=== PATIENT | female | born 1995 | race Caucasian/White ===

== ENCOUNTER → 2018-05-26 15:25 | Outpatient (CLI) | payer MEDICAID, SELFPAY ==
[2018-05-26 17:53] LABS: Hematocrit 41.7 % (37-47); Hemoglobin 12.9 g/dl (12.0-15.0); Mean Corp Hgb Conc 30.9 g/gl (32-36); Mean Corpuscular Hgb 26.5 pg (27.0-32.0); Mean Corpuscular Volume 85.8 fL (81-99); Mean Platelet Vol. 11.9 fl (6.2-12.0); Platelet Count 239 K/mm3 (150-450); RBC Distribution Width CV 14.6 % (11.6-14.6); RBC Distribution Width SD 45.8 fl (35.1-43.9); Red Blood Count 4.86 M/mm3 (4.2-5.4); White Blood Count 10.7 K/mm3 (4.4-11.0)
[2018-05-26 18:19] LABS: ALB/GLOB Ratio 0.8 RATIO (0.9-2.4); AST(SGOT) 15 U/L (15-37); Alanine Aminotransfer ALT/SGPT 25 U/L (13-56); Albumin, Serum 3.7 g/dL (3.2-5.0); Alkaline Phosphatase 82 U/L (45-117); Anion Gap 14 (5-15); BUN 10 mg/dL (7-18); BUN/Creat Ratio 12.3 RATIO (10-20); Calcium,Total 9.5 mg/dL (8.5-10.1); Chloride 110 mmol/L (98-107); Creatinine, Serum 0.81 mg/dL (0.55-1.02); EST Glomerular Filtration Rate 94 mL/min (>60); Est Glom Filt Rate - Afr Amer 113 mL/min (>60); Ferritin 7 ng/mL (8-252); Globulin 4.8 g/dL (2.2-4.2); Glucose 87 mg/dL (74-106); Potassium 3.8 mmol/L (3.5-5.1); Protein, Total 8.5 g/dL (6.4-8.2); Sodium Level 146 mmol/L (136-145); Thyroid Stim Hormone (TSH) 3.14 uIU/mL (0.358-3.74)
[2018-05-26 18:57] LABS: Scan Indicated on CBC? Y/N NO
== END ==
PROVIDERS: Family Provider Family Medicine; PCP Family Medicine; Visit Provider Family Medicine
DX: E66.01 Morbid (severe) obesity due to excess calories (principal)
CPT/HCPCS: 36415; 80053; 82728; 83036; 84443; 85027

== ENCOUNTER → 2019-01-25 13:36 | Outpatient (CLI) | payer MEDICAID, SELFPAY ==
[2017-07-27 01:14] VITALS: BMI 49.7
[2019-01-25 16:31] LABS: Chlamydia Trachomatis by PCR Negative (Negative); Neisserai gonorrhoeae by PCR Negative (Negative); Probe Check PASS; Sample Adequacy Control PASS; Specimen Processing Control PASS
== END ==
PROVIDERS: Visit Provider Obstetrics & Gynecology
DX: Z12.4 Encounter for screening for malignant neoplasm of cervix (principal); Z11.3 Encounter for screening for infections with a predominantly sexual mode of transmission
CPT/HCPCS: 87491; 87591; 88175; G0145

== ENCOUNTER → 2019-05-12 14:16 | Outpatient (CLI) | payer MEDICAID, SELFPAY ==
[2017-07-27 01:14] VITALS: BMI 49.7
[2019-05-12 15:53] LABS: Internal QC Validated? YES +Cl - CLEAR BKGD
[2019-05-12 15:54] LABS: Pregnancy, Serum, hCG Quali. NEGATIVE Negative
== END ==
PROVIDERS: Family Provider Family Medicine; PCP Family Medicine; Referring Provider Family Medicine; Visit Provider Family Medicine
DX: R11.2 Nausea with vomiting, unspecified (principal)
CPT/HCPCS: 36415; 84703

== ENCOUNTER → 2019-10-02 15:29 | Outpatient (CLI) | payer MEDICAID, SELFPAY ==
[2017-07-27 01:14] VITALS: BMI 49.7
[2019-10-02 18:18] LABS: hCG Titer Quant., Serum < 1 mIU/mL (1-3)
== END ==
PROVIDERS: Family Provider Family Medicine; PCP Family Medicine; Visit Provider Nurse Practitioner Adult Health
DX: Z32.00 Encounter for pregnancy test, result unknown (principal)
CPT/HCPCS: 36415; 84702

== ENCOUNTER 2019-11-18 17:44 | Emergency (ER) | payer MEDICAID, SELFPAY ==
[2019-11-18 17:46] VITALS: BP 144/102; PULSE 120; RESP 17; TEMP 36.7; O2SAT 100; BMI 52.9
--- NOTE | 2019-11-18 18:13 | ED.VIS.GEN ---
History of Present Illness Chief Complaint: Ear Problem Detail of Chief Complaint: Ingestion, runny nose, right ear pain Informant: Patient Onset: Yesterday Current Severity: Mild Maximum Severity: Moderate Narrative: Patient presents with congestion, runny nose, right ear pain that started yesterday. She has not noted any fever. She has no cough or shortness of breath. No chest pain. She tried taking some Tylenol for her symptoms. Past Medical History - Allergies and Home Meds Allergies/Adverse Reactions: Allergies No Known Allergies Allergy (Verified 11/18/19 17:44) Primary Care Physician: Joesph Aguiar MD [Primary Care Provider] - Past Medical History: None Lives: Spouse/ Significant Other Smoking Status: Former smoker Review of Systems General: Denies: Chills, Fever Eyes: Denies: Visual changes - bilaterally ENT: Reports: Right ear pain, Rhinorrhea, - - Congestion Cardiovascular: Denies: Chest pain Respiratory: Denies: Dyspnea, Cough, Paroxysmal nocturnal dyspnea Gastrointestinal: Denies: Abdominal pain, Vomiting, Diarrhea Genitourinary: Denies: Dysuria Musculoskeletal: Denies: Extremity Pain Skin: Denies: Rash Neurological: Denies: Headache Allergy: Denies: Uticaria Physical Exam Vital Signs/Narrative: Vital Signs Temp Pulse Resp BP Pulse Ox 11/18/19 17:46 98.0 F 120 H 17 144/102 H 100 Inital Vital Signs reviewed: Yes General: Well nourished, Well developed Head: Normocephalic ENT: Moist mucous membranes, - - Bilateral ear exam reveals clear fluid behind the TMs, but no sign of infection. Posterior pharynx examination reveals 1+ tonsils with midline uvula. No cervical lymphadenopathy. Neck: Supple Cardiovascular: Regular rhythm, Tachycardia Respiratory: No distress, CTA bilaterally Abdomen: Soft, Nontender Skin: Normal color Neurological: Alert, Oriented x3 Psychological: Normal affect Diagnostic/Tx/Re-eval - Medical Decision Making Patient symptoms are consistent with viral URI. She is given Afrin nasal spray here to help open her sinuses and is given a dose of Sudafed. She was told she could take Sudafed [id number] or Benadryl. ED Disposition - Plan for ED Patient: Disposition: Home or Assisted Living Diagnosis: Viral URI Instructions: URI, Viral, No Abx (Adult) Referrals: Joesph Aguiar MD [Primary Care Provider] - 1 Week if not improving
[2019-11-18] MEDS: Oxymetazoline 0.05% 1 SPRAY SPRAY.BTL 2 SPRAY NASAL (18:37)
[2019-11-18 18:38] VITALS: RESP 18
== END 2019-11-18 18:39 | disposition home or self-care (01) ==
LOC: ED 18:24
PROVIDERS: Emergency Provider Emergency Medicine; PCP Family Medicine
DX: J06.9 Acute upper respiratory infection, unspecified (principal); Z87.891 Personal history of nicotine dependence
CPT/HCPCS: 99283

== ENCOUNTER → 2019-11-30 15:44 | Outpatient (CLI) | payer MEDICAID, SELFPAY ==
[2019-11-18 17:46] VITALS: BMI 52.9
== END ==
PROVIDERS: PCP Family Medicine; Referring Provider Otolaryngology Otolaryngology/Facial Plastic Surgery; Visit Provider Otolaryngology Otolaryngology/Facial Plastic Surgery
DX: J02.9 Acute pharyngitis, unspecified (principal)
CPT/HCPCS: 87070

== ENCOUNTER 2019-12-16 00:36 | Emergency (ER) | payer MEDICAID, SELFPAY ==
[2019-12-16 00:37] VITALS: BP 129/99; PULSE 125; RESP 18; TEMP 36.6; O2SAT 99; BMI 52.0
--- NOTE | 2019-12-16 00:48 | RAD_ITS ---
STUDY: X-RAY CHEST REASON FOR EXAM: Female, 24 years old. COUGH X 1 WEEK TECHNIQUE: PA and lateral views of the chest. COMPARISON: None. FINDINGS: The lungs are clear and expanded. There is no demonstrated pleural abnormality. Normal size heart. Normal mediastinum and phoenix. Normal visualized pulmonary arteries. Normal visualized aortic arch and descending thoracic aorta. Normal visualized thoracic spine. Normal visualized ribs, clavicles, and shoulders. There is no demonstrated abnormality of the visualized soft tissue structures of the upper abdomen. RAD/Chest PA and Lateral IMPRESSION: Normal x-ray examination of the chest. Electronically Signed: Brianna Hawkins MD at 1:11 EDT , Service support ,
--- NOTE | 2019-12-16 01:35 | ED.VIS.GEN ---
History of Present Illness Chief Complaint: Cough Informant: Patient Onset: Weeks - 1 Narrative: Mild productive cough for the past week. States mild blood today. No tobacco history. No recent travel, surgeries, or immobilizations. No history of PE or DVT. Denies any chest pains or any dyspnea. No abdominal pain nausea vomiting. No urinary symptoms. States he is 4 days late on her period. She states she took 3 tests, 2 negative, the other 1 did not have results. Prior similar symptoms: No Past Medical History - Allergies and Home Meds Allergies/Adverse Reactions: Allergies No Known Allergies Allergy (Verified 12/16/19 00:39) Primary Care Physician: Joesph Aguiar MD [Primary Care Provider] - 3-5 Days if not improving Past Medical History: None Smoking Status: Current every day smoker Review of Systems General: Denies: Chills, Fever, Sweats Eyes: Denies: Visual changes - bilaterally, Diplopia ENT: Denies: Rhinorrhea, Sore throat Cardiovascular: Denies: Chest pain, Palpitations Respiratory: Reports: Cough. Denies: Dyspnea, Dyspnea on exertion Gastrointestinal: Denies: Abdominal pain, Nausea, Vomiting, Diarrhea, Melena, Hematochezia Genitourinary: Denies: Dysuria, Hematuria, Frequency Musculoskeletal: Denies: Back pain, Extremity Pain Skin: Denies: Rash, Wounds Neurological: Denies: Headache, Weakness, Numbness Physical Exam Vital Signs/Narrative: Vital Signs Temp Pulse Resp BP Pulse Ox 12/16/19 00:37 97.8 F 125 H 18 129/99 H 99 Inital Vital Signs reviewed: Yes General: Well nourished, Well developed, No Acute Distress Head: Normocephalic, Atraumatic Eyes: Perrl, EOMI ENT: Moist mucous membranes, No rhinorrhea Neck: Supple, Nontender Cardiovascular: Regular rate, Regular rhythm, No murmurs, Tachycardia Respiratory: No distress, CTA bilaterally, Chest nontender Abdomen: Soft, Nontender, Nondistended, Normal bowel sounds Back: Nontender, Normal Inspection Extremities: Nontender, No edema Skin: Normal color, No rash Neurological: Alert, Oriented x3, Cranial nerves II-XII grossly intact, Normal Strength, Normal Sensation Psychological: Normal affect, Normal Mood Diagnostic/Tx/Re-eval - Medical Decision Making Clinical Impression(s) from Imaging Studies Chest X-Ray 12/16/19 00:48 IMPRESSION: Normal x-ray examination of the chest. Electronically Signed: Brianna Hawkins MD at 1:11 EDT , Service support , Patient nontoxic, tachycardia on evaluation. Reports slight blood in cough. She denies chest pains, dyspnea, or any exertional dyspnea for concerns of PE. There is no risk factors. Chest x-ray obtained negative. Discussed with patient currently negative test at home. She can recheck in 1 week for potential early . Patient will follow-up as an outpatient. Signs and symptoms were discussed to return. All questions were answered. ED Disposition - Plan for ED Patient: Disposition: Home or Assisted Living Diagnosis: Viral URI with cough Instructions: BRONCHITIS, No Antibiotic (Adult) Referrals: Joesph Aguiar MD [Primary Care Provider] - 3-5 Days if not improving
[2019-12-16 01:45] VITALS: RESP 14
== END 2019-12-16 01:45 | disposition home or self-care (01) ==
PROVIDERS: Emergency Provider Emergency Medicine; PCP Family Medicine
DX: J06.9 Acute upper respiratory infection, unspecified (principal); R05 Cough; F17.200 Nicotine dependence, unspecified, uncomplicated
CPT/HCPCS: 71046; 99282

== ENCOUNTER → 2020-01-31 15:27 | Outpatient (CLI) | payer MEDICAID, SELFPAY | PROVIDERS: PCP Family Medicine; Referring Provider Family Medicine; Visit Provider Family Medicine | DX: J02.9 Acute pharyngitis, unspecified (principal) | CPT/HCPCS: 87070 ==

== ENCOUNTER 2020-02-08 11:00 | Outpatient (RCR) | payer MEDICAID, SELFPAY ==
--- NOTE | 2020-01-30 14:58 | HP.PTEVAL ---
Patient's Visit Information SERGIO MAGAÑA is a 24 year old F referred to Physical Therapy by Dr. Joesph Aguiar MD with a diagnosis of L knee pain. Date of Evaluation: 01/30/20 Physical Therapist: Edgar Medrano PT, ATC - Visit Plan Frequency: 2x /Week Duration: 4 Weeks Plan: L LE strengthening, core strengthening, balance and proprio, bike, and HEP - Subjective Subjective: Pt reports her L knee has been sore for 6-7 years. Pt notes she was in gym class when her L knee gave out on her. Pt reports her knee has been sore ever since and continues to go out on her, and she has a 2 year old child currently. Pt also notes her L knee pops and locks up on her. Pt reports no tingling or numbness in her L knee. Pt notes sleep difficulty st night secondary to pain. Pt reports she has svere difficulty with stair negotiation and car transfers secondary to pain. No PMHx of surgery to L knee. 5/10 pain at rest, 10/10 at worst (when knee locks up) - Pain L knee Pain Intensity (Out of 10): 5 Pain Intensity Range: 10 - Objective Neuro: B LE sensation is WNL to light touch. ROM: R knee 0-120; L knee 0-4-95. MMT: L knee is grossly 4-/5, R knee 5/5 throughout. Palpation: Pt is very sore along the medial compartment of L knee. No obvious deformity at this time. Special tests: pos mcmurrays sign - Goals Goal 1:: Decrease L knee pain x 50% to aid with sleep Goal Time Frame: 2-4 Weeks Goal 2:: Increase L knee strength x 1 grade to aid with stair negotiation Goal Time Frame: 2-4 Weeks Goal 3:: I with HEP Goal Time Frame: 2-4 Weeks - Rehabilitation Potential Physical Therapy Diagnosis: Pt has L knee pain, weakness, and limited ROM secondary to possible L knee meniscal tear Rehabilitation Potential: Good - Anticipated Interventions Patient/Client Instruction: Educate patient on: Condition, Plan of Care For the Purpose of:: To improve self management Therapeutic Exercise to Include: Strength training, Endurance training, Balance training, Active ROM, Dynamic Lumbar Stabilization For the Purpose of:: To decrease pain, To increase ROM, To improve muscle performance and motor function Cryotherapy (ice pack, ice massage): Yes For the Purpose of:: To decrease pain, To increase ROM, To improve muscle performance and motor function Thank you for the opportunity to evaluate your patient. For Medicare and Medicare HMO plans, please review the plan of care and approve it. It will need to be FAXED BACK to us at [phone] for Medicare purposes. For Medicare only, by signing this I certify the plan of care. Please let me know if there are questions or concerns regarding this plan of care. Physician Signature: Date:
--- NOTE | 2020-06-05 12:55 | HP.PT.NRP ---
SERGIO MAGAÑA was seen in my office for initial evaluation on 01/30/20. The following Plan of Care was established for this patient: Initial Frequency: 2x /Week Initial Duration: 4 Weeks Patient/Client Instruction: Educate patient on: Condition, Plan of Care For the Purpose of:: To improve self management Therapeutic Exercise to Include: Strength training, Endurance training, Balance training, Active ROM, Dynamic Lumbar Stabilization For the Purpose of:: To decrease pain, To increase ROM, To improve muscle performance and motor function Cryotherapy (ice pack, ice massage): Yes For the Purpose of:: To decrease pain, To increase ROM, To improve muscle performance and motor function This patient was last seen in our office . Pertinent comments regarding their Physical therapy will appear below: Pt was treated for 3 PT visits for L knee pain through 02/08/20. Pt has not returned through todays date and is discontinued at this time. At this point I will be discontinuing this patient from physical therapy. I would be happy to see this patient again in the future if found appropriate by the physician. Thank you! Edgar Medrano, PT, ATC
== END 2020-02-08 19:00 | disposition home or self-care (01) ==
LOC: PT 11:00
PROVIDERS: PCP Family Medicine; Referring Provider Family Medicine; Visit Provider Family Medicine
DX: M25.9 Joint disorder, unspecified (principal)
CPT/HCPCS: 97110; 97140; 97161

== ENCOUNTER 2020-03-26 07:00 | Day surgery (SDC) | payer MEDICAID, SELFPAY ==
[2020-03-26] VITALS (8 sets, daily range): BP systolic 95–141; BP diastolic 60–83; PULSE 71–107; RESP 16–18; TEMP 36.4–37.1; O2SAT 93–100; BMI 55.9
[2020-03-26 07:27] LABS: Internal QC Validated? YES +Cl - CLEAR BKGD; Pregnancy, Urine Negative Negative
[2020-03-26] MEDS: Lactated Ringers 1,000 ML 100 ML IV (07:35)
--- NOTE | 2020-03-26 07:59 | PCM.OPRPT ---
Problem List (1) Chronic tonsillitis Status: Chronic (2) Chronic serous otitis media Status: Chronic Report of Operation Date of Procedure: 03/26/20 Type of Anesthesia:: General Description of Procedure: on the day of the procedure, after appropriate informed consent was obtained, the patient was brought to the operating room and placed in supine position on the operating table. she was placed under general endotracheal anesthesia by the anesthesiologist. the endotracheal tube was secured, the eyes were taped. the table was rotated 90 degrees toward the surgeon. the right ear was viewed using the binocular microscope. a speculum was placed. the tympanic membrane was viewed in its entirety and found to be intact. a radial myringotomy was made and a cifuentes tympanostomy tube was placed. floxin otic drops were instilled. the left ear was viewed using the binocular microscope. a speculum was placed. the tympanic membrane was viewed in its entirety and found to be intact. a radial myringotomy was made and a cifuentes tympanostomy tube was placed. floxin otic drops were instilled. a марина le mouthgag was inserted into the oral cavity with care not to damage the lips, teeth or gums. it was suspended from the mujica. a red rubber catheter was inserted transnasally to elevate the soft palate. the right tonsil was grasped with a curved allis, retracted medially, dissected and removed using a bovie electrocautery. hemostasis was observed. the right tonsil was grasped with a curved allis, retracted medially, dissected and removed using a bovie electrocautery. hemostasis was observed. a valsalva was held and hemostasis was obtained with the suction electrocautery the patient was brought out of anesthesia and transferred to the PACU in stable condition.
--- NOTE | 2020-03-26 08:30 | TONS_PTH ---
PATIENT: SERGIO PARRISH LOC: [facility] [place] U#:[id number] AGE/SX: 24/F ROOM: RE03/26/[address]: Dr. Abe Monroy MD : 1995 BED: DIS: 03/26/2020 SPEC #: [id number] RECD: 03/26/20 09:30 STATUS: ALEXX HARTLEY #: [id number] EVELYNE: 03/26/20 08:[address]: Abe Monroy DEPT: SURGICAL PATHOLOGY RECD BY: Mirian Malagon ENTERED: 03/26/20 10:00 SP TYPE: TONSILS OTHR DR: Dr. Joesph Aguiar MD Tissues: Tonsil, NOS Procedures: Surgery Specimen Level III HEADER OPERATION: Tonsillectomy, myringotomy with tubes PRE-OP DIAGNOSIS: Chronic tonsillitis, chronic serous otitis TISSUE SUBMITTED: Tonsils, tie on right MICROSCOPIC DIAGNOSIS Bilateral tonsils, tonsillectomy: Reactive lymphoid hyperplasia, consistent with chronic tonsillitis. Focal actinomyces colonization. HILARIO:desirae 03/27/20 MICROSCOPIC DESCRIPTION Slides are reviewed. GROSS DESCRIPTION Received is one container labeled with the patient's name and designated tonsils - tie on right are two tonsils that in aggregate weigh 11.4 gm. The right tonsil has a tie on it and measures 3.5 x 2 x 1.5 cm. The left tonsil measures 3.5 x 2 x 1.5 cm. Both tonsils are similar in appearance. The external surfaces are pink-enriquez, smooth, glistening and somewhat lobulated. Focally they are hemorrhagic, granular and bear cautery artifact. Serial cross sections through the tonsils reveal normal tonsillar architecture. Sections are submitted in two cassettes as follows: 1 - right tonsil, 2 - left tonsil. / HILARIO:desirae 03/26/20 TC:3 CPT: 04002 x2
[2020-03-26] MEDS: Ciprofloxacin 0.3% 2.5ml Bottle 1 DRP (08:50)
[2020-03-26] MEDS: HYDROcodone Bitartrate/Apap 5/325 Tablet PO (11:20)
--- NOTE | 2020-03-26 12:12 | SUR.PHASEII ---
TONSILLECTOMY TEACHING BOOKLET GIVEN TO PT AND REVIEWED
== END 2020-03-26 12:12 | disposition home or self-care (01) ==
LOC: SDC 07:01 → AC 07:02
PROVIDERS: Anesthesiology; PCP Family Medicine; Referring Provider Otolaryngology; Visit Provider Otolaryngology
PROC: (CPT 42826; principal; 2020-03-26 08:15)
DX: J35.01 Chronic tonsillitis (principal); H65.23 Chronic serous otitis media, bilateral; H66.006 Acute suppurative otitis media without spontaneous rupture of ear drum, recurrent, bilateral; E66.01 Morbid (severe) obesity due to excess calories; Z68.43 Body mass index [BMI] 50.0-59.9, adult
CPT/HCPCS: 00170; 42826; 69436; 81025; 87635; 88304; G2023; J7120; J2405; U0003

== ENCOUNTER 2020-03-29 21:59 | Emergency (ER) | payer MEDICAID, SELFPAY ==
[2020-03-26 07:24] VITALS: BMI 55.9
[2020-03-29 22:00] VITALS: BP 174/107; PULSE 110; RESP 18; TEMP 36.6; O2SAT 98; BMI 53.5
[2020-03-29] MEDS: 0.9% Normal Saline 1,000 ML 999 ML IV (22:54)
[2020-03-29] MEDS: Ondansetron 4 MG/2 ML Vial IV (22:54)
[2020-03-29 22:57] VITALS: RESP 18
--- NOTE | 2020-03-29 23:56 | ED.DCSUM_ITS ---
- ER Visit Summary Date of Service: 03/29/20 Chief Complaint: Nausea and vomiting status post tonsillectomy History of Present Illness: The patient is a 24 F who complains of nausea and vomiting. She had a tonsillectomy performed at this facility [address] Monroy. She states that she has had a fairly normal postoperative course. She has been taking oxycodone at home for the pain. She has had some nausea and vomiting which is causing her issues. She feels as she cannot keep anything down. She denies any dizziness or lightheadedness. She is having some throat pain since her tonsillectomy. Her temperature was 99.1 ?F today. Physical Examination: Vital signs reviewed. HEENT exam shows postoperative changes in the pharynx. There is no bleeding. No significant erythema. She is handling her secretions normally. No uvular swelling.. Heart is tachycardic and regular rhythm without murmurs. Lungs are clear to auscultation. Abdomen is soft and nontender. Extremities reveal no edema. Skin exam normal. Neurologic exam normal. Test Results: None performed Emergency Department Course and Treatment: The patient was given IV fluids and Zofran. She states that she does feel better. She was complaining of some throat pain so I gave her IV Toradol. Patient be discharged with Zofran to take help with her nausea. She will continue her home pain medications and she will follow-up with ENT Treatment Plan: [] Disposition: Discharge Impression: Nausea and vomiting, postoperative pain This note was generated with [employer] dictation software. It may contain incorrect words, spelling, and punctuation that were not noted in review of the chart prior to signing ED Disposition - Plan for ED Patient: Disposition: Home or Assisted Living Instructions: ED Nausea Vomiting Adult Prescriptions: Ondansetron [Zofran Odt] 8 mg PO Q8H PRN PRN #20 tab PRN Reason: Nausea Transmission Status: Pending to [facility] #30 Referrals: Joesph Aguiar MD [Primary Care Provider] -
[2020-03-30] MEDS: Ketorolac 30 MG/ML Syringe IV (00:13)
[2020-03-30 00:17] VITALS: BP 144/89; PULSE 97; RESP 20; TEMP 36.8; O2SAT 98
[2020-03-30 00:23] VITALS: RESP 16
== END 2020-03-30 00:52 | disposition home or self-care (01) ==
PROVIDERS: Emergency Provider Emergency Medicine; PCP Family Medicine
DX: R11.2 Nausea with vomiting, unspecified (principal); J02.9 Acute pharyngitis, unspecified; Z98.890 Other specified postprocedural states
CPT/HCPCS: 96361; 96374; 96375; 99285; J7030; J2405

== ENCOUNTER 2020-06-18 12:19 | Emergency (ER) | payer MEDICAID, SELFPAY ==
[2020-06-18 12:20] VITALS: BP 150/131; PULSE 110; RESP 18; TEMP 36.4; O2SAT 100; BMI 42.9
--- NOTE | 2020-06-18 12:32 | ED.DCSUM_ITS ---
History of Present Illness Chief Complaint: Lower Extremity Injury Informant: Patient Occurred: Today - JPFRANICS Mechanism/Context: Same level fall, Trip - While carrying a heavy load of clothes, tripped on the sidewalk Location: Right knee, left ankle Quality of Pain: Aching Current Severity: Severe Maximum Severity: Severe Worsened by: Walking and bearing weight, moving Relieved by: Rest and remaining still Associated Symptoms: Negative for: Parasthesias, Weakness, Loss of function, Inability to ambulate, Loss of consciousness, Amnesia Narrative: Patient was able to weight-bear at the time of the injury and now, but with pain. No other injuries. She twisted her left ankle when she fell. She then fell onto her right knee. Past Medical History - Allergies and Home Meds Allergies/Adverse Reactions: Allergies No Known Allergies Allergy (Verified 06/18/20 12:22) Primary Care Physician: Joesph Aguira MD [Primary Care Provider] - 1-2 Weeks (if not improving) Past Medical History: None Smoking Status: Never smoker Review of Systems General: Denies: Chills, Fever, Sweats Gastrointestinal: Denies: Nausea, Vomiting Musculoskeletal: Reports: Extremity Pain. Denies: Neck pain, Back pain Neurological: Denies: Headache, Weakness, Numbness Physical Exam Vital Signs/Narrative: Vital Signs Temp Pulse Resp BP Pulse Ox 06/18/20 12:20 97.6 F L 110 H 18 150/131 H 100 General: Well nourished, Well developed, Obese, - - NAD Head: Normocephalic, Atraumatic Eyes: Perrl, EOMI Neck: Full ROM Extremeties: Tender left lateral malleolus, nontender at the medial malleolus, base of the fifth metatarsal, proximal fibula, knee. Limited range of motion of the left ankle due to pain, no deformities or significant swelling. Right knee diffusely tender anteriorly, including at the area around the tibial tuberosity. No deformities. Limited flexion due to pain. No effusion. Ligaments all stable and intact with short endpoints. Otherwise, extremities atraumatic. Skin: Normal color, No rash, Trauma - Mild contusion with intact skin right proximal lower leg Neurological: Alert, Oriented x3, Cranial nerves II-XII grossly intact, Normal Strength, Normal Sensation Psychological: Normal affect, Normal Mood Diagnostic/Tx/Re-eval Clinical Impression(s) from Imaging Studies Ankle X-Ray 06/18/20 12:50 IMPRESSION: Normal x-ray examination of the ankle. Electronically Signed: Darshan Baxteroksana, at 13:40 EDT , Service support , Knee X-Ray 06/18/20 12:50 IMPRESSION: Normal x-ray examination of the knee. Electronically Signed: Darshan Baxteroksana, at 13:41 EDT , Service support , - Medical Decision Making X-rays of the left ankle and right knee are negative for any acute fracture or other pathology. Patient reassured, consistent with a left ankle sprain and a right knee/lower leg contusion. Given an Aircast, Naprosyn, ice pack, and instructions for supportive care and follow-up. ED Disposition - Plan for ED Patient: Disposition: Home or Assisted Living Diagnosis: Left ankle sprain, Contusion of right knee and lower leg Instructions: ED Sprain Ankle Prescriptions: Naproxen [Naprosyn] 500 mg PO BID PRN #20 tab Transmission Status: Pending to [employer] #30 Referrals: Joesph Aguiar MD [Primary Care Provider] - 1-2 Weeks (if not improving)
--- NOTE | 2020-06-18 12:50 | RAD_ITS ---
STUDY: X-RAY - RIGHT KNEE REASON FOR EXAM: Female, 24 years old. PATIENT FELL TODAY. PAIN ALL OVER KNEE TECHNIQUE: 4 view(s) of the knee. COMPARISON: None. FINDINGS: Normal visualized distal femur. Normal visualized proximal tibia and fibula. Normal proximal tibiofibular articulation. Normal medial femorotibial compartment. Normal lateral femorotibial compartment. Normal patellofemoral articulation. The soft tissue structures are unremarkable. RAD/Knee 4 or More Views IMPRESSION: Normal x-ray examination of the knee. Electronically Signed: Darshan Ryan, at 13:41 EDT , Service support ,
--- NOTE | 2020-06-18 12:50 | RAD_ITS ---
STUDY: X-RAY - LEFT ANKLE REASON FOR EXAM: Female, 24 years old. PT FELL TODAY. PAIN ALONG LATERAL SIDE OF ANKLE TECHNIQUE: 3 view(s) of the ankle. COMPARISON: None. FINDINGS: Normal visualized distal tibia and fibula. Normal medial and lateral malleoli. Normal tibiotalar articulation and ankle mortise. Normal visualized talus and calcaneus. The visualized subtalar, talonavicular, calcaneocuboid and tarsal articulations are normal. The soft tissue structures are unremarkable. RAD/Ankle min 3 Views IMPRESSION: Normal x-ray examination of the ankle. Electronically Signed: Darshan Ryan, at 13:40 EDT , Service support ,
[2020-06-18] MEDS: Naproxen 500 MG Tablet PO (13:44)
== END 2020-06-18 13:50 | disposition home or self-care (01) ==
PROVIDERS: Emergency Provider Emergency Medicine; PCP Family Medicine
DX: S93.402A Sprain of unspecified ligament of left ankle, initial encounter (principal); S80.01XA Contusion of right knee, initial encounter; S80.11XA Contusion of right lower leg, initial encounter; W19.XXXA Unspecified fall, initial encounter
CPT/HCPCS: 73564; 73610; 99283

== ENCOUNTER → 2020-06-24 11:49 | Outpatient (CLI) | payer MEDICAID, SELFPAY ==
[2020-06-18 12:20] VITALS: BMI 42.9
--- NOTE | 2020-06-24 11:50 | RAD_ITS ---
STUDY: X-RAY - LEFT ANKLE REASON FOR EXAM: Female, 24 years old. Left ankle injury, second recent fall TECHNIQUE: 3 view(s) of the ankle. COMPARISON: Comparison is made with prior study dated 06/18/2020. FINDINGS: Normal visualized distal tibia and fibula. Normal medial and lateral malleoli. Normal tibiotalar articulation and ankle mortise. Normal visualized talus and calcaneus. The visualized subtalar, talonavicular, calcaneocuboid and tarsal articulations are normal. The soft tissue structures are unremarkable. RAD/Ankle min 3 Views IMPRESSION: Medial soft tissue swelling. Electronically Signed: Darshan Ryan, at 15:19 EDT , Service support ,
== END ==
PROVIDERS: PCP Family Medicine; Referring Provider Family Medicine; Visit Provider Family Medicine
DX: S99.912A Unspecified injury of left ankle, initial encounter (principal); Z20.828 Contact with and (suspected) exposure to other viral communicable diseases
CPT/HCPCS: 73610; 87635; U0003

== ENCOUNTER 2020-07-06 22:27 | Emergency (ER) | payer MEDICAID, SELFPAY ==
[2020-07-06 22:28] VITALS: BP 135/107; PULSE 115; RESP 18; TEMP 36.6; O2SAT 100; BMI 52.9
--- NOTE | 2020-07-06 22:36 | ED.VIS.GEN ---
History of Present Illness Chief Complaint: Upper Extremity Injury Informant: Patient Narrative: 24-year-old female presenting with pain in her left hand fifth digit. She states he slammed it in a pizza oven at work. She states it hurts and it swollen. She took Tylenol. She sustained no lacerations or abrasions. She does not want to claim workers comp. She states she has no medical problems. She sustained no other injuries. No paresthesias. Past Medical History - Allergies and Home Meds Allergies/Adverse Reactions: Allergies No Known Allergies Allergy (Verified 07/06/20 22:29) Primary Care Physician: Joesph Aguiar MD [Primary Care Provider] - Past Medical History: - - Patient denies medical problems Surgical History: noncontributory Lives: Alone Smoking Status: Current every day smoker Alcohol: None Drugs: None Review of Systems General: Denies: Chills, Fever, Sweats Eyes: Denies: Visual changes - bilaterally, Diplopia ENT: Denies: Rhinorrhea, Sore throat Cardiovascular: Denies: Chest pain, Palpitations Respiratory: Denies: Dyspnea, Cough, Dyspnea on exertion Gastrointestinal: Denies: Abdominal pain, Nausea, Vomiting, Diarrhea, Melena, Hematochezia Genitourinary: Denies: Dysuria, Hematuria, Frequency Musculoskeletal: Reports: - - Tenderness to palpation diffusely over the right fifth PIP. There is swelling at the PIP. Right hand is neurovascularly intact throughout with brisk cap refill to all 5 fingers.. Denies: Back pain Skin: Denies: Rash, Wounds Neurological: Denies: Headache, Weakness, Numbness Physical Exam Vital Signs/Narrative: Vital Signs Temp Pulse Resp BP Pulse Ox 07/06/20 22:28 97.9 F 115 H 18 135/107 H 100 General: Obese, No Acute Distress Head: Normocephalic, Atraumatic Eyes: Perrl, EOMI Cardiovascular: Regular rate, Regular rhythm Respiratory: No distress, CTA bilaterally Extremities: - - Tenderness to palpation diffusely over the right fifth PIP. There is swelling at the PIP. Right hand is neurovascularly intact throughout with brisk cap refill to all 5 fingers. Skin: Normal color, No rash Neurological: Alert, Oriented x3 Psychological: Normal affect, Normal Mood Diagnostic/Tx/Re-eval Clinical Impression(s) from Imaging Studies Hand X-Ray 07/06/20 22:58 IMPRESSION: Small volar plate avulsion fracture of the middle phalanx, right fifth finger. Associated soft tissue swelling. No dislocation. at 2342 Reported and signed by: Thomas Cifuentes MD Electronically Signed: Thomas Cifuentes, at 23:41 EDT Tel , Service support , - Medical Decision Making Patient presents with finger pain from slamming her finger in a door of the [employer] oven. Her x-ray shows she has a small volar plate avulsion fracture. Patient with patient in a finger splint. She will be given follow-up with orthopedics. She will be given Naprosyn for home. Patient stable for discharge. Impression: 1. Avulsion fracture right hand fifth digit ED Disposition - Plan for ED Patient: Prescriptions: Naproxen [Naprosyn] 500 mg PO BID PRN #20 tab Transmission Status: Pending to [facility] Referrals: Joesph Aguiar MD [Primary Care Provider] -
--- NOTE | 2020-07-06 22:58 | RAD_ITS ---
HISTORY: PAIN IN RIGHT 5TH DIGIT, INJURY AT WORK. EXAMINATION/TECHNIQUE: XR right hand 3 views COMPARISON: 11/01/2015 FINDINGS: The middle phalangeal base, right fifth finger, shows a subtle and small volar plate avulsion fracture at its radial aspect. Associated soft tissue swelling of the proximal right fifth finger. No dislocation. Joint spaces appear preserved. No radiopaque foreign body. RAD/Hand Min 3 Views IMPRESSION: Small volar plate avulsion fracture of the middle phalanx, right fifth finger. Associated soft tissue swelling. No dislocation. at 2342 Reported and signed by: Thomas Cifuentes MD Electronically Signed: Thomas Cifuentes, at 23:41 EDT Tel , Service support ,
[2020-07-06] MEDS: Naproxen 500 MG Tablet PO (23:20)
[2020-07-06 23:52] VITALS: PULSE 115; RESP 18; O2SAT 100
== END 2020-07-07 00:33 | disposition home or self-care (01) ==
PROVIDERS: Emergency Provider Student in an Organized Health Care Education/Training Program; PCP Family Medicine
DX: S62.609A Fracture of unspecified phalanx of unspecified finger, initial encounter for closed fracture (principal); X58.XXXA Exposure to other specified factors, initial encounter; Y99.0 Civilian activity done for income or pay; F17.200 Nicotine dependence, unspecified, uncomplicated
CPT/HCPCS: 29130; 73130; 99283

== ENCOUNTER → 2020-07-10 11:53 | Outpatient (CLI) | payer MEDICAID, SELFPAY ==
[2020-07-06 22:28] VITALS: BMI 52.9
[2020-07-10 15:12] LABS: Absolute Lymphocyte Count 2.36 X10^3/uL (0.83-4.51); Absolute Neutrophil Count 7.5 X10^3/uL (2.0-7.7); Basophil# 0.02 X10^3/uL; Basophil% 0.2 % (0-1); Eosinophil# 0.15 X10^3/uL; Eosinophils% 1.4 % (0-5); Hematocrit 40.7 % (37-47); Hemoglobin 12.3 g/dL (12.0-15.0); Lymphocyte # 2.36 X10^3/ul (4.0); Lymphocyte % 22.1 % (19-41); Mean Corp Hgb Conc 30.2 g/dL (32-36); Mean Corpuscular Hgb 27.1 pg (27.0-32.0); Mean Corpuscular Volume 89.6 fL (81-99); Mean Platelet Vol. 12.2 fl (6.2-12.0); Monocyte# 0.68 X10^3/uL; Monocyte% 6.4 % (0-10); NRBC Flagged by Analyzer 0 % (0-5); Neutrophil # 7.45 X10^3/uL (2.7-7.7); Neutrophil % 69.6 % (47-70); Platelet Count 249 K/mm3 (150-450); RBC Distribution Width CV 13.2 % (11.6-14.6); RBC Distribution Width SD 43.6 fl (35.1-43.9); Red Blood Count 4.54 M/mm3 (4.2-5.4); White Blood Count 10.7 K/mm3 (4.4-11.0)
[2020-07-10 15:42] LABS: Internal QC Validated? YES +Cl - CLEAR BKGD; Pregnancy, Serum, hCG Quali. NEGATIVE Negative
[2020-07-10 15:51] LABS: Hemoglobin A1c 5.1 % (3.8-5.6)
[2020-07-10 15:59] LABS: ALB/GLOB Ratio 0.7 RATIO (0.9-2.4); AST(SGOT) 18 U/L (15-37); Alanine Aminotransfer ALT/SGPT 23 U/L (13-56); Albumin, Serum 3.5 g/dL (3.2-5.0); Alkaline Phosphatase 76 U/L (45-117); Anion Gap 7 (5-15); BUN 10 mg/dL (7-18); BUN/Creat Ratio 14.4 RATIO (10-20); Calcium,Total 8.6 mg/dL (8.5-10.1); Chloride 104 mmol/L (98-107); Creatinine, Serum 0.69 mg/dL (0.55-1.02); EST Glomerular Filtration Rate 110 mL/min (>60); Est Glom Filt Rate - Afr Amer 133 mL/min (>60); Globulin 4.7 g/dL (2.2-4.2); Glucose 75 mg/dL (74-106); Potassium 3.8 mmol/L (3.5-5.1); Protein, Total 8.2 g/dL (6.4-8.2); Sodium Level 136 mmol/L (136-145); Thyroid Stim Hormone (TSH) 2.78 uIU/mL (0.358-3.74)
== END ==
PROVIDERS: PCP Family Medicine; Referring Provider Family Medicine; Visit Provider Family Medicine
DX: N92.6 Irregular menstruation, unspecified (principal)
CPT/HCPCS: 36415; 80053; 83036; 84443; 84703; 85025

== ENCOUNTER → 2020-07-24 10:20 | Outpatient (CLI) | payer MEDICAID, SELFPAY ==
[2020-07-06 22:28] VITALS: BMI 52.9
--- NOTE | 2020-07-24 10:23 | RAD_ITS ---
STUDY: X-RAY - RIGHT HAND, ATTENTION 5th FINGER REASON FOR EXAM: Female, 24 years old. 5TH DIGIT AVULSION FX FOLLOW UP TECHNIQUE: 3 view(s) of the finger were obtained. COMPARISON: July 06, 2020 right hand x-ray FINDINGS: Normal metacarpal head. Normal metacarpophalangeal joint. Normal proximal phalanx. There is a stable focal avulsion injury and or corner fracture at the proximal aspect of the middle phalanx of the fourth digit. Normal distal phalanx. Normal proximal interphalangeal joint. Normal distal interphalangeal joint. There is soft tissue edema. RAD/Finger(s) Min 2 Views IMPRESSION: Stable fifth digit. Persistent visualized avulsion injury and/or corner fracture at the base of the middle phalanx of the fifth digit. Electronically Signed: Polina Mendoza MD at 4:33 EDT Tel , Service support ,
== END ==
PROVIDERS: PCP Family Medicine; Referring Provider Family Medicine; Visit Provider Family Medicine
DX: S62.646D Nondisplaced fracture of proximal phalanx of right little finger, subsequent encounter for fracture with routine healing (principal)
CPT/HCPCS: 73140

== ENCOUNTER 2020-11-10 14:59 | Emergency (ER) | payer MEDICAID, SELFPAY ==
[2020-11-10 15:00] VITALS: BP 153/96; PULSE 116; RESP 18; TEMP 36.1; O2SAT 100; BMI 54.9
--- NOTE | 2020-11-10 15:42 | EKG12_ITS ---
Test Reason : CP Blood Pressure : / mmHG Vent. Rate : 094 BPM Atrial Rate : 094 BPM P-R Int : 178 ms QRS Dur : 072 ms QT Int : 338 ms P-R-T Axes : 039 020 036 degrees QTc Int : 422 ms Normal sinus rhythm Normal ECG Confirmed by ALDAIR NUNEZ, NIKHIL ([id number]), manuscript editor JURGEN SORIA ([id number]) on 11/12/2020 8:25:55 AM Referred By: CHAN Confirmed By:NIKHIL QUINTEROS MD
--- NOTE | 2020-11-10 15:43 | ED.VISSUMM ---
- ER Visit Summary Date of Service: 11/10/20 Chief Complaint: [Chest pain] History of Present Illness: The patient is a 24 F [presents to the emergency department with complaint of chest pain that started around 1 or 2 in the morning last evening. Pain came on suddenly. Pains been continuous. Pain is worse with movement and deep breath. He describes it as sharp and across both sides of her chest and down her left breast. Patient denies shortness of breath. She denies abdominal pain. She denies fever or recent illness. She denies cough. She is never had pain like this before. No history of PE or DVT. Patient rates her pain as a 10 out of 10.] Patient states that she is unsure if this could be stress related as she has been under a lot more stress lately. She does not take anything for anxiety at home. Physical Examination: [HEENT-PERRLA, EOMI. Cranial nerves II through XII grossly intact. TMs clear. Mucous membranes moist. No adenopathy. Cardiovascular-regular rate and rhythm without murmur or ectopy. Patient does have tenderness palpation of the anterior chest wall diffusely that seems to reproduce her pain. Lungs-clear to auscultation, chest wall stable without crepitus or subcu emphysema Abdomen-normoactive bowel sounds, soft, nontender, no rebound or rigidity, no peritoneal signs. Extremities-intact ?4, normal range of motion, normal pulses, atraumatic] Test Results: [EKG obtained arrival shows sinus rhythm with a ventricular rate of 94 bpm with no acute ST segment changes. CBC with differential showing a 10.6, hemoglobin 12.8, hematocrit 41, placed 245. Chemistries unremarkable. Troponin was less than 0.015. D-dimer was 1.06. CTA of the chest obtained was normal.] Emergency Department Course and Treatment: [IV line established on arrival. Patient was given Toradol 30 mg IV and she had good pain improvement with that initially and then her pain came back. She was given a milligram of Ativan IV.] Treatment Plan: [Patient will be given a prescription for Ativan as needed. She is instructed to use ibuprofen for discomfort.] She will be given a prescription for few Ativan as needed for anxiety. Disposition: [Discharged home in stable condition] Impression: [Chest pain-etiology uncertain.] This note was generated with Dragon dictation software. It may contain incorrect words, spelling, and punctuation that were not noted in review of the chart prior to signing ED Disposition - Plan for ED Patient: Referrals: Joesph Aguiar MD [Primary Care Provider] -
--- NOTE | 2020-11-10 16:05 | RAD_ITS ---
STUDY: X-RAY CHEST REASON FOR EXAM: Female, 24 years old. C/O pain to chest that began suddenly around 1200 today. Pain increased with deep breaths. TECHNIQUE: AP COMPARISON: None. FINDINGS: EKG leads project over the chest. Lungs are underexpanded. No airspace consolidation. Mild atelectasis in the lung bases. There is no demonstrated pleural abnormality. Normal size heart. Normal mediastinum and phoenix. Normal visualized pulmonary arteries. Normal visualized aortic arch and descending thoracic aorta. Normal visualized thoracic spine. Normal visualized ribs, clavicles, and shoulders. There is no demonstrated abnormality of the visualized soft tissue structures of the upper abdomen. RAD/Chest 1 View (Portable) IMPRESSION: Hypoinflation with bibasilar atelectasis. Electronically Signed: Maxime Izaguirre MD (Brooks) at 16:30 EST , Service support ,
[2020-11-10] MEDS: Ketorolac 30 MG/ML Syringe IV (16:13)
[2020-11-10] MEDS: 0.9% Normal Saline 1,000 ML 150 ML IV (16:13)
[2020-11-10 16:22] LABS: Absolute Lymphocyte Count 2.39 X10^3/uL (0.83-4.51); Absolute Neutrophil Count 7.3 X10^3/uL (2.0-7.7); Basophil# 0.03 X10^3/uL; Basophil% 0.3 % (0-1); Eosinophil# 0.09 X10^3/uL; Eosinophils% 0.9 % (0-5); Hematocrit 41.1 % (37-47); Hemoglobin 12.8 g/dL (12.0-15.0); Lymphocyte # 2.39 X10^3/ul (4.0); Lymphocyte % 22.6 % (19-41); Mean Corp Hgb Conc 31.1 g/dL (32-36); Mean Corpuscular Hgb 27.5 pg (27.0-32.0); Mean Corpuscular Volume 88.2 fL (81-99); Mean Platelet Vol. 12.4 fl (6.2-12.0); Monocyte# 0.72 X10^3/uL; Monocyte% 6.8 % (0-10); NRBC Flagged by Analyzer 0 % (0-5); Neutrophil # 7.32 X10^3/uL (2.7-7.7); Neutrophil % 69.2 % (47-70); Platelet Count 245 K/mm3 (150-450); RBC Distribution Width CV 13.9 % (11.6-14.6); RBC Distribution Width SD 44.7 fl (35.1-43.9); Red Blood Count 4.66 M/mm3 (4.2-5.4); White Blood Count 10.6 K/mm3 (4.4-11.0)
[2020-11-10 16:23] LABS: Erythrocyte Sedimentation Rate 36 mm/hr (0-30)
[2020-11-10 16:37] LABS: Anion Gap 6 (5-15); BUN 10 mg/dL (7-18); BUN/Creat Ratio 13.7 RATIO (10-20); Chloride 106 mmol/L (98-107); Creatinine, Serum 0.73 mg/dL (0.55-1.02); D-Dimer Quantitative (DVT/PE) 1.06 FEU/ug/m (0.27-0.49); EST Glomerular Filtration Rate 103 mL/min (>60); Est Glom Filt Rate - Afr Amer 125 mL/min (>60); Estimated Creatinine Clearance 102.61 ml/min; Glucose 81 mg/dL (74-106); Sodium Level 137 mmol/L (136-145)
[2020-11-10 17:00] VITALS: BP 125/89; PULSE 92; RESP 16; O2SAT 97
--- NOTE | 2020-11-10 17:46 | CT_ITS ---
EXAM: CT ANGIOGRAPHY CHEST WITHOUT AND WITH INTRAVENOUS CONTRAST CLINICAL INDICATION: Chest pain today, hx asthma TECHNIQUE: Helically acquired angiography images were obtained of the chest without and with intravenous contrast. This CT exam was performed using one or more of the following dose reduction techniques: automated exposure control, adjustment of the mA and/or kV according to patient size, and/or use of iterative reconstruction technique. This report was created using [employer] report generation technology. MIP reconstructed images were created and reviewed. CONTRAST: IV 100mL Isovue-370 COMPARISON: None. FINDINGS: LIMITATIONS: Limited by motion artifact. PULMONARY ARTERIES: Unremarkable. Normal in caliber. No evidence of pulmonary embolism. AORTA: Unremarkable. Normal in caliber. No evidence of dissection. GREAT VESSELS OF AORTIC ARCH: Unremarkable. Normal in caliber. No evidence of dissection. LUNGS AND PLEURAL SPACES: The lungs are underexpanded. No mass. No pleural effusion or thickening. No pneumothorax. HEART: Unremarkable. Heart size is normal. No pericardial effusion. No signs of right heart strain. MEDIASTINUM: Normal residual thymic tissue of the anterior mediastinum. No mediastinal or hilar adenopathy. Esophagus is unremarkable. No hiatal hernia. THYROID: Unremarkable. No thyroid lesions. BONES/JOINTS: Unremarkable. No suspicious lytic or blastic abnormality. CT/CTA Chest W/WO Contrast IMPRESSION: No acute findings in the visualized arteries of the chest. Electronically Signed: Maxime Izaguirre MD (Brooks) at 18:49 EST , Service support ,
--- NOTE | 2020-11-10 19:09 | ED.DEP ---
ED Disposition - Plan for ED Patient: Instructions: ED Chest Pain, Uncertain Cause Prescriptions: Lorazepam [Ativan] 1 mg PO TID PRN #10 tab PRN Reason: Anxiety Prescription Printed Referrals: Joesph Aguiar MD [Primary Care Provider] - 3-5 Days
[2020-11-10] MEDS: LORazepam 2 MG/ML Syringe 1 MG IV (19:22)
[2020-11-10 19:23] VITALS: BP 137/85; PULSE 88; RESP 18; O2SAT 97
--- NOTE | 2020-11-10 19:37 | ED.RN ---
Work note given for today and tomorrow.
== END 2020-11-10 19:24 | disposition home or self-care (01) ==
LOC: ED 16:10
PROVIDERS: Emergency Provider Emergency Medicine; PCP Family Medicine
DX: R07.9 Chest pain, unspecified (principal)
CPT/HCPCS: 71045; 71275; 80048; 84484; 85025; 85379; 85652; 93005; 96361; 96374; 96375; 99285; J7030; Q9967; A4216

== ENCOUNTER 2020-12-09 20:36 | Emergency (ER) | payer MEDICAID, SELFPAY ==
[2020-12-09 20:37] VITALS: BP 155/108; PULSE 109; RESP 14; TEMP 36.4; O2SAT 100; BMI 37.8
--- NOTE | 2020-12-09 20:51 | ED.DCSUM_ITS ---
History of Present Illness Chief Complaint: Nausea/Vomiting Informant: Patient Narrative: 25-year-old female presenting with fever of 100 ?F, cold chills, body aches, sharp stabbing chest pain in the center of her chest. Patient states she recently traveled to [facility] by car with her girlfriend for a wedding and stayed with her for 5 days. Patient states that she found out today that her girlfriend has COVID-19. Patient herself has had symptoms since Wednesday afternoon when she started to feel body aches and chills. She developed a fever and chest pain earlier today. Denies history of DVT/PE. She is not on control. Denies cardiac history. Past Medical History - Allergies and Home Meds Allergies/Adverse Reactions: Allergies No Known Allergies Allergy (Verified 12/09/20 20:40) Primary Care Physician: Joesph Aguiar MD [Primary Care Provider] - Prior records reviewed: Yes Past Medical History: - - Anxiety Surgical History: noncontributory Lives: Alone Smoking Status: Never smoker Alcohol: Occasional Drugs: None Review of Systems General: Reports: Chills, Fever, Malaise Eyes: Denies: Visual changes - bilaterally, Diplopia ENT: Denies: Rhinorrhea, Sore throat Cardiovascular: Reports: Chest pain. Denies: Palpitations, Heart racing Respiratory: Reports: Dyspnea, Cough Gastrointestinal: Reports: Nausea, Vomiting. Denies: Abdominal pain Musculoskeletal: Reports: Myalgias. Denies: Arthralgias Skin: Denies: Rash, Abscess Neurological: Denies: Headache, Weakness, Parasthesia Psych: Denies: Depression, Anxiety, Suicidal thoughts Physical Exam Vital Signs/Narrative: Vital Signs Temp Pulse Resp BP Pulse Ox 12/09/20 20:37 97.6 F L 109 H 14 155/108 H 100 Inital Vital Signs reviewed: Yes General: Well nourished, No Acute Distress Head: Normocephalic, Atraumatic Eyes: Perrl, EOMI ENT: Moist mucous membranes, No rhinorrhea Cardiovascular: Regular rate, Regular rhythm Abdomen: Soft, Nontender, Nondistended Back: Nontender, Normal Inspection Extremities: Nontender, No edema Skin: Normal color, No rash. Negative for: Cyanosis, Diaphoresis Neurological: Alert, Oriented x3, Cranial nerves II-XII grossly intact Psychological: Normal affect, Normal Mood Diagnostic/Tx/Re-eval Clinical Impression(s) from Imaging Studies Chest X-Ray 12/09/20 22:10 IMPRESSION: Normal x-ray examination of the chest. Electronically Signed: Jayden Reagan MD at 22:25 EST , Service support , - Medical Decision Making 25-year-old female presenting with viral symptoms and chest pain. States the pain is sharp. She is concerned she has Covid because she was around her friend who was diagnosed with Covid. She states she had a temperature of 100 today. She does complain of chills. EKG performed on arrival is sinus rhythm at 84 bpm without signs of ischemic changes as interpreted myself. Chest x-ray shows no acute cardiopulmonary process as interpreted by myself. Radiology does agree. After multiple attempts at IV access the patient is adamant that she does not any blood work drawn. I am not suspicious of ACS is much as possible PE given that she has recent travel, likely Covid with a negative Covid antigen test. She did actually have a CTA of her chest performed about a month ago which was negative, but she is counseled that given her recent travel, chest pain, likely Covid infection she has increased risk for PE. Patient was counseled on this at length but still refuses. She understands the risks. She states that she will return if she has any worsening symptoms. Impression: 1. Viral syndrome 2. Chest pain ED Disposition - Plan for ED Patient: Disposition: Home or Assisted Living Instructions: Coronavirus Disease 2019 (COVID-19): Caring for Yourself or Others, ED Vomiting and Diarrhea ... Prescriptions: Ondansetron [Zofran Odt] 4 mg PO Q8H PRN PRN #14 tab PRN Reason: Nausea Prescription Printed Referrals: Joesph Aguiar MD [Primary Care Provider] -
--- NOTE | 2020-12-09 20:52 | EKG12_ITS ---
Test Reason : DYSRYTHMIA Blood Pressure : / mmHG Vent. Rate : 091 BPM Atrial Rate : 091 BPM P-R Int : 178 ms QRS Dur : 072 ms QT Int : 344 ms P-R-T Axes : 031 006 017 degrees QTc Int : 423 ms Normal sinus rhythm Minimal voltage criteria for LVH, may be normal variant Borderline ECG Confirmed by RAGHU NUNEZ, ELDON ([id number]), communications editor JURGEN SORIA ([id number]) on 12/11/2020 11:19:22 AM Referred By: JOSH Confirmed By:ELDON KRISHNAMURTHY MD
--- NOTE | 2020-12-09 22:10 | RAD_ITS ---
STUDY: X-RAY CHEST REASON FOR EXAM: Female, 25 years old. chest pain TECHNIQUE: Single AP portable view of the chest. COMPARISON: 11/10/2020. FINDINGS: The lungs are clear and moderately expanded. There is no demonstrated pleural abnormality. Normal size heart. Normal mediastinum and phoenix. Normal visualized pulmonary arteries. Normal visualized aortic arch and descending thoracic aorta. Normal visualized thoracic spine. Normal visualized ribs, clavicles, and shoulders. There is no demonstrated abnormality of the visualized soft tissue structures of the upper abdomen. RAD/Chest 1 View (Portable) IMPRESSION: Normal x-ray examination of the chest. Electronically Signed: Jayden Reagan MD at 22:25 EST , Service support ,
[2020-12-09 22:36] VITALS: PULSE 92; RESP 18; O2SAT 98
== END 2020-12-09 23:16 | disposition home or self-care (01) ==
PROVIDERS: Emergency Provider Student in an Organized Health Care Education/Training Program; PCP Family Medicine
DX: B34.9 Viral infection, unspecified (principal); R07.9 Chest pain, unspecified; R06.00 Dyspnea, unspecified; R05 Cough; R11.2 Nausea with vomiting, unspecified
CPT/HCPCS: 71045; 87426; 87635; 93005; 99283; U0005; A4216; U0003

== ENCOUNTER 2021-03-22 19:26 | Emergency (ER) | payer MEDICAID, SELFPAY ==
[2021-03-22 19:30] VITALS: BP 139/95; PULSE 118; RESP 20; TEMP 36.2; O2SAT 100; BMI 57.9
--- NOTE | 2021-03-22 19:39 | RAD_ITS ---
STUDY: X-RAY - LEFT HAND REASON FOR EXAM: Female, 25 years old. trauma TECHNIQUE: 3 view(s) of the hand. COMPARISON: None. FINDINGS: Normal radiocarpal articulation. Normal distal radioulnar joint. Normal visualized carpal bones. Normal carpal articulations Normal carpometacarpal articulation of the thumb. Normal second through fifth carpometacarpal joints. Normal metacarpi. Normal metacarpophalangeal joint of the thumb. Normal interphalangeal joint of the thumb. Normal proximal and distal phalanges of the thumb. Normal metacarpophalangeal joints of the second through fifth fingers. Normal proximal and distal interphalangeal joints of the second through fifth fingers. Normal phalanges of the second through fifth fingers. The soft tissue structures are unremarkable. RAD/Hand Min 3 Views IMPRESSION: Normal x-ray examination of the hand. Electronically Signed: Seb Greco MD at 21:33 EDT , Service support ,
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
[2021-03-22] MEDS: Acetaminophen 500 MG Tablet 1000 MG PO (19:52)
== END 2021-03-22 20:50 | disposition home or self-care (01) ==
PROVIDERS: Emergency Provider Emergency Medicine; PCP Family Medicine
DX: S60.222A Contusion of left hand, initial encounter (principal); F32.9 Major depressive disorder, single episode, unspecified; X58.XXXA Exposure to other specified factors, initial encounter; Z79.899 Other long term (current) drug therapy
CPT/HCPCS: 73130; 99283

== ENCOUNTER → 2021-07-08 | Outpatient (CLI) | payer MEDICAID, SELFPAY ==
[2021-07-08 15:46] LABS: Mucous, Urine 0 SEEN /hpf (<or=2+); Red Blood Cells-Urine 0 SEEN /hpf (0-5)
[2021-07-08 17:35] LABS: Color, Urine Yellow (Yellow); Glucose, Dipstick Normal (Normal); Ketone-Dipstick Negative (Negative); Leukocyte Esterase-Dipstick 500 /ul (Negative); Nitrite-Dipstick Positive (Negative); Occult Blood-Urine 10 /ul (Negative); Protein-Dipstick Negative (Negative); Specific Gravity, Urine 1.015 (1.002-1.030); Urine Bilirubin Dipstick Negative (Negative); Urine Clarity Cloudy (Clear); Urine Urobilinogen Normal (Normal)
[2021-07-08 17:44] LABS: Bacteria 3+ /hpf (None Seen); Squamous Epithelial Cells - UA 0-5 SEEN /hpf (5-10); White Blood Cells 25-50 SEEN /hpf (0-5)
[2021-07-08 19:13] LABS: Chlamydia Trachomatis by PCR Negative (Negative); Neisserai gonorrhoeae by PCR Negative (Negative); Probe Check PASS; Sample Adequacy Control PASS; Specimen Processing Control PASS
== END | disposition home or self-care (01) ==
LOC: LABSPEC 15:36
PROVIDERS: PCP Family Medicine; Referring Provider Family Medicine; Visit Provider Family Medicine
DX: Z20.9 Contact with and (suspected) exposure to unspecified communicable disease (principal)
CPT/HCPCS: 81001; 87491; 87591

== ENCOUNTER → 2021-08-07 09:56 | Outpatient (CLI) | payer MEDICAID, SELFPAY ==
--- NOTE | 2021-08-07 10:01 | RAD_ITS ---
STUDY: X-RAY - RIGHT ANKLE REASON FOR EXAM: Female, 25 years old. CHRONIC PAIN TECHNIQUE: 3 view(s) of the ankle. COMPARISON: None. FINDINGS: Normal visualized distal tibia and fibula. Normal medial and lateral malleoli. Normal tibiotalar articulation and ankle mortise. Normal visualized talus and calcaneus. The visualized subtalar, talonavicular, calcaneocuboid and tarsal articulations are normal. The soft tissue structures are unremarkable. RAD/Ankle min 3 Views IMPRESSION: Normal x-ray examination of the ankle. Electronically Signed: Maxime Izaguirre MD (Brooks) at 10:44 EDT , Service support ,
--- NOTE | 2021-08-07 10:01 | RAD_ITS ---
STUDY: X-RAY - RIGHT FOOT CLINICAL: Female, 25 years old. PAIN TECHNIQUE: 3 view(s) of the foot. COMPARISON: None. FINDINGS: Normal talus, calcaneus, and tarsal bones. Normal visualized subtalar, talonavicular, calcaneocuboid, tarsal and tarsometatarsal articulations. Normal metatarsi. Normal metatarsophalangeal joint of the great toe. Normal tibial and fibular sesamoid bones. Normal interphalangeal joint of the great toe. Normal phalanges of the great toe. Normal second through fifth metatarsophalangeal joints. Normal interphalangeal joints and phalanges of the lesser toes. The soft tissue structures are unremarkable. RAD/Foot min 3 Views IMPRESSION: Normal x-ray examination of the foot. Electronically Signed: Maxime Izaguirre MD (Brooks) at 10:44 EDT , Service support ,
== END ==
PROVIDERS: PCP Family Medicine; Referring Provider Family Medicine; Visit Provider Family Medicine
DX: M25.571 Pain in right ankle and joints of right foot (principal); M79.671 Pain in right foot
CPT/HCPCS: 73610; 73630

== ENCOUNTER → 2021-08-12 | Outpatient (CLI) | payer MEDICAID, SELFPAY | END | disposition home or self-care (01) | LOC: LABSPEC 14:06 | PROVIDERS: PCP Family Medicine; Referring Provider Physician Assistant Surgical; Visit Provider Physician Assistant Surgical | DX: Z11.52 Encounter for screening for COVID-19 (principal) | CPT/HCPCS: 87635; U0005; U0003 ==

== ENCOUNTER 2021-12-19 13:25 | Emergency (ER) | payer MEDICAID, SELFPAY ==
[2021-12-19 13:25] VITALS: BP 156/99; PULSE 124; RESP 16; TEMP 36.6; O2SAT 100; BMI 63.5
--- NOTE | 2021-12-19 13:28 | EKG12_ITS ---
Test Reason : CP Blood Pressure : / mmHG Vent. Rate : 109 BPM Atrial Rate : 109 BPM P-R Int : 162 ms QRS Dur : 080 ms QT Int : 340 ms P-R-T Axes : 043 015 033 degrees QTc Int : 457 ms Sinus tachycardia Otherwise normal ECG Confirmed by SHERI NUNEZ, ZA ([id number]), image editor JURGEN SORIA ([id number]) on 12/22/2021 11:17:48 A M Referred By: LONNIE Confirmed By:BRONSON WADE MD
[2021-12-19 14:04] LABS: Absolute Lymphocyte Count 2.74 X10^3/uL (0.83-4.51); Absolute Neutrophil Count 8.5 X10^3/uL (2.0-7.7); Basophil# 0.03 X10^3/uL; Basophil% 0.2 % (0-1); Eosinophil# 0.16 X10^3/uL; Eosinophils% 1.3 % (0-5); Hemoglobin 12.3 g/dL (12.0-15.0); Lymphocyte # 2.74 X10^3/ul (0.83-4.51); Lymphocyte % 22.4 % (19-41); Mean Corp Hgb Conc 31.5 g/dL (32-36); Mean Corpuscular Hgb 26.6 pg (27.0-32.0); Mean Corpuscular Volume 84.4 fL (81-99); Mean Platelet Vol. 11.1 fl (6.2-12.0); Monocyte# 0.79 X10^3/uL; Monocyte% 6.5 % (0-10); NRBC Flagged by Analyzer 0 % (0-5); Neutrophil # 8.48 X10^3/uL (2.7-7.7); Neutrophil % 69.3 % (47-70); Platelet Count 271 K/mm3 (150-450); RBC Distribution Width CV 13.8 % (11.6-14.6); RBC Distribution Width SD 42.1 fl (35.1-43.9); Red Blood Count 4.62 M/mm3 (4.2-5.4); White Blood Count 12.2 K/mm3 (4.4-11.0)
[2021-12-19 14:13] LABS: Prothrombin Time (Protime)PT. 12.5 SECONDS (11.7-14.9)
--- NOTE | 2021-12-19 14:15 | RAD_ITS ---
STUDY: X-RAY CHEST REASON FOR EXAM: Female, 26 years old. pt states sternal chest pain, radiates to both sides of chest, elevated blood pressure and pulse, hx of asthma TECHNIQUE: AP COMPARISON: 12/09/2020 FINDINGS: The lungs are clear and expanded. There is no demonstrated pleural abnormality. Normal size heart. Normal mediastinum and phoenix. Normal visualized pulmonary arteries. Normal visualized aortic arch and descending thoracic aorta. Normal visualized thoracic spine. Normal visualized ribs, clavicles, and shoulders. There is no demonstrated abnormality of the visualized soft tissue structures of the upper abdomen. RAD/Chest 1 View (Portable) IMPRESSION: Nonacute portable x-ray examination of the chest. Electronically Signed: Maxime Izaguirre MD (Brooks) at 14:29 EDT ,
[2021-12-19 14:26] LABS: Anion Gap 2 (5-15); BUN 10 mg/dL (7-18); BUN/Creat Ratio 15.4 RATIO (10-20); Calcium,Total 8.5 mg/dL (8.5-10.1); Chloride 105 mmol/L (98-107); Creatinine, Serum 0.65 mg/dL (0.55-1.02); EST Glomerular Filtration Rate 117 mL/min (>60); Est Glom Filt Rate - Afr Amer 142 mL/min (>60); Estimated Creatinine Clearance 113.26 ml/min; Glucose 102 mg/dL (74-106); Potassium 3.6 mmol/L (3.5-5.1); Sodium Level 139 mmol/L (136-145); Troponin-I HS 3 pg/mL (3.0-54.0)
[2021-12-19 16:39] LABS: Troponin-I HS < 3 pg/mL (3.0-54.0)
[2021-12-19 16:49] LABS: D-Dimer Quantitative (DVT/PE) 0.76 FEU/ug/m (0.27-0.49)
[2021-12-19 16:52] VITALS: PULSE 102; RESP 19; O2SAT 100
--- NOTE | 2021-12-19 17:25 | CT_ITS ---
STUDY: CTA CHEST REASON FOR EXAM: Female, 26 years old. Elevated d-dimer. RADIATION DOSAGE (If Supplied By Facility): CTDIvol = ( 23.12 ) mGy, DLP = ( 637.66 ) mGycm TECHNIQUE: The examination was performed with the intravenous administration of IV 100mL Isovue-370. Post-processing of the angiographic images was performed, with multiplanar reformation and 3D reconstruction. Individualized dose optimization techniques were used for this CT. COMPARISON: Chest, 12/19/2021. CTA of the chest, 11/10/2020. FINDINGS: Normal enhancement of the main pulmonary artery and right and left pulmonary arteries. Normal enhancement of the bilateral peripheral pulmonary arteries. There is no demonstrated pulmonary embolism. Normal thoracic aorta and visualized great vessels. There is no demonstrated aortic dissection. Normal heart and pericardium. No coronary artery calcification. Normal mediastinum. Normal hilar regions. Normal visualized trachea and bronchi. The lungs are well expanded. Normal pulmonary parenchyma. Normal pleura. Normal chest wall structures. Normal osseous structures. Normal visualized upper abdomen. CT/CTA Chest W/WO Contrast IMPRESSION: Normal CTA chest examination, without a demonstrated pulmonary embolism or arterial dissection. Electronically Signed: Ammon Monroe DO at 18:46 EDT ,
--- NOTE | 2021-12-19 19:00 | EDS_ITS ---
HPI History of Present Illness Chief Complaint: Chest Pain Informant: patient Onset/Context/Timing Onset: Days (2) Activity at onset: gradual Timing: Continuous Quality: Positive for Sharp Location: Substernal, Right Chest and Left Chest Worsened By: Breathing Relieved By: Nothing Associated Symptoms: Negative for Nausea, Vomiting, Diaphoresis, Dyspnea, Cough, Fever, Lightheadedness, Acid Reflux and Palpitations Narrative Narrative: Patient presents with chest pain that has been constant for the past 2 days. Patient states it is gradually getting worse. Patient states it is sharp. Patient states it is diffuse across her chest. Patient states it is worse with deep breathing. Patient states she gets short of breath with exertion. Patient denies any shortness of breath with the pain itself. Patient denies any nausea or vomiting. Patient denies any diaphoresis. Patient denies any cough or fever. Patient denies any cardiac or PE risk factors. CVD Risk Factors: Negative for Hypertension, Diabetes, Hypercholesterolemia, Family History 1' </=55 and Smoking PE Risk Factors: Negative for Recent Travel/Surgery, Recent Immobilization, Prior DVT or PE, Cancer and OCP + Smoking + >/=35 PFSH PFSH Medical History Anxiety Asthma Depression Allergy/AdvReac Type Severity Reaction Status Date / Time No Known Allergies Allergy Verified 12/19/21 13:27 Social History Smoking Status: Never smoker ROS ROS ED Constitutional Constitutional ED: Denies chills or fever(s) Eyes Eyes: Denies blurry vision or change in vision ENT ENT ED: Denies rhinorrhea or sore throat Cardiovascular Cardiovascular: Reports chest pain; Denies palpitations Respiratory/Chest Respiratory/Chest: Denies cough or dyspnea Gastrointestinal Gastrointestinal: Denies abdominal pain, nausea or vomiting Genitourinary Genitourinary ED: Denies dysuria or hematuria Musculoskeletal Musculoskeletal: Denies back pain or neck pain Integumentary Denies abscess or rash Neurologic Neurologic: Denies headache(s) or weakness Allergic/Immunologic Allergic/Immunologic ED: Denies mouth swelling or urticaria EXAM Physical Exam Const Vital Signs: 12/19/21 13:25 12/19/21 14:37 12/19/21 16:52 Temperature 97.9 F Temperature Source Temporal Pulse Rate 124 H 102 H Respiratory Rate 16 19 H Blood Pressure 156/99 H Blood Pressure Mean 118 Pulse Ox 100 100 Oxygen Delivery Method Room Air Room Air Room Air Positive well nourished, well developed and obese General Appearance ED: well developed Nutritional Appearance: obese HEENT normocephalic and atraumatic Eyes PERRL and EOMs intact bilaterally Neck supple and no JVD Chest Wall palpation of chest normal Resp normal respiratory effort and clear to auscultation bilaterally Effort and Inspection: Negative for respiratory distress Cardio regular rate, regular rhythm and no murmurs GI normal to inspection, nondistended, normoactive bowel sounds, soft to palpation, non-tender and non-distended Extremity normal to inspection General Extremety ED: Negative for edema or tenderness General Extremity: Negative for edema Neuro oriented x3, CN's II-XII intact bilaterally and no sensory deficits noted Sensorium / Orientation: awake and alert Motor Exam: strength 5/5 throughout Psych mental status grossly normal Heart Score History: Slightly/Non-Suspicious ECG: Normal Age: </= 45 years Risk Factors: No Risk Factors Troponin: </= Normal Limit Score: 0 MDM MDM MDM Narrative Medical decision making narrative: EKG was obtained. On my interpretation, it showed a sinus tachycardia with a rate of 109. OR interval, QRS interval, and QTc intervals were all normal. Phelan was normal. There are no acute ST or T wave changes. Portable 1 view chest x-ray was obtained. On my interpretation, lung cohn are clear. There is normal cardiac silhouette. Bony thorax is normal. There is no acute process noted. Radiologist also interpreted the x- ray and agrees. CBC shows a mild leukocytosis of 12.2. PT with INR was within normal limits. Basic metabolic profile was within normal limits. Initial high- sensitivity troponin was normal at 3. D-dimer was obtained and was slightly elevated at 0.79. Because of this a CTA of the chest was ordered. There is no evidence of pulmonary embolism or aortic dissection. This was interpreted by the radiologist and reviewed by myself. 2-hour repeat high-sensitivity troponin was less than 3. Patient has a HEART score of 0. Patient was advised that this is low risk for acute cardiac event. Patient was instructed to take Tylenol or ibuprofen as needed for pain. Patient was instructed to follow-up with her primary care physician for further evaluation in 5 to 7 days. Patient understood and was agreeable with the plan. All questions were answered. Lab Data Attestation: I reviewed the patient's lab results. Labs: Laboratory Results - last 24 hr 12/19/21 12/19/21 12/19/21 14:00 14:00 14:00 WBC 12.2 H RBC 4.62 Hgb 12.3 Hct 39.0 MCV 84.4 MCH 26.6 L MCHC 31.5 L RDW Std Deviation 42.1 RDW Coeff of Vikash 13.8 Plt Count 271 MPV 11.1 Immature Gran % (Auto) 0.300 Neut % (Auto) 69.3 Lymph % (Auto) 22.4 Russell % (Auto) 6.5 Eos % (Auto) 1.3 Baso % (Auto) 0.2 Absolute Neuts (auto) 8.5 H Absolute Lymphs (auto) 2.74 Nucleated RBC % 0 PT 12.5 INR 1.0 D-Dimer Quant (PE/DVT) Sodium 139 Potassium 3.6 Chloride 105 Carbon Dioxide 32.0 Anion Gap 2 L BUN 10 Creatinine 0.65 Estim Creat Clear Calc 113.26 Est GFR (MDRD) Af Amer 142 Est GFR (MDRD) Non-Af 117 BUN/Creatinine Ratio 15.4 Glucose 102 Calcium 8.5 Troponin I High Sens 3 12/19/21 12/19/21 16:10 16:10 WBC RBC Hgb Hct MCV MCH MCHC RDW Std Deviation RDW Coeff of Vikash Plt Count MPV Immature Gran % (Auto) Neut % (Auto) Lymph % (Auto) Russell % (Auto) Eos % (Auto) Baso % (Auto) Absolute Neuts (auto) Absolute Lymphs (auto) Nucleated RBC % PT INR D-Dimer Quant (PE/DVT) 0.76 H* Sodium Potassium Chloride Carbon Dioxide Anion Gap BUN Creatinine Estim Creat Clear Calc Est GFR (MDRD) Af Amer Est GFR (MDRD) Non-Af BUN/Creatinine Ratio Glucose Calcium Troponin I High Sens < 3 L Radiography Chest X-Ray - ED: 1 View, Read by ED Physician, Read by Radiologist and Normal Diagnostic Testing: Clinical Impression(s) from Imaging Studies Chest X-Ray 12/19/21 14:15 IMPRESSION: Nonacute portable x-ray examination of the chest. Electronically Signed: Maxime Izaguirre MD ([place]) at 14:29 EDT , Chest CTA 12/19/21 17:25 IMPRESSION: Normal CTA chest examination, without a demonstrated pulmonary embolism or arterial dissection. Electronically Signed: Ammon Fer, DO at 18:46 EDT Reading Location ID and State: [facility] / [place] Tel [phone], Service support , EKG Initial EKG: Attestation: I personally reviewed and interpreted this EKG as follows: Interpretation: No Acute Injury Pattern and Sinus Tachycardia (109) Discharge Plan Triage Chief Complaint: Chest Pain ED Provider: Joesph Hummel Dx/Rx/DC Orders Clinical Impression: Chest pain Instructions: ED Chest Pain, Uncertain Cause Primary Care Provider: Joesph Aguiar Referrals: Joesph Aguiar MD [Primary Care Provider] - 5-7 Days Disposition Disposition: Home, Self Care
[2021-12-19 19:37] VITALS: BP 128/76; PULSE 79; RESP 18; O2SAT 98
== END 2021-12-19 19:37 | disposition home or self-care (01) ==
PROVIDERS: Emergency Provider Emergency Medicine; PCP Family Medicine; Visit Provider Emergency Medicine
DX: R07.9 Chest pain, unspecified (principal); Z68.44 Body mass index [BMI] 60.0-69.9, adult; E66.9 Obesity, unspecified
CPT/HCPCS: 71045; 71275; 80048; 84484; 85025; 85379; 85610; 93005; 99284; Q9967; A4216

== ENCOUNTER 2022-01-13 06:30 | Day surgery (SDC) | payer MEDICAID, SELFPAY ==
[2022-01-13 07:00] VITALS: BP 131/79; PULSE 120; RESP 18; TEMP 37.3; O2SAT 100; BMI 59.4
[2022-01-13 07:02] LABS: Internal QC Validated? YES +Cl - CLEAR BKGD; Pregnancy, Urine Negative Negative
[2022-01-13] MEDS: Lactated Ringers 1,000 ML 15 ML IV (07:32)
--- NOTE | 2022-01-13 07:33 | PCM.DC ---
Discharge Instructions Diet Discharge Diet: No restrictions Activity Discharge Activity: Return to Normal Activity Dressing / Incision Call your doctor if your incision/area has: Foul Smelling Discharge Follow Up Care Please Follow Up With: Stuart Monroy MD When: 3 weeks Test Results: Test results from this visit will be discussed in further detail at your follow-up appointment, if applicable. Discharge Plan Admission Attending Provider: Stuart Monroy Primary Care Provider: Joesph Aguiar Discharge Orders/Prescriptions Prescriptions: No Action albuterol sulfate 90 mcg/actuation HFA aerosol inhaler 1 - 2 puff INHALATION Q6H PRN PRN (Reason: ASTHMA) RF: 0
--- NOTE | 2022-01-13 07:35 | PCM.OPRPT ---
Problems Associated Problem List Diagnoses (1) Chronic serous otitis media: Report of Operation Date of Procedure: 01/13/22 Pre-Operative Diagnosis: chronic serous otitis media, right and left ear Post-Operative Diagnosis: chronic serous otitis media, right and left ear Surgery/Procedure Performed:: placement pressure equalization tubes, right and left Surgeon: Stuart Monroy Type of Anesthesia: General Description of Procedure: on the day of the procedure, after appropriate informed consent was obtained the patient was brought to the operating room and placed in supine position on the operating table. she was placed under general anesthesia by the anesthesiologist. the left ear was examined with the binocular operating microscope. a speculum was placed. the tympanic membrane was viewed in its entirety and found to be intact. a radial myringotomy was made in the anterior/inferior quadrant. a cifuentes tympanostomy tube was placed. floxin otic drops were instilled. the right ear was examined with the binocular operating microscope. a speculum was placed. the tympanic membrane was viewed in its entirety and found to be intact. a radial myringotomy was made in the anterior/inferior quadrant. a a cifuentes tympanostomy tube was placed. floxin otic drops were instilled. she was awoken from anesthesia and transferred to the PACU in stable condition.
[2022-01-13] MEDS: Ciprofloxacin 0.3% 2.5ml Bottle 1 DRP (08:35)
[2022-01-13 08:50] VITALS: BP 127/79; BP 131/79; PULSE 97; RESP 18; TEMP 36.9; O2SAT 93
[2022-01-13 08:57] VITALS: BP 131/79; BP 131/98; PULSE 97; RESP 18; O2SAT 94
[2022-01-13 09:00] VITALS: BP 131/79; BP 144/84; PULSE 97; RESP 18; O2SAT 94
[2022-01-13 09:15] VITALS: BP 131/79; BP 138/94; PULSE 95; RESP 18; TEMP 37; O2SAT 95
[2022-01-13 09:31] VITALS: BP 131/79; BP 132/84; PULSE 84; RESP 16; TEMP 36.7; O2SAT 97
== END 2022-01-13 23:59 | disposition home or self-care (01) ==
LOC: SDC 06:31 → AC 06:32
PROVIDERS: Anesthesiology; PCP Family Medicine; Referring Provider Otolaryngology; Visit Provider Otolaryngology
PROC: (CPT 69436; principal; 2022-01-13 07:55)
DX: H65.23 Chronic serous otitis media, bilateral (principal); J45.909 Unspecified asthma, uncomplicated; I10 Essential (primary) hypertension
CPT/HCPCS: 69436; 00126; 81025; 87426; C9803; J7120; J2405

== ENCOUNTER 2022-02-12 11:15 | Emergency (ER) | payer MEDICAID, SELFPAY ==
[2022-02-12 11:16] VITALS: BP 160/100; PULSE 118; RESP 18; TEMP 37.2; O2SAT 100; BMI 40.1
--- NOTE | 2022-02-12 11:23 | RAD_ITS ---
STUDY: X-RAY - LEFT HAND REASON FOR EXAM: Left hand pain, left hand injury. TECHNIQUE: 3 view(s) of the hand. COMPARISON: Radiographs 03/22/2021. FINDINGS: Normal radiocarpal articulation. Normal distal radioulnar joint. Normal visualized carpal bones. Normal carpal articulations Normal carpometacarpal articulation of the thumb. Normal second through fifth carpometacarpal joints. Normal metacarpi. Normal metacarpophalangeal joint of the thumb. Normal interphalangeal joint of the thumb. Normal proximal and distal phalanges of the thumb. Normal metacarpophalangeal joints of the second through fifth fingers. Normal proximal and distal interphalangeal joints of the second through fifth fingers. Normal phalanges of the second through fifth fingers. There is soft tissue swelling. RAD/Hand Min 3 Views IMPRESSION: Soft tissue swelling. No demonstrated fracture. Electronically Signed: Jordy Nava MD at 12:23 EDT ,
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
== END 2022-02-12 12:09 | disposition home or self-care (01) ==
PROVIDERS: Emergency Provider Emergency Medicine; PCP Family Medicine; Visit Provider Emergency Medicine
DX: S60.222A Contusion of left hand, initial encounter (principal); I10 Essential (primary) hypertension; J45.909 Unspecified asthma, uncomplicated; W22.01XA Walked into wall, initial encounter; Y93.89 Activity, other specified; Y99.9 Unspecified external cause status; Y92.9 Unspecified place or not applicable
CPT/HCPCS: 73130; 99282

== ENCOUNTER 2022-08-08 18:23 | Observation (INO) | payer MEDICAID, SELFPAY ==
[2022-08-08 18:24] VITALS: BP 154/105; PULSE 124; RESP 17; TEMP 36.3; O2SAT 96; BMI 59.8
--- NOTE | 2022-08-08 19:16 | EDS_ITS ---
HPI HPI - Female History of Present Illness Chief Complaint: Vag Bleeding Narrative Narrative: Patient presents with abnormal vaginal bleeding that she has had for the past 2 days. She states the blood in her pad looks like it is clotted. She is on day 2 of her menstrual cycle and states that this amount of bleeding is abnormal for her. She states she has gone through almost a whole box of tampons today as well as several pads. She states she has had to change her pants several times due to blood running down her leg. Patient states she is not sexually active and has no history of STDs. Patient denies abdominal pain, dysuria, nausea, vomiting, fever, weakness, lightheadedness, and dizziness. Patient is not on any blood thinners. She does not have a coagulation disorder that she is aware of and has never had a blood clot. She has not seen a bladder cleaner in 5 years. PFSH PFSH Medical History Anxiety Asthma Depression Hypertension Non-smoker Home Medications albuterol sulfate 90 mcg/actuation aerosol inhaler 1 - 2 puff inhalation Q6H PRN PRN ASTHMA 01/06/22 [History Last Taken Unknown] Allergy/AdvReac Type Severity Reaction Status Date / Time No Known Allergies Allergy Verified 08/08/22 18:24 Surgical History History of myringotomy Hx of tonsillectomy Social History Smoking Status: Never smoker ROS ROS ED Constitutional Constitutional ED: Denies chills, fever(s) or sweats Eyes Eyes: Denies blurry vision or change in vision ENT ENT ED: Denies rhinorrhea or sore throat Cardiovascular Cardiovascular: Denies chest pain or palpitations Respiratory/Chest Respiratory/Chest: Denies cough, dyspnea, shortness of breath at rest or shortness of breath with exertion Gastrointestinal Gastrointestinal: Denies abdominal pain, constipation, diarrhea, melena, nausea or vomiting Genitourinary Genitourinary ED: Denies dysuria or urinary frequency Musculoskeletal Musculoskeletal: Denies myalgias or neck pain Integumentary Denies Abrasions or rash Neurologic Neurologic: Denies headache(s) or weakness Psychiatric Psychiatric: Denies anxiety Hematologic/Lymphatic Hematologic/Lymphatic: Denies anemia, easy bleeding or easy bruising EXAM Physical Exam Const Vital Signs: 08/08/22 18:24 08/08/22 20:31 Temperature 97.3 F L Temperature Source Temporal Pulse Rate 124 H Pulse Rate [Lying] 106 H Pulse Rate [Sitting (for 1 minute prior to obtaining)] 105 H Pulse Rate [Standing (for 1 minute prior to obtaining)] 107 H Respiratory Rate 17 Blood Pressure 154/105 H Blood Pressure [Lying] 139/73 H Blood Pressure [Sitting (for 1 minute prior to obtaining)] 158/104 H Blood Pressure [Standing (for 1 minute prior to obtaining)] 150/104 H Blood Pressure Mean 121 Blood Pressure Mean [Lying] 95 Blood Pressure Mean [Sitting (for 1 minute prior to obtaining)] 122 Blood Pressure Mean [Standing (for 1 minute prior to obtaining)] 119 Pulse Ox 96 Oxygen Delivery Method Room Air Positive obese Nutritional Appearance: obese HEENT Reports moist mucous membranes Negative for trauma or tenderness Neck supple Resp normal respiratory effort and clear to auscultation bilaterally Auscultation: Negative for rales, rhonchi, wheezes or diminished lung sounds Cardio regular rate, regular rhythm and no murmurs GI normal to inspection, nondistended, normoactive bowel sounds, soft to palpation, non-tender and no masses Palpation: Negative for hepatomegaly or splenomegaly external exam normal, appearance of the vagina normal and appearance of the cerv ix normal Narrative: Speculum exam performed and shows a moderate amount of bleeding from the cervix. Speculum Exam - Vagina: Negative for vaginal laceration, vaginal lesion or vaginal swelling Extremity normal to inspection and full ROM Neuro oriented x3 and no sensory deficits noted Sensorium / Orientation: alert Motor Exam: strength 5/5 throughout Psych mental status grossly normal Mood & Affect: Negative for anxious Skin no rashes or lesions noted and no wounds MDM MDM MDM Narrative Medical decision making narrative: Patient is tachycardic with a heart rate of 124 so I have ordered 1 L bolus fluids. CBC shows microcytic anemia. Orthostatics were negative. Serum test is negative. I consulted attending bladder cleaner and she recommends that patient be admitted to the hospital for continued observation. Lab Data Attestation: I reviewed the patient's lab results. Lab results narrative: CBC shows microcytic anemia. Labs: Laboratory Results - last 24 hr 08/08/22 08/08/22 19:25 19:25 WBC 9.8 RBC 4.35 Hgb 10.5 L Hct 35.4 L MCV 81.4 MCH 24.1 L MCHC 29.7 L RDW Std Deviation 46.0 H RDW Coeff of Vikash 15.7 H Plt Count 239 MPV 11.8 Immature Gran % (Auto) 0.400 Neut % (Auto) 63.1 Lymph % (Auto) 26.2 Graham % (Auto) 8.3 Eos % (Auto) 1.6 Baso % (Auto) 0.4 Absolute Neuts (auto) 6.2 Absolute Lymphs (auto) 2.57 Nucleated RBC % 0 Serum , Qual NEGATIVE Discharge Plan Dx/Rx/DC Orders Clinical Impression: Dysfunctional uterine bleeding Disposition Disposition: Acute Care Hospital [facility] [place] [facility]
[2022-08-08 19:31] LABS: Absolute Lymphocyte Count 2.57 X10^3/uL (0.83-4.51); Absolute Neutrophil Count 6.2 X10^3/uL (2.0-7.7); Basophil# 0.04 X10^3/uL; Basophil% 0.4 % (0-1); Eosinophil# 0.16 X10^3/uL; Eosinophils% 1.6 % (0-5); Hematocrit 35.4 % (37-47); Hemoglobin 10.5 g/dL (12.0-15.0); Lymphocyte # 2.57 X10^3/ul (0.83-4.51); Lymphocyte % 26.2 % (19-41); Mean Corp Hgb Conc 29.7 g/dL (32-36); Mean Corpuscular Hgb 24.1 pg (27.0-32.0); Mean Corpuscular Volume 81.4 fL (81-99); Mean Platelet Vol. 11.8 fl (6.2-12.0); Monocyte# 0.81 X10^3/uL; Monocyte% 8.3 % (0-10); NRBC Flagged by Analyzer 0 % (0-5); Neutrophil # 6.19 X10^3/uL (2.7-7.7); Neutrophil % 63.1 % (47-70); Platelet Count 239 K/mm3 (150-450); RBC Distribution Width CV 15.7 % (11.6-14.6); Red Blood Count 4.35 M/mm3 (4.2-5.4); White Blood Count 9.8 K/mm3 (4.4-11.0)
[2022-08-08 19:46] LABS: Internal QC Validated? YES +Cl - CLEAR BKGD; Pregnancy, Serum, hCG Quali. NEGATIVE Negative
[2022-08-08 20:31] VITALS: BP 139/73; BP 150/104; BP 158/104; PULSE 105; PULSE 106; PULSE 107
[2022-08-08] MEDS: 0.9% Normal Saline 1,000 ML 999 ML IV (20:56)
[2022-08-08 22:02] VITALS: BP 145/98; PULSE 104; PULSE 74; RESP 17; TEMP 36.7; O2SAT 98; O2SAT 99
--- NOTE | 2022-08-08 22:15 | ED.VIS.FEGU ---
HPI HPI - Female History of Present Illness Chief Complaint: Vag Bleeding [facility] Medical History Anxiety Asthma Depression Hypertension Non-smoker Home Medications NK 12/02/22 [History Last Taken Unknown] Allergy/AdvReac Type Severity Reaction Status Date / Time No Known Allergies Allergy Verified 12/02/22 09:09 Surgical History History of myringotomy Hx of tonsillectomy Social History Smoking Status: Never smoker EXAM Physical Exam Const Vital Signs: 08/08/22 18:24 08/08/22 20:31 Temperature 97.3 F L Temperature Source Temporal Pulse Rate 124 H Pulse Rate [Lying] 106 H Pulse Rate [Sitting (for 1 minute prior to obtaining)] 105 H Pulse Rate [Standing (for 1 minute prior to obtaining)] 107 H Respiratory Rate 17 Blood Pressure 154/105 H Blood Pressure [Lying] 139/73 H Blood Pressure [Sitting (for 1 minute prior to obtaining)] 158/104 H Blood Pressure [Standing (for 1 minute prior to obtaining)] 150/104 H Blood Pressure Mean 121 Blood Pressure Mean [Lying] 95 Blood Pressure Mean [Sitting (for 1 minute prior to obtaining)] 122 Blood Pressure Mean [Standing (for 1 minute prior to obtaining)] 119 Pulse Ox 96 Oxygen Delivery Method Room Air [facility] Lab Data Labs: Laboratory Results - last 24 hr 08/08/22 08/08/22 19:25 19:25 WBC 9.8 RBC 4.35 Hgb 10.5 L Hct 35.4 L MCV 81.4 MCH 24.1 L MCHC 29.7 L RDW Std Deviation 46.0 H RDW Coeff of Vikash 15.7 H Plt Count 239 MPV 11.8 Immature Gran % (Auto) 0.400 Neut % (Auto) 63.1 Lymph % (Auto) 26.2 Coal % (Auto) 8.3 Eos % (Auto) 1.6 Baso % (Auto) 0.4 Absolute Neuts (auto) 6.2 Absolute Lymphs (auto) 2.57 Nucleated RBC % 0 Serum , Qual NEGATIVE Discharge Plan Dx/Rx/DC Orders Clinical Impression: Dysfunctional uterine bleeding Disposition Disposition: Acute Care Hospital [facility] Discharge Date/Time: 08/08/22 22:39
[2022-08-08 22:37] VITALS: BP 141/92; PULSE 109; RESP 18; TEMP 36.8; O2SAT 98
--- NOTE | 2022-08-08 22:47 | PCM.HP.BLA ---
History and Physical Date of Admission: 08/08/22 Chief complaint: Vaginal bleeding History of present illness: 26-year-old arrives with vaginal bleeding that started yesterday. Overall feels heavier than normal periods. Denies weakness, dizziness, chest pain, shortness of breath, palpitations. Obstetric history: Patient with a history of Past medical history: None Medications: None Past surgical history: Tonsils, adenoids, wisdom teeth extraction Allergies: No known drug allergy Family history: Denies history DVT or PE Social history: Denies smoking, alcohol, drug use Review of systems: Besides above pertinent positives a full review of systems was performed and found to be negative Physical exam: Vital signs: Blood pressure 141/92 pulse 109 respiratory rate 18 temp 98.3 Fahrenheit SPO2 98% on room air General: Normal-appearing no acute distress HEENT: Normocephalic/atraumatic no cervical adenopathy Cardiac/respiratory: No use of accessory muscles, nonlabored breathing Abdomen: Soft, nontender, nondistended Extremities: No peripheral edema normal peripheral pulses Psych: Normal affect normal demeanor nonpressured speech Labs: White blood cell count 9.8 hemoglobin 10.5 hematocrit 35.4% platelets 239. Serum qualitative test negative Assessment plan: 26-year-old arrives with vaginal bleeding, patient with difficulty describing the quantity of blood she is having, overall hemoglobin stable, overall asymptomatic but with tachycardia will monitor overnight. To start on medroxyprogesterone and repeat CBC in the morning.
[2022-08-08 22:51] VITALS: BMI 60.2
[2022-08-08 23:04] VITALS: BP 141/92; PULSE 109; RESP 18; TEMP 36.8; O2SAT 98
[2022-08-09 04:03] VITALS: BP 108/59; PULSE 95; RESP 18; TEMP 36.6; O2SAT 98
[2022-08-09 04:07] VITALS: BP 108/59; PULSE 95; RESP 18; TEMP 36.6; O2SAT 98
[2022-08-09 07:58] VITALS: BP 134/83; PULSE 97; RESP 16; TEMP 36.3; O2SAT 98
[2022-08-09 07:59] VITALS: BP 134/83; PULSE 97; RESP 16; TEMP 36.3; O2SAT 98
--- NOTE | 2022-08-09 08:07 | DCINST_ITS ---
Discharge Instructions Diet Discharge Diet: No restrictions Activity Discharge Activity: Return to Normal Activity, May Drive and May Shower May resume sexual activity in: 4-6 weeks Weight Bearing Status: Weight bearing as tolerated Dressing / Incision Call your doctor if your incision/area has: Continuous Slow Oozing Call your doctor if you observe: Fever of 101 or Higher, Shortness of breath and Chest pain Follow Up Care Please Follow Up With: Alexx Steven MD When: 2 weeks Test Results: Test results from this visit will be discussed in further detail at your follow- up appointment, if applicable. Discharge Plan Admission Admit Date/Time: 08/08/22 21:28 Attending Provider: Charlotte Steven Primary Care Provider: Joesph Aguiar Instructions Patient Instructions: ED Heavy Menstrual Bleeding Discharge Orders/Prescriptions Prescriptions: New medroxyprogesterone 2.5 mg Tablet 20 mg PO Q8H 7 Days Qty: 168 1RF Continued albuterol sulfate 90 mcg/actuation HFA aerosol inhaler 1 - 2 puff INHALATION Q6H PRN PRN (Reason: ASTHMA) Label Comments: INHALE 1 TO 2 PUFFS EVERY 6 HOURS NEEDED FOR COUGH or SHORTNESS OF BREATH Referrals / Follow Up: Joesph Aguiar MD [Primary Care Provider] -
--- NOTE | 2022-08-09 08:08 | PCM.PN.BLA ---
Progress Note No complaints, no overnight bleeding. Denies chest pain, shortness of breath, dizziness, weakness, palpitations. Physical Exam Const alert, oriented x3, no apparent distress, average body habitus, no limitations and healthy appearing HEENT normocephalic Eyes PERRL Neck full ROM Resp normal respiratory effort, no retractions and no use of accessory muscles Extremity normal to inspection, full ROM and no clubbing, cyanosis or edema Skin no rashes or lesions noted Neuro oriented x3, moves all extremities and no focal motor deficits Psych mental status grossly normal, thought process normal, cooperative, affect normal, speech normal and activity/motor behavior normal Assessment & Plan Assessment/Plan (1) Vaginal bleeding: PLAN: No overnight bleeding. Patient asymptomatic. Vital signs stable, tachycardia resolved. CBC pending. Pending results likely discharge home today on medroxyprogesterone and follow-up in the office. Educated patient on abnormal uterine bleeding
[2022-08-09 08:19] LABS: Absolute Lymphocyte Count 1.88 X10^3/uL (0.83-4.51); Absolute Neutrophil Count 3.6 X10^3/uL (2.0-7.7); Basophil# 0.02 X10^3/uL; Basophil% 0.3 % (0-1); Eosinophil# 0.11 X10^3/uL; Eosinophils% 1.8 % (0-5); Hematocrit 30.3 % (37-47); Hemoglobin 9.2 g/dL (12.0-15.0); Lymphocyte # 1.88 X10^3/ul (0.83-4.51); Lymphocyte % 31.1 % (19-41); Mean Corp Hgb Conc 30.4 g/dL (32-36); Mean Corpuscular Hgb 24.2 pg (27.0-32.0); Mean Corpuscular Volume 79.7 fL (81-99); Mean Platelet Vol. 11.4 fl (6.2-12.0); Monocyte# 0.46 X10^3/uL; Monocyte% 7.6 % (0-10); NRBC Flagged by Analyzer 0 % (0-5); Neutrophil # 3.56 X10^3/uL (2.7-7.7); Neutrophil % 58.9 % (47-70); Platelet Count 202 K/mm3 (150-450); RBC Distribution Width CV 15.7 % (11.6-14.6); RBC Distribution Width SD 45.1 fl (35.1-43.9); White Blood Count 6.1 K/mm3 (4.4-11.0)
== END 2022-08-09 10:08 | disposition home or self-care (01) ==
LOC: ED 20:40 → MS3 22:11
PROVIDERS: Obstetrics & Gynecology; Physician Assistant; Admitting Provider Student in an Organized Health Care Education/Training Program; Emergency Provider Emergency Medicine; PCP Family Medicine; Visit Provider Student in an Organized Health Care Education/Training Program
DX: N93.8 Other specified abnormal uterine and vaginal bleeding (principal); D50.9 Iron deficiency anemia, unspecified; I10 Essential (primary) hypertension; R00.0 Tachycardia, unspecified; J45.909 Unspecified asthma, uncomplicated
CPT/HCPCS: 36415; 84703; 85025; 96360; 99218; 99284; J7030; A4216; G0378

== ENCOUNTER → 2022-08-17 | Outpatient (CLI) | payer MEDICAID, SELFPAY ==
[2022-08-17 18:17] LABS: Absolute Neutrophil Count 8.8 X10^3/uL (2.0-7.7); Basophil# 0.04 X10^3/uL; Basophil% 0.3 % (0-1); Eosinophil# 0.15 X10^3/uL; Eosinophils% 1.2 % (0-5); Hematocrit 31.9 % (37-47); Hemoglobin 9.6 g/dL (12.0-15.0); Lymphocyte % 22.7 % (19-41); Mean Corp Hgb Conc 30.1 g/dL (32-36); Mean Corpuscular Hgb 24.4 pg (27.0-32.0); Monocyte# 0.83 X10^3/uL; Monocyte% 6.5 % (0-10); NRBC Flagged by Analyzer 0 % (0-5); Neutrophil # 8.79 X10^3/uL (2.7-7.7); Neutrophil % 68.9 % (47-70); Platelet Count 283 K/mm3 (150-450); RBC Distribution Width SD 47.7 fl (35.1-43.9); Red Blood Count 3.94 M/mm3 (4.2-5.4); White Blood Count 12.8 K/mm3 (4.4-11.0)
== END | disposition home or self-care (01) ==
LOC: MFPLAB 17:00
PROVIDERS: PCP Family Medicine; Visit Provider Nurse Practitioner Family
DX: N93.9 Abnormal uterine and vaginal bleeding, unspecified (principal)
CPT/HCPCS: 36415; 85025

== ENCOUNTER 2022-12-02 09:08 | Emergency (ER) | payer MEDICAID, SELFPAY ==
[2022-12-02 09:09] VITALS: BP 144/106; PULSE 113; RESP 16; TEMP 36.1; O2SAT 99; BMI 58.3
--- NOTE | 2022-12-02 09:31 | ED.VIS.LOWEX ---
HPI History of Present Illness Chief Complaint: Lower Extremity Injury Informant: patient Onset/Context/Timing Onset: Today Context: Sudden Onset Timing: Continuous Quality of Pain: Aching Location: R ankle Current Severity: Moderate Maximum Severity: Moderate Worsened by: walking, moving Relieved by: rest/remaining still Associated Symptoms Associated Symptoms: Negative for Parasthesia, Weakness or Loss of Funtion Narrative Narrative: Patient states she accidentally stepped into a hole between pieces of concrete while trying to get into the car, twisting her right ankle. She has been able to bear weight since then although it is difficult, similar now. No other injuries. PFSH PFSH Medical History Anxiety Asthma Depression Hypertension Non-smoker Home Medications NK 12/02/22 [History Last Taken Unknown] Allergy/AdvReac Type Severity Reaction Status Date / Time No Known Allergies Allergy Verified 12/02/22 09:09 Surgical History History of myringotomy Hx of tonsillectomy Social History Smoking Status: Never smoker ROS ROS ED Constitutional Constitutional ED: Denies chills or fever(s) Musculoskeletal Musculoskeletal: Reports extremity pain; Denies neck pain Integumentary Denies Abrasions, rash or wounds Neurologic Neurologic: Denies paresthesias or weakness EXAM Physical Exam Const Vital Signs: 12/02/22 09:09 Temperature 97 F L Temperature Source Temporal Pulse Rate 113 H Respiratory Rate 16 Blood Pressure 144/106 H Blood Pressure Mean 118 Pulse Ox 99 Oxygen Delivery Method Room Air Positive well nourished and well developed General Appearance ED: well developed and NAD Neck full ROM and supple Back/Spine normal ROM and normal to inspection Extremity normal to inspection Extremity Narrative: Limited range of motion right ankle. Tender lateral malleolus, medial malleolus, no tenderness in the foot including the base of the fifth metatarsal, no tenderness at the proximal fibula or elsewhere in the knee or bony lower leg. Some tenderness in the medial calf on the right. Neuro oriented x3, no focal motor deficits and no sensory deficits noted Sensorium / Orientation: alert Psych mental status grossly normal and thought process normal Skin no wounds Rashes: no rashes MDM MDM MDM Narrative Medical decision making narrative: Three-view x-ray series of the right ankle were obtained and are negative on my interpretation. I do not think she needs dedicated imaging of any other areas. Reassured given ibuprofen, Aircast, supportive care advised follow-up if not improving after 2 weeks. Discharge Plan Triage Chief Complaint: Lower Extremity Injury ED Provider: Thom Victor Dx/Rx/DC Orders Clinical Impression: Right ankle sprain Instructions: ED Ankle Sprain (Adult) Prescriptions: No Action NK Primary Care Provider: Joesph Aguiar Referrals: Joesph Aguiar MD [Primary Care Provider] - (2 weeks if not improving) Activity Restrictions/Additional Instructions: Use the Aircast as long as you need to help get around. Ibuprofen as needed for pain, ice to the affected area if needed for swelling when resting. Disposition Disposition: Home, Self Care
--- NOTE | 2022-12-02 09:50 | RAD_ITS ---
STUDY: X-RAY - RIGHT ANKLE REASON FOR EXAM: Female, 27 years old. Injury. Pain. TECHNIQUE: 3 view(s) of the ankle. COMPARISON: None. FINDINGS: Normal visualized distal tibia and fibula. Normal medial and lateral malleoli. Normal tibiotalar articulation and ankle mortise. Normal visualized talus and calcaneus. The visualized subtalar, talonavicular, calcaneocuboid and tarsal articulations are normal. The soft tissue structures are unremarkable. RAD/Ankle min 3 Views IMPRESSION: Normal x-ray examination of the ankle. Electronically Signed: Raghu Macias, at 10:19 EST ,
[2022-12-02] MEDS: Ibuprofen 600 MG Tablet PO (10:09)
[2022-12-02 10:24] VITALS: BP 134/90; PULSE 101; RESP 16; O2SAT 100
== END 2022-12-02 10:25 | disposition home or self-care (01) ==
PROVIDERS: Emergency Provider Emergency Medicine; PCP Family Medicine; Visit Provider Emergency Medicine
DX: S93.401A Sprain of unspecified ligament of right ankle, initial encounter (principal); I10 Essential (primary) hypertension; X50.1XXA Overexertion from prolonged static or awkward postures, initial encounter
CPT/HCPCS: 73610; 99283

== ENCOUNTER 2023-02-15 06:50 | Day surgery (SDC) | payer MEDICAID, SELFPAY ==
[2023-02-09 10:28] LABS: Hematocrit 33.3 % (37-47); Hemoglobin 9.1 g/dL (12.0-15.0); Mean Corp Hgb Conc 27.3 g/dL (32-36); Mean Corpuscular Hgb 18.8 pg (27.0-32.0); Mean Corpuscular Volume 68.9 fL (81-99); Mean Platelet Vol. 10.9 fl (6.2-12.0); Platelet Count 338 K/mm3 (150-450); RBC Distribution Width CV 18.8 % (11.6-14.6); RBC Distribution Width SD 45.9 fl (35.1-43.9); Red Blood Count 4.83 M/mm3 (4.2-5.4); White Blood Count 8.9 K/mm3 (4.4-11.0)
--- NOTE | 2023-02-15 | FALS_PTH ---
PATIENT: SERGIO PARRISH LOC: [facility] U#:[id number] AGE/SX: 27/F ROOM: RE02/15/[address]: Dr. Alexx Steven MD : 1995 BED: DIS: 02/15/2023 SPEC #: [id number] RECD: 02/15/23 11:09 STATUS: ALEXX REQ #: [id number] EVELYNE: 02/15/23 00:[address]: Alexx Steven DEPT: SURGICAL PATHOLOGY RECD BY: Hayden Rodriguez ENTERED: 02/15/23 11:09 SP TYPE: FALL TUBES OTHR DR: Dr. Joesph Aguiar MD Tissues: Fallopian tube Procedures: Surgery Specimen Level II HEADER OPERATION: Laparoscopic salpingectomy PRE-OP DIAGNOSIS: Sterilization TISSUE SUBMITTED: Bilateral fallopian tubes MICROSCOPIC DIAGNOSIS Bilateral fallopian tubes, bilateral salpingectomy: Bilateral fallopian tubes, no pathologic diagnosis. SJ:desirae 02/16/2023 MICROSCOPIC DESCRIPTION Slides are reviewed. GROSS DESCRIPTION Received in fixative is one container labeled with the patient's name and designated bilateral fallopian tubes. The specimen consists of bilateral fallopian tubes including fimbrial ends. One fallopian tube measures 7.0 cm in length and 0.7 cm in diameter. The second fallopian tube present is in multiple pieces and measures 7.5 cm in length and 0.5 cm in diameter. The fallopian tubes are not identified as right or left. Sections reveal unremarkable cut surfaces. Senior Architect/Design Manager sections are submitted in two cassettes as follows: 1 - fallopian tube received intact, 2 - fallopian tube received in multiple pieces. / SJ:rg 02/15/2023 TC:4 CPT: 70399 x2
[2023-02-15] MEDS: Lactated Ringers 1,000 ML 15 ML IV (07:05)
[2023-02-15 07:20] LABS: Internal QC Validated? YES +Cl - CLEAR BKGD; Pregnancy, Urine Negative Negative
[2023-02-15 07:22] VITALS: BP 142/90; PULSE 120; RESP 20; TEMP 36.6; O2SAT 99; BMI 56.9
--- NOTE | 2023-02-15 07:27 | PCM.HP.BLA ---
History and Physical Date of Admission: 02/15/23 Chief complaint: Desires permanent sterilization History present illness: 27-year-old arrives for scheduled laparoscopic tubal ligation. No medical changes since last seen. All questions answered and consent signed. Obstetric history: with a history of 1 vaginal delivery Past medical history: None Medications: None Allergies: No known drug allergies Past surgical history: Tonsillectomy, ear tubes Family history: Denies history DVT or PE Social history: Denies smoking, alcohol use, drug use Review of systems: Besides above pertinent positives a full review of systems was performed and found to be negative Physical exam: Vitals: Blood pressure 142/90 pulse 120 respiratory rate 20 temperature 97.9 ?F SPO2 99% on room air General: Normal-appearing no acute distress HEENT: Normocephalic/atraumatic no cervical lymphadenopathy Cardiac/respiratory: No use of accessory muscles, nonlabored breathing Abdomen: Soft, nontender, obese Extremities: No peripheral edema normal peripheral pulses Psych: Normal affect normal demeanor nonpressured speech Labs: Urine test negative Assessment and plan: 27-year-old arrives for scheduled laparoscopic tubal ligation. Patient understands the risk of the procedure include but are not limited to visceral or vascular injury, prolonged hospitalization, blood loss and need for transfusion, reoperation. Patient state understanding wish to proceed. All questions were answered and consent was signed. Patient initially with elevated heart rate states very anxious. Cardiac exam with clear to auscultation negative for murmurs rubs or gallops. Repeat vitals with heart rate in the 90s and overall patient stable. Tachycardia secondary to anxiety okay to proceed forward with procedure. Educated patient on findings and discussed risks with surgery, patient and partner state understanding.
--- NOTE | 2023-02-15 09:24 | DCINST_ITS ---
Discharge Instructions Diet Discharge Diet: No restrictions Activity Discharge Activity: Return to Normal Activity, May Drive, May Shower and - (No tub baths for 2 weeks) May resume sexual activity in: 4-6 weeks Lifting Restrictions: No lifting over 25 pounds for 2 to 3 weeks Dressing / Incision Call your doctor if your incision/area has: Continuous Slow Oozing and Foul Smelling Discharge Call your doctor if you observe: Fever of 101 or Higher, Shortness of breath and Chest pain Follow Up Care Please Follow Up With: Alexx Steven MD When: 2 weeks postoperatively Test Results: Test results from this visit will be discussed in further detail at your follow- up appointment, if applicable. Discharge Plan Admission Attending Provider: Alexx Steven Primary Care Provider: Joesph Aguiar Discharge Orders/Prescriptions Prescriptions: No Action multivitamin Tablet 1 tab PO DAILY cholecalciferol (vitamin D3) [Vitamin D3] 25 mcg (1,000 unit) Tablet 25 mcg PO DAILY budesonide-formoterol [Symbicort] 160-4.5 mcg/actuation HFA aerosol inhaler 2 puff INHALATION Q4H PRN PRN (Reason: ASTHMA) Label Comments: INHALE 2 PUFFS BY MOUTH and into the lungs TWICE DAILY Referrals / Follow Up: Joesph Aguiar MD [Primary Care Provider] - Disposition Disposition (needs filled in before D/C Order can be placed): Home, Self Care
--- NOTE | 2023-02-15 09:25 | PCM.OPRPT ---
Report of Operation Date of Procedure: 02/15/23 Pre-Operative Diagnosis: Desires permanent sterilization Post-Operative Diagnosis: Desires permanent sterilization Surgery/Procedure Performed:: Laparoscopic bilateral salpingectomy Description of Surgical Findings:: Surgeon: Alexx Steven MD Anesthesia: General EBL: 5 cc Urine output: 50 cc IV fluids: 600 cc Complications: None Specimen: Bilateral fallopian tubes and paratubal cyst Findings: Bilateral paratubal cysts noted otherwise normal uterus, tubes, and ovaries. Consent: Patient desires permanent sterilization elects for laparoscopic bilateral salpingectomy. Patient understands risk of the procedure include but are not limited to visceral vascular injury, prolonged hospitalization, blood loss need for transfusion, reoperation. Patient state understanding wish to proceed. Her questions were answered and consent was signed. Procedure: Patient was brought back to the OR where general anesthesia was found be adequate. Patient was prepared and draped in a dorsal lithotomy position with yellowfin stirrups. A weighted speculum is placed in the posterior aspect of vagina and cervical dilators were used to dilate cervix. Uterine manipulator was placed. Varies needle was inserted at the umbilicus and water safety test was passed, abdomen was insufflated but elevated opening pressure. Varies needle removed. 5 mm midline supraumbilical trocar incision made. 5 mm trocar placed via [employer]. Abdomen was insufflated and above findings were noted. Left lower quadrant 5 mm trocar was inserted under direct visualization. A right lower quadrant 8 mm trocar was inserted under direct visualization. Using an atraumatic grasper and a LigaSure device the left fallopian tube was identified out to the fimbria and the mesosalpinx was cut and cauterized, fallopian tube was transected at the cornua, fallopian tube sent to pathology. Good hemostasis was noted. Right fallopian tube was identified to the fimbria and the mesosalpinx was cut and cauterized with LigaSure device, fallopian tube was transected at the cornua and sent to pathology. Good hemostasis was noted bilaterally. Abdomen was desufflated. Trocars were removed under direct visualization. Good hemostasis was noted. Laparoscopic incisions were closed in a subcutaneous fashion and skin glue was placed over the incisions. Uterine manipulator was removed, good hemostasis was noted. Good hemostasis was noted. All counts were correct x2. Patient tolerated procedure well and was brought to recovery a in stable condition. scheduling coordinator: Shakeel Davis
[2023-02-15 09:32] VITALS: BP 140/80; BP 142/90; PULSE 105; RESP 16; TEMP 36.6; O2SAT 94
[2023-02-15] MEDS: Ketorolac 30 MG/ML Syringe IV (09:37)
[2023-02-15 09:44] VITALS: BP 130/85; BP 142/90; PULSE 94; RESP 16; O2SAT 93
[2023-02-15 09:59] VITALS: BP 113/97; BP 142/90; PULSE 93; RESP 16; TEMP 36.8; O2SAT 99
[2023-02-15 10:56] VITALS: BP 139/75; BP 142/90; PULSE 98; RESP 20; TEMP 36.3; O2SAT 98
--- NOTE | 2023-02-15 11:00 | SUR.PHASEII ---
PATIENT ACTED LIKE SHE WAS HIGH IN PHASE 2. PACU NURSE DID NOT SAY SHE WAS ACTING LIKE THIS. IT SEEMED TO BE PRECIPITATED BY HER COMPANY IN HER ROOM. SHE WAS FINE ONE MINUTE THEN ACTING LIKE SHE COULD BARELY KEEP HER EYES OPEN THE NEXT. SHE IS ALERT AND ORIENTED. ANSWERS QUESTIONS APPROPRIATELY AND VITALS ARE STABLE. INSTRUCTED HER THAT SHE SHOULD GO HOME AND GO BACK TO BED IF SHE CONTINUES TO FEEL THAT WAY. SHE WAS REQUESTING PIZZA FROM HER FRIENDS SO I THINK SHE IS OK TO DISCHARGE.
--- NOTE | 2023-02-15 11:20 | SUR.PHASEII ---
does not have to void prior to d/c per dr wright
== END 2023-02-15 11:21 | disposition home or self-care (01) ==
LOC: SDC 06:52 → AC 06:53
PROVIDERS: Anesthesiology; PCP Family Medicine; Visit Provider Obstetrics & Gynecology
PROC: (CPT 58661; principal; 2023-02-15 08:30)
DX: Z30.2 Encounter for sterilization (principal); I10 Essential (primary) hypertension; J45.909 Unspecified asthma, uncomplicated; Z79.51 Long term (current) use of inhaled steroids
CPT/HCPCS: 58661; 00840; 36415; 81025; 85027; 86850; 86900; 86901; 88302; J7120; J2405

== ENCOUNTER 2023-06-12 11:12 | Emergency (ER) | payer MEDICAID, SELFPAY ==
[2023-06-12 11:13] VITALS: BP 140/97; PULSE 121; RESP 18; TEMP 36.8; O2SAT 98; BMI 56.4
[2023-06-12 11:23] VITALS: PULSE 117; O2SAT 99
--- NOTE | 2023-06-12 11:47 | RAD_ITS ---
EXAM: XR LEFT HAND COMPLETE, 3 OR MORE VIEWS CLINICAL INDICATION: injury TECHNIQUE: Frontal, lateral and oblique views of the left hand. COMPARISON: No relevant prior studies available. FINDINGS: BONES/JOINTS: No acute abnormality. SOFT TISSUES: Normal. No soft tissue swelling or gas. No radiopaque foreign body. RAD/Hand Min 3 Views IMPRESSION: Intact left hand. Electronically Signed: Mason Grimaldo MD at 12:10 EDT ,
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
== END 2023-06-12 12:25 | disposition home or self-care (01) ==
PROVIDERS: Emergency Provider Emergency Medicine; PCP Family Medicine; Visit Provider Emergency Medicine
DX: S60.222A Contusion of left hand, initial encounter (principal); E66.9 Obesity, unspecified; X58.XXXA Exposure to other specified factors, initial encounter
CPT/HCPCS: 73130; 99282

== ENCOUNTER 2023-07-01 13:40 | Emergency (ER) | payer MEDICAID, SELFPAY ==
[2023-07-01 13:40] VITALS: PULSE 100
[2023-07-01 13:42] VITALS: BP 131/99; PULSE 126; RESP 18; TEMP 36.3; O2SAT 99; BMI 56.7
--- NOTE | 2023-07-01 14:11 | ED.VIS.CHEST ---
HPI History of Present Illness Chief Complaint: Chest Pain Informant: patient Onset/Context/Timing Onset: Days (3) Activity at onset: gradual Timing: Continuous and Waxes and wanes Quality: Positive for Sharp Location: Substernal, Right Parasternal, Left Parasternal, Right Chest and Left Chest Worsened By: Nothing Relieved By: Nothing Associated Symptoms: Positive for Dyspnea; Negative for Nausea, Vomiting, Diaphoresis, Cough, Fever, Lightheadedness, Acid Reflux or Palpitations Narrative Narrative: Patient presents with chest pain that began 3 days ago. Patient states that has been waxing and waning but has been constant since this morning. Patient states her pain is diffuse across her chest. Patient states nothing makes it better nothing makes it worse. Patient admits to some shortness of breath with the pain. Patient describes her pain as sharp. Patient denies any nausea or vomiting. Patient denies any diaphoresis. Patient denies any cough or fevers. Patient denies any palpitations. CVD Risk Factors: Positive for Family History 1' </=55; Negative for Hypertension, Diabetes, Hypercholesterolemia or Smoking PE Risk Factors: Negative for Recent Travel/Surgery, Recent Immobilization, Prior DVT or PE, Cancer or OCP + Smoking + >/=35 PFSH PFSH Medical History Anxiety Asthma Depression Hypertension Non-smoker Home Medications budesonide-formoterol HFA 160 mcg-4.5 mcg/actuation aerosol inhaler (Symbicort) 2 puff inhalation Q4H PRN PRN ASTHMA 02/08/23 [History Last Taken 02/15/23] cholecalciferol (vitamin D3) 25 mcg (1,000 unit) tablet (Vitamin D3) 25 mcg PO DAILY 02/08/23 [History Last Taken Unknown] multivitamin 1 tab PO DAILY 02/08/23 [History Last Taken Unknown] Allergy/AdvReac Type Severity Reaction Status Date / Time No Known Allergies Allergy Verified 07/01/23 13:42 Surgical History History of myringotomy Hx of tonsillectomy Social History Smoking Status: Never smoker ROS ROS ED Constitutional Constitutional ED: Denies chills or fever(s) Eyes Eyes: Denies blurry vision or change in vision ENT ENT ED: Denies rhinorrhea or sore throat Cardiovascular Cardiovascular: Reports chest pain; Denies palpitations Respiratory/Chest Respiratory/Chest: Reports dyspnea; Denies cough Gastrointestinal Gastrointestinal: Denies abdominal pain, nausea or vomiting Genitourinary Genitourinary ED: Denies dysuria or hematuria Musculoskeletal Musculoskeletal: Denies back pain or neck pain Integumentary Denies abscess or rash Neurologic Neurologic: Denies headache(s) or weakness Allergic/Immunologic Allergic/Immunologic ED: Denies mouth swelling or urticaria EXAM Physical Exam Const Vital Signs: 07/01/23 13:42 07/01/23 14:19 07/01/23 13:40 Temperature 97.3 F L Temperature Source Temporal Pulse Rate 126 H 100 Respiratory Rate 18 Blood Pressure 131/99 H Blood Pressure Mean 109 Pulse Ox 99 97 Oxygen Delivery Method Room Air Room Air 07/01/23 16:13 Temperature Temperature Source Pulse Rate 99 Respiratory Rate 16 Blood Pressure 112/86 H Blood Pressure Mean 94 Pulse Ox 98 Oxygen Delivery Method Room Air Positive well nourished, well developed and obese General Appearance ED: well developed and NAD Nutritional Appearance: obese HEENT normocephalic and atraumatic Eyes PERRL and EOMs intact bilaterally Neck supple and no JVD Chest Wall palpation of chest normal Resp normal respiratory effort and clear to auscultation bilaterally Effort and Inspection: Negative for respiratory distress Cardio regular rhythm Rate: tachycardic GI normal to inspection, nondistended, normoactive bowel sounds, soft to palpation, non-tender and non-distended Extremity normal to inspection General Extremety ED: Negative for edema or tenderness General Extremity: Negative for edema Neuro oriented x3, CN's II-XII intact bilaterally and no sensory deficits noted Sensorium / Orientation: awake and alert Motor Exam: strength 5/5 throughout Psych mental status grossly normal Heart Score History: Slightly/Non-Suspicious ECG: Normal Age: </= 45 years Risk Factors: 1 or 2 Risk Factors Score: 1 MDM MDM MDM Narrative Medical decision making narrative: Differential diagnosis includes cardiac dysrhythmia, cardiac ischemia, pneumonia, pneumothorax, pulmonary embolism, GERD, musculoskeletal pain, and anxiety. EKG will be obtained to assess for cardiac dysrhythmia and cardiac ischemia. Chest x-ray will be obtained to assess for pneumonia and pneumothorax. CBC will be obtained to assess for leukocytosis and anemia. Basic metabolic profile will be obtained to assess for electrolyte abnormality and renal function. High-sensitivity troponin will be obtained to assess for cardiac ischemia. D-dimer will be obtained to assess for pulmonary embolism. Lab Data Attestation: I reviewed the patient's lab results. Lab results narrative: CBC was reviewed. There is a mild anemia with a hemoglobin of 10.2 hematocrit 35.5. Platelets were normal. Basic metabolic profile was reviewed and was essentially within normal limits. D-dimer was reviewed and was elevated at 1.2. Magnesium was reviewed and was normal at 2.2. High-sensitivity troponin was reviewed and was normal at 3. Labs: Laboratory Results - last 24 hr 07/01/23 14:25 WBC 9.3 RBC 4.90 Hgb 10.2 L Hct 35.5 L MCV 72.4 L MCH 20.8 L MCHC 28.7 L RDW Std Deviation 48.1 H RDW Coeff of Vikash 18.7 H Plt Count 288 MPV 10.8 Immature Gran % (Auto) 0.300 Neut % (Auto) 73.4 H Lymph % (Auto) 18.6 L [place] % (Auto) 6.3 Eos % (Auto) 1.1 Baso % (Auto) 0.3 Absolute Neuts (auto) 6.8 Absolute Lymphs (auto) 1.73 Nucleated RBC % 0 D-Dimer Quant (PE/DVT) 1.20 H* Sodium 138 Potassium 3.4 L Chloride 109 H Carbon Dioxide 26.0 Anion Gap 3 L BUN 9 Creatinine 0.87 Estim Creat Clear Calc 83.88 Est GFR (MDRD) Af Amer 100 Est GFR (MDRD) Non-Af 83 BUN/Creatinine Ratio 10.3 Glucose 126 H Calcium 8.4 L Magnesium 2.2 Troponin I High Sens 3 Radiography Chest X-Ray - ED: 2 View, Read by ED Physician, Read by Radiologist and No Acute Disease Diagnostic Testing: Clinical Impression(s) from Imaging Studies Chest X-Ray 07/01/23 14:25 IMPRESSION: Normal x-ray examination of the chest. Electronically Signed: Darshan Ryan MD at 14:40 EDT , Chest CTA 07/01/23 15:01 IMPRESSION: Normal CTA chest examination, without a demonstrated pulmonary embolism or arterial dissection. Electronically Signed: Darshan Ryan MD at 15:38 EDT , PA and lateral chest x-ray was obtained. There are 2 views. On my independent interpretation, lung cohn are clear. There is normal cardiac silhouette. Bony thorax is normal. There is no acute process noted. Radiologist also interpreted the x-ray and agrees. Because of the elevated D-dimer, CTA of the chest was obtained. There is no evidence of pulmonary embolism or aortic dissection. There is no infiltrate noted. This was interpreted by the radiologist and was also independently reviewed by myself. EKG Initial EKG: Attestation: I personally reviewed and interpreted this EKG as follows: Interpretation: No Acute Injury Pattern and Sinus Tachycardia (124) Comments: EKG was obtained. On my independent interpretation, it showed a sinus tachycardia with a rate of 124. SC interval and QRS intervals were normal. QTc was prolonged at 580 ms. [place] was normal. There are no acute ST or T wave changes. Prior EKG tracings: available for review Prior: Unchanged (12/19/2021) Treatment and Re-Evaluation :: Patient was given IV fluids and aspirin. Patient is feeling better on reevaluation. Patient was advised of her findings. Patient was instructed to follow-up with her primary care physician in 5 to 7 days. Patient was instructed return if worse in any way. Patient understood and was agreeable with the plan. All questions were answered. Discharge Plan Triage Chief Complaint: Chest Pain ED Provider: Joesph Hummel Dx/Rx/DC Orders Clinical Impression: Chest pain of uncertain etiology, Elevated blood pressure reading, Morbid obesity with BMI of 50.0-59.9, adult Instructions: ED Chest Pain, Uncertain Cause Prescriptions: No Action multivitamin Tablet 1 tab PO DAILY cholecalciferol (vitamin D3) [Vitamin D3] 25 mcg (1,000 unit) Tablet 25 mcg PO DAILY budesonide-formoterol [Symbicort] 160-4.5 mcg/actuation HFA aerosol inhaler 2 puff INHALATION Q4H PRN PRN (Reason: ASTHMA) Patient Comments: INHALE 2 PUFFS BY MOUTH and into the lungs TWICE DAILY Primary Care Provider: Joesph Aguiar Referrals: Joesph Aguiar MD [Primary Care Provider] - 5-7 Days Disposition Disposition: Home, Self Care
[2023-07-01 14:19] VITALS: O2SAT 97
--- NOTE | 2023-07-01 14:25 | RAD_ITS ---
STUDY: X-RAY CHEST REASON FOR EXAM: Female, 27 years old. Chest pain TECHNIQUE: PA and lateral views of the chest. COMPARISON: Comparison is made with prior study of December 19, 2021. FINDINGS: The lungs are clear and expanded. There is no demonstrated pleural abnormality. Normal size heart. Normal mediastinum and [place]. Normal visualized pulmonary arteries. Normal visualized aortic arch and descending thoracic aorta. Normal visualized thoracic spine. Normal visualized ribs, clavicles, and shoulders. There is no demonstrated abnormality of the visualized soft tissue structures of the upper abdomen. RAD/Chest PA and Lateral IMPRESSION: Normal x-ray examination of the chest. Electronically Signed: Darshan Ryan MD at 14:40 EDT ,
[2023-07-01 14:36] LABS: Absolute Lymphocyte Count 1.73 X10^3/uL (0.83-4.51); Absolute Neutrophil Count 6.8 X10^3/uL (2.0-7.7); Basophil# 0.03 X10^3/uL; Basophil% 0.3 % (0-1); Eosinophils% 1.1 % (0-5); Hematocrit 35.5 % (37-47); Hemoglobin 10.2 g/dL (12.0-15.0); Lymphocyte # 1.73 X10^3/ul (0.83-4.51); Lymphocyte % 18.6 % (19-41); Mean Corp Hgb Conc 28.7 g/dL (32-36); Mean Corpuscular Hgb 20.8 pg (27.0-32.0); Mean Corpuscular Volume 72.4 fL (81-99); Mean Platelet Vol. 10.8 fl (6.2-12.0); Monocyte# 0.59 X10^3/uL; Monocyte% 6.3 % (0-10); NRBC Flagged by Analyzer 0 % (0-5); Neutrophil # 6.84 X10^3/uL (2.7-7.7); Neutrophil % 73.4 % (47-70); Platelet Count 288 K/mm3 (150-450); RBC Distribution Width CV 18.7 % (11.6-14.6); RBC Distribution Width SD 48.1 fl (35.1-43.9); White Blood Count 9.3 K/mm3 (4.4-11.0)
[2023-07-01] MEDS: Aspirin 81 MG TAB.CHEW 324 MG PO (14:41)
[2023-07-01 14:52] LABS: Anion Gap 3 (5-15); BUN 9 mg/dL (7-18); BUN/Creat Ratio 10.3 RATIO (10-20); Calcium,Total 8.4 mg/dL (8.5-10.1); Chloride 109 mmol/L (98-107); Creatinine, Serum 0.87 mg/dL (0.55-1.02); EST Glomerular Filtration Rate 83 mL/min (>60); Est Glom Filt Rate - Afr Amer 100 mL/min (>60); Estimated Creatinine Clearance 83.88 ml/min; Glucose 126 mg/dL (74-106); Magnesium 2.2 mg/dL (1.6-2.6); Potassium 3.4 mmol/L (3.5-5.1); Sodium Level 138 mmol/L (136-145); Troponin-I HS 3 pg/mL (3.0-54.0)
--- NOTE | 2023-07-01 14:54 | ED.RN ---
D Dimer 1.2
--- NOTE | 2023-07-01 15:01 | CT_ITS ---
STUDY: CTA CHEST REASON FOR EXAM: Female, 27 years old. Elevated D-dimer RADIATION DOSAGE (If Supplied By Facility): CTDIvol = ( 15.58 ) mGy, DLP = ( 484.69 ) mGycm TECHNIQUE: The examination was performed with the intravenous administration of IV 100mL Isovue-370. Post-processing of the angiographic images was performed, with multiplanar reformation and 3D reconstruction. Individualized dose optimization techniques were used for this CT. COMPARISON: Comparison is made with prior examination of December 20, 2019 FINDINGS: Normal enhancement of the main pulmonary artery and right and left pulmonary arteries. Normal enhancement of the bilateral peripheral pulmonary arteries. There is no demonstrated pulmonary embolism. Normal thoracic aorta and visualized great vessels. There is no demonstrated aortic dissection. Normal heart and pericardium. Normal mediastinum. Normal hilar regions. Normal visualized trachea and bronchi. The lungs are well expanded. Normal pulmonary parenchyma. Normal pleura. Normal chest wall structures. Normal osseous structures. There is a small hiatal hernia. CT/CTA Chest W/WO Contrast IMPRESSION: Normal CTA chest examination, without a demonstrated pulmonary embolism or arterial dissection. Electronically Signed: Darshan Ryan MD at 15:38 EDT ,
[2023-07-01] MEDS: Ketorolac 30 MG/ML Syringe IV (16:01)
[2023-07-01 16:13] VITALS: BP 112/86; PULSE 99; RESP 16; O2SAT 98
[2023-07-01 16:23] VITALS: BP 112/86; PULSE 99
== END 2023-07-01 16:24 | disposition home or self-care (01) ==
PROVIDERS: Emergency Provider Emergency Medicine; PCP Family Medicine; Visit Provider Emergency Medicine
DX: R07.9 Chest pain, unspecified (principal); E66.01 Morbid (severe) obesity due to excess calories; Z68.43 Body mass index [BMI] 50.0-59.9, adult; R06.02 Shortness of breath; R03.0 Elevated blood-pressure reading, without diagnosis of hypertension; J45.909 Unspecified asthma, uncomplicated
CPT/HCPCS: 71046; 71275; 80048; 83735; 84484; 85025; 85379; 93005; 96374; 99283; Q9967; A4216

== ENCOUNTER 2024-03-02 12:00 | Emergency (ER) | payer MEDICAID, SELFPAY ==
[2024-03-02 12:01] VITALS: BP 169/86; PULSE 108; RESP 16; TEMP 36.4; O2SAT 100
--- NOTE | 2024-03-02 12:24 | EDS_ITS ---
HPI History of Present Illness Chief Complaint: Lower Extremity Injury Detail of Chief Complaint: Right knee pain Informant: patient Onset/Context/Timing Onset: Weeks Narrative Narrative: Patient presents secondary to right knee pain and leg weakness. She states that she has been having pain in her right knee and feels that will give out on her for the past 2 weeks. She did fall this morning and has bruising over her mix. She denies any specific injury at the onset of pain. She denies any history of knee problems. She has been taking Tylenol and ibuprofen without improvement. [facility] Medical History (Updated 03/02/24 @ 13:[address] Trina Mccann MD) Non-smoker Hypertension Anxiety Depression Asthma Home Medications ?Medication ?Instructions ?Recorded ?Last Taken ?Type budesonide-formoterol HFA 160 2 puff inhalation Q4H PRN PRN 02/08/23 02/15/23 History mcg-4.5 mcg/actuation aerosol ASTHMA inhaler (Symbicort) cholecalciferol (vitamin D3) 25 25 mcg PO DAILY 02/08/23 Unknown History mcg (1,000 unit) tablet (Vitamin D3) multivitamin 1 tab PO DAILY 02/08/23 Unknown History naproxen 500 mg tablet (Naprosyn) 500 mg PO BID PRN pain #20 tabs 03/02/24 Unknown Rx Allergy/AdvReac Type Severity Reaction Status Date / Time No Known Allergies Allergy Verified 03/02/24 12:03 Surgical History (Updated 03/02/24 @ 12:[address] Trina Mccann MD) H/O tubal ligation History of myringotomy Hx of tonsillectomy Social History Smoking Status: Never smoker ROS ROS ED Constitutional Constitutional ED: Denies chills or fever(s) Eyes Eyes: Denies discharge from eye(s) ENT ENT ED: Denies discharge from eye(s), rhinorrhea or sore throat Cardiovascular Cardiovascular: Denies chest pain or palpitations Respiratory/Chest Respiratory/Chest: Denies cough or dyspnea Gastrointestinal Gastrointestinal: Denies abdominal pain, nausea or vomiting Genitourinary Genitourinary ED: Denies dysuria Musculoskeletal Musculoskeletal: Reports extremity pain; Denies back pain Integumentary Denies Abrasions or rash Neurologic Neurologic: Reports weakness; Denies headache(s) Psychiatric Psychiatric: Denies anxiety or depression Allergic/Immunologic Allergic/Immunologic ED: Denies lip swelling or urticaria EXAM Physical Exam Const Vital Signs: 03/02/24 12:01 Temperature 97.5 F L Temperature Source Temporal Pulse Rate 108 H Respiratory Rate 16 Blood Pressure 169/86 H Blood Pressure Mean 113 Pulse Ox 100 Oxygen Delivery Method Room Air Positive obese Nutritional Appearance: obese HEENT Reports moist mucous membranes Eyes EOMs intact bilaterally Chest Wall inspection of chest normal and palpation of chest normal Resp normal respiratory effort and clear to auscultation bilaterally Cardio regular rate and regular rhythm GI non-tender Palpation: soft Extremity Extremity Narrative: Tenderness palpation along the joint line of the right knee with edema noted. Some early ecchymosis is noted over the proximal mix. Good range of motion. Good distal pulses. No erythema or excessive warmth to indicate infection. Neuro oriented x3 Skin no rashes or lesions noted MDM MDM MDM Narrative Medical decision making narrative: Right knee x-ray obtained to evaluate for fracture, sprain, effusion. Radiography Diagnostic Testing: Clinical Impression(s) from Imaging Studies Knee X-Ray 03/02/24 12:35 IMPRESSION: Small joint effusion. Electronically Signed: Darshan Ryan MD at 13:04 EDT , Treatment and Re-Evaluation :: Right knee x-rays per my interpretation reveal no obvious acute bony abnormality. Radiology interpretation reviewed. They do feel there is a small joint effusion. Vicente wrap will be applied to the knee and I will write prescription strength naproxen for the patient. She was referred to orthopedics for follow-up. Discharge Plan Triage Chief Complaint: Lower Extremity Injury ED Provider: Trina Mccann Dx/Rx/DC Orders Clinical Impression: Right knee sprain Instructions: ED Knee Effusion, ED Knee Sprain Prescriptions: New naproxen [Naprosyn] 500 mg tablet 500 mg PO BID PRN (Reason: pain) Qty: 20 0RF No Action multivitamin Tablet 1 tab PO DAILY cholecalciferol (vitamin D3) [Vitamin D3] 25 mcg (1,000 unit) Tablet 25 mcg PO DAILY budesonide-formoterol [Symbicort] 160-4.5 mcg/actuation HFA aerosol inhaler 2 puff INHALATION Q4H PRN PRN (Reason: ASTHMA) Patient Comments: INHALE 2 PUFFS BY MOUTH and into the lungs TWICE DAILY Primary Care Provider: Joesph Aguiar Referrals: Joesph Aguiar MD [Primary Care Provider] - Dev Walker DO [Med Staff - Active Staff] - 1 Week if not improving Print Language: Sri Lankan Disposition Disposition: Home, Self Care
--- NOTE | 2024-03-02 12:35 | RAD_ITS ---
STUDY: X-RAY - RIGHT KNEE REASON FOR EXAM: Female, 28 years old. Pain following injury. TECHNIQUE: 4 view(s) of the knee. COMPARISON: None. FINDINGS: Normal visualized distal femur. Normal visualized proximal tibia and fibula. Normal proximal tibiofibular articulation. Normal medial femorotibial compartment. Normal lateral femorotibial compartment. Normal patellofemoral articulation. Small joint effusion. RAD/Knee 4 or More Views IMPRESSION: Small joint effusion. Electronically Signed: Darshan Ryan MD at 13:04 EDT ,
[2024-03-02] MEDS: Naproxen 500 MG Tablet PO (14:01)
[2024-03-02 14:04] VITALS: BP 118/67; PULSE 71; RESP 16; TEMP 36.4; O2SAT 98
== END 2024-03-02 14:06 | disposition home or self-care (01) ==
PROVIDERS: Emergency Provider Emergency Medicine; PCP Family Medicine; Visit Provider Emergency Medicine
DX: S83.91XA Sprain of unspecified site of right knee, initial encounter (principal); I10 Essential (primary) hypertension; J45.909 Unspecified asthma, uncomplicated; E66.9 Obesity, unspecified; W19.XXXA Unspecified fall, initial encounter
CPT/HCPCS: 73564; 99282

== ENCOUNTER 2024-05-28 21:46 | Emergency (ER) | payer MEDICAID, SELFPAY ==
[2024-05-28 21:46] VITALS: BP 148/100; PULSE 117; RESP 19; TEMP 36.2; O2SAT 100
[2024-05-28 22:19] VITALS: BMI 56.0
--- NOTE | 2024-05-28 22:37 | EDS_ITS ---
HPI History of Present Illness Chief Complaint: Rash Informant: patient and spouse/S.O. Narrative Narrative: Patient is a 28-year-old female with past medical history of hypertension asthma as well as anxiety and depression. She states that over the last few days she has noticed some discomfort in the gluteal cleft/buttocks region. She states that she had her significant other look and there is redness and irritation present. She denies any history of immunosuppression but states that symptoms have been worsening and to the point where she cannot sleep secondary to them and therefore she comes in for evaluation. [facility] Medical History Right knee pain Non-smoker Hypertension Anxiety Depression Asthma Home Medications ?Medication ?Instructions ?Recorded ?Last Taken ?Type budesonide-formoterol HFA 160 2 puff inhalation Q4H PRN PRN 02/08/23 02/15/23 History mcg-4.5 mcg/actuation aerosol ASTHMA inhaler (Symbicort) clotrimazole-betamethasone 1 1 applic topical BID 4 weeks #30 mL 05/28/24 Unknown Rx %-0.05 % lotion fluconazole 150 mg tablet 150 mg PO Q3D 3 doses #3 tabs 05/28/24 Unknown Rx norethindrone (contraceptive) 0.35 0.35 mg PO DAILY 05/28/24 Unknown History mg tablet (Anya) sertraline 50 mg tablet 50 mg PO DAILY 05/28/24 Unknown History Allergy/AdvReac Type Severity Reaction Status Date / Time No Known Allergies Allergy Verified 05/28/24 21:48 Surgical History H/O tubal ligation History of myringotomy Hx of tonsillectomy Social History Smoking Status: Never smoker ROS ROS ED Constitutional Constitutional ED: Denies chills or fever(s) ENT ENT ED: Denies sore throat Cardiovascular Cardiovascular: Denies chest pain Respiratory/Chest Respiratory/Chest: Denies cough or dyspnea Gastrointestinal Gastrointestinal: Denies abdominal pain, diarrhea, nausea or vomiting Genitourinary Genitourinary ED: Denies dysuria Musculoskeletal Musculoskeletal: Denies myalgias Integumentary Reports rash Neurologic Neurologic: Denies headache(s) Hematologic/Lymphatic Hematologic/Lymphatic: Denies easy bleeding or easy bruising EXAM Physical Exam Const Vital Signs: 05/28/24 21:46 Temperature 97.2 F L Temperature Source Temporal Pulse Rate 117 H Respiratory Rate 19 H Blood Pressure 148/100 H Blood Pressure Mean 116 Pulse Ox 100 Oxygen Delivery Method Room Air Positive well nourished, well developed and obese General Appearance ED: well developed Nutritional Appearance: obese HEENT HEENT Narrative: No tongue or lip swelling no oral lesions no airway edema or compromise Eyes PERRL and EOMs intact bilaterally Neck supple Resp normal respiratory effort and clear to auscultation bilaterally Cardio regular rate and regular rhythm Extremity normal to inspection Neuro oriented x3, CN's II-XII intact bilaterally and no sensory deficits noted Sensorium / Orientation: alert Motor Exam: strength 5/5 throughout Psych mental status grossly normal Skin Skin Narrative: In the gluteal cleft region there is faint erythema with mild overlying white hue most consistent with cutaneous candidiasis. No lymphangitic streaking no abscess or pilonidal cyst noted. No crepitance palpated to suggest Latohsa's g angrene. MDM MDM MDM Narrative Medical decision making narrative: Patient arrived to the ER hypertensive but otherwise afebrile. She reported skin irritation in the gluteal cleft without potential skin allergen/exposure. Differential diagnosis is for cutaneous candidiasis versus pilonidal cyst versus abscess versus cellulitis versus allergic reaction. Exam is most consistent with cutaneous candidiasis and that she does not have signs of systemic infection and denies any history of immunosuppression I do not feel there is need for laboratory studies or imaging and she can be discharged home with symptomatic care History & Record Review Discussion w/independent historian: Patient Discharge Plan Triage Chief Complaint: Rash ED Provider: Garrison Millan Dx/Rx/DC Orders Clinical Impression: Candidiasis of skin, Hypertension, Anxiety and depression, Morbid obesity Instructions: ED Tanja Skin Infection (Adult) Prescriptions: New fluconazole 150 mg tablet 150 mg PO Q3D Qty: 3 0RF clotrimazole-betamethasone 1-0.05 % lotion 1 applic topical BID 28 Days Qty: 30 1RF No Action budesonide-formoterol [Symbicort] 160-4.5 mcg/actuation HFA aerosol inhaler 2 puff INHALATION Q4H PRN PRN (Reason: ASTHMA) Patient Comments: INHALE 2 PUFFS BY MOUTH and into the lungs TWICE DAILY sertraline 50 mg tablet 50 mg PO DAILY norethindrone (contraceptive) [Anya] 0.35 mg tablet 0.35 mg PO DAILY Primary Care Provider: Joesph Aguiar Referrals: Joesph Aguiar MD [Primary Care Provider] - Activity Restrictions/Additional Instructions: Please keep the area clean and dry and use the prescribed antifungal pill as well as topical cream to resolve the skin infection. Return to the ER should you have any further concerns or worsening of symptoms Print Language: Uzbek Disposition Disposition: Home, Self Care Discharge Date/Time: 05/28/24 23:05
[2024-05-28] MEDS: oxyCODONE 5 MG Tablet 10 MG PO (23:03)
[2024-05-28] MEDS: FLUCONAZOLE 150 MG TABLET PO (23:04)
== END 2024-05-28 23:05 | disposition home or self-care (01) ==
PROVIDERS: Emergency Provider Emergency Medicine; PCP Family Medicine; Visit Provider Emergency Medicine
DX: B37.2 Candidiasis of skin and nail (principal); E66.01 Morbid (severe) obesity due to excess calories; I10 Essential (primary) hypertension; F41.8 Other specified anxiety disorders; Z79.899 Other long term (current) drug therapy; J45.909 Unspecified asthma, uncomplicated; Z79.51 Long term (current) use of inhaled steroids; Z98.51 Tubal ligation status
CPT/HCPCS: 99282

== ENCOUNTER → 2024-06-13 | Outpatient (CLI) | payer MEDICAID, SELFPAY ==
[2024-06-13 15:48] LABS: Absolute Lymphocyte Count 1.81 X10^3/uL (0.83-4.51); Absolute Neutrophil Count 7.1 X10^3/uL (2.0-7.7); Basophil# 0.03 X10^3/uL; Basophil% 0.3 % (0-1); Eosinophil# 0.15 X10^3/uL; Eosinophils% 1.5 % (0-5); Hematocrit 36.9 % (37-47); Hemoglobin 10.8 g/dL (12.0-15.0); Lymphocyte # 1.81 X10^3/ul (0.83-4.51); Lymphocyte % 18.3 % (19-41); Mean Corp Hgb Conc 29.3 g/dL (32-36); Mean Corpuscular Hgb 22.6 pg (27.0-32.0); Mean Corpuscular Volume 77.2 fL (81-99); Mean Platelet Vol. 11.7 fl (6.2-12.0); Monocyte# 0.76 X10^3/uL; Monocyte% 7.7 % (0-10); NRBC Flagged by Analyzer 0 % (0-5); Neutrophil # 7.09 X10^3/uL (2.7-7.7); Neutrophil % 71.8 % (47-70); Platelet Count 286 K/mm3 (150-450); RBC Distribution Width CV 17.2 % (11.6-14.6); RBC Distribution Width SD 48.1 fl (35.1-43.9); Red Blood Count 4.78 M/mm3 (4.2-5.4); White Blood Count 9.9 K/mm3 (4.4-11.0)
[2024-06-13 16:27] LABS: ALB/GLOB Ratio 0.7 RATIO (0.9-2.4); AST(SGOT) 16 U/L (15-37); Alanine Aminotransfer ALT/SGPT 27 U/L (13-56); Albumin, Serum 3.2 g/dL (3.2-5.0); Alkaline Phosphatase 68 U/L (45-117); Anion Gap 6 (5-15); BUN 8 mg/dL (7-18); BUN/Creat Ratio 11.7 RATIO (10-20); Chloride 106 mmol/L (98-107); Creatinine, Serum 0.68 mg/dL (0.55-1.02); EST Glomerular Filtration Rate 109 mL/min (>60); Est Glom Filt Rate - Afr Amer 132 mL/min (>60); Globulin 4.7 g/dL (2.2-4.2); Glucose 79 mg/dL (74-106); Protein, Total 7.9 g/dL (6.4-8.2); Sodium Level 137 mmol/L (136-145)
== END | disposition home or self-care (01) ==
PROVIDERS: PCP Family Medicine; Visit Provider Family Medicine
DX: K62.5 Hemorrhage of anus and rectum (principal)
CPT/HCPCS: 36415; 80053; 85025; 86140

== ENCOUNTER 2024-10-21 03:49 | Emergency (ER) | payer MEDICAID, SELFPAY ==
[2024-10-21 03:52] VITALS: BP 106/86; PULSE 95; RESP 18; TEMP 36.3; O2SAT 100; BMI 59.7
[2024-10-21] MEDS: oxyCODONE 5 MG Tablet 10 MG PO (05:14)
[2024-10-21] MEDS: Ondansetron ODT 4 MG Tablet PO (05:14)
[2024-10-21 05:35] LABS: Absolute Lymphocyte Count 1.47 X10^3/uL (0.83-4.51); Basophil# 0.02 X10^3/uL; Basophil% 0.2 % (0-1); Hematocrit 36.6 % (37-47); Hemoglobin 11.1 g/dL (12.0-15.0); Lymphocyte # 1.47 X10^3/ul (0.83-4.51); Lymphocyte % 14.2 % (19-41); Mean Corp Hgb Conc 30.3 g/dL (32-36); Mean Corpuscular Hgb 24.1 pg (27.0-32.0); Mean Corpuscular Volume 79.4 fL (81-99); Mean Platelet Vol. 11.5 fl (6.2-12.0); Monocyte# 0.73 X10^3/uL; Monocyte% 7.1 % (0-10); NRBC Flagged by Analyzer 0 % (0-5); Neutrophil # 7.98 X10^3/uL (2.7-7.7); Neutrophil % 77.1 % (47-70); Platelet Count 241 K/mm3 (150-450); RBC Distribution Width CV 16.5 % (11.6-14.6); RBC Distribution Width SD 47.1 fl (35.1-43.9); Red Blood Count 4.61 M/mm3 (4.2-5.4); White Blood Count 10.3 K/mm3 (4.4-11.0)
[2024-10-21 05:49] VITALS: BP 133/63; PULSE 83; RESP 18; O2SAT 98
[2024-10-21 05:59] LABS: Internal QC Validated? YES +Cl - CLEAR BKGD; Pregnancy, Serum, hCG Quali. NEGATIVE Negative
[2024-10-21 06:12] LABS: AST(SGOT) 9 U/L (15-37); Alanine Aminotransfer ALT/SGPT 19 U/L (13-56); Albumin, Serum 3.1 g/dL (3.2-5.0); Alkaline Phosphatase 70 U/L (45-117); Anion Gap 5 (5-15); BUN 13 mg/dL (7-18); BUN/Creat Ratio 17.9 RATIO (10-20); Bilirubin, Direct 0.13 mg/dL (0.00-0.30); Calcium,Total 8.5 mg/dL (8.5-10.1); Chloride 108 mmol/L (98-107); Creatinine, Serum 0.73 mg/dL (0.55-1.02); EST Glomerular Filtration Rate 101 mL/min (>60); Est Glom Filt Rate - Afr Amer 122 mL/min (>60); Estimated Creatinine Clearance 173.85 ml/min; Globulin 4.1 g/dL (2.2-4.2); Glucose 101 mg/dL (74-106); Lipase 22 U/L (13-75); Potassium 3.8 mmol/L (3.5-5.1); Protein, Total 7.2 g/dL (6.4-8.2); Sodium Level 138 mmol/L (136-145)
[2024-10-21 07:00] VITALS: BP 127/66; PULSE 88; RESP 16; O2SAT 98
--- NOTE | 2024-10-21 07:06 | EX.ED.DYSGE1 ---
HPI History of Present Illness Chief Complaint: Abd Pain Informant: patient Narrative Narrative: Patient is a 28-year-old female with past medical history of anxiety depression and asthma. She states that over the past 24 hours she has had multiple bouts of nausea and vomiting and generalized abdominal discomfort. She denies any known sick contact. She denies any history of intestinal disorder. She states that she has been having difficulty keeping food and fluid down and therefore with her persistent pain and symptoms has concern for infection and comes in for evaluation [facility] Medical History Right knee pain Non-smoker Hypertension Anxiety Depression Asthma Home Medications ?Medication ?Instructions ?Recorded ?Last Taken ?Type budesonide-formoterol HFA 160 2 puff inhalation Q4H PRN PRN 02/08/23 02/15/23 History mcg-4.5 mcg/actuation aerosol ASTHMA inhaler (Symbicort) clotrimazole-betamethasone 1 1 applic topical BID 4 weeks #30 mL 05/28/24 Unknown Rx %-0.05 % lotion fluconazole 150 mg tablet 150 mg PO Q3D 3 doses #3 tabs 05/28/24 Unknown Rx norethindrone (contraceptive) 0.35 0.35 mg PO DAILY 05/28/24 Unknown History mg tablet (Anya) sertraline 50 mg tablet 50 mg PO DAILY 05/28/24 Unknown History ondansetron 4 mg disintegrating 4 mg PO TID PRN nausea and 10/21/24 Unknown Rx tablet vomiting #21 tabs oxycodone 5 mg tablet 5 mg PO Q6H PRN pain 3 days #12 10/21/24 Unknown Rx tabs Allergy/AdvReac Type Severity Reaction Status Date / Time No Known Allergies Allergy Verified 05/28/24 21:48 Surgical History H/O tubal ligation History of myringotomy Hx of tonsillectomy Social History Smoking Status: Never smoker ROS ROS ED Constitutional Constitutional ED: Denies chills or fever(s) Eyes Eyes: Denies change in vision ENT ENT ED: Denies sore throat Cardiovascular Cardiovascular: Denies chest pain Respiratory/Chest Respiratory/Chest: Denies cough or dyspnea Gastrointestinal Gastrointestinal: Reports abdominal pain, diarrhea, nausea and vomiting Genitourinary Genitourinary ED: Denies dysuria or hematuria Musculoskeletal Musculoskeletal: Reports myalgias Integumentary Denies rash Neurologic Neurologic: Reports headache(s) Hematologic/Lymphatic Hematologic/Lymphatic: Denies easy bleeding or easy bruising EXAM Physical Exam Const Vital Signs: 10/21/24 03:52 10/21/24 05:49 10/21/24 07:00 Temperature 97.3 F L Temperature Source Oral Pulse Rate 95 83 88 Respiratory Rate 18 18 16 Blood Pressure 106/86 H 133/63 H 127/66 H Blood Pressure Mean 92 86 86 Pulse Ox 100 98 98 Oxygen Delivery Method Room Air Room Air 10/21/24 07:16 Temperature 97.3 F L Temperature Source Pulse Rate 85 Respiratory Rate 18 Blood Pressure 137/99 H Blood Pressure Mean 111 Pulse Ox 97 Oxygen Delivery Method Positive well nourished, well developed and obese General Appearance ED: well developed; Negative for pallor Nutritional Appearance: obese HEENT Reports dry mucous membranes HEENT Narrative: Mucous membranes are mildly dry and tacky No tongue or lip swelling no oral lesions no airway edema or compromise No secondary findings in the posterior pharynx to suggest infection Mouth ED: Yes dry mucous membranes Mouth: dry mucous membranes Eyes PERRL and EOMs intact bilaterally General Eye ED: Negative for scleral icterus Neck supple Neck Narrative: No nuchal rigidity or meningeal signs Resp normal respiratory effort and clear to auscultation bilaterally Cardio regular rate and regular rhythm GI non-distended and no masses GI Narrative: Abdomen is soft nontender and nondistended with hyperactive bowel sounds. There is mild diffuse pain with palpation without voluntary guarding or rigidity. No pulsatile mass or fluid wave. Negative Parish sign. No pain over McBurney's point Auscultation: hyperactive bowel sounds Palpation: soft Back/Spine no CVA tenderness Extremity normal to inspection Neuro oriented x3, CN's II-XII intact bilaterally and no sensory deficits noted Sensorium / Orientation: alert Motor Exam: strength 5/5 throughout Psych mental status grossly normal Skin no rashes or lesions noted Skin Narrative: Skin turgor is slightly increased General Skin Exam: Negative for jaundice or pallor MDM MDM MDM Narrative Medical decision making narrative: Patient presented to the ER with stable vitals. Her abdomen was soft and nonsurgical so I felt no need for an emergent CT scan. History and exam is consistent with viral stomach infection such as norovirus versus rotavirus. However there is concern she may have acute kidney injury clinically significant [place] abnormality pancreatitis or biliary colic or acute cholecystitis or potential complication. Basic labs were obtained and show no signs of VINEET or clinically significant electrolyte changes. test is negative going against complication. Lipase is normal going against pancreatitis and liver enzymes are also normal going against biliary colic or acute cholecystitis. After receiving Zofran and oxycodone she did have improvement of her symptoms and no further bouts of vomiting. On reevaluation her abdomen is soft and nonsurgical and therefore with improvement of symptoms and a soft nonsurgical abdomen and overall negative workup I do not feel there is need for further evaluation in the ER and she is otherwise safe for discharge History & Record Review Discussion w/independent historian: Patient Lab Data Attestation: I reviewed the patient's lab results. Labs: Laboratory Results - last 24 hr 10/21/24 05:07 WBC 10.3 RBC 4.61 Hgb 11.1 L Hct 36.6 L MCV 79.4 L MCH 24.1 L MCHC 30.3 L RDW Std Deviation 47.1 H RDW Coeff of Vikash 16.5 H Plt Count 241 MPV 11.5 Immature Gran % (Auto) 0.400 Neut % (Auto) 77.1 H Lymph % (Auto) 14.2 L [place] % (Auto) 7.1 Eos % (Auto) 1.0 Baso % (Auto) 0.2 Absolute Neuts (auto) 8.0 H Absolute Lymphs (auto) 1.47 Nucleated RBC % 0 Sodium 138 Potassium 3.8 Chloride 108 H Carbon Dioxide 25.0 Anion Gap 5 BUN 13 Creatinine 0.73 Estim Creat Clear Calc 173.85 Est GFR (MDRD) Af Amer 122 Est GFR (MDRD) Non-Af 101 BUN/Creatinine Ratio 17.9 Glucose 101 Calcium 8.5 Total Bilirubin 0.30 Direct Bilirubin 0.13 AST 9 L ALT 19 Alkaline Phosphatase 70 Total Protein 7.2 Albumin 3.1 L Globulin 4.1 Lipase 22 Serum , Qual NEGATIVE Discharge Plan Triage Chief Complaint: Abd Pain ED Provider: Garrison Millan Dx/Rx/DC Orders Clinical Impression: Nausea & vomiting, Generalized abdominal pain, Mild dehydration, Anxiety and depression Instructions: Abdominal Pain, ED Gastroenteritis, Viral (Adult) Prescriptions: New oxycodone 5 mg tablet 5 mg PO Q6H PRN (Reason: pain) 3 Days Qty: 12 0RF ondansetron 4 mg tablet,disintegrating 4 mg PO TID PRN (Reason: nausea and vomiting) Qty: 21 0RF No Action budesonide-formoterol [Symbicort] 160-4.5 mcg/actuation HFA aerosol inhaler 2 puff INHALATION Q4H PRN PRN (Reason: ASTHMA) Patient Comments: INHALE 2 PUFFS BY MOUTH and into the lungs TWICE DAILY sertraline 50 mg tablet 50 mg PO DAILY norethindrone (contraceptive) [Anya] 0.35 mg tablet 0.35 mg PO DAILY fluconazole 150 mg tablet 150 mg PO Q3D Qty: 3 0RF clotrimazole-betamethasone 1-0.05 % lotion 1 applic topical BID 28 Days Qty: 30 1RF Primary Care Provider: Joesph Aguiar Referrals: Joesph Aguiar MD [Primary Care Provider] - Activity Restrictions/Additional Instructions: Your symptoms are most consistent with a viral stomach infection that can last anywhere from 1 day to 7 to 10 days with the average being 3. Keep yourself well-hydrated and use prescribed medications as directed to control symptoms. Return to the ER should you have any further concerns Print Language: Sinhala Disposition Disposition: Home, Self Care Discharge Date/Time: 10/21/24 07:21
[2024-10-21 07:16] VITALS: BP 137/99; PULSE 85; RESP 18; TEMP 36.3; O2SAT 97
== END 2024-10-21 07:21 | disposition home or self-care (01) ==
PROVIDERS: Emergency Provider Emergency Medicine; PCP Family Medicine; Visit Provider Emergency Medicine
DX: R10.84 Generalized abdominal pain (principal); F41.9 Anxiety disorder, unspecified; R11.2 Nausea with vomiting, unspecified; F32.A Depression, unspecified; E86.0 Dehydration; I10 Essential (primary) hypertension; Z79.899 Other long term (current) drug therapy; Z79.51 Long term (current) use of inhaled steroids; Z98.51 Tubal ligation status
CPT/HCPCS: J2405; 36415; 80048; 80076; 83690; 84703; 85025; 96361; 96374; 96375; 99283; A4216

== ENCOUNTER → 2024-10-31 | Outpatient (CLI) | payer MEDICAID, SELFPAY ==
[2024-10-31 23:52] LABS: Hepatitis B Surface Antibody Non-Reactive; Rubella IgG Reactive (Nonreactive)
[2024-11-02 07:08] LABS: Mumps Antibody,IgG < 9.0 AU/mL (Immune >10.9); Rubeola IgG Ab < 13.5 AU/mL (Immune >16.4); V-Zoster IgG (Immunity) Non Reactive (Non Reactive)
== END | disposition home or self-care (01) ==
LOC: MFPLAB 16:30
PROVIDERS: PCP Family Medicine; Referring Provider Family Medicine; Visit Provider Family Medicine
DX: Z01.84 Encounter for antibody response examination (principal)
CPT/HCPCS: 36415; 86706; 86735; 86762; 86765; 86787

== ENCOUNTER → 2025-01-09 | Outpatient (CLI) | payer MEDICAID, SELFPAY ==
[2025-01-09 12:56] LABS: Absolute Lymphocyte Count 2.14 X10^3/uL (0.83-4.51); Absolute Neutrophil Count 6.8 X10^3/uL (2.0-7.7); Basophil# 0.04 X10^3/uL; Basophil% 0.4 % (0-1); Eosinophil# 0.14 X10^3/uL; Eosinophils% 1.4 % (0-5); Hematocrit 37.8 % (37-47); Hemoglobin 11.4 g/dL (12.0-15.0); Lymphocyte # 2.14 X10^3/ul (0.83-4.51); Lymphocyte % 21.7 % (19-41); Mean Corp Hgb Conc 30.2 g/dL (32-36); Mean Corpuscular Hgb 24.2 pg (27.0-32.0); Mean Corpuscular Volume 80.3 fL (81-99); Mean Platelet Vol. 11.8 fl (6.2-12.0); Monocyte# 0.75 X10^3/uL; Monocyte% 7.6 % (0-10); NRBC Flagged by Analyzer 0 % (0-5); Neutrophil # 6.76 X10^3/uL (2.7-7.7); Neutrophil % 68.5 % (47-70); Platelet Count 275 K/mm3 (150-450); RBC Distribution Width CV 15.9 % (11.6-14.6); RBC Distribution Width SD 46.1 fl (35.1-43.9); Red Blood Count 4.71 M/mm3 (4.2-5.4); White Blood Count 9.9 K/mm3 (4.4-11.0)
[2025-01-09 13:24] LABS: AST(SGOT) 16 U/L (<=31); Alanine Aminotransfer ALT/SGPT 17 U/L (<=34); Albumin, Serum 3.8 g/dL (3.5-5.0); Alkaline Phosphatase 81 U/L (35-104); Anion Gap 9 (5-15); BUN 9 mg/dL (4-19); BUN/Creat Ratio 15.5 RATIO (10-20); Calcium,Total 8.8 mg/dL (7.6-11.0); Carbon Dioxide 24.6 mmol/L (21.0-32.0); Chloride 104 mmol/L (98-108); EST Glomerular Filtration Rate 124 (>60); Globulin 3.7 g/dL (2.2-4.2); Glucose 80 mg/dL (70-99); Potassium 4.3 mmol/L (3.3-5.1); Protein, Total 7.5 g/dL (5.9-8.4); Sodium Level 138 mmol/L (133-145); Total Bilirubin 0.34 mg/dL (0.00-1.30)
== END | disposition home or self-care (01) ==
LOC: MFPLAB 10:18
PROVIDERS: PCP Family Medicine; Referring Provider Family Medicine; Visit Provider Family Medicine
DX: F31.81 Bipolar II disorder (principal)
CPT/HCPCS: 36415; 80053; 84443; 85025

== ENCOUNTER 2025-01-14 19:05 | Emergency (ER) | payer MEDICAID, SELFPAY ==
[2025-01-14 19:05] VITALS: BP 170/103; PULSE 126; RESP 19; TEMP 36.8; O2SAT 98
--- NOTE | 2025-01-14 19:31 | CT_ITS ---
PROCEDURE: ABDOMEN/PELVIS W IV CONT ONLY 01/14/2025 REASON FOR EXAM: ABDOMINAL PAIN TECHNIQUE: Abdomen and pelvis CT with intravenous contrast. Coronal and Sagittal reconstruction series were provided. PATIENT PREPARATION: Per protocol One or more dose reduction techniques were used (e.g., Automated exposure control, adjustment of the mA and/or kV according to patient size, use of iterative reconstruction technique. FINDINGS: Lung bases: Clear Liver: Normal size. No mass. Gallbladder: Unremarkable. Spleen: Normal size. Pancreas: Normal size without evidence of mass surrounding inflammation or ductal dilation. Adrenals: Unremarkable. Kidneys: Normal renal sizes. No hydronephrosis. Bladder: Unremarkable. Reproductive Organs: Unremarkable. Bowel: Unremarkable. Appendix: Unremarkable. Lymph nodes: Unremarkable. Vasculature: The abdominal aorta and IVC are normal. Peritoneum / Retroperitoneum: Unremarkable. Bones: Unremarkable. CT/Abdomen/Pelvis W IV Cont ONLY IMPRESSION: NORMAL CT ABDOMEN AND PELVIS WITH CONTRAST. Reading Location: [id number]
--- NOTE | 2025-01-14 19:33 | ED.VIS.GI ---
HPI HPI - GI History of Present Illness Chief Complaint: Abd Pain Informant: patient and spouse/S.O. Narrative Narrative: 29-year-old female presenting to the emergency room with abdominal pain vomiting diarrhea. Patient states that throughout last night she was having some discomfort right side of her abdomen going across to the left. She feels in the right flank. She notes urinary frequency no dysuria or hematuria. Today she developed diarrhea as well as nausea and vomiting. She had a few chips today but otherwise no substantial nutrition. She notes a fever around period. No history of pancreatitis or biliary colic. She is concerned about appendicitis. She ate last evening around 2100 hrs. having had a hot dog. Her symptoms did not develop for about 6 hours afterwards. [facility] Medical History Osteoarthritis of right knee Left wrist pain Right knee pain Non-smoker Hypertension Anxiety Depression Asthma Home Medications ?Medication ?Instructions ?Recorded ?Last Taken ?Type budesonide-formoterol HFA 160 2 puff inhalation Q4H PRN PRN 02/08/23 02/15/23 History mcg-4.5 mcg/actuation aerosol ASTHMA inhaler (Symbicort) oxycodone 5 mg tablet 5 mg PO Q6H PRN pain 3 days #12 10/21/24 Unknown Rx tabs albuterol sulfate 90 mcg/actuation 1 - 2 puff inhalation Q6 PRN 11/07/24 Unknown History aerosol inhaler dyspnea venlafaxine 37.5 mg 37.5 mg PO QDAY 11/07/24 Unknown History tablet,extended release 24 hr ondansetron 4 mg disintegrating 4 mg PO Q6H PRN PRN Nausea #15 tabs 01/14/25 Unknown Rx tablet oxycodone-acetaminophen 5 mg-325 1 tab PO Q6H PRN PRN Pain 3 days 01/14/25 Unknown Rx mg tablet #12 TABLETS Allergy/AdvReac Type Severity Reaction Status Date / Time No Known Allergies Allergy Verified 01/14/25 19:05 Surgical History H/O tubal ligation History of myringotomy Hx of tonsillectomy Social History Smoking Status: Current some day smoker tobacco type: cigarettes ROS ROS ED Constitutional Constitutional ED: Reports chills and fever(s); Denies weight loss Eyes Eyes: Denies change in vision or diplopia ENT ENT ED: Denies ear pain, rhinorrhea or sore throat Cardiovascular Cardiovascular: Denies chest pain, orthopnea, palpitations or racing heartbeat Respiratory/Chest Respiratory/Chest: Denies cough, dyspnea or orthopnea Gastrointestinal Gastrointestinal: Reports abdominal pain, diarrhea, nausea and vomiting Genitourinary Genitourinary ED: Denies dysuria, hematuria or urinary frequency Musculoskeletal Musculoskeletal: Denies arthralgias or myalgias Integumentary Denies abscess or rash Neurologic Neurologic: Denies headache(s) or weakness Psychiatric Psychiatric: Denies anxiety, depression, suicidal ideation or suicidal thoughts Endocrine Endocrinology: Denies polydipsia, polyphagia or polyuria Allergic/Immunologic Allergic/Immunologic ED: Denies mouth swelling, tongue swelling or urticaria EXAM Physical Exam Const Vital Signs: 01/14/25 19:05 01/14/25 21:05 Temperature 98.3 F Temperature Source Temporal Pulse Rate 126 H Respiratory Rate 19 H Blood Pressure 170/103 H 135/67 H Blood Pressure Mean 125 89 Pulse Ox 98 95 Oxygen Delivery Method Room Air Room Air Positive well nourished, well developed and obese General Appearance ED: well developed Nutritional Appearance: obese HEENT Reports normocephalic, head/scalp atraumatic and moist mucous membranes Eyes PERRL and EOMs intact bilaterally Neck no lymphadenopathy, supple and no JVD Resp normal respiratory effort and clear to auscultation bilaterally Cardio regular rate, regular rhythm and no murmurs Rate: tachycardic GI Inspection: Negative for abdominal distention Palpation: soft, tender epigastric, LUQ and RUQ and guarding; Negative for rebound tenderness present Back/Spine no CVA tenderness and normal ROM Extremity normal to inspection General Extremety ED: Negative for edema General Extremity: Negative for edema Neuro oriented x3 and CN's II-XII intact bilaterally Sensorium / Orientation: alert Motor Exam: strength 5/5 throughout Psych mental status grossly normal Mood & Affect: Negative for depressed or tearful Skin no rashes or lesions noted and no wounds MDM MDM MDM Narrative Medical decision making narrative: Differential diagnosis includes but not limited to biliary colic pancreatitis colitis kidney stone renal infarct pneumonia small bowel obstruction perforated viscus Basic blood work shows a hemoglobin of 11 white count 10.1 with no left shift. BMP is within normal limits liver enzymes lipase normal test is negative. CT abdomen pelvis was obtained with IV contrast. I do not see any acute findings on this. Patient's not experiencing chest pain or shortness of breath to suggest pulmonary embolism. I do not see evidence of pneumonia. She has been unable to produce a urine specimen. Patient initially got good relief with Dilaudid. As well as Zofran. I administered a dose of Bentyl. Patient will be discharged home with Percocet as well as Zofran. With instructions to follow-up with primary care in 3 to 5 days if continued symptoms return if worsening or concerns History & Record Review Discussion w/independent historian: Patient and Significant other Lab Data Attestation: I reviewed the patient's lab results. Labs: Laboratory Results - last 24 hr 01/14/25 19:36 WBC 10.1 RBC 4.55 Hgb 11.0 L Hct 35.7 L MCV 78.5 L MCH 24.2 L MCHC 30.8 L RDW Std Deviation 44.3 H RDW Coeff of Vikash 15.7 H Plt Count 266 MPV 11.6 Immature Gran % (Auto) 0.300 Neut % (Auto) 66.5 Lymph % (Auto) 23.3 [place] % (Auto) 8.2 Eos % (Auto) 1.4 Baso % (Auto) 0.3 Absolute Neuts (auto) 6.7 Absolute Lymphs (auto) 2.35 Nucleated RBC % 0 Sodium 137 Potassium 4.0 Chloride 103 Carbon Dioxide 24.6 Anion Gap 10 BUN 6 Creatinine 0.66 L Est GFR (MDRD) Non-Af 122 BUN/Creatinine Ratio 9.4 L Glucose 94 Calcium 8.5 Total Bilirubin 0.24 Direct Bilirubin < 0.08 AST 24 ALT 23 Alkaline Phosphatase 95 Total Protein 7.5 Albumin 3.8 Globulin 3.7 Lipase 25 Serum , Qual NEGATIVE Radiography Diagnostic Testing: Clinical Impression(s) from Imaging Studies Abdomen/Pelvis CT 01/14/25 19:31 IMPRESSION: NORMAL CT ABDOMEN AND PELVIS WITH CONTRAST. Reading Location: [facility] Discharge Plan Triage Chief Complaint: Abd Pain ED Provider: Curtis Crane Dx/Rx/DC Orders Clinical Impression: Abdominal pain, Gastroenteritis Instructions: Abdominal Pain, ED Gastroenteritis, Viral (Adult) Prescriptions: New oxycodone-acetaminophen 5-325 mg tablet 1 tab PO Q6H PRN PRN (Reason: Pain) 3 Days Qty: 12 0RF ondansetron 4 mg tablet,disintegrating 4 mg PO Q6H PRN PRN (Reason: Nausea) Qty: 15 0RF No Action albuterol sulfate 90 mcg/actuation HFA aerosol inhaler 1 - 2 puff inhalation Q6 PRN (Reason: dyspnea) venlafaxine 37.5 mg tablet extended release 24hr 37.5 mg PO QDAY budesonide-formoterol [Symbicort] 160-4.5 mcg/actuation HFA aerosol inhaler 2 puff INHALATION Q4H PRN PRN (Reason: ASTHMA) Patient Comments: INHALE 2 PUFFS BY MOUTH and into the lungs TWICE DAILY oxycodone 5 mg tablet 5 mg PO Q6H PRN (Reason: pain) 3 Days Qty: 12 0RF Primary Care Provider: Joesph Aguiar Referrals: Joesph Aguiar MD [Primary Care Provider] - 3-5 Days if not improving Print Language: Kazakh Disposition Disposition: Home, Self Care
[2025-01-14] MEDS: 0.9% Normal Saline (1000mL) 1,000 ML 999 ML IV (19:44)
[2025-01-14] MEDS: Ondansetron 4 MG/2 ML Vial IV (19:44)
[2025-01-14] MEDS: HYDROmorphone 1 MG/ML Syringe IV (19:44)
[2025-01-14 19:53] LABS: Absolute Lymphocyte Count 2.35 X10^3/uL (0.83-4.51); Absolute Neutrophil Count 6.7 X10^3/uL (2.0-7.7); Basophil# 0.03 X10^3/uL; Basophil% 0.3 % (0-1); Eosinophil# 0.14 X10^3/uL; Eosinophils% 1.4 % (0-5); Hematocrit 35.7 % (37-47); Lymphocyte # 2.35 X10^3/ul (0.83-4.51); Lymphocyte % 23.3 % (19-41); Mean Corp Hgb Conc 30.8 g/dL (32-36); Mean Corpuscular Hgb 24.2 pg (27.0-32.0); Mean Corpuscular Volume 78.5 fL (81-99); Mean Platelet Vol. 11.6 fl (6.2-12.0); Monocyte# 0.83 X10^3/uL; Monocyte% 8.2 % (0-10); NRBC Flagged by Analyzer 0 % (0-5); Neutrophil # 6.69 X10^3/uL (2.7-7.7); Neutrophil % 66.5 % (47-70); Platelet Count 266 K/mm3 (150-450); RBC Distribution Width CV 15.7 % (11.6-14.6); RBC Distribution Width SD 44.3 fl (35.1-43.9); Red Blood Count 4.55 M/mm3 (4.2-5.4); White Blood Count 10.1 K/mm3 (4.4-11.0)
[2025-01-14 20:00] LABS: Internal QC Validated? YES +Cl - CLEAR BKGD; Pregnancy, Serum, hCG Quali. NEGATIVE Negative
[2025-01-14 20:24] LABS: Lipase 25 U/L (13-75)
[2025-01-14 20:37] LABS: AST(SGOT) 24 U/L (<=31); Alanine Aminotransfer ALT/SGPT 23 U/L (<=34); Albumin, Serum 3.8 g/dL (3.5-5.0); Alkaline Phosphatase 95 U/L (35-104); Anion Gap 10 (5-15); BUN 6 mg/dL (4-19); BUN/Creat Ratio 9.4 RATIO (10-20); Bilirubin, Direct < 0.08 mg/dL (0.00-0.30); Calcium,Total 8.5 mg/dL (7.6-11.0); Carbon Dioxide 24.6 mmol/L (21.0-32.0); Chloride 103 mmol/L (98-108); Creatinine, Serum 0.66 mg/dL (0.70-1.20); EST Glomerular Filtration Rate 122 (>60); Globulin 3.7 g/dL (2.2-4.2); Glucose 94 mg/dL (70-99); Protein, Total 7.5 g/dL (5.9-8.4); Sodium Level 137 mmol/L (133-145); Total Bilirubin 0.24 mg/dL (0.00-1.30)
[2025-01-14 21:05] VITALS: BP 135/67; O2SAT 95
[2025-01-14] MEDS: Dicyclomine 10 MG Capsule 20 MG PO (21:44)
[2025-01-14 22:14] VITALS: BP 139/87; PULSE 98; RESP 16; TEMP 36.8; O2SAT 97
== END 2025-01-14 22:36 | disposition home or self-care (01) ==
PROVIDERS: Emergency Provider Emergency Medicine; PCP Family Medicine; Visit Provider Emergency Medicine
DX: R10.9 Unspecified abdominal pain (principal); K52.9 Noninfective gastroenteritis and colitis, unspecified; I10 Essential (primary) hypertension; J45.909 Unspecified asthma, uncomplicated; Z79.51 Long term (current) use of inhaled steroids; F41.9 Anxiety disorder, unspecified; F32.A Depression, unspecified; Z79.899 Other long term (current) drug therapy; Z98.51 Tubal ligation status; F17.210 Nicotine dependence, cigarettes, uncomplicated
CPT/HCPCS: 74177; 80048; 80076; 83690; 84703; 85025; 96361; 96374; 96375; 99283; Q9967; A4216; J2405

== ENCOUNTER 2025-01-21 11:20 | Emergency (ER) | payer MEDICAID, SELFPAY ==
[2025-01-21 11:20] VITALS: BP 143/88; PULSE 118; RESP 18; TEMP 36.6; O2SAT 98; BMI 60.2
--- NOTE | 2025-01-21 11:29 | ED.VIS.LOWEX ---
HPI <LIDIA Bahena - Last Filed: 01/21/25 14:06> History of Present Illness Chief Complaint: Lower Extremity Injury Narrative Narrative: Patient presenting today with left knee pain and popping that she has had intermittently over the past several months. She reports that her knee occasionally gives out while she is walking. Today her knee gave out causing her to fall, she did not suffer any injury from the fall. She denies hitting her head. She is able to ambulate on her knee. PFSH <LIDIA Bahena - Last Filed: 01/21/25 14:06> [facility] Medical History Osteoarthritis of right knee Left wrist pain Right knee pain Non-smoker Hypertension Anxiety Depression Asthma Home Medications ?Medication ?Instructions ?Recorded ?Last Taken ?Type budesonide-formoterol HFA 160 2 puff inhalation Q4H PRN PRN 02/08/23 02/15/23 History mcg-4.5 mcg/actuation aerosol ASTHMA inhaler (Symbicort) oxycodone 5 mg tablet 5 mg PO Q6H PRN pain 3 days #12 10/21/24 Unknown Rx tabs albuterol sulfate 90 mcg/actuation 1 - 2 puff inhalation Q6 PRN 11/07/24 Unknown History aerosol inhaler dyspnea venlafaxine 37.5 mg 37.5 mg PO QDAY 11/07/24 Unknown History tablet,extended release 24 hr ondansetron 4 mg disintegrating 4 mg PO Q6H PRN PRN Nausea #15 tabs 01/14/25 Unknown Rx tablet oxycodone-acetaminophen 5 mg-325 1 tab PO Q6H PRN PRN Pain 3 days 01/14/25 Unknown Rx mg tablet #12 TABLETS Allergy/AdvReac Type Severity Reaction Status Date / Time No Known Allergies Allergy Verified 01/21/25 11:20 Surgical History H/O tubal ligation History of myringotomy Hx of tonsillectomy Social History Smoking Status: Current some day smoker tobacco type: cigarettes ROS <LIDIA Bahena - Last Filed: 01/21/25 14:06> ROS ED Constitutional Constitutional ED: Denies chills or fever(s) Cardiovascular Cardiovascular: Denies chest pain Respiratory/Chest Respiratory/Chest: Denies dyspnea Musculoskeletal Musculoskeletal: Reports arthralgias Integumentary Denies Abrasions Neurologic Neurologic: Denies paresthesias EXAM <LIDIA Bahena - Last Filed: 01/21/25 14:06> Physical Exam Const Vital Signs: 01/21/25 11:20 Temperature 97.8 F Temperature Source Oral Pulse Rate 118 H Respiratory Rate 18 Blood Pressure 143/88 H Blood Pressure Mean 106 Pulse Ox 98 Oxygen Delivery Method Room Air Positive well nourished, well developed and no apparent distress General Appearance ED: well developed HEENT Reports normocephalic and head/scalp atraumatic Mouth ED: Yes moist mucous membranes normal Eyes PERRL and EOMs intact bilaterally Neck full ROM and supple Chest Wall inspection of chest normal Resp normal respiratory effort and clear to auscultation bilaterally Cardio regular rate and regular rhythm Back/Spine normal ROM and normal to inspection Extremity normal to inspection and full ROM Extremity Narrative: Full range of motion, extensor mechanism intact, left DP pulse 2+, good cap refill, sensation intact. No joint effusion. No joint laxity with varus or valgus stress, negative anterior drawer's test Neuro oriented x3, CN's II-XII intact bilaterally, moves all extremities, no focal motor deficits and no sensory deficits noted Sensorium / Orientation: awake and alert Psych mental status grossly normal and thought process normal Skin no rashes or lesions noted and no wounds <Dr. Gurmeet Peter MD - Last Filed: 01/21/25 14:53> Physical Exam Const Vital Signs: 01/21/25 11:20 Temperature 97.8 F Temperature Source Oral Pulse Rate 118 H Respiratory Rate 18 Blood Pressure 143/88 H Blood Pressure Mean 106 Pulse Ox 98 Oxygen Delivery Method Room Air MDM <LIDIA Bahena - Last Filed: 01/21/25 14:06> [facility] Narrative Medical decision making narrative: Patient presenting today with left knee pain and popping she has had off-and-on. Today it caused her to fall prompting her to come in to be seen. X-ray of the knee will be obtained. I did offer analgesia and she declined. X-ray negative for acute findings. I have referred her to orthopedics. RICE instructions were discussed. She can take anti-inflammatories as needed for pain. She will be discharged home in stable condition. She is able to ambulate. I have personally performed a face to face assessment of the patient and have reviewed the PEBBLES Note. I performed a substantive portion of the visit including all aspects of the following. My vieira findings include: History is remarkable for osteoarthritis, BMI of 60.2 who presents with pain and popping of her left knee. She states there is a sensation of something moving lateral aspect of the left knee. She denies history of PE or DVT. She denies any swelling, discoloration, paresthesia or anesthesia. She has no history of crystal induced arthritis. Exam is BMI of 60.2. Patient appears in no discomfort. There is no evidence of trauma to the knee. She complains of pain to palpation of the patella. Exam is limited due to body habitus. There is no obvious effusion the left knee. The patella is not ballotable. She complains of pain along the medial and lateral tibial joint line. She is able to extend to 170 degrees and hold against gravity. She only is able to flex to 100 degrees. She complains of pain. She had no laxity compared to the uninvolved extremity with varus valgus stress testing. With valgus stress testing she had pain where my hand was located. There is no mass or adenopathy in the popliteal fossa. Unable to perform a Sin's test or modified Viri's test because of body habitus. Anterior drawer test was negative. Medical Decision Making this may represent exacerbation of arthritis, doubt pyogenic or crystal induced arthritis. This also may represent iliotibial band syndrome. Another possibility may be a medial collateral lateral collateral ligament strain. Will obtain imaging. Other additions or changes: [None] Radiography X-Ray: Read by ED Physician Diagnostic Testing: Clinical Impression(s) from Imaging Studies Knee X-Ray 01/21/25 11:35 IMPRESSION: NO EFFUSION ACUTE FRACTURE OR DISLOCATION. Reading Location: [id number] <Dr. Gurmeet Peter MD - Last Filed: 01/21/25 14:53> [facility] Narrative Medical decision making narrative: Patient presenting today with left knee pain and popping she has had off-and-on. Today it caused her to fall prompting her to come in to be seen. X-ray of the knee will be obtained. I did offer analgesia and she declined. X-ray negative for acute findings. I have referred her to orthopedics. RICE instructions were discussed. She can take anti-inflammatories as needed for pain. She will be discharged home in stable condition. She is able to ambulate. I have personally performed a face to face assessment of the patient and have reviewed the PEBBLES Note. I performed a substantive portion of the visit including all aspects of the following. My vieira findings include: History is remarkable for osteoarthritis, BMI of 60.2 who presents with pain and popping of her left knee. She states there is a sensation of something moving lateral aspect of the left knee. She denies history of PE or DVT. She denies any swelling, discoloration, paresthesia or anesthesia. She has no history of crystal induced arthritis. Exam is BMI of 60.2. Patient appears in no discomfort. There is no evidence of trauma to the knee. She complains of pain to palpation of the patella. Exam is limited due to body habitus. There is no obvious effusion the left knee. The patella is not ballotable. She complains of pain along the medial and lateral tibial joint line. She is able to extend to 170 degrees and hold against gravity. She only is able to flex to 100 degrees. She complains of pain. She had no laxity compared to the uninvolved extremity with varus valgus stress testing. With valgus stress testing she had pain where my hand was located. There is no mass or adenopathy in the popliteal fossa. Unable to perform a Sin's test or modified Viri's test because of body habitus. Anterior drawer test was negative. Medical Decision Making this may represent exacerbation of arthritis, doubt pyogenic or crystal induced arthritis. This also may represent iliotibial band syndrome. Another possibility may be a medial collateral lateral collateral ligament strain. Will obtain imaging. Other additions or changes: 4 view image of the knee was obtained. There is no Insa fracture, subluxation dislocation. There is minimal arthritic changes. This intently reviewed interpreted by me at 1140. Radiography Chest X-Ray - ED: Read by ED Physician (4 view x-ray of the knee was obtained. There is minimal arthritic changes. The x-ray is otherwise unremarkable. There is no fracture, subluxation dislocation or floating free body noted.) Diagnostic Testing: Clinical Impression(s) from Imaging Studies Knee X-Ray 01/21/25 11:35 IMPRESSION: NO EFFUSION ACUTE FRACTURE OR DISLOCATION. Reading Location: [facility] Discharge Plan Triage Chief Complaint: Lower Extremity Injury ED Midlevel Provider: Urmila Mcconnell ED Provider: Gurmeet Peter Dx/Rx/DC Orders Clinical Impression: Knee pain, left Instructions: Knee Pain Prescriptions: No Action albuterol sulfate 90 mcg/actuation HFA aerosol inhaler 1 - 2 puff inhalation Q6 PRN (Reason: dyspnea) venlafaxine 37.5 mg tablet extended release 24hr 37.5 mg PO QDAY budesonide-formoterol [Symbicort] 160-4.5 mcg/actuation HFA aerosol inhaler 2 puff INHALATION Q4H PRN PRN (Reason: ASTHMA) Patient Comments: INHALE 2 PUFFS BY MOUTH and into the lungs TWICE DAILY oxycodone-acetaminophen 5-325 mg tablet 1 tab PO Q6H PRN PRN (Reason: Pain) 3 Days Qty: 12 0RF ondansetron 4 mg tablet,disintegrating 4 mg PO Q6H PRN PRN (Reason: Nausea) Qty: 15 0RF oxycodone 5 mg tablet 5 mg PO Q6H PRN (Reason: pain) 3 Days Qty: 12 0RF Primary Care Provider: Joesph Aguiar Referrals: Joesph Aguiar MD [Primary Care Provider] - Marco Freitas MD [Med Staff - Active Staff] - 1 Week Activity Restrictions/Additional Instructions: Follow-up with orthopedics. Ice your knee, alternate Tylenol and ibuprofen as needed. Print Language: Swedish Disposition Disposition: Home, Self Care Discharge Date/Time: 01/21/25 12:07
--- NOTE | 2025-01-21 11:35 | RAD_ITS ---
PROCEDURE: KNEE 4 OR MORE VIEWS 01/21/2025 REASON FOR EXAM: KNEE PAIN TECHNIQUE: 4 view(s) of the left knee COMPARISON: None. FINDINGS: Bones: No fracture. No suspicious bone lesion. Joints: Normal alignment. Mild degenerative changes. Effusion: No effusion. Soft tissues: Soft tissues are unremarkable. RAD/Knee 4 or More Views IMPRESSION: NO EFFUSION ACUTE FRACTURE OR DISLOCATION. Reading Location: [id number]
== END 2025-01-21 12:07 | disposition home or self-care (01) ==
PROVIDERS: Emergency Provider Emergency Medicine; PCP Family Medicine; Visit Provider Emergency Medicine
DX: M25.562 Pain in left knee (principal); I10 Essential (primary) hypertension; Z79.899 Other long term (current) drug therapy; F41.9 Anxiety disorder, unspecified; F32.A Depression, unspecified; J45.909 Unspecified asthma, uncomplicated; Z79.51 Long term (current) use of inhaled steroids; F17.210 Nicotine dependence, cigarettes, uncomplicated; Z98.51 Tubal ligation status
CPT/HCPCS: 73564; 99282

== ENCOUNTER 2025-05-04 04:42 | Emergency (ER) | payer MEDICAID, SELFPAY ==
[2025-05-04 04:42] VITALS: BP 200/103; PULSE 117; RESP 18; TEMP 36.4; O2SAT 98; BMI 57.3
[2025-05-04 04:45] VITALS: BP 156/98
--- NOTE | 2025-05-04 04:56 | EX.ED.DYSGE1 ---
HPI History of Present Illness Chief Complaint: Nausea/Vomiting/Diarrhea Informant: patient Narrative Narrative: Patient is a 29-year-old female with past medical history of anxiety depression and asthma. She states for the past 2 days she has had bouts of nausea vomiting and diarrhea. She denies any blood or discoloration to either the emesis or stool. She denies any known sick contacts. She denies any recent travel outside the country antibiotic use or livestock exposure. She states she has not been able to keep food or fluid down and has concern for dehydration and secondary to this comes in for evaluation. [facility] Medical History Osteoarthritis of right knee Left wrist pain Right knee pain Non-smoker Hypertension Anxiety Depression Asthma Home Medications ?Medication ?Instructions ?Recorded ?Last Taken ?Type albuterol sulfate 90 mcg/actuation 1 - 2 puff inhalation Q6 PRN 11/07/24 Unknown History aerosol inhaler dyspnea dicyclomine 20 mg tablet 20 mg PO 4X/DAY PRN Abdominal 05/04/25 Unknown Rx bloating/spasm 7 days #28 tabs ondansetron 4 mg disintegrating 4 mg PO TID PRN nausea and 05/04/25 Unknown Rx tablet vomiting #21 tabs Allergy/AdvReac Type Severity Reaction Status Date / Time No Known Allergies Allergy Verified 05/04/25 04:42 Surgical History H/O tubal ligation History of myringotomy Hx of tonsillectomy Social History Smoking Status: Former smoker ROS ROS ED Constitutional Constitutional ED: Denies chills or fever(s) ENT ENT ED: Denies sore throat Cardiovascular Cardiovascular: Denies chest pain Respiratory/Chest Respiratory/Chest: Denies cough or dyspnea Gastrointestinal Gastrointestinal: Reports abdominal pain, diarrhea, nausea and vomiting; Denies melena Genitourinary Genitourinary ED: Denies dysuria Musculoskeletal Musculoskeletal: Denies myalgias Integumentary Denies rash Neurologic Neurologic: Denies headache(s) Hematologic/Lymphatic Hematologic/Lymphatic: Denies easy bleeding or easy bruising EXAM Physical Exam Const Vital Signs: 05/04/25 04:42 08/01/25 04:45 Temperature 97.5 F L Temperature Source Oral Pulse Rate 117 H Respiratory Rate 18 Blood Pressure 200/103 H 156/98 H Blood Pressure Mean 135 117 Pulse Ox 98 Oxygen Delivery Method Room Air Positive well nourished, well developed and obese General Appearance ED: well developed; Negative for pallor Nutritional Appearance: obese HEENT Reports dry mucous membranes HEENT Narrative: Normocephalic atraumatic No tongue or lip swelling no oral lesions no airway edema or compromise; no secondary findings in the posterior pharynx to suggest infection Mucous membranes are dry and tacky Mouth ED: Yes dry mucous membranes Mouth: dry mucous membranes Eyes PERRL and EOMs intact bilaterally General Eye ED: Negative for scleral icterus Neck supple Resp normal respiratory effort and clear to auscultation bilaterally Cardio regular rhythm Rate: tachycardic and other Other Details: Tachycardic rate with regular rhythm No murmurs rubs or gallop Radial and carotid pulses equal and symmetric GI non-tender, non-distended and no masses GI Narrative: Abdomen is soft and nondistended with hyperactive bowel sounds. No pain with palpation noted. No voluntary guarding or rigidity or pulsatile mass. Auscultation: hyperactive bowel sounds Palpation: soft Extremity normal to inspection Neuro oriented x3, CN's II-XII intact bilaterally and no sensory deficits noted Sensorium / Orientation: alert Motor Exam: strength 5/5 throughout Psych mental status grossly normal Skin no rashes or lesions noted and No skin turgor normal Skin Narrative: Skin turgor is increased General Skin Exam: Negative for jaundice or pallor MDM MDM MDM Narrative Medical decision making narrative: Patient presented to the ER hypertensive but otherwise afebrile. She reported 2 days of nausea vomiting and diarrhea that was nonbloody or bilious in nature. Her abdomen is soft and nonsurgical and therefore I have low concern for underlying appendicitis or diverticulitis or colitis as the cause of her symptoms and I feel no need for a CT scan. There is also no localized upper pain going against pancreatitis or biliary colic/acute cholecystitis. With concern for dehydration leading to acute kidney injury or clinically significant electrolyte abnormality basic blood work was ordered. White count is elevated at 12.9 but this is most likely stress response as she has no fever and no pain on exam. Therefore I do not feel the need for an emergent CT scan. Despite multiple attempts by nursing and laboratory staff we could not obtain a sample to check a basic metabolic profile or hepatic function panel. I discussed with patient the importance of confirming there is no signs of VINEET or clinically significant electrolyte abnormality. However she states she does not want any further attempts and she has been feeling better since receiving IV hydration and therefore does not want the testing to be obtained/performed. After receiving 2 L of fluid Zofran and Bentyl patient had improvement of her symptoms and had no bouts of vomiting or diarrhea while in the ER. On reevaluation abdomen remains soft and nonsurgical and patient afebrile. Therefore at this time with patient having no further bouts of vomiting or diarrhea while in the ER and reporting improvement of symptoms I do not feel need for further intervention and she is otherwise safe for discharge. History & Record Review Discussion w/independent historian: Patient Lab Data Attestation: I reviewed the patient's lab results. Labs: Laboratory Results - last 24 hr 05/04/25 05:03 WBC 12.9 H RBC 5.10 Hgb 12.7 Hct 41.8 MCV 82.0 MCH 24.9 L MCHC 30.4 L RDW Std Deviation 47.0 H RDW Coeff of Vikash 15.8 H Plt Count 268 MPV 12.4 H Immature Gran % (Auto) 0.500 Neut % (Auto) 70.6 H Lymph % (Auto) 17.2 L Posey % (Auto) 7.0 Eos % (Auto) 4.3 Baso % (Auto) 0.4 Absolute Neuts (auto) 9.2 H Absolute Lymphs (auto) 2.22 Nucleated RBC % 0 Sodium Cancelled Potassium Cancelled Chloride Cancelled Carbon Dioxide Cancelled Anion Gap Cancelled BUN Cancelled Creatinine Cancelled Est GFR (MDRD) Non-Af Cancelled BUN/Creatinine Ratio Cancelled Glucose Cancelled Calcium Cancelled Magnesium 2.1 Total Bilirubin Cancelled Direct Bilirubin Cancelled AST Cancelled ALT Cancelled Alkaline Phosphatase Cancelled Total Protein Cancelled Albumin Cancelled Globulin Cancelled Lipase 21 Serum , Qual NEGATIVE Discharge Plan Triage Chief Complaint: Nausea/Vomiting/Diarrhea ED Provider: Garrison Millan Dx/Rx/DC Orders Clinical Impression: Nausea vomiting and diarrhea, Dehydration, Asthma Instructions: ED Dehydration (Adult), ED Gastroenteritis, Viral (Adult) Prescriptions: New ondansetron 4 mg tablet,disintegrating 4 mg PO TID PRN (Reason: nausea and vomiting) Qty: 21 0RF dicyclomine 20 mg tablet 20 mg PO 4X/DAY PRN (Reason: Abdominal bloating/spasm) 7 Days Qty: 28 0RF No Action albuterol sulfate 90 mcg/actuation HFA aerosol inhaler 1 - 2 puff inhalation Q6 PRN (Reason: dyspnea) Primary Care Provider: Joesph Aguiar Referrals: Joesph Aguiar MD [Primary Care Provider] - Activity Restrictions/Additional Instructions: Your history and exam and workup are consistent with a viral stomach infection. This will last on average 3 days but can be as long as 7 to 10 days. Please use the Zofran and Bentyl to help control symptoms and keep yourself well-hydrated. Return to the ER should you have any further concerns. Print Language: Japanese Disposition Disposition: Home, Self Care
[2025-05-04] MEDS: 0.9% Normal Saline (1000mL) 1,000 ML 999 ML IV ×2 (05:08→06:11)
[2025-05-04 05:10] LABS: Hematocrit 41.8 % (37-47); Hemoglobin 12.7 g/dL (12.0-15.0); Immature Granulocytes Count 0.060 X10^3/uL (0.0-0.0); Mean Corp Hgb Conc 30.4 g/dL (32-36); Mean Corpuscular Volume 82.0 fL (81-99); Mean Platelet Vol. 12.4 fl (6.2-12.0); NRBC Flagged by Analyzer 0 % (0-5); Platelet Count 268 K/mm3 (150-450); RBC Distribution Width CV 15.8 % (11.6-14.6); RBC Distribution Width SD 47.0 fl (35.1-43.9); Red Blood Count 5.10 M/mm3 (4.2-5.4); White Blood Count 12.9 K/mm3 (4.4-11.0)
[2025-05-04 05:27] LABS: Internal QC Validated? YES +Cl - CLEAR BKGD; Pregnancy, Serum, hCG Quali. NEGATIVE Negative; Record Kit Lot#, Serum Preg. 0000962302
--- OUTSIDE RECORDS SUMMARY | 2025-05-04 05:28 | XMS RPT_ITS | CCD ---
Author Organization [facility] Care Team Providers Care Employment Supervisor Name Role Phone HANS ALLEN MD Admitting Unavailable AGUIAR, TERESSA A Referring Unavailable AGUIAR, TERESSA A Consulting Unavailable HANS ALLEN MD Attending Unavailable HANS ALLEN MD Primary Care Unavailable PROVIDER, UNKNOWN Consulting Unavailable Cosme NUNEZ, Dr. Pink Primary Care Provider Dr. Garrison Millan DO Attending Provider Dr. Garrison Millan DO Emergency Provider Dr. Teressa Aguiar MD Attending Provider Dr. Teressa Aguiar MD Referring Provider Marco Freitas MD Attending Provider Izzy NUNEZ, Dr. Horner Attending Provider Dr. Curtis Crane DO Emergency Provider Dr. Curtis Crane DO Attending Provider [phone] Dr. Gurmeet Peter MD Emergency Provider [phone] Aguiar, Teressa Referring Unavailable Marco Freitas Attending Unavailable Aguiar, Teressa Primary Care Unavailable Aguiar, Teressa Primary Care Unavailable Evens Magana Attending Unavailable Aguiar, Teressa Referring Unavailable Marco Freitas Attending Unavailable Aguiar, Teressa Primary Care Unavailable Aguiar, Teressa Referring Unavailable Marco Freitas Attending Unavailable Aguiar, Teressa Primary Care Unavailable Aguiar, Teressa Referring Unavailable Marco Freitas Attending Unavailable Aguiar, Teressa Primary Care Unavailable Aguiar, Teressa Primary Care Unavailable Aguiar, Teressa Referring Unavailable Aguiar, Teressa Attending Unavailable Aguiar, Teressa Primary Care Unavailable Marco Freitas Referring Unavailable Marco Freitas Attending Unavailable Aguiar, Teressa Referring Unavailable Aguiar, Teressa Attending Unavailable Aguiar, Teressa Primary Care Unavailable Aguiar, Teressa Referring Unavailable Teressa Aguiar Attending Unavailable Aguiar, Teressa Primary Care Unavailable Aguiar, Teressa Attending Unavailable Aguiar, Teressa Primary Care Unavailable Aguiar, Teressa Primary Care Unavailable Curtis Crane Attending Unavailable Aguiar, Teressa Primary Care Unavailable Garrison Millan Attending Unavailable Aguiar, Teressa Primary Care Unavailable Garrison Millan Attending Unavailable Aguiar, Teressa Primary Care Unavailable Trina Mccann Attending Unavailable Aguiar, Teressa Primary Care Unavailable Gurmeet Peter Attending Unavailable Unavailable Primary Care Provider UnavailSERA Cantrell Attending Unavailable SERA HARDING Referring Unavailable SERA HARDING Referring Unavailable Medications Current Medications Medication Drug Class(es) Dates Sig (Normalized) Sig (Original) acetaminophen 325 mg / oxyCODONE hydrochloride 5 mg oral tablet (3 sources) Opioid Agonist Start: 01-14-2025 take 1 tablet by mouth every six hours as needed for pain Oxycodone-Acetami nophen 5-325 mg tablet Active 1 {tbl} PO EVERY 6 HOURS NEEDED as needed for Pain 12 3 January 14, 2025 [id number] 200 actuat albuterol 0.09 mg/actuat metered dose inhaler (11 sources) beta2-Adrenergic Agonist Start: 11-07-2024 Albuterol Sulfate 90 mcg/actuation HFA aerosol inhaler Active 1 - 2 NMA INHALATION EVERY 6 HOURS as needed for dyspnea November 07, 2024 1:00am Start: 01-06-2022 take 1 puff(s) by in halation every six hours as needed Albuterol Sulfate Active 1 - 2 PUFF INHALATION EVERY 6 HOURS NEEDED January 06, 2022 12:51pm Start: 01-06-2022 take 1 puff(s) by in halation every six hours as needed Albuterol Sulfate Active 1 - 2 PUFF INHALATION EVERY 6 HOURS NEEDED January 05, 2022 11:00pm take 1-2 puff(s) by inhalation every six hours as needed for cough albuterol HFA (PROVENTIL HFA, VENTOLIN HFA) 90 mcg/actuation inhaler inhale 1-2 Puff every 6 hours as needed for cough, short of breath Active Budesonide-Formoterol (5 sources) Corticosteroid, beta2-Adrenergic Agonist Start: 02-08-2023 Budesonide-Formoterol (Symbicort) 160-4.5 mcg/actuation HFA aerosol inhaler Active 2 NMA INHALATION EVERY 4 HOURS NEEDED as needed for ASTHMA February 08, 2023 12:00am Start: 02-08-2023 take 1 puff(s) by in halation every four hours as needed Budesonide-Formoterol (Symbicort) 160-4.5 mcg/actuation HFA aerosol inhaler Active 2 PUFF INHALATION EVERY 4 HOURS NEEDED February 08, 2023 12:00am 12 hr buPROPion hydrochloride 100 mg extended release oral tablet (3 sources) Aminoketone take 1 tablet by mouth twice daily buPROPion SR (WELLBUTRIN SR) 100 mg 12 hr tablet Take 100 mg by mouth two times a day. Active medroxyPROGESTERone acetate 2.5 mg oral tablet (2 sources) Progestin Start: 2021 take 20 mg by mouth every eight hours Medroxyprogesterone Active 20 MG PO Q8H 168 7 August 08, 2022 11:00pm Multivitamin preparation (2 sources) Start: 2022 take 1 tablet by mouth once daily Multivitamin Active 1 TABLET PO DAILY February 08, 2023 12:00am Naltrexone (3 sources) Opioid Antagonist take 8 mg by mouth twice daily naltrexone capsule 5 mg (CPD) Take 8 mg by mouth two times a day. Active norethindrone acetate 5 mg oral tablet (6 sources) Start: 2024 norethindrone (AYGESTIN) 5 mg tablet Indications: History of irregular menstrual cycles , DUB (dysfunctional uterine bleeding) Take 1 tablet by mouth as directed. one by mouth tid x 3 days, bid x 3 days, then daily for up to 10 days 25 tablet 04/13/2025 Active Start: 05-28-2024 End: 11-07-2024 take 1 tablet by mouth once daily Norethindrone (Contraceptive) (Anya) 0.35 mg tablet Discontinued 0.35 mg PO DAILY May 28, 2024 12:00am November 07, 2024 10:33am ondansetron 4 mg disintegrating oral tablet (6 sources) Serotonin-3 Receptor Antagonist Start: 01-14-2025 take 1 tablet by mouth every six hours as needed for nausea Ondansetron 4 mg tablet,disintegrating Active 4 mg PO EVERY 6 HOURS NEEDED as needed for Nausea January 14, 2025 12:00am Start: 10-21-2024 End: 11-07-2024 take 1 tablet by mouth three times daily as needed for nausea and vomiting Ondansetron 4 mg tablet,disintegrating Discontinued 4 mg PO THREE TIMES A DAY as needed for nausea and vomiting October 21, 2024 8:09am November 07, 2024 10:33am oxyCODONE hydrochloride 5 mg oral tablet (3 sources) Opioid Agonist Start: 10-21-2024 take 1 tablet by mouth every six hours as needed for pain Oxycodone 5 mg tablet Active 5 mg PO EVERY 6 HOURS as needed for pain 09 05October 21, 2024 0.25 mg, 0.5 mg dose 1.5 ml semaglutide 1.34 mg/ml pen injector (3 sources) semaglutide (OZEMPIC) 0.25 mg or 0.5 mg(2 mg/1.5 mL) pen Inject 0.25 mg subcutaneously one time a week. Active 24 hr venlafaxine 37.5 mg extended release oral tablet (3 sources) Serotonin and Norepinephrine Reuptake Inhibitor Start: 11-07-2024 take 1 tablet by mouth once daily Venlafaxine 37.5 mg tablet extended release 24hr Active 37.5 mg PO daily November 07, 2024 1:00am Completed/Discontinued Medications Medication Drug Class(es) Dates Sig (Normalized) Sig (Original) betamethasone 0.5 mg/ml / clotrimazole 10 mg/ml topical lotion (3 sources) Azole Antifungal, Corticosteroid Start: 05-28-2024 End: 11-07-2024 Clotrimazole-Betame thasone 1-0.05 % lotion Discontinued 1 NMA TOPICAL TWICE A DAY May 28, 2024 12:00am November 07, 2024 10:32am cholecalciferol 0.025 mg oral tablet (5 sources) Vitamin D Start: 02-08-2023 End: 05-28-2024 take 1 tablet by mouth once daily Cholecalciferol (Vitamin D3) (Vitamin D3) 25 mcg (1,000 unit) Tablet Discontinued 25 ug PO DAILY February 08, 2023 12:00am May 28, 2024 10:20pm fluconazole 150 mg oral tablet (3 sources) Azole Antifungal Start: 05-28-2024 End: 11-07-2024 Fluconazole 150 mg tablet Discontinued 150 mg PO Every 3 Days May 28, 2024 12:00am November 07, 2024 10:32am Multivitamin Tablet (3 sources) Start: 02-08-2023 End: 05-28-2024 Multivitamin Tablet Discontinued 1 {tbl} PO DAILY February 08, 2023 12:00am May 28, 2024 10:20pm naproxen 500 mg oral tablet (4 sources) Nonsteroidal Anti-inflammatory Drug Start: 03-02-2024 End: 05-28-2024 take 1 tablet by mouth twice daily as needed for pain Naproxen (Naprosyn) 500 mg tablet Discontinued 500 mg PO TWICE A DAY as needed for pain March 02, 2024 12:00am May 28, 2024 10:20pm Start: 02-12-2022 take 1 tablet by velasquez th twice daily Naproxen (Naprosyn) 500 mg tablet Active 500 MG PO TWICE A DAY February 12, 2022 12:04pm sertraline 50 mg oral tablet (3 sources) Serotonin Reuptake Inhibitor Start: 05-28-2024 End: 11-07-2024 take 1 tablet by mouth once daily Sertraline 50 mg tablet Discontinued 50 mg PO DAILY May 28, 2024 12:00am November 07, 2024 10:34am Problems Active Problems Problem Classification Problem Date Documented Date Episodic/Chronic Abdominal pain (8 sources) Generalized abdominal pain; Translations: [Generalized abdominal pain] Onset: 10-21-2024 10-29-2024 Episodic Acute and chronic tonsillitis (11 sources) Chronic tonsillitis; Translations: [Chronic tonsillitis] 06-18-2020 Chronic Anxiety disorders (6 sources) Mixed anxiety and depressive disorder; Translations: [Anxiety disorder, unspecified] 06-05-2024 Chronic Essential hypertension (3 sources) Hypertensive disorder; Translations: [Essential (primary) hypertension] 06-05-2024 Chronic Fluid and electrolyte disorders (3 sources) Mild dehydration; Translations: [Dehydration] 10-29-2024 Episodic Joint disorders and dislocations; trauma-related (1 source) Unspecified internal derangement of right knee; Translations: [Unspecified internal derangement of right knee] Onset: 10-18-2024 Chronic Mood disorders (1 source) Bipolar II disorder; Translations: [Bipolar II disorder] Onset: 01-15-2025 Chronic Nausea and vomiting (3 sources) Nausea and vomiting; Translations: [Nausea with vomiting, unspecified] 10-29-2024 Episodic Noninfectious gastroenteritis (3 sources) Gastroenteritis; Translations: [Noninfective gastroenteritis and colitis, unspecified] 01-14-2025 Episodic Nonspecific chest pain (14 sources) Chest pain; Translations: [Chest pain, unspecified] 12-27-2021 Episodic Osteoarthritis (7 sources) Osteoarthritis of right knee joint; Translations: [Unilateral primary osteoarthritis, right knee] Onset: 11-17-2024 11-07-2024 Chronic Other circulatory disease (3 sources) Elevated blood pressure; Translations: [Elevated blood-pressure reading, without diagnosis of hypertension] 07-09-2023 Episodic Other female genital disorders (13 sources) Abnormal uterine bleeding; Translations: [Other specified abnormal uterine and vaginal bleeding] 08-08-2022 Chronic Other female genital disorders (5 sources) Other specified abnormal uterine and vaginal bleeding; Translations: [Other disorders of menstruation and other abnormal bleeding from female genital tract] Onset: 04-13-2025 Chronic Other female genital disorders (8 sources) Vaginal bleeding; Translations: [Abnormal uterine and vaginal bleeding, unspecified] 08-09-2022 Chronic Other female genital disorders (3 sources) Abnormal uterine and vaginal bleeding, unspecified; Translations: [Other specified noninflammatory disorders of vagina] Chronic Other female genital disorders (2 sources) History of clinical finding in subject; Translations: [Personal history of other diseases of the female genital tract] 04-13-2025 Episodic Other female genital disorders (1 source) Personal history of other diseases of the female genital tract; Translations: [History of irregular menstrual cycles] Onset: 04-13-2025 Episodic Other non-traumatic joint disorders (8 sources) Pain in right knee; Translations: [Right knee pain] Onset: 11-07-2024 03-09-2024 Episodic Other non-traumatic joint disorders (6 sources) Pain in wrist; Translations: [Pain in left wrist] 11-07-2024 Episodic Other non-traumatic joint disorders (1 source) Pain in left knee; Translations: [Pain in left knee] Onset: 01-24-2025 Episodic Other non-traumatic joint disorders (1 source) Pain in left wrist; Translations: [Pain in left wrist] Onset: 11-07-2024 Episodic Other nutritional; endocrine; and metabolic disorders (3 sources) Morbid obesity; Translations: [Morbid (severe) obesity due to excess calories] 06-05-2024 Chronic Other nutritional; endocrine; and metabolic disorders (3 sources) Body mass index 40+ - severely obese; Translations: [Morbid (severe) obesity due to excess calories] 07-09-2023 Chronic Other nutritional; endocrine; and metabolic disorders (4 sources) Severe obesity; Translations: [Class 3 severe obesity with body mass index (BMI) of 50.0 to 59.9 in adult, unspecified obesity type, unspecified whether serious comorbidity present (HCC)] 04-13-2025 Chronic Other nutritional; endocrine; and metabolic disorders (1 source) Body mass index (BMI) 50.0-59.9, adult; Translations: [Class 3 severe obesity with body mass index (BMI) of 50.0 to 59.9 in adult, unspecified obesity type, unspecified whether serious comorbidity present (HCC)] Onset: 04-13-2025 Chronic Other upper respiratory infections (20 sources) Viral upper respiratory tract infection; Translations: [Acute upper respiratory infection, unspecified] 12-17-2019 Episodic Otitis media and related conditions (13 sources) Chronic serous otitis media; Translations: [Chronic serous otitis media, unspecified ear] Chronic Superficial injury; contusion (20 sources) Contusion of hand; Translations: [Contusion of unspecified hand, initial encounter] 03-22-2021 Episodic Unclassified (6 sources) Osteoarthritis of right knee; Translations: [M17.11 - Unilateral primary osteoarthritis, right knee] Unclassified (2 sources) History of clinical finding in subject 04-13-2025 Unclassified (1 source) Class 3 severe obesity with body mass index (BMI) of 50.0 to 59.9 in adult, unspecified obesity type, unspecified whether serious comorbidity present (HCC); Translations: [Class 3 severe obesity with body mass index (BMI) of 50.0 to 59.9 in adult, unspecified obesity type, unspecified whether serious comorbidity present (HCC)] Onset: 04-13-2025 Past or Other Problems Problem Classification Problem Date Documented Da te Episodic/Chronic Gastrointestinal hemorrhage (1 source) Hemorrhage of anus and rectum; Translations: [Hemorrhage of anus and rectum] Onset: 07-03-2024 Episodic Mycoses (4 sources) Candidiasis of skin; Translations: [Candidiasis of skin and nail] Onset: 06-22-2024 06-05-2024 Episodic Sprains and strains (20 sources) Sprain of ankle; Translations: [Sprain of unspecified ligament of left ankle, initial encounter] Onset: 03-09-2024 06-19-2020 Episodic Results Test Name Value Interpretation Reference Range Facility [facility] 04-24-2025 Indication Dysfunctional uterine bleeding Impression Normal appearing retroverted uterus that measures 78 mm x 41 mm x 43 mm. Endometrium measures 6.9 mm. Normal endometrial contour. Both ovaries are visualized and appear normal with follicular change. No adnexal masses were observed. There is no free fluid visualized in the peritoneal cavity. Recommendations Follow up as clinically indicated. Menstrual History LMP on 04/14/2025. Cycle: irregular cycle. Bleeding: menorrhagia. Contraception: tubal sterilization Method Transabdominal, transvaginal, 3D ultrasound examination, Color Doppler examination Uterus Uterus: Visualized Uterus position: retroverted Description of uterine malformations: normally shaped Myometrium: heterogeneous Endometrium: heterogeneous Cervix details: cystic lesions identified suggesting superficial Nabothian cysts Uterus length 78 mm Uterus width 43 mm Uterus height 41 mm Uterus Vol 72.5 cm Endometrial thickness, total 6.9 mm Right Ovary Rt ovary: Visualized Rt ovary morphology: premenopausal normal follicular Rt ovary D1 29 mm Rt ovary D2 23 mm Rt ovary D3 20 mm Rt ovary Vol 6.7 cm Left Ovary Lt ovary: Visualized Lt ovary morphology: normal Lt ovary D1 29 mm Lt ovary D2 14 mm Lt ovary D3 15 mm Lt ovary Vol 3.2 cm Cul de Sac Visualized. no free fluid visualized Performed By: Marlena Hernandez RDMS Read By: Gracia Smith M.D. MATERNAL MEDICINE [facility] 04-20-2025 Radiology Study observation (narrative) [facility] CNOVon 04-13-2025 CNOV Office Visit (OBGYWM ) -- SERGIO PARRISH ([id number]) 1995 F Date Time Provider Department 04/13/25 9:40 AM SERA HARDING During your visit today, we recorded the following information about you: Blood pressure Weight Height Last Period 156.8 kg 1.651 m 04/11/25 Sera Harding MD 04/13/2025 1:21 PM Signed Sergio Parrish is a 29 year old female who presents as a new patient to discuss a hysterectomy. HPI: Was being seeing at [facility] previously. She is a new patient to our office. She desires a hysterectomy. She goes 2-3 months without menses, and then when she has a period it is very heavy. Bleeding through pads and tampons on heaviest days. Has to change a tampon every time she uses the restroom. Bleeding lasts 3-4 days. Menarche at age 15. Menstrual cycles have always been irregular. Currently not sexually active. Has tubal sterilization. Last sexually active 4 months ago. Pap smears have always been normal. The patient is single currently. Has a 7 year old daughter Ana Rosa. Currently on Ozempic through Dr. Teressa Aguiar at [facility]. Has tried the depo and ocp in the past. Had recent normal TSH with PCP 01/2025. OB History No obstetric history on file. Rough Rib Grader History LMP: 04/11/2025, Having periods Age at Menarche: 14 Age at First : Age at Menopause: Rough Rib Grader History Comments: Sexual Activity: Not Currently; No partner data on record Contraception: Tubal Ligation Menstrual Tracking History Flowsheet Row Appointment from 02/09/2025 in OB/Gynecology Most recent reading at 12/16/2024 10:10 AM Appointment from 12/21/2024 in OB/Gynecology Most recent reading at 12/16/2024 10:10 AM Period Duration (Days) 4 4 Menstrual Flow Heavy Heavy History reviewed. No pertinent past medical history. PAST SURGICAL HISTORY Procedure Laterality Date LIGATE FALLOPIAN TUBE 2022 TONSILLECTOMY AND ADENOIDECTOMY TYMPANOSTOMY W/INNER EAR FAMILY HISTORY Problem Relation Age of Onset No Known Problems Mother Colon Cancer Father No Known Problems Sister No Known Problems Sister No Known Problems Brother No Known Problems Brother No Known Problems Brother No Known Problems Maternal Grandmother Hypertension Maternal Grandfather Stroke Maternal Grandfather Social History Tobacco Use Smoking status: Never Smokeless tobacco: Never Vaping Use Vaping status: Former Substance Use Topics Alcohol use: Not Currently Drug use: Never Current Outpatient Medications Medication Sig albuterol HFA (PROVENTIL HFA, VENTOLIN HFA) 90 mcg/actuation inhaler inhale 1-2 Puff every 6 hours as needed for cough, short of breath buPROPion SR (WELLBUTRIN SR) 100 mg 12 hr tablet Take 100 mg by mouth two times a day. naltrexone capsule 5 mg (CPD) Take 8 mg by mouth two times a day. semaglutide (OZEMPIC) 0.25 mg or 0.5 mg(2 mg/1.5 mL) pen Inject 0.25 mg subcutaneously one time a week. No current facility-administered medications for this visit. Allergies As of Date: 04/13/2025 (No Known Allergies) Fully Assessed 04/13/2025 REVIEW OF SYSTEMS Expanded ROS: N/A Allergies and current medication updated:Yes SENSITIVE EXAM: Sensitive exam not performed. EXAM: BP 102/68 Ht 5' 5 (1.65m) Wt 345 lb 9.6 oz (156.8kg) LMP 04/11/2025 BMI 57.51 kg/(m2). GENERAL: pleasant, female in no apparent distress HEENT: Normocephalic and atraumatic NECK: full range of motion CHEST: Normal inspiratory effort NEURO: exam grossly non-focal EXTREMITIES: normal ASSESSMENT AND PLAN: Assessment AND Plan History of irregular menstrual cycles Orders: PROLACTIN; Future DHEA-S BLD; Future TESTOSTERONE, TOTAL BY IMMUNOASSAY (ADULT MALES, OR INDIVIDUALS ON TESTOSTERONE THERAPY); Future HYDROXYPROGESTERONE-17; Future LIPID PANEL, FASTING; Future FOLLICLE STIMULATING HORMONE; Future HEMOGLOBIN A1C; Future ESTRADIOL-17B BLD; Future PELV[facility] US WHI; Future GLUCOSE, FASTING; Future ENDOMETRIAL BIOPSY norethindrone (AYGESTIN) 5 mg tablet; Take 1 tablet by mouth as directed. one by mouth tid x 3 days, bid x 3 days, then daily for up to 10 days DUB (dysfunctional uterine bleeding) Orders: PROLACTIN; Future DHEA-S BLD; Future TESTOSTERONE, TOTAL BY IMMUNOASSAY (ADULT MALES, OR INDIVIDUALS ON TESTOSTERONE THERAPY); Future HYDROXYPROGESTERONE-17; Future LIPID PANEL, FASTING; Future FOLLICLE STIMULATING HORMONE; Future HEMOGLOBIN A1C; Future ESTRADIOL-17B BLD; Future PELVIC US WHI; Future GLUCOSE, FASTING; Future ENDOMETRIAL BIOPSY norethindrone (AYGESTIN) 5 mg tablet; Take 1 tablet by mouth as directed. one by mouth tid x 3 days, bid x 3 days, then daily for up to 10 days Class 3 severe obesity with body mass index (BMI) of 50.0 to 59.9 in adult, unspecified obesity type, unspecified whether serious comorbidity present (HCC) Orders: PROLACTIN; Future DHEA- (more content not included)... Normal [facility] DHEA-S BLDon 04-13-2025 DHEA-S [Mass/Vol] 254.1 ug/dL Normal 98.8-340.0 [facility] Comment on above: Order Comment: Speci men Type: BLOOD SPECIMEN Ordering Facility: [facility] Address: [address] [place] [address] Result Comment: Refe rence ranges are age and gender specific. For additional information, reference range tables can be found in the laboratory test directory. The normal values are based on the following source: Dehydroepiandrosterone sulfate (DHEA S) [package insert V 17.0 Citizen Of [place]]. [facility], [place], [place]: May 2013. Performed By: #### 2 243-4, DHEAS, [id number] #### [facility] CLIA [id number] [address] [place] [address] [place] #### [id number] #### [facility] CLIA [id number] [address] [place] [address] [place] [facility] CLIA [id number] [address] [place] [address] [place] Estradiol SerPl-mCncon 04-13 E2 [Mass/Vol] 43 pg/mL Normal [facility] Comment on above: Order Comment: Speci men Type: BLOOD SPECIMEN Ordering Facility: [facility] Address: [address] [place] [address] Result Comment: This test is not suitable for patients receiving treatment with the drug Fulvestrant (Faslodex). The drug causes an interference leading to falsely elevated estradiol results. Menstrual cycle Estradiol reference ranges: Follicular : < 234 pg/mL Ovulation : 41 to 398 pg/mL Luteal : < 342 pg/mL Estradiol reference ranges vary by gestational period: First trimester : 154 to 3243 pg/mL Second trimester : 1561 to 52581 pg/mL Third trimester : 8285 to >75965 pg/mL Post-menopausal Estradiol reference range: < 41 pg/mL Reference: 1. Estradiol - E2 (Estradiol III) [package insert V 3.0 Citizen [place]]. [facility], [place], [place], March 2016. Performed By: #### 2 243-4, DHEAS, [id number] #### [facility] CLIA [id number] [address] [place] [address] #### [id number] #### [facility] CLIA [id number] [address] [place] [address] [place] [facility] CLIA [id number] [address] [place] [address] [place] [facility] SerPl-aCncon 04-13-2025 Follitropin Qn 5.6 m[IU]/mL Normal See comment [facility] Comment on above: Order Comment: Speci men Type: BLOOD SPECIMEN Ordering Facility: [facility] Address: [address] [place] [address] Result Comment: Refe bradence range: Follicular: 3.5-12.5 mIU/mL Ovulation: 4.7-21.5 mIU/mL Luteal: 1.7-7.7 mIU/mL Postmenopausal: 25.8-134.8 mIU/mL Performed By: #### 2 243-4, DHEAS, [id number] #### [facility] CLIA [id number] [address] [place] [address] #### [id number] #### [facility] CLIA [id number] [address] [place], [place] [id number] [place] [facility] CLIA [id number] [address] [place] [id number] [place] GLUCOSE, FASTINGon Glucose post fast [Mass/Vol] 87 mg/dL 74 - 99 mg/dL [facility] Comment on above: [place] Diabetes As sociation guidelines state that a diabetes mellitus diagnosis is preliminarily made when the fasting plasma glucose meets or exceeds 126 mg/dL. In the absence of unequivocal hyperglycemia, results should be confirmed with repeat testing. Patients are at increased risk for diabetes mellitus (prediabetes) when the fasting glucose is 100 to 125 mg/dL. Glucose p fast SerPl-mCncon 04-13-2025 Glucose post fast [Mass/Vol] 87 mg/dL Normal 74-99 [facility] Comment on above: Order Comment: Myles rudolph Type: BLOOD SPECIMEN Ordering Facility: [facility] Address: [address] [place] [address] Result Comment: Amer ican Diabetes Association guidelines state that a diabetes mellitus diagnosis is preliminarily made when the fasting plasma glucose meets or exceeds 126 mg/dL. In the absence of unequivocal hyperglycemia, results should be confirmed with repeat testing. Patients are at increased risk for diabetes mellitus (prediabetes) when the fasting glucose is 100 to 125 mg/dL. Performed By: #### 1 558-6 #### [facility] CLIA [id number] [address] [place] [address] [place] Glucose post fast [Mass/Vol] on 04-13-2025 Interpretation and review of laboratory results Normal [facility] HYDROXYPROGESTERONE-17on 17-HYDROXYPROGESTERONE QUANTITATIVE BY HPLC-MS/MS, SERUM OR PLASMA 12.09 ng/dL Normal <=206.00 [facility] Comment on above: Order Comment: Myles rudolph Type: BLOOD SPECIMEN Ordering Facility: [facility] Address: [address] [place], [place] [address] Result Comment: INTE RPRETIVE INFORMATION for 17-Hydroxyprogesterone in females: Follicular 15 to 70 ng/dL Luteal 35 to 290 ng/dL REFERENCE INTERVAL: 17-Hydroxyprogesterone Qnt, HPLC-MS/MS Access complete set of age- and/or gender-specific reference intervals for this test in the [facility] Test Directory ([employer]). This test was developed and its performance characteristics determined by [facility]. It has not been cleared or approved by the US Food and Drug Administration. This test was performed in a CLIA certified laboratory and is intended for clinical purposes. Performed By: [facility] [address] [place] [address] Clinical Program Director: Wesly Ojeda MD, PhD CLIA Number: [id number] Performed By: #### H PROG #### [facility] CLIA [id number] [address] [place] [address] HbA1c (Bld)on 04-13-2025 Average glucose Estimated from glycated hemoglobin (Bld) [Mass/Vol] 94 mg/dL Normal [facility] Comment on above: Order Comment: Speci men Type: BLOOD SPECIMEN Ordering Facility: [facility] Address: [address] [place] [address] Result Comment: eAG: (Estimated average glucose) is a calculated value from HgbA1c and is medical billing representative of the average blood glucose level in the last 2-3 month period. Performed By: #### 5 5454-3 #### [facility] CLIA [id number] [address] [place] [address] [place] HbA1c (Bld) [Mass fraction] 4.9 % Normal 4.3-5.6 [facility] Comment on above: Order Comment: Myles rudolph Type: BLOOD SPECIMEN Ordering Facility: [facility] Address: [address] [place] [address] Result Comment: Amer ican Diabetes Association guidelines indicate that patients with HgbA1c in the range 5.7-6.4% are at increased risk for development of diabetes, and intervention by lifestyle modification may be beneficial. HgbA1c greater or equal to 6.5% is considered diagnostic of diabetes. Performed By: #### 5 5454-3 #### [facility] CLIA [id number] [address] [place] [address] [place] Lipid 1996 panelon 5 Cholesterol [Mass/Vol] 145 mg/dL Normal <200 [facility] Comment on above: Order Comment: Speci men Type: BLOOD SPECIMEN Ordering Facility: [facility] Address: [address] [place] [address] Result Comment: <200 mg/dL, Desirable 200-239 mg/dL, Borderline high >239 mg/dL, High Performed By: #### 2 243-4, DHEAS, 48896-8 #### [facility] CLIA [id number] [address] [place] [address] [place] #### 18672-4 #### [facility] CLIA [id number] [address] [place] [address] [place] [id number] [place] [address] Cholesterol in HDL [Mass/Vol] 46 mg/dL Normal >39 [facility] Comment on above: Order Comment: Speci men Type: BLOOD SPECIMEN Ordering Facility: [facility] Address: [address] [place] [address] Result Comment: 40-5 9 mg/dL, Acceptable >59 mg/dL, High: Negative risk factor for coronary heart disease <40 mg/dL, Low: Positive risk factor for coronary heart disease Performed By: #### 2 243-4, DHEAS, 87136-4 #### [facility] CLIA [id number] [address] [place] [address] [place] #### 83808-8 #### [facility] CLIA [id number] [address] [place] [address] [place] [facility] CLIA [id number] [address] [place] [address] [place] Cholesterol in LDL [Mass/Vol] 80 mg/dL Normal <100 [facility] Comment on above: Order Comment: Speci men Type: BLOOD SPECIMEN Ordering Facility: [facility] Address: [address] [place] [address] Result Comment: <100 mg/dL, Optimal 100-129 mg/dL, Near optimal/above optimal 130-159 mg/dL, Borderline high 160-189 mg/dL, High >189 mg/dL, Very high Secondary prevention optimal LDL Cholesterol levels are recommended to be <70 mg/dL LDL cholesterol is calculated using the Espinoza-NIH equation. Performed By: #### 2 243-4, DHEAS, 64447-2 #### [facility] CLIA [id number] [address] [place] [address] [place] #### 15819-8 #### [facility] CLIA [id number] [address] [place] [address] [place] [facility] [id number] [place] [address] Cholesterol in LDL/Cholesterol in HDL [Mass ratio] 1.74 {ratio} Normal <2.54 [facility] Comment on above: Order Comment: Speci men Type: BLOOD SPECIMEN Ordering Facility: [facility] Address: [address] [place] [address] Result Comment: Te duran: 1. National Cholesterol Education Program ATP III Guideline At-A-Glance Quick Desk Reference: National Heart, Lung, and Blood [place]. National Institutes of Health. 2001: NIH Publication No. 01-3305. 2. An International Atherosclerosis Society position paper: global recommendations for the management of dyslipidemia: executive summary, Atherosclerosis. 2014: 232(2):410-413. Performed By: #### 2 243-4, DHEAS, 46743-6 #### [facility] CLIA [id number] [address] [place] [address] [place] #### 47460-9 #### [facility] CLIA [id number] [address] [place], [place] [address] [place] [facility] CLIA [id number] [address] [place] [address] [place] Cholesterol in VLDL [Mass/Vol] 16 mg/dL Normal <30 [facility] Comment on above: Order Comment: Speci men Type: BLOOD SPECIMEN Ordering Facility: [facility] Address: [address] [place] [address] Performed By: #### 2 243-4, DHEAS, 33299-3 #### [facility] CLIA [id number] [address] [place] [address] [place] #### 02334-4 #### [facility] CLIA [id number] [address] [place] [address] [place] [facility] CLIA [id number] [address] [place] [address] [place] Cholesterol non HDL [Mass/Vol] 99 mg/dL Normal <130 [facility] Comment on above: Order Comment: Speci men Type: BLOOD SPECIMEN Ordering Facility: [facility] Address: [address] [place] [address] Result Comment: <130 mg/dL, Optimal 130-159 mg/dL, Near optimal/above optimal 160-189 mg/dL, Borderline high 190-219 mg/dL, High >219 mg/dL, Very high Secondary prevention optimal non HDL Cholesterol levels are recommended to be <100 mg/dL Performed By: #### 2 243-4, DHEAS, 44643-4 #### [facility] CLIA [id number] [address] [place] [address] [place] #### 92203-7 #### [facility] CLIA [id number] [address] [place], [place] [address] [place] [facility] CLIA [id number] [address] [place] [address] [place] Cholesterol.total/Chol esterol in HDL [Mass ratio] 3.15 {ratio} Normal <5.10 [facility] Comment on above: Order Comment: Speci men Type: BLOOD SPECIMEN Ordering Facility: [facility] Address: [address] [place] [id number] Performed By: #### 2 243-4, DHEAS, 23227-0 #### [facility] CLIA [id number] [address] [place], [place] [address] [id number] [place] #### 59890-6 #### [facility] CLIA [id number] [address] [place], [place] [address] [id number] [place] [facility] CLIA [id number] [address] [place] [address] [place] FASTING TIME 12 hrs Normal [facility] Comment on above: Order Comment: Speci men Type: BLOOD SPECIMEN Ordering Facility: [facility] Address: [address] [id number] Performed By: #### 2 243-4, DHEAS, 20046-8 #### [facility] CLIA [id number] [address] [place] [address] [place] #### 99956-8 #### [facility] CLIA [id number] [address] [place] [address] [place] [facility] CLIA [id number] [address] [place] [address] [place] Triglyceride [Mass/Vol] 103 mg/dL Normal <150 [facility] Comment on above: Order Comment: Speci men Type: BLOOD SPECIMEN Ordering Facility: [facility] Address: [address] [place] [id number] Result Comment: <150 mg/dL, Normal 150-199 mg/dL, Borderline high 200-499 mg/dL, High >499 mg/dL, Very high Performed By: #### 2 243-4, DHEAS, 63461-5 #### [facility] CLIA [id number] [address] [place] [address] [place] #### 56531-2 #### [facility] CLIA [id number] [address] [place] [address] [place] [facility] CLIA [id number] [address] [place] [address] [place] Prolactin SerPl-mCncon 04-13 Prolactin [Mass/Vol] 14.6 ng/mL Normal 4.4-33.[address] [facility] Comment on above: Order Comment: Speci men Type: BLOOD SPECIMEN Ordering Facility: [facility] Address: [address] [place] [address] Result Comment: Prol actin test is performed using the [employer] Electrochemiluminescence Immunoassay method. Results obtained with different methods or kits cannot be used interchangeably. Performed By: #### 2 842-3, 2986-8 #### [facility] CLIA [id number] [address] [place] [address] [place] Testost SerPl-mCncon 025 Testosterone [Mass/Vol] 53 ng/dL High <40 [facility] Comment on above: Order Comment: Speci men Type: BLOOD SPECIMENOrdering Facility: [facility] Address: [address] [place] [address] Performed By: #### 2 842-3, 2986-8 ####[facility] [id number] [place] [address] [place] Emergency Department Summary on 01-21-2025 Emergency Department Summary [facility] Medical Records Department [address] [place] [address] Emergency Department Summary 01/21/25 MR#: [id number] Acct: [id number] Name: SERGIO PARRISH Rep #: [id number] : 1995 29 From: Urmila MURILLO PCP: Dr. Teressa Aguiar MD Status:DEP ER Location: ED HPI History of Present Illness Chief Complaint: Lower Extremity Injury Narrative Narrative: Patient presenting today with left knee pain and popping that she has had intermittently over the past several months. She reports that her knee occasionally gives out while she is walking. Today her knee gave out causing her to fall, she did not suffer any injury from the fall. She denies hitting her head. She is able to ambulate on her knee. [facility] Medical History Osteoarthritis of right knee Left wrist pain Right knee pain Non-smoker Hypertension Anxiety Depression Asthma Home Medications ???Medication ???Instructions ???Recorded ???Last Taken ???Type budesonide-formoterol HFA 160 2 puff inhalation Q4H PRN PRN 05/0 05/2602/15/23 History mcg-4.5 mcg/actuation aerosol ASTHMA inhaler (Symbicort) oxycodone 5 mg tablet 5 mg PO Q6H PRN pain 3 days #12 Unknown Rx tabs albuterol sulfate 90 mcg/actuation 1 - 2 puff inhalation Q6 PRN 01/26 Unknown History aerosol inhaler dyspnea venlafaxine 37.5 mg 37.5 mg PO QDAY 11/07/24 Unknown H istory tablet,extended release 24 hr ondansetron 4 mg disintegrating 4 mg PO Q6H PRN PRN Nausea #15 tab s 01/14/25 Unknown Rx tablet oxycodone-acetaminophen 5 mg-325 1 tab PO Q6H PRN PRN Pain 3 days 0 01/14/25 Unknown Rx mg tablet #12 TABLETS Allergy/AdvReac Type Severity Reaction Status Date / Time No Known Allergies Allergy Verified 01/21/25 11:20 Surgical History H/O tubal ligation History of myringotomy Hx of tonsillectomy Social History Smoking Status: Current some day smoker tobacco type: cigarettes ROS ROS ED Constitutional Constitutional ED: Denies chills or fever(s) Cardiovascular Cardiovascular: Denies chest pain Respiratory/Chest Respiratory/Chest: Denies dyspnea Musculoskeletal Musculoskeletal: Reports arthralgias Integumentary Denies Abrasions Neurologic Neurologic: Denies paresthesias EXAM Physical Exam Const Vital Signs: 01/21/25 11:20 Temperature 97.8 F Temperature Source Oral Pulse Rate 118 H Respiratory Rate 18 Blood Pressure 143/88 H Blood Pressure Mean 106 Pulse Ox 98 Oxygen Delivery Method Room Air Positive well nourished, well developed and no apparent distress General Appearance ED: well developed HEENT Reports normocephalic and head/scalp atraumatic Mouth ED: Yes moist mucous membranes normal Eyes PERRL and EOMs intact bilaterally Neck full ROM and supple Chest Wall inspection of chest normal Resp normal respiratory effort and clear to auscultation bilaterally Cardio regular rate and regular rhythm Back/Spine normal ROM and normal to inspection Extremity normal to inspection and full ROM Extremity Narrative: Full range of motion, extensor mechanism intact, left DP pulse 2+, good cap refill, sensation intact. No joint effusion. No joint laxity with varus or valgus stress, negative anterior drawer's test Neuro oriented x3, CN's II-XII intact bilaterally, moves all extremities, no focal motor deficits and no sensory deficits noted Sensorium / Orientation: awake and alert Psych mental status grossly normal and thought process normal Skin no rashes or lesions noted and no wounds Physical Exam Const Vital Signs: 01/21/25 11:20 Temperature 97.8 F Temperature Source Oral Pulse Rate 118 H Respiratory Rate 18 Blood Pressure 143/88 H Blood Pressure Mean 106 Pulse Ox 98 Oxygen Delivery Method Room Air MDM MDM MDM Narrative Medical decision making narrative: Patient presenting today with left knee pain and popping she has had off-and-on. Today it caused her to fall prompting her to come in to be seen. X-ray of the knee will be obtained. I did offer analgesia and she declined. X-ray negative for acute findings. I have referred her to orthopedics. RICE instructions were discussed. She can take anti-inflammatories as needed for pain. She will be discharged home in stable condition. She is able to ambulate. I have personally performed a face to face assessment of the patient and have reviewed the PEBBLES Note. I performed a substantive portion of the visit including all aspects of the following. My vieira findings include: History is remarkable for (more content not included)... Normal [facility] Knee 4 or More Viewson 01-21 Knee 4 or More Views [facility] Imaging Services [address] [place], [place] [address] Knee 4 or More Views MR#: [id number] Acct: [id number] Name: SERGIO PARRISH Rep #: [id number] : 1995 F 29 From: Shreya Hines nd, MD PCP: Dr. Teressa Aguiar MD Status: REG ER Study: Knee 4 or More Views Date of Exam: 01/21/25 Exam# [id number] Ordering Dr: Urmila Mcconnell PROCEDURE: KNEE 4 OR MORE VIEWS 01/21/2025 REASON FOR EXAM: KNEE PAIN TECHNIQUE: 4 view(s) of the left knee COMPARISON: None. FINDINGS: Bones: No fracture. No suspicious bone lesion. Joints: Normal alignment. Mild degenerative changes. Effusion: No effusion. Soft tissues: Soft tissues are unremarkable. RAD/Knee 4 or More Views IMPRESSION: NO EFFUSION ACUTE FRACTURE OR DISLOCATION. Reading Location: [facility] CC: Dr. Teressa Aguiar MD; LIDIA [place] Sports Analyst: Signed Normal [facility] Abdomen/Pelvis W IV Cont ONL Yon 01-14-2025 Abdomen/Pelvis W IV Cont ONLY [facility] Imaging Services [address] [place], [place] [address] Abdomen/Pelvis W IV Cont ONLY MR#: [id number] Acct: [id number] Name: SERGIO PARRISH Rep #: [id number] : 1995 F 29 From: Denis Mckay MD PCP: Dr. Teressa Aguiar MD Status: REG ER Study: Abdomen/Pelvis W IV Cont ONLY Date of Exam: Exam# [id number] Ordering Dr: Curtis Crane DO PROCEDURE: ABDOMEN/PELVIS W IV CONT ONLY 01/14/2025 REASON FOR EXAM: ABDOMINAL PAIN TECHNIQUE: Abdomen and pelvis CT with intravenous contrast. Coronal and Sagittal reconstruction series were provided. PATIENT PREPARATION: Per protocol One or more dose reduction techniques were used (e.g., Automated exposure control, adjustment of the mA and/or kV according to patient size, use of iterative reconstruction technique. FINDINGS: Lung bases: Clear Liver: Normal size. No mass. Gallbladder: Unremarkable. Spleen: Normal size. Pancreas: Normal size without evidence of mass surrounding inflammation or ductal dilation. Adrenals: Unremarkable. Kidneys: Normal renal sizes. No hydronephrosis. Bladder: Unremarkable. Reproductive Organs: Unremarkable. Bowel: Unremarkable. Appendix: Unremarkable. Lymph nodes: Unremarkable. Vasculature: The abdominal aorta and IVC are normal. Peritoneum / Retroperitoneum: Unremarkable. Bones: Unremarkable. CT/Abdomen/Pelvis W IV Cont ONLY IMPRESSION: NORMAL CT ABDOMEN AND PELVIS WITH CONTRAST. Reading Location: [id number] CC: Dr. Curtis Crane DO; Dr. Teressa Aguiar MD Sports Analyst: Signed Normal [facility] Absolute neutrophil countOrd ered By: Curtis Crane on 01-14-2025 Neutrophils (Bld) [#/Vol] 6.7 10*3/uL 2.0-7.7 [facility] Anion gap in Serum or Plasma Ordered By: Curtis Crane on 01-14-2025 Anion gap [Moles/Vol] 10 mmol/L 5-15 [facility] BUN/creatinine ratioOrdered By: Curtis Crane on 01-14-2025 Urea nitrogen/Creatinine [Mass ratio] 9.4 mg/mg Low 10-20 [facility] Basic Metabolic Profile (BMP )on 01-14-2025 BUN/CRE 9.4 RATIO Low 10-20 [facility] Comment on above: Performed By: #### L 501.2450, L500.3400, L500.2500, L700.6800, L100.0100 ####[facility] [address] [place], [address] Calcium [Mass/Vol] 8.5 mg/dL Normal 7.6-11.0 [facility] Comment on above: Performed By: #### L 501.2450, L500.3400, L500.2500, L700.6800, L100.0100 ####[facility] [address] [place], [address] Chloride [Moles/Vol] 103 mmol/L Normal 98-108 [facility] Comment on above: Performed By: #### L 501.2450, L500.3400, L500.2500, L700.6800, L100.0100 ####[facility] [address] [place], [address] CO2 [Moles/Vol] 24.6 mmol/L Normal 21.0-32.0 [facility] Comment on above: Performed By: #### L 501.2450, L500.3400, L500.2500, L700.6800, L100.0100 ####[facility] [address] [place], [address] Creatinine [Mass/Vol] 0.66 mg/dL Low 0.70-1.20 [facility] Comment on above: Performed By: #### L 501.2450, L500.3400, L500.2500, L700.6800, L100.0100 ####[facility] [address] [place], [address] GAP 10 Normal 5-15 [facility] Comment on above: Performed By: #### L 501.2450, L500.3400, L500.2500, L700.6800, L100.0100 ####[facility] [address] [place], [address] GFR/1.73 sq M.predicted among non-blacks MDRD (S/P/Bld) [Vol rate/Area] 122 mL/min/{1.73_m2} Normal >60 [facility] Comment on above: Result Comment: mL/m in/1.73m2 CKD-EPI Creatinine Equation (2020) Performed By: #### L 501.2450, L500.3400, L500.2500, L700.6800, L100.0100 ####[facility] [address] [place], [address] Glucose [Mass/Vol] 94 mg/dL Normal 70-99 [facility] Comment on above: Performed By: #### L 501.2450, L500.3400, L500.2500, L700.6800, L100.0100 ####[facility] [address] [place], [address] Potassium [Moles/Vol] 4.0 mmol/L Normal 3.3-5.1 [facility] Comment on above: Result Comment: Hemo lysis present, Results??could be affected. ?? Performed By: #### L 501.2450, L500.3400, L500.2500, L700.6800, L100.0100 ####[facility] [address] [place], [address] Sodium [Moles/Vol] 137 mmol/L Normal 133-145 [facility] Comment on above: Performed By: #### L 501.2450, L500.3400, L500.2500, L700.6800, L100.0100 ####[facility] [address] [place], [address] Urea nitrogen [Mass/Vol] 6 mg/dL Normal 4-19 [facility] Comment on above: Performed By: #### L 501.2450, L500.3400, L500.2500, L700.6800, L100.0100 ####[facility] [address] [place], [address] Basophil percentageOrdered B y: Curtis Crane on 01-14-2025 Basophils/100 WBC (Bld) 0.3 % 0-1 [facility] Beta HCG ( test) Ql Ordered By: Curtis Crane on 01-14-2025 Serum Test, Qualitative Negative [facility] Bilirubin, totalOrdered By: Curtis Crane on 01-14-2025 Bilirubin [Mass/Vol] 0.24 mg/dL 0.00-1.30 [facility] Bilirubin.direct [Mass/Vol]O rdered By: Curtis Crane on 01-14-2025 Direct Bilirubin < 0.08 mg/dL 0.00-0.30 [facility] Comment on above: Hemolysis present, R esults could be affected. CBC W/Diff, Automatedon 01-02 Absolute Lymph 2.35 X10 3/uL Normal 0.83-4.51 [facility] Comment on above: Performed By: #### L 501.2450, L500.3400, L500.2500, L700.6800, L100.0100 ####[facility] [address] [place], [address] Absolute Neut 6.7 X10 3/uL Normal 2.0-7.7 [facility] Comment on above: Performed By: #### L 501.2450, L500.3400, L500.2500, L700.6800, L100.0100 ####[facility] [address] [place], [address] Basophils/100 WBC (Bld) 0.3 % Normal 0-1 [facility] Comment on above: Performed By: #### L 501.2450, L500.3400, L500.2500, L700.6800, L100.0100 ####[facility] [address] [place], [address] Eosinophils/100 WBC (Bld) 1.4 % Normal 0-5 [facility] Comment on above: Performed By: #### L 501.2450, L500.3400, L500.2500, L700.6800, L100.0100 ####[facility] [address] [place], [address] Erythrocyte distribution width (RBC) [Ratio] 15.7 % High 11.6-14.6 [facility] Comment on above: Performed By: #### L 501.2450, L500.3400, L500.2500, L700.6800, L100.0100 ####[facility] [address] [place], [address] Hematocrit (Bld) [Volume fraction] 35.7 % Low 37-47 [facility] Comment on above: Performed By: #### L 501.2450, L500.3400, L500.2500, L700.6800, L100.0100 ####[facility] [address] [place], [address] Hemoglobin (Bld) [Mass/Vol] 11.0 g/dL Low 12.0-15.0 [facility] Comment on above: Performed By: #### L 501.2450, L500.3400, L500.2500, L700.6800, L100.0100 ####[facility] [address] [place], [address] IG% 0.300 Normal 0.0-0.9 [facility] Comment on above: Result Comment: IG% - Immature Granulocytes (promyelocytes, myelocytes and metamyelocytes) > 1% indicates that a LEFT SHIFT is Present. Performed By: #### L 501.2450, L500.3400, L500.2500, L700.6800, L100.0100 ####[facility] [address] [place], [address] Lymphocytes/100 WBC (Bld) 23.3 % Normal 19-41 [facility] Comment on above: Performed By: #### L 501.2450, L500.3400, L500.2500, L700.6800, L100.0100 ####[facility] [address] [place], [address] MCH (RBC) [Entitic mass] 24.2 pg Low 27.0-32.0 [facility] Comment on above: Performed By: #### L 501.2450, L500.3400, L500.2500, L700.6800, L100.0100 ####[facility] [address] [place], [address] MCHC (RBC) [Mass/Vol] 30.8 g/dL Low 32-36 [facility] Comment on above: Performed By: #### L 501.2450, L500.3400, L500.2500, L700.6800, L100.0100 ####[facility] [address] [place], [address] MCV (RBC) [Entitic vol] 78.5 fL Low 81-99 [facility] Comment on above: Performed By: #### L 501.2450, L500.3400, L500.2500, L700.6800, L100.0100 ####[facility] [address] [place], [address] Monocytes/100 WBC (Bld) 8.2 % Normal 0-10 [facility] Comment on above: Performed By: #### L 501.2450, L500.3400, L500.2500, L700.6800, L100.0100 ####[facility] [address] [place], [address] Neutrophils/100 WBC (Bld) 66.5 % Normal 47-70 [facility] Comment on above: Performed By: #### L 501.2450, L500.3400, L500.2500, L700.6800, L100.0100 ####[facility] [address] [place], [address] Nucleated RBC (Bld) [#/Vol] 0 10*3/uL Normal 0-5 [facility] Comment on above: Performed By: #### L 501.2450, L500.3400, L500.2500, L700.6800, L100.0100 ####[facility] [address] [place], [address] Platelet mean volume (Bld) [Entitic vol] 11.6 fL Normal 6.2-12.0 [facility] Comment on above: Performed By: #### L 501.2450, L500.3400, L500.2500, L700.6800, L100.0100 ####[facility] [address] [place], [address] Platelets (Bld) [#/Vol] 266 10*3/uL Normal 150-450 [facility] Comment on above: Performed By: #### L 501.2450, L500.3400, L500.2500, L700.6800, L100.0100 ####[facility] [address] [place], [address] RBC (Bld) [#/Vol] 4.55 10*6/uL Normal 4.2-5.4 [facility] Comment on above: Performed By: #### L 501.2450, L500.3400, L500.2500, L700.6800, L100.0100 ####[facility] [address] [place], [address] RDW SD 44.3 fl High 35.1-43.9 [facility] Comment on above: Performed By: #### L 501.2450, L500.3400, L500.2500, L700.6800, L100.0100 ####[facility] [address] [place], [address] WBC (Bld) [#/Vol] 10.1 10*3/uL Normal 4.4-11.0 [facility] Comment on above: Performed By: #### L 501.2450, L500.3400, L500.2500, L700.6800, L100.0100 ####[facility] [address] [place], [address] Carbon dioxide, total [Moles /volume] in Central venous bloodOrdered By: Curtis Crane on 01-14-2025 CO2 [Moles/Vol] 24.6 mmol/L 21.0-32.0 [facility] Chloride assayOrdered By: Chino Crane on 01-14-2025 Chloride [Moles/Vol] 103 mmol/L 98-108 [facility] Emergency Department Summary on 01-14-2025 Emergency Department Summary [facility] Medical Records Department [address] [place] [address] Emergency Department Summary 01/14/25 MR#: [id number] Acct: [id number] Name: SERGIO PARRISH Rep #: [id number] : 1995 29 From: Curtis Crane DO PCP: Dr. Teressa Aguiar MD Status:DEP ER Location: ED HPI HPI - GI History of Present Illness Chief Complaint: Abd Pain Informant: patient and spouse/S.O. Narrative Narrative: 29-year-old female presenting to the emergency room with abdominal pain vomiting diarrhea. Patient states that throughout last night she was having some discomfort right side of her abdomen going across to the left. She feels in the right flank. She notes urinary frequency no dysuria or hematuria. Today she developed diarrhea as well as nausea and vomiting. She had a few chips today but otherwise no substantial nutrition. She notes a fever around period. No history of pancreatitis or biliary colic. She is concerned about appendicitis. She ate last evening around 2100 hrs. having had a hot dog. Her symptoms did not develop for about 6 hours afterwards. [facility] [place] Medical History Osteoarthritis of right knee Left wrist pain Right knee pain Non-smoker Hypertension Anxiety Depression Asthma Home Medications ???Medication ???Instructions ???Recorded ???Last Taken ???Type budesonide-formoterol HFA 160 2 puff inhalation Q4H PRN PRN 05/0 05/2602/15/23 History mcg-4.5 mcg/actuation aerosol ASTHMA inhaler (Symbicort) oxycodone 5 mg tablet 5 mg PO Q6H PRN pain 3 days #12 Unknown Rx tabs albuterol sulfate 90 mcg/actuation 1 - 2 puff inhalation Q6 PRN 01/26 Unknown History aerosol inhaler dyspnea venlafaxine 37.5 mg 37.5 mg PO QDAY 11/07/24 Unknown H istory tablet,extended release 24 hr ondansetron 4 mg disintegrating 4 mg PO Q6H PRN PRN Nausea #15 tab s 01/14/25 Unknown Rx tablet oxycodone-acetaminophen 5 mg-325 1 tab PO Q6H PRN PRN Pain 3 days 0 01/14/25 Unknown Rx mg tablet #12 TABLETS Allergy/AdvReac Type Severity Reaction Status Date / Time No Known Allergies Allergy Verified 01/14/25 19:05 Surgical History H/O tubal ligation History of myringotomy Hx of tonsillectomy Social History Smoking Status: Current some day smoker tobacco type: cigarettes ROS ROS ED Constitutional Constitutional ED: Reports chills and fever(s); Denies weight loss Eyes Eyes: Denies change in vision or diplopia ENT ENT ED: Denies ear pain, rhinorrhea or sore throat Cardiovascular Cardiovascular: Denies chest pain, orthopnea, palpitations or racing heartbeat Respiratory/Chest Respiratory/Chest: Denies cough, dyspnea or orthopnea Gastrointestinal Gastrointestinal: Reports abdominal pain, diarrhea, nausea and vomiting Genitourinary Genitourinary ED: Denies dysuria, hematuria or urinary frequency Musculoskeletal Musculoskeletal: Denies arthralgias or myalgias Integumentary Denies abscess or rash Neurologic Neurologic: Denies headache(s) or weakness Psychiatric Psychiatric: Denies anxiety, depression, suicidal ideation or suicidal thoughts Endocrine Endocrinology: Denies polydipsia, polyphagia or polyuria Allergic/Immunologic Allergic/Immunologic ED: Denies mouth swelling, tongue swelling or urticaria EXAM Physical Exam Const Vital Signs: 01/14/25 19:05 01/14/25 21:05 Temperature 98.3 F Temperature Source Temporal Pulse Rate 126 H Respiratory Rate 19 H Blood Pressure 170/103 H 135/67 H Blood Pressure Mean 125 89 Pulse Ox 98 95 Oxygen Delivery Method Room Air Room Air Positive well nourished, well developed and obese General Appearance ED: well developed Nutritional Appearance: obese HEENT Reports normocephalic, head/scalp atraumatic and moist mucous membranes Eyes PERRL and EOMs intact bilaterally Neck no lymphadenopathy, supple and no JVD Resp normal respiratory effort and clear to auscultation bilaterally Cardio regular rate, regular rhythm and no murmurs Rate: tachycardic GI Inspection: Negative for abdominal distention Palpation: soft, tender epigastric, LUQ and RUQ and guarding; Negative for rebound tenderness present Back/Spine no CVA tenderness and normal ROM Extremity normal to inspection General Extremety ED: Negative for edema General Extremity: Negative for edema Neuro oriented x3 and CN's II-XII intact bilaterally Sensorium / Orientation: alert Motor Exam: strength 5/5 throughout Psych mental status grossly normal Mood Affect: Negative for depressed or tearful Skin no rashes or lesions noted and no wounds MDM MDM MDM Narrative Medical (more content not included)... Normal [facility] Eosinophil percentageOrdered By: Curtis Crane on 01-14-2025 Eosinophils/100 WBC (Bld) 1.4 % 0-5 [facility] Erythrocyte distribution wid th (RBC) [Ratio]Ordered By: Curtis Crane on 01-14-2025 Erythrocyte distribution width (RBC) [Entitic vol] 44.3 fL High 35.1-43.9 [facility] Erythrocyte distribution wid th ratioOrdered By: Curtis Crane on 01-14-2025 Erythrocyte distribution width (RBC) [Ratio] 15.7 % High 11.6-14.6 [facility] GFR/1.73 sq M.predicted epifanio g non-blacks MDRD (S/P/Bld) [Vol rate/Area]Ordered By: Curtis Crane on 01-14-2025 Estimated GFR (MDRD) Non-Af Amer 122 >60 [facility] Comment on above: mL/min/1.73m2 CKD-EP I Creatinine Equation (2020) Hematocrit Auto (Bld) [Volum e fraction]Ordered By: Curtis Crane on 01-14-2025 Hematocrit (Bld) [Volume fraction] 35.7 % Low 37-47 [facility] Hemoglobin measurementOrdere d By: Curtis Crane on 01-14-2025 Hemoglobin (Bld) [Mass/Vol] 11.0 g/dL Low 12.0-15.0 [facility] Immature granulocytes/100 WB C Auto (Bld)Ordered By: Curtis Crane on 01-14-2025 Immature granulocytes/100 WBC (Bld) 0.300 % 0.0-0.9 [facility] Comment on above: IG% - Immature Granu locytes (promyelocytes, myelocytes and metamyelocytes) > 1% indicates that a LEFT SHIFT is Present. Laboratory - Chemistry and C hemistry - challengeOrdered By: Curtis Crane on 01-14-2025 AST [Catalytic activity/Vol] 24 U/L <32 [facility] Comment on above: Hemolysis present, R esults could be affected. Lipaseon 01-14-2025 Lipase [Catalytic activity/Vol] 25 U/L Normal 13-75 [facility] Comment on above: Result Comment: Plea se note: LIPASE revised reference range effective 23. New Lipase methodology. Expected to produce lower values than the previous assay method. NEW Reference Range: 13 - 75 U/L Performed By: #### L 501.2450, L500.3400, L500.2500, L700.6800, L100.0100 ####[facility] [address] [place], [place], [id number] Lipase measurementOrdered By : Curtis Crane on 01-14-2025 Lipase [Catalytic activity/Vol] 25 U/L 13- [facility] Comment on above: Please note:LIPASE r evised reference range effective 23. New Lipase methodology. Expected to produce lower values than the previous assay method. NEW Reference Range: 13 - 75 U/L Liver Profileon 01-14-2025 Albumin [Mass/Vol] 3.8 g/dL Normal 3.5-5.0 [facility] Comment on above: Performed By: #### L 501.2450, L500.3400, L500.2500, L700.6800, L100.0100 ####[facility] [address] [place], [address] ALK PHOS 95 U/L Normal 35-104 [facility] Comment on above: Performed By: #### L 501.2450, L500.3400, L500.2500, L700.6800, L100.0100 ####[facility] [address] [place], [address] ALT [Catalytic activity/Vol] 23 U/L Normal <=34 [facility] Comment on above: Performed By: #### L 501.2450, L500.3400, L500.2500, L700.6800, L100.0100 ####[facility] [address] [place], [address] AST [Catalytic activity/Vol] 24 U/L Normal <=31 [facility] Comment on above: Result Comment: Hemo lysis present, Results??could be affected. ?? Performed By: #### L 501.2450, L500.3400, L500.2500, L700.6800, L100.0100 ####[facility] [address] [place], [address] Bilirubin [Mass/Vol] 0.24 mg/dL Normal 0.00-1.30 [facility] Comment on above: Performed By: #### L 501.2450, L500.3400, L500.2500, L700.6800, L100.0100 ####[facility] [address] [place], [address] D BILI < 0.08 Normal 0.00-0.30 [facility] Comment on above: Result Comment: Hemo lysis present, Results??could be affected. ?? Performed By: #### L 501.2450, L500.3400, L500.2500, L700.6800, L100.0100 ####[facility] [address] [place], [address] Globulin (S) [Mass/Vol] 3.7 g/dL Normal 2.2-4.2 [facility] Comment on above: Performed By: #### L 501.2450, L500.3400, L500.2500, L700.6800, L100.0100 ####[facility] [address] [place], [address] T PROT 7.5 g/dL Normal 5.9-8.4 [facility] Comment on above: Performed By: #### L 501.2450, L500.3400, L500.2500, L700.6800, L100.0100 ####[facility] [address] [place], [address] Lymphocytes Auto (Unsp spec) [#/Vol]Ordered By: Curtis Crane on 01-14-2025 Lymphocytes (Bld) [#/Vol] 2.35 10*3/uL 0.83-4.51 [facility] Lymphocytes/100 WBC Auto (Un sp spec)Ordered By: Curtis Crane on 01-14-2025 Lymphocytes/100 WBC (Bld) 23.3 % 19-41 [facility] MCV (mean corpuscular volume ) determinationOrdered By: Curtis Crane on 01-14-2025 MCV (RBC) [Entitic vol] 78.5 fL Low 81-99 [facility] Mean corpuscular hemoglobin (MCH) determinationOrdered By: Curtis Crane on 01-14-2025 MCH (RBC) [Entitic mass] 24.2 pg Low 27.0-32.0 [facility] Mean corpuscular hemoglobin concentration (MCHC) determinationOrdered By: Curtis Crane on 01-14-2025 MCHC (RBC) [Mass/Vol] 30.8 g/dL Low 32-36 [facility] Mean platelet volume determi nationOrdered By: Curtis Crane on 01-14-2025 Platelet mean volume (Bld) [Entitic vol] 11.6 fL 6.2-12.0 [facility] Monocyte percentageOrdered B y: Curtis Crane on 01-14-2025 Monocytes/100 WBC (Bld) 8.2 % 0-10 [facility] Neutrophil percentageOrdered By: Curtis Crane on 01-14-2025 Neutrophils/100 WBC (Bld) 66.5 % 47-70 [facility] Nucleated red blood cell per centageOrdered By: Curtis Crane on 01-14-2025 Nucleated RBC/100 WBC (Bld) [Ratio] 0 % 0-5 [facility] Platelet countOrdered By: Chino Crane on 01-14-2025 Platelets (Bld) [#/Vol] 266 10*3/uL 150-450 [facility] Potassium (Unsp spec) [Mass/ Vol]Ordered By: Curtis Crane on 01-14-2025 Potassium [Moles/Vol] 4.0 mmol/L 3.3-5.1 [facility] Comment on above: Hemolysis present, R esults could be affected. ,Serum,hCG Quali.on 01-14-2025 HCG, SERUM QUAL Negative Normal [facility] Comment on above: Performed By: #### L 501.2450, L500.3400, L500.2500, L700.6800, L100.0100 ####[facility] [address] [place], [address] RBC Auto (Bld) [#/Vol]Ordere d By: Curtis Crane on 01-14-2025 RBC (Bld) [#/Vol] 4.55 10*6/uL 4.2-5.4 [facility] Serum creatinine measurement (mass/volume)Ordered By: Curtis Crane on 01-14-2025 Creatinine [Mass/Vol] 0.66 mg/dL Low 0.70-1.20 [facility] Serum globulin measurementOr dered By: Curtis Crane on 01-14-2025 Globulin (S) [Mass/Vol] 3.7 g/dL 2.2-4.2 [facility] Serum glucose measurement (m ass/volume)Ordered By: Curtis Crane on 01-14-2025 Glucose [Mass/Vol] 94 mg/dL 70-99 [facility] Serum or plasma alanine velasquez otransferase (ALT) measurementOrdered By: Curtis Crane on 01-14-2025 ALT [Catalytic activity/Vol] 23 U/L <35 [facility] Serum or plasma albumin slime urement (mass/volume)Ordered By: Curtis Crane on 01-14-2025 Albumin [Mass/Vol] 3.8 g/dL 3.5-5.0 [facility] Serum or plasma alkaline cordell sphatase measurementOrdered By: Curtis Crane on 01-14-2025 ALP [Catalytic activity/Vol] 95 U/L 35-104 [facility] Serum or plasma calcium slime urement (mass/volume)Ordered By: Curtis Crane on 01-14-2025 Calcium [Mass/Vol] 8.5 mg/dL 7.6-11.0 [facility] Serum or plasma urea nitroge n measurement (mass/volume)Ordered By: Curtis Crane on 01-14-2025 Urea nitrogen [Mass/Vol] 6 mg/dL 4-19 [facility] Sodium levelOrdered By: Mauricio Crane on 01-14-2025 Sodium [Moles/Vol] 137 mmol/L 133-145 [facility] Total proteinOrdered By: Shakeel Crane on 01-14-2025 Protein [Mass/Vol] 7.5 g/dL 5.9-8.4 [facility] Urinalysis, Completeon 01-14 BACTERIA Normal None Seen [facility] Comment on above: Order Comment: CLEAN CATCH Result Comment: PT D ISCHARGED Performed By: #### L 400.0001 ####[facility] [address] [place], [place], [id number] BILIRUBIN URINE Normal Negative [facility] Comment on above: Order Comment: CLEAN CATCH Result Comment: PT D ISCHARGED Performed By: #### L 400.0001 ####[facility] [address] [place], [place], [id number] Clarity (U) Normal Clear [facility] Comment on above: Order Comment: CLEAN CATCH Result Comment: PT D ISCHARGED Performed By: #### L 400.0001 ####[facility] [address] [place], [address] Color (U) Normal Yellow [facility] Comment on above: Order Comment: CLEAN CATCH Result Comment: PT D ISCHARGED Performed By: #### L 400.0001 ####[facility] [address] [place], [address] EPI,SQUAMOUS Normal 5-10 [facility] Comment on above: Order Comment: CLEAN CATCH Result Comment: PT D ISCHARGED Performed By: #### L 400.0001 ####[facility] [address] [place], [address] GLUCOSE, UR Normal Normal [facility] Comment on above: Order Comment: CLEAN CATCH Result Comment: PT D ISCHARGED Performed By: #### L 400.0001 ####[facility] [address] [place], [address] KETONE UR Normal Negative [facility] Comment on above: Order Comment: CLEAN CATCH Result Comment: PT D ISCHARGED Performed By: #### L 400.0001 ####[facility] [address] [place], [address] LEUK ESTERASE Normal Negative [facility] Comment on above: Order Comment: CLEAN CATCH Result Comment: PT D ISCHARGED Performed By: #### L 400.0001 ####[facility] [address] [place], [address] Mucus Ql (Urine sed) Normal [facility] Comment on above: Order Comment: CLEAN CATCH Result Comment: PT D ISCHARGED Performed By: #### L 400.0001 ####[facility] [address] [place], [address] Nitrite Ql (U) Normal Negative [facility] Comment on above: Order Comment: CLEAN CATCH Result Comment: PT D ISCHARGED Performed By: #### L 400.0001 ####[facility] [address] [place], [address] OCCULT BLOOD-UR Normal Negative [facility] Comment on above: Order Comment: CLEAN CATCH Result Comment: PT D ISCHARGED Performed By: #### L 400.0001 ####[facility] [address] [place], [address] pH UR Normal 5.0 - 8.0 [facility] Comment on above: Order Comment: CLEAN CATCH Result Comment: PT D ISCHARGED Performed By: #### L 400.0001 ####[facility] [address] [place], [address] PROT DIPSTX Normal Negative [facility] Comment on above: Order Comment: CLEAN CATCH Result Comment: PT D ISCHARGED Performed By: #### L 400.0001 ####[facility] [address] [place], [address] RBC Normal 0-5 [facility] Comment on above: Order Comment: CLEAN CATCH Result Comment: PT D ISCHARGED Performed By: #### L 400.0001 ####[facility] [address] [place], [address] SP.GR. DIPSTX Normal 1.002-1.030 [facility] Comment on above: Order Comment: CLEAN CATCH Result Comment: PT D ISCHARGED Performed By: #### L 400.0001 ####[facility] [address] [place], [address] UR Preservative Normal [facility] Comment on above: Order Comment: CLEAN CATCH Result Comment: PT D ISCHARGED Performed By: #### L 400.0001 ####[facility] [address] [place], [address] UROBILI Normal Normal [facility] Comment on above: Order Comment: CLEAN CATCH Result Comment: PT D ISCHARGED Performed By: #### L 400.0001 ####[facility] [address] [place], [address] WBC Normal 0-5 [facility] Comment on above: Order Comment: CLEAN CATCH Result Comment: PT D ISCHARGED Performed By: #### L 400.0001 ####[facility] [address] [place], [address] White blood cell (WBC) count Ordered By: Curtis Crane on 01-14-2025 WBC (Bld) [#/Vol] 10.1 10*3/uL 4.4-11.0 [facility] Absolute neutrophil countOrd ered By: Teressa Aguiar on 01-09-2025 Neutrophils (Bld) [#/Vol] 6.8 10*3/uL 2.0-7.7 [facility] Anion gap in Serum or Plasma Ordered By: Teressa Aguiar on 01-09-2025 Anion gap [Moles/Vol] 9 mmol/L 5-15 [facility] BUN/creatinine ratioOrdered By: Teressa Aguiar on 01-09-2025 Urea nitrogen/Creatinine [Mass ratio] 15.5 mg/mg 10-20 [facility] Basophil percentageOrdered B y: Teressa Aguiar on 01-09-2025 Basophils/100 WBC (Bld) 0.4 % 0-1 [facility] Bilirubin, totalOrdered By: Teressa Aguiar on 01-09-2025 Bilirubin [Mass/Vol] 0.34 mg/dL 0.00-1.30 [facility] CBC W/Diff, Automatedon Absolute Lymph 2.14 X10 3/uL Normal 0.83-4.51 [facility] Comment on above: Order Comment: Order Date: 01/09/25Order Info: 0184-1 - CBCD Performed By: #### L 100.0100, L500.4050, L501.9520 ####[facility] [address] [place], [place], [id number] Absolute Neut 6.8 X10 3/uL Normal 2.0-7.7 [facility] Comment on above: Order Comment: Order Date: 01/09/25Order Info: 0184-1 - CBCD Performed By: #### L 100.0100, L500.4050, L501.9520 ####[facility] [address] [place], [address] Basophils/100 WBC (Bld) 0.4 % Normal 0-1 [facility] Comment on above: Order Comment: Order Date: 01/09/25Order Info: 0184-1 - CBCD Performed By: #### L 100.0100, L500.4050, L501.9520 ####[facility] [address] [place], [address] Eosinophils/100 WBC (Bld) 1.4 % Normal 0-5 [facility] Comment on above: Order Comment: Order Date: 01/09/25Order Info: 0184-1 - CBCD Performed By: #### L 100.0100, L500.4050, L501.9520 ####[facility] [address] [place], [address] Erythrocyte distribution width (RBC) [Ratio] 15.9 % High 11.6-14.6 [facility] Comment on above: Order Comment: Order Date: 01/09/25Order Info: 0184-1 - CBCD Performed By: #### L 100.0100, L500.4050, L501.9520 ####[facility] [address] [place], [address] Hematocrit (Bld) [Volume fraction] 37.8 % Normal 37-47 [facility] Comment on above: Order Comment: Order Date: 01/09/25Order Info: 0184-1 - CBCD Performed By: #### L 100.0100, L500.4050, L501.9520 ####[facility] [address] [place], [address] Hemoglobin (Bld) [Mass/Vol] 11.4 g/dL Low 12.0-15.0 [facility] Comment on above: Order Comment: Order Date: 01/09/25Order Info: 0184-1 - CBCD Performed By: #### L 100.0100, L500.4050, L501.9520 ####[facility] [address] [place], [address] IG% 0.400 Normal 0.0-0.9 [facility] Comment on above: Order Comment: Order Date: 01/09/25Order Info: 0184-1 - CBCD Result Comment: IG% - Immature Granulocytes (promyelocytes, myelocytes and metamyelocytes) > 1% indicates that a LEFT SHIFT is Present. Performed By: #### L 100.0100, L500.4050, L501.9520 ####[facility] [address] [place], [address] Lymphocytes/100 WBC (Bld) 21.7 % Normal 19-41 [facility] Comment on above: Order Comment: Order Date: 01/09/25Order Info: 0184- - CBCD Performed By: #### L 100.0100, L500.4050, L501.9520 ####[facility] [address] [place], [address] MCH (RBC) [Entitic mass] 24.2 pg Low 27.0-32.0 [facility] Comment on above: Order Comment: Order Date: 01/09/25Order Info: 0184-1 - CBCD Performed By: #### L 100.0100, L500.4050, L501.9520 ####[facility] [address] [place], [address] MCHC (RBC) [Mass/Vol] 30.2 g/dL Low 32-36 [facility] Comment on above: Order Comment: Order Date: 01/09/25Order Info: 0184-1 - CBCD Performed By: #### L 100.0100, L500.4050, L501.9520 ####[facility] [address] [place], [address] MCV (RBC) [Entitic vol] 80.3 fL Low 81-99 [facility] Comment on above: Order Comment: Order Date: 01/09/25Order Info: 0184-1 - CBCD Performed By: #### L 100.0100, L500.4050, L501.9520 ####[facility] [address] [place], [address] Monocytes/100 WBC (Bld) 7.6 % Normal 0-10 [facility] Comment on above: Order Comment: Order Date: 01/09/25Order Info: 0184-1 - CBCD Performed By: #### L 100.0100, L500.4050, L501.9520 ####[facility] [address] [place], [address] Neutrophils/100 WBC (Bld) 68.5 % Normal 47-70 [facility] Comment on above: Order Comment: Order Date: 01/09/25Order Info: 0184-1 - CBCD Performed By: #### L 100.0100, L500.4050, L501.9520 ####[facility] [address] [place], [address] Nucleated RBC (Bld) [#/Vol] 0 10*3/uL Normal 0-5 [facility] Comment on above: Order Comment: Order Date: 01/09/25Order Info: 0184-1 - CBCD Performed By: #### L 100.0100, L500.4050, L501.9520 ####[facility] [address] [place], [address] Platelet mean volume (Bld) [Entitic vol] 11.8 fL Normal 6.2-12.0 [facility] Comment on above: Order Comment: Order Date: 01/09/25Order Info: 0184-1 - CBCD Performed By: #### L 100.0100, L500.4050, L501.9520 ####[facility] [address] [place], [address] Platelets (Bld) [#/Vol] 275 10*3/uL Normal 150-450 [facility] Comment on above: Order Comment: Order Date: 01/09/25Order Info: 0184-1 - CBCD Performed By: #### L 100.0100, L500.4050, L501.9520 ####[facility] [address] [place], [address] RBC (Bld) [#/Vol] 4.71 10*6/uL Normal 4.2-5.4 [facility] Comment on above: Order Comment: Order Date: 01/09/25Order Info: 0184-1 - CBCD Performed By: #### L 100.0100, L500.4050, L501.9520 ####[facility] [address] [place], [address] RDW SD 46.1 fl High 35.1-43.9 [facility] Comment on above: Order Comment: Order Date: 01/09/25Order Info: 0184-1 - CBCD Performed By: #### L 100.0100, L500.4050, L501.9520 ####[facility] [address] [place], [address] WBC (Bld) [#/Vol] 9.9 10*3/uL Normal 4.4-11.0 [facility] Comment on above: Order Comment: Order Date: 01/09/25Order Info: 0184-1 - CBCD Performed By: #### L 100.0100, L500.4050, L501.9520 ####[facility] [address] [place], [address] Carbon dioxide, total [Moles /volume] in Central venous bloodOrdered By: Teressa Aguiar on 01-09-2025 CO2 [Moles/Vol] 24.6 mmol/L 21.0-32.0 [facility] Chloride assayOrdered By: Leonel Aguiar on 01-09-2025 Chloride [Moles/Vol] 104 mmol/L 98-108 [facility] Comprehensive Metabolic Prof ilon 01-09-2025 Albumin [Mass/Vol] 3.8 g/dL Normal 3.5-5.0 [facility] Comment on above: Order Comment: Order Date: 01/09/25Order Info: 0786-1 - CMPOrder Info: 3016-3 - TSH Performed By: #### L 100.0100, L500.4050, L501.9520 ####[facility] [address] [place], [address] Albumin/Globulin [Mass ratio] 1.0 {ratio} Normal 0.9-2.4 [facility] Comment on above: Order Comment: Order Date: 01/09/25Order Info: 0786-1 - CMPOrder Info: 6-3 - TSH Performed By: #### L 100.0100, L500.4050, L501.9520 ####[facility] [address] [place], [address] ALK PHOS 81 U/L Normal 35-104 [facility] Comment on above: Order Comment: Order Date: 01/09/25Order Info: 0786-1 - CMPOrder Info: 6-3 - TSH Performed By: #### L 100.0100, L500.4050, L501.9520 ####[facility] [address] [place], [address] ALT [Catalytic activity/Vol] 17 U/L Normal <=34 [facility] Comment on above: Order Comment: Order Date: 01/09/25Order Info: 0786-1 - CMPOrder Info: 3016-3 - TSH Performed By: #### L 100.0100, L500.4050, L501.9520 ####[facility] [address] [place], [address] AST [Catalytic activity/Vol] 16 U/L Normal <=31 [facility] Comment on above: Order Comment: Order Date: 01/09/25Order Info: 0786-1 - CMPOrder Info: 3016-3 - TSH Performed By: #### L 100.0100, L500.4050, L501.9520 ####[facility] [address] [place], [address] Bilirubin [Mass/Vol] 0.34 mg/dL Normal 0.00-1.30 [facility] Comment on above: Order Comment: Order Date: 01/09/25Order Info: 0786-1 - CMPOrder Info: 3016-3 - TSH Performed By: #### L 100.0100, L500.4050, L501.9520 ####[facility] [address] [place], [address] BUN/CRE 15.5 RATIO Normal 10-20 [facility] Comment on above: Order Comment: Order Date: 01/09/25Order Info: 0786-1 - CMPOrder Info: 6-3 - TSH Performed By: #### L 100.0100, L500.4050, L501.9520 ####[facility] [address] [place], [address] Calcium [Mass/Vol] 8.8 mg/dL Normal 7.6-11.0 [facility] Comment on above: Order Comment: Order Date: 01/09/25Order Info: 0786-1 - CMPOrder Info: 3015-3 - TSH Performed By: #### L 100.0100, L500.4050, L501.9520 ####[facility] [address] [place], [address] Chloride [Moles/Vol] 104 mmol/L Normal 98-108 [facility] Comment on above: Order Comment: Order Date: 01/09/25Order Info: 0786-1 - CMPOrder Info: 6-3 - TSH Performed By: #### L 100.0100, L500.4050, L501.9520 ####[facility] [address] [place], [address] CO2 [Moles/Vol] 24.6 mmol/L Normal 21.0-32.0 [facility] Comment on above: Order Comment: Order Date: 01/09/25Order Info: 0786-1 - CMPOrder Info: 3016-3 - TSH Performed By: #### L 100.0100, L500.4050, L501.9520 ####[facility] [address] [place], [address] Creatinine [Mass/Vol] 0.60 mg/dL Low 0.70-1.20 [facility] Comment on above: Order Comment: Order Date: 01/09/25Order Info: 0786-1 - CMPOrder Info: 3016-3 - TSH Performed By: #### L 100.0100, L500.4050, L501.9520 ####[facility] [address] [place], [address] GAP 9 Normal 5-15 [facility] Comment on above: Order Comment: Order Date: 01/09/25Order Info: 0786-1 - CMPOrder Info: 3016-3 - TSH Performed By: #### L 100.0100, L500.4050, L501.9520 ####[facility] [address] [place], [address] GFR/1.73 sq M.predicted among non-blacks MDRD (S/P/Bld) [Vol rate/Area] 124 mL/min/{1.73_m2} Normal >60 [facility] Comment on above: Order Comment: Order Date: 01/09/25Order Info: 0786-1 - CMPOrder Info: 3016-3 - TSH Result Comment: mL/m in/1.73m2 CKD-EPI Creatinine Equation (2020) Performed By: #### L 100.0100, L500.4050, L501.9520 ####[facility] [address] [place], [address] Globulin (S) [Mass/Vol] 3.7 g/dL Normal 2.2-4.2 [facility] Comment on above: Order Comment: Order Date: 01/09/25Order Info: 0786-1 - CMPOrder Info: 3015-3 - TSH Performed By: #### L 100.0100, L500.4050, L501.9520 ####[facility] [address] [place], [address] Glucose [Mass/Vol] 80 mg/dL Normal 70-99 [facility] Comment on above: Order Comment: Order Date: 01/09/25Order Info: 86-1 - CMPOrder Info: 3015-3 - TSH Performed By: #### L 100.0100, L500.4050, L501.9520 ####[facility] [address] [place], [address] Potassium [Moles/Vol] 4.3 mmol/L Normal 3.3-5.1 [facility] Comment on above: Order Comment: Order Date: 01/09/25Order Info: 0786- - CMPOrder Info: 3015-3 - TSH Performed By: #### L 100.0100, L500.4050, L501.9520 ####[facility] [address] [place], [address] Sodium [Moles/Vol] 138 mmol/L Normal 133-145 [facility] Comment on above: Order Comment: Order Date: 01/09/25Order Info: 0786- - CMPOrder Info: 3015-3 - TSH Performed By: #### L 100.0100, L500.4050, L501.9520 ####[facility] [address] [place], [address] T PROT 7.5 g/dL Normal 5.9-8.4 [facility] Comment on above: Order Comment: Order Date: 01/09/25Order Info: 0786-1 - CMPOrder Info: 6-3 - TSH Performed By: #### L 100.0100, L500.4050, L501.9520 ####[facility] [address] [place], [place], [address] Urea nitrogen [Mass/Vol] 9 mg/dL Normal 4-19 [facility] Comment on above: Order Comment: Order Date: 01/09/25Order Info: 0786-1 - CMPOrder Info: 3016-3 - TSH Performed By: #### L 100.0100, L500.4050, L501.9520 ####[facility] [address] [facility] [place], [address] Eosinophil percentageOrdered By: Teressa Aguiar on 01-09-2025 Eosinophils/100 WBC (Bld) 1.4 % 0-5 [facility] Erythrocyte distribution wid th (RBC) [Ratio]Ordered By: Teressa Aguiar on 01-09-2025 Erythrocyte distribution width (RBC) [Entitic vol] 46.1 fL High 35.1-43.9 [facility] Erythrocyte distribution wid th ratioOrdered By: Teressa Aguiar on 01-09-2025 Erythrocyte distribution width (RBC) [Ratio] 15.9 % High 11.6-14.6 [facility] GFR/1.73 sq M.predicted epifanio g non-blacks MDRD (S/P/Bld) [Vol rate/Area]Ordered By: Teressa Aguiar on 01-09-2025 Estimated GFR (MDRD) Non-Af Amer 124 >60 [facility] Comment on above: mL/min/1.73m2 CKD-EP I Creatinine Equation (2020) Hematocrit Auto (Bld) [Volum e fraction]Ordered By: Teressa Aguiar on 01-09-2025 Hematocrit (Bld) [Volume fraction] 37.8 % 37-47 [facility] Hemoglobin measurementOrdere d By: Teressa Aguiar on 01-09-2025 Hemoglobin (Bld) [Mass/Vol] 11.4 g/dL Low 12.0-15.0 [facility] Immature granulocytes/100 WB C Auto (Bld)Ordered By: Teressa Aguiar on 01-09-2025 Immature granulocytes/100 WBC (Bld) 0.400 % 0.0-0.9 [facility] Comment on above: IG% - Immature Granu locytes (promyelocytes, myelocytes and metamyelocytes) > 1% indicates that a LEFT SHIFT is Present. Laboratory - Chemistry and C hemistry - challengeOrdered By: Teressa Aguiar on 01-09-2025 AST [Catalytic activity/Vol] 16 U/L <32 [facility] Lymphocytes Auto (Unsp spec) [#/Vol]Ordered By: Teressa Aguiar on 01-09-2025 Lymphocytes (Bld) [#/Vol] 2.14 10*3/uL 0.83-4.51 [facility] Lymphocytes/100 WBC Auto (Un sp spec)Ordered By: Teressa Aguiar on 01-09-2025 Lymphocytes/100 WBC (Bld) 21.7 % 19-41 [facility] MCV (mean corpuscular volume ) determinationOrdered By: Teressa Aguiar on 01-09-2025 MCV (RBC) [Entitic vol] 80.3 fL Low 81-99 [facility] Mean corpuscular hemoglobin (MCH) determinationOrdered By: Teressa Aguiar on 01-09-2025 MCH (RBC) [Entitic mass] 24.2 pg Low 27.0-32.0 [facility] Mean corpuscular hemoglobin concentration (MCHC) determinationOrdered By: Teressa Aguiar on 01-09-2025 MCHC (RBC) [Mass/Vol] 30.2 g/dL Low 32-36 [facility] Mean platelet volume determi nationOrdered By: Teressa Aguiar on 01-09-2025 Platelet mean volume (Bld) [Entitic vol] 11.8 fL 6.2-12.0 [facility] Monocyte percentageOrdered B y: Teressa Aguiar on 01-09-2025 Monocytes/100 WBC (Bld) 7.6 % 0-10 [facility] Neutrophil percentageOrdered By: Teressa Aguiar on 01-09-2025 Neutrophils/100 WBC (Bld) 68.5 % 47-70 [facility] Nucleated red blood cell per centageOrdered By: Teressa Aguiar on 01-09-2025 Nucleated RBC/100 WBC (Bld) [Ratio] 0 % 0-5 [facility] Platelet countOrdered By: Leonel Aguiar on 01-09-2025 Platelets (Bld) [#/Vol] 275 10*3/uL 150-450 [facility] Potassium (Unsp spec) [Mass/ Vol]Ordered By: Teressa Aguiar on 01-09-2025 Potassium [Moles/Vol] 4.3 mmol/L 3.3-5.1 [facility] RBC Auto (Bld) [#/Vol]Ordere d By: Teressa Aguiar on 01-09-2025 RBC (Bld) [#/Vol] 4.71 10*6/uL 4.2-5.4 [facility] Serum creatinine measurement (mass/volume)Ordered By: Teressa Aguiar on 01-09-2025 Creatinine [Mass/Vol] 0.60 mg/dL Low 0.70-1.20 [facility] Serum globulin measurementOr dered By: Teressa Aguiar on 01-09-2025 Globulin (S) [Mass/Vol] 3.7 g/dL 2.2-4.2 [facility] Serum glucose measurement (m ass/volume)Ordered By: Teressa Aguiar on 01-09-2025 Glucose [Mass/Vol] 80 mg/dL 70-99 [facility] Serum or plasma alanine velasquez otransferase (ALT) measurementOrdered By: Teressa Aguiar on 01-09-2025 ALT [Catalytic activity/Vol] 17 U/L <35 [facility] Serum or plasma albumin slime urement (mass/volume)Ordered By: Teressa Aguiar on 01-09-2025 Albumin [Mass/Vol] 3.8 g/dL 3.5-5.0 [facility] Serum or plasma albumin/glob ulin mass ratioOrdered By: Teressa Aguiar on 01-09-2025 Albumin/Globulin [Mass ratio] 1.0 {ratio} 0.9-2.4 [facility] Serum or plasma alkaline cordell sphatase measurementOrdered By: Teressa Aguiar on 01-09-2025 ALP [Catalytic activity/Vol] 81 U/L 35-104 [facility] Serum or plasma calcium slime urement (mass/volume)Ordered By: Teressa Aguiar on 01-09-2025 Calcium [Mass/Vol] 8.8 mg/dL 7.6-11.0 [facility] Serum or plasma urea nitroge n measurement (mass/volume)Ordered By: Teressa Aguiar on 01-09-2025 Urea nitrogen [Mass/Vol] 9 mg/dL 4-19 [facility] Sodium levelOrdered By: Teressa Aguiar on 01-09-2025 Sodium [Moles/Vol] 138 mmol/L 133-145 [facility] TSH DL <= 0.005 mIU/L QnOrde red By: Teressa Aguiar on 01-09-2025 Thyroid Stimulating Hormone (TSH) 2.820 uIU/mL 0.300-4.200 [facility] Thyroid Stim Hormone (TSH)on 01-09-2025 TSH 2.820 uIU/mL Normal 0.300-4.200 [facility] Comment on above: Order Comment: Order Date: 01/09/25Order Info: 0786-1 - CMPOrder Info: 3016-3 - TSH Performed By: #### L 100.0100, L500.4050, L501.9520 ####[facility] [address] [facility] [place], [place], [address] Total proteinOrdered By: Katty Aguiar on 01-09-2025 Protein [Mass/Vol] 7.5 g/dL 5.9-8.4 [facility] White blood cell (WBC) count Ordered By: Teressa Aguiar on 01-09-2025 WBC (Bld) [#/Vol] 9.9 10*3/uL 4.4-11.0 [facility] Knee 4 or More Viewson 11-07 Knee 4 or More Views [facility] Imaging Services [address] [place] [address] Knee 4 or More Views MR#: [id number] Acct: [id number] Name: SERGIO PARRISH Rep #: [id number] : 1995 F 28 From: Juventino Muñoz MD PCP: Dr. Teressa Aguiar MD Status: DEP AMB Study: Knee 4 or More Views Date of Exam: 11/07/24 Exam# [id number] Ordering Dr: Marco Freitas MD EXAM: XR Right Knee Complete, 4 or More Views CLINICAL INDICATION: TECHNIQUE: Four or more views of the right knee. COMPARISON: No relevant prior studies available. FINDINGS: BONES/JOINTS: Unremarkable. No acute fracture. No dislocation. SOFT TISSUES: Unremarkable. RAD/Knee 4 or More Views IMPRESSION: No acute fracture. Electronically Signed By: Juventino Castillo 11/07/2024 10:38 Reading [facility] CC: Dr. Teressa Aguiar MD; Dr. Marco Freitas MD Sports Analyst: Signed Normal [facility] Orthopedic Visit Reporton Orthopedic Visit Report [facility] [address] [place] [address] [address] [place] [address] OFFICE VISIT Date of Service: 11/07/24 MR#: [id number] Acct: [id number] Name: SERGIO PARRISH Rep #: [id number] : 1995 Provider: Dr. Marco jeter MD Age/Sex: 28/F [place] [facility] [place] Status: Signed Intake Vital Signs 10/21/24 03:52 11/06/24 09:35 11/07/24 09:30 Height 5 ft 4 in 5 ft 4 in 5 ft 4 in Weight: 340 lb BMI 58.3 Intake Visit Reasons: LEFT WRIST/RT KNEE Chief Complaint: Left Wrist and Right Knee Pain Accompanied by: Self Is patient in pain?: No Allergies No Known Allergies Allergy (Verified 11/07/24 09:31) Medications ???Medication ???Instructions ???Recorded ???Confirmed ???Type budesonide-formoterol HFA 160 2 puff inhalation Q4H PRN PRN 05/0 05/2611/07/24 History mcg-4.5 mcg/actuation aerosol ASTHMA inhaler (Symbicort) oxycodone 5 mg tablet 5 mg PO Q6H PRN pain 3 days #12 11/07/24 Rx tabs albuterol sulfate 90 mcg/actuation 1 - 2 puff inhalation Q6 PRN 01/2611/07/24 History aerosol inhaler dyspnea venlafaxine 37.5 mg 37.5 mg PO QDAY 11/07/24 11/07/24 History tablet,extended release 24 hr PFSH Medical History (Updated 11/07/24 @ 10:18 by Marco Freitas MD) Osteoarthritis of right knee Left wrist pain Right knee pain Non-smoker Hypertension Anxiety Depression Asthma Surgical History H/O tubal ligation History of myringotomy Hx of tonsillectomy Social History Smoking Status: Never smoker HPI LEFT WRIST/RT KNEE Details: This documentation accurately reflects the service provided and the decisions made by me, Dr. Marco Freitas MD 11/07/24 0937. Part of today???s visit was documented by [ ], acting as scribe. SERGIO PARRISH is a 28 year old F here today for left wrist pain. The patient fell a couple weeks ago. Was seen by her peripheral emergency department. Put on a splint. Referred to our office. Was told they have a fracture in 2 places. Was splinted on the volar side only. Pzabo-hbje-bmcslikv. 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 They have also had years of right knee pain and crepitus had previous physical therapy for the right knee. There is diffuse right knee pain. Ortho Exam General General: Yes no acute distress Neurologic: Yes alert and Yes oriented x3 Psychologic: Yes reasonable and appropriate Right Wrist/Hand Skin/Wound: Yes Swelling and No Ecchymosis Left Wrist/Hand Skin/Wound: Yes CDI, Yes Swelling, No Ecchymosis, Yes nail intact, Yes capillary refill normal and No erythema Motor: EPL: 4, FDP-2: 4, 1st Dorsal Interosseous: 4 and APB: 4 Sensation: Radial: I, Ulnar: I and Median: I WRIST: Closed injury forearm compartments soft. painful rom. Pain at the distal radius. No pain in the hand or forearm. Strong radial pulse. Patient had a volar splint that was removed. Right Knee Skin/Wound: Yes CDI, No erythema, No ecchymosis and No swelling Examination: Yes Med jt line tenderness, Yes Lat jt line tenderness, Yes TTP inf pole patella, Yes Crepitus, Yes Pain with flexion, No Viri's Test, No TTP Patellar tendon, No TTP Tibial tubercle, No TTP Pes Anserine and No Illiotibial band tenderness Quad Atrophy: No Stability: NML: Anterior Drawer, NML: Sin, NML: Posterior Drawer, NML: Valgus 0, NML: Valgus 30, NML: Varus 0 and NML: Varus 30 Patella Translation: 2 Apprehension with Lateral Translation: No Patellar Tilt Normal: Yes Patella Grind: Yes KNEE: NVI, nrom 0-120, BMI 58 Left Knee Patella Translation: 2 Supplemental Info X-rays 3 views left wrist obtained -no acute abnormalities X-rays 4 views of the right knee obtained -mild tricompartmental osteoarthritic changes Report [facility] x-ray left wrist complete 3 views radiologist conclusion on 10/30/2024 no acute disease Coding Level of Care Code Off vis,new,level 4 Diagnoses Right knee pain M25.561 Left wrist pain M25.532 Osteoarthritis of right knee M17.11 Assessment and Plan Assessment and Plan (1) Right knee pain: Status: Acute (2) Left wrist pain: Status: Acute Plan: 20-year-old female with left wrist pain. No x-ray evidence x 2 now of fracture. Therefore recommend rest ice anti-inflammatories discontinuing the sling and the splint gentle range of motion gradually returning back to normal activities and follow-up as needed. (3) Osteoarthritis of right knee: Status: Acute Plan: 20-year-old female with mild right knee osteoarthritis. Patient has an elevated BMI would be in the patient's best interest to try to decrease that. In addition they have tried physical therapy and in a young person could (more content not included)... Normal [facility] Wrist min 3 Viewson 11-07-19 Wrist min 3 [facility] [address] [place], [place] [address] Wrist min 3 Views MR#: [id number] Acct: [id number] Name: SERGIO PARRISH Rep #: [id number] : 1995 F 28 From: Teressa Gaston MD PCP: Dr. Teressa Aguiar MD Status: DEP AMB Study: Wrist min 3 Views Date of Exam: 11/07/24 Exam# [id number] Ordering Dr: Marco Freitas MD PROCEDURE: WRIST MIN 3 VIEWS REASON FOR EXAM: Wrist pain TECHNIQUE: 3 view(s) of left wrist COMPARISON: None. FINDINGS: LEFT WRIST: No visible fracture. No suspicious bone lesion. Normal alignment. Soft tissues are unremarkable. RAD/Wrist min 3 Views IMPRESSION: Negative left wrist. Reading Location: [facility] CC: Dr. Teressa Aguiar MD; Dr. Marco Freitas MD Sports Analyst: Signed Normal [facility] L3400.0005on 11-02-2024 V ZOSTER IgG Non-Reactive Normal Non Reactive [facility] Comment on above: Result Comment: Pl ease note reference interval change A Reactive result is considered evidence of immunity to VZV. Reactive indicates that VZV IgG was detected consistent with previous infection and/or vaccination. A Non Reactive result indicates that VZV IgG was not detected suggesting that immunity has not been acquired. Performed By: #### L 3100.3300, L3400.0005, L3400.1750, L509.4005, L3890.6200 #### [facility] [address] [place], [address] Mumps Antibody,IgGon 025 MUMPS Ab, IgG < 9.0 Low Immune >10.9 [facility] Comment on above: Result Comment: Nega tive <9.0 Equivocal 9.0 - 10.9 Positive >10.9 A positive result generally indicates past exposure to Mumps virus or previous vaccination. Performed By: #### L 3100.3300, L3400.0005, L3400.1750, L509.4005, L3890.6200 #### [facility] [address] [place], [place], [address] Rubeola IgG Abon 11-02-2024 RUBEOLA Ab, IgG < 13.5 Low Immune >16.4 [facility] Comment on above: Result Comment: Nega tive <13.5 Equivocal 13.5 - 16.4 Positive >16.4 Presence of antibodies to Rubeola is presumptive evidence of immunity except when acute infection is suspected. Performed at: [address] [id number] Physician Scribe: Chema Helton PhD, Phone: [phone] Performed By: #### L 3100.3300, L3400.0005, L3400.1750, L509.4005, L3890.6200 #### [facility] [address] [facility]. [place], [place], [address] HBV surface IgG Ql (S)Ordere d By: Teressa Aguiar on 10-31-2024 Hepatitis B Surface Antibody Non-Reactive [facility] [facility] Comment on above: Non Reactive: Incons istent with immunity less than <10 mIU/mL Reactive: Consistent with immunity greater than or equal to 10 mIU/mL Hepatitis B Surface Antibody on 10-31-2024 HEP B Surf Ab Non-Reactive Normal [facility] Comment on above: Result Comment: Non Reactive: Inconsistent with immunity less than <10 mIU/mL Reactive: Consistent with immunity greater than or equal to 10 mIU/mL Performed By: #### L 3100.3300, L3400.0005, L3400.1750, L509.4005, L3890.6200 #### [facility] [address] [place], [address] MeV IgG IA Qn (S)Ordered By: Teressa Aguiar on 10-31-2024 Rubeola (Measles) IgG Antibody < 13.5 AU/mL Low Immune >16.4 [facility] Comment on above: Negative <13.5 Equiv ocal 13.5 - 16.4 Positive >16.4Presence of antibodies to Rubeola is presumptive evidenceof immunity except when acute infection is suspected.Performed at: - [address] [id number] Director: Chema Helton PhD, Phone: [phone] MuV IgG Qn (S)Ordered By: Leonel Aguiar on 10-31-2024 Mumps Virus IgG Antibody < 9.0 AU/mL Low Immune >10.9 [facility] Comment on above: Negative <9.0 Equivo aniceto 9.0 - 10.9 Positive >10.9A positive result generally indicates past exposure toMumps virus or previous vaccination. Rubella IgGon 10-31-2024 Rubella IgG Reactive Normal Nonreactive [facility] Comment on above: Result Comment: Anti body Results Interpretation of Immune Status Non Reactive Presumed Non-Immune Equivocal Equivocal Reactive Presumed Immune Performed By: #### L 3100.3300, L3400.0005, L3400.1750, L509.4005, L3890.6200 #### [facility] [address] [place], [address] Rubella immune status IgGOrd ered By: Teressa Aguiar on 10-31-2024 Rubella IgG Antibody Reactive Nonreactive [facility] Comment on above: Antibody Results Int erpretation of Immune Status Non Reactive Presumed Non-Immune Equivocal Equivocal Reactive Presumed Immune Varicella-zoster virus IgG a ntibody assayOrdered By: Teressa Aguiar on 10-31-2024 Varicella-Zoster IgG Antibody Non-Reactive Non Reactive [facility] Comment on above: Please note refere nce interval changeA Reactive result is considered evidence of immunity toVZV. Reactive indicates that VZV IgG was detectedconsistent with previous infection and/or vaccination.A Non Reactive result indicates that VZV IgG was notdetected suggesting that immunity has not been acquired. ED MED ADMINISTRATION DETAIL on 10-30-2024 ED MED ADMINISTRATION DETAIL Marine Extension Agent Medication Administration Record [address] [address] [id number] 10/29/2024 Patient: SERGIO APRRISH Sex: Female : 1995 Age: 28y MEASUREMENTS: Wt: 111.1 kg, Ht/Rico: 64.0 in, BMI: 42.05 ALLERGIES: No known drug allergies Medication Ordered Medication Administration Date/Time Ibuprofen (Motrin) 19:10/29 Ibuprofen (Motrin) PO 800 mg given. Allergies verified Given PO 800 mg (NOW and confirmed 5 rights. Information reviewed with patient including 10/29/2024 x1) reason for taking this medication. Verbalizes understanding. - Jeancarlos Parekh R.N. 19:31 Jeancarlos Parekh R.N. Scanned 1 of 1 Normal [facility] ED NURSES CLINICAL NOTEon ED NURSES CLINICAL NOTE Nurse Narrative Nurse Clinical Narrative [address] [address] [id number] 10/29/2024 Patient: SERGIO PARRISH Sex: Female : 1995 Age: 28y Disposition: Discharge to Home Disposition Decision Time: 19:38 10/29/2024 Departure Time: 19:50 10/29/2024 TRIAGE Arrived by private vehicle. Historian: patient. Primary physician (Cosme). Triage time: 18:52 10/29/2024. Acuity: LEVEL 4. Chief Complaint: INJURY TO LEFT WRIST. Occurred 17:30 10/29/2024. No neck pain. Fell. Slipped due to ice; fell onto ground while standing. Landed on arms: hands extended. 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 SEPSIS SCREEN: NEGATIVE. SIRS criteria negative. No possible sources of infection. -- 18:54 10/29/24 MATHIEU Brock R.N. 18:54 10/29/24. BP: 168/91 MAP: 117. HR: 116. RR: 16. O2 saturation: 99% Temperature: 98.2 F. Pain level now 8/10. -- 18:54 10/29/24 MATHIEU Brock R.N. Measurements: 18:54 10/29/24 Wt: 111.1 kg, Ht/Rico: 64.0 in, BMI: 42.05 -- 18:54 10/29/24 MATHIEU Brock R.N. Medications: 1 of 3 Nurse Narrative no home meds: (pt states she takes no medications) -- 18:56 10/29/24 MATHIEU Brock R.N. Allergies: no known drug allergies -- 18:53 10/29/24 MATHIEU Brock R.N. Problems: no known problem -- 18:53 10/29/24 MATHIEU Brock R.N. ADDITIONAL SURGERIES: Tubal Ligation -- 18:53 10/29/24 MATHIEU Brock R.N. History 18:52 10/29/24. SOCIAL HX: Never smoker. No alcohol use or drug use. The patient has not traveled outside the [place] Infectious disease exposure: No infectious disease exposure. ABUSE ASSESSMENT: The patient answered yes to the question(s) Do you feel safe in your home? and no to the question(s) Are you afraid to go home?. SELF HARM ASSESSMENT: Self harm assessment was performed. The patient answered no to the question(s) Have you recently felt down, depressed, or hopeless? and Do you have thoughts of harming or killing yourself?. FALL RISK ASSESSMENT: Fall risk assessment completed. No risk factors identified. -- 18:54 10/29/24 MATHIEU Brock R.N. 19:03 10/29/24. Status: Unknown. -- 19:03 10/29/24 MATHIEU Brock R.N. 19:03 10/29/24. Status: Unknown. -- 19:03 10/29/24 MATHIEU Brock R.N. Interventions 18:52 10/29/24. To room. -- 18:54 10/29/24 MATHIEU Brock R.N. PHYSICAL ASSESSMENT 2 of 3 Nurse Narrative 19:09 10/29/24. Ambulatory to room. GENERAL / NEURO / PSYCH: Oriented X 4. Alert. Appears in no acute distress. ( slipped on ice, 8/10 L wrist pain). EXTREMITIES: Left wrist: tenderness. No abrasion, puncture wound or deformity. -- 19:09 10/29/24 MATHIEU Parekh R.N. NURSING PROGRESS NOTES 19:16 10/29/24. Patient transported. (Radiology at bedside). -- 19:21 10/29/24 MATHIEU Steven R.N. 19:10/29/24. Two patient identifiers checked. Call light placed in reach. Side rails up x 2. Bed placed in lowest position. Brakes of bed on. -- 19:26 10/29/24 MATHIEU Parekh R.N. 19:30 10/29/24. Ibuprofen (Motrin) PO 800 mg given. Allergies verified and confirmed 5 rights. Information reviewed with patient including reason for taking this medication. Verbalizes understanding. -- 19:31 10/29/24 MATHIEU Parekh R.N. 19:52 10/29/24. Sling applied to left arm by nurse; distal pulses intact, sensation intact and motor function within normal limits. -- 19:52 10/29/24 MATHIEU Parekh R.N. 19:53 10/29/24. SPLINT APPLIED: Short arm fiberglass splint applied to left forearm and wrist. Distal pulses intact, sensation intact and motor within normal limits. Patient tolerated the procedure. Splinting applied by ED physician. -- 19:53 10/29/24 EST Jeancarlos Praekh R.N. DISPOSITION / DISCHARGE 18:54 10/29/24. BP: 168/91 MAP: 117. HR: 116. RR: 16. O2 saturation: 99% Temperature: 98.2 F. Pain level now 8/10. -- 19:54 10/29/24 MATHIEU Parekh R.N. Departure time: 19:50 10/29/2024. Condition at departure: improved and stable. No learning barriers present. Discharge instructions provided and reviewed with the patient. Treatments reviewed. Reviewed referrals. Patient verbalized understanding. Written instructions provided in [place] Of [place]. The patient was discharged home and accompanied by spouse. The patient left ambulatory and via private vehicle. Spouse driving. -- 19:54 10/29/24 MATHIEU Parekh R.N. (Electronically signed by Jeancarlos Parekh R.N. 10/29/24 19:55:21 EST) Generated by [facility] 3 of 3 Normal [facility] ED ORDER SHEET (CPOE ONLY)on 10-30-2024 ED ORDER SHEET (CPOE ONLY) Order Sheet Order Sheet [address] [address] [id number] 10/29/2024 Patient: SERGIO PARRISH Sex: Female : 1995 Age: 28y MEASUREMENTS: Wt: 111.1 kg, Ht/Rico: 64.0 in, BMI: 42.05 ALLERGIES: No known drug allergies MEDICATION/IV/DRIP/FLUID ORDERS Order Description Priority Entered Acknowledged Completed Ibuprofen (Motrin) PO800 mg 19:26 10/29/2024 19:28 19:31 (NOW x1) Johnathan Johnson, 10/29/2024 10/29/2024 Balaji Roque R.N. LAB ORDERS Order Description Priority Entered Acknowledged Collected Completed DIAGNOSTIC STUDY ORDERS Order Description Priority Entered Acknowledged Completed Wrist Lt Complete Stat Stat 19:03 10/29/2024 19:05 19:20 Amarjit Brock R.N. 10/29/2024 10/29/2024 Verbal Order, Auth by: Deborah Freeman William Reisinger, R.N. R.N. D.O. Order Comments: 19:03 10/29/2024: Status: Unknown. Amarjit Brock R.N. Reason for Study: Trauma/Injury Hand L 3V Stat Stat 19:03 10/29/2024 Cancelled: Verbal per Physician 1 of 2 Order Sheet Amarjit Brock R.N. 19:08 EST Jeancarlos Parekh R.N. Verbal Order, Auth by: Johnathan Johnson D.O. Order Comments: 19:03 10/29/2024: Status: Unknown. Amarjit Brock R.N. Reason for Study: Trauma/Injury STAFF ORDERS Order Description Priority Entered Acknowledged Collected Completed Sling - arm 19:43 10/29/2024 19:44 10/29/2024 19:44 10/29/2024 Jeancarlos Tellez R.N. Seth Lapp, R.N. D.O. [Electronically signed by Johnathan Johnson D.O. (10/30/2024 00:36 EST)] 2 of 2 Normal [facility] ED PHYSICIAN CLINICAL REPORT on 10-30-2024 ED PHYSICIAN CLINICAL REPORT Narrative Physician Clinical Narrative [address] [address] [id number] 10/29/2024 Patient: SERGIO PARRISH Sex: Female : 1995 Age: 28y Disposition: Discharge to Home Disposition Decision Time: 19:38 10/29/2024 Departure Time: 19:50 10/29/2024 Measurements Wt: 111.1 kg, Ht/Rico: 64.0 in, BMI: 42.05 Initial Vital Sign Measured Time BP MAP HR RR O2Sat ETCO2 Temp Pain GCS RTS 18:54 10/29/2024 168/91 117 116 16 99% 98.2 F 8 Time Seen: 19:02 10/29/2024. Arrived- By private vehicle. Historian- patient. Independent historian- family. HISTORY OF PRESENT ILLNESS Chief Complaint: UPPER EXTREMITY PAIN and SWELLING. This started just prior to arrival and is still present (Patient was getting in her car when she slipped and fell she landed on her left wrist. And complained of pain to the wrist. Intense pain especially when he tries to move it the went on her turn signal anything like that she gets severe pain mainly on the ulnar aspect of the wrist and presents to the emergency department denies any neck pain no chest pain or shortness of breath. She is right-hand dominant.). Severity is described as being severe. The quality is noted to be sharp and pain. (left wrist). Patient notes an injury (slipped and fell. Complains of left wrist tenderness). REVIEW OF SYSTEMS 1 of 4 Narrative NEUROLOGICAL: No headache. SKIN: No skin rash. RESPIRATORY: No cough. THROAT: No sore throat. : No difficulty with urination or urinary frequency. CONSTITUTIONAL: No fever. GI: No abdominal pain or nausea. PAST HISTORY See nurses notes. no known problem Surgeries: Tubal Ligation Medications: no home meds: (pt states she takes no medications) Allergies: no known drug allergies SOCIAL HISTORY Never smoker. No alcohol use. ADDITIONAL NOTES The nursing notes have been reviewed. PHYSICAL EXAM Appearance: Alert. Oriented X3. No acute distress. Eyes: Pupils equal, round and reactive to light. Eyes normal inspection. ENT: Ears normal. Nose normal. Neck: Normal inspection. CVS: Normal heart rate and rhythm. Heart sounds normal. Respiratory: No respiratory distress. Painless inspiration. Abdomen: Soft and nontender. Back: Normal inspection. No tenderness. Skin: Skin warm and dry. Normal skin color. Normal skin turgor. Extremities: Upper extremities do not exhibit normal ROM. Upper extremity tenderness. Upper extremities 2 of 4 Narrative exhibit edema. No upper extremity pulse deficit present. Upper extremity capillary refill not prolonged. No upper extremity edema. No axillary adenopathy. Left wrist: moderate tenderness and mild swelling located in the ulnar aspect of the wrist. Limited ROM secondary to pain (diminished flexion and extension, ulnar deviation and radial deviation). Neurovascular intact distally. No erythema, laceration, abrasion, ecchymosis or puncture wound. No foreign body or deformity. No avulsion. Extremities otherwise negative. Neuro: Oriented X 3. No motor deficit. PROGRESS AND PROCEDURES Splint Application: Time: 19:30 10/29/2024. Volar OCL splint applied to left hand, wrist and forearm. Reassessed extremity following splint application. Neurovascular intact. Follow-up recommended within 3 days. Splinting applied by me. MEDICAL DECISION MAKING: (Patient was getting in her car when she slipped and fell she landed on her left wrist. And complained of pain to the wrist. Intense pain especially when he tries to move it the went on her turn signal anything like that she gets severe pain mainly on the ulnar aspect of the wrist and presents to the emergency department denies any neck pain no chest pain or shortness of breath. She is right-hand dominant. patient had x-ray obtained see no obvious fracture. She is tender over the ulnar aspect I do not really appreciate scaphoid tenderness. I did place her in a volar splint for immobilization and a sling she will be given Motrin for pain she told to rest ice elevate. She should follow up with her family doctor as well as Dr. Santi Steven. She lives in [place] and she thinks she is going to [facility] for a knee issue which she has had. And she will be discharged home with a diagnosis of status post fall acute left wrist contusion possible occult fracture). Disposition: Condition: stable. Discharged in fair condition. Discharge decision based on the following: patient's condition is stable; patient's exam is stable. CLINICAL IMPRESSION Acute traumatic pain in the left upper extremity (wrist). Upper extremity pain involving the left wrist. Single contusion to the left wrist. Occult wrist fracture possible. DISCHARGE INSTRUCTIONS Apply ice. Elevate affected areas above chest level today, for days. Follow-up with: Santi Espinoza (more content not included)... Normal [facility] ED SUPER BILLon 10-30-2024 ED [facility] NAMED [facility] BILL [address] [address] [id number] 10/29/2024 Patient: SERGIO PARRISH Sex: Female : 1995 Age: 28y Item Facility Professional Category Description Code Code Quantity Fee Total Nurse/E/M EMERGENCY 717699 1 $0.00 $0.00 DEPARTMENT VISIT MODERATE SEVERITY (54117-31) Physician/Procedures Splint - Short 945776 1 $0.00 $0.00 Arm (10387-QT) Grand Total $0.00 Providers Johnathan Johnson D.O. Chief Complaint UPPER EXTREMITY PAIN and SWELLING. Principal Diagnosis 1 of 2 Superbill Acute traumatic pain in the left upper extremity (wrist). Upper extremity pain involving the left wrist. Single contusion to the left wrist. ICD-10 Codes G89.11: Acute pain due to trauma M25.532: Pain in left wrist S60.212A: Contusion of left wrist, initial encounter 2 of 2 Normal [facility] ED VISIT SUMMARYon ED VISIT SUMMARY Visit Overview Visit Overview [place] [id number] [facility] [place] [address] [id number] 10/29/2024 Patient: SERGIO PARRISH Sex: Female : 1995 Age: 28y 10/30/2024 12:36 AM EST ED Arrival:18:51 10/29/2024 EST Status: Recent Travel:no Language:eng Adv Directive: Isolation Status: Ethnicity:N Fall Risk:no risk Infectious Disease Exposure:no Measurements:5'4 / 162.6 Self-Harm Status:risk Sepsis Screen:negative cm 245.0 lb / 111.1 kg Chief Complaint:INJURY TO LEFT WRIST, (17:30 10/29/2024), and (Aguiar) ALLERGIES No Known Drug Allergies HOME MEDICATIONS no home meds: (pt states she takes no medications) PAST MEDICAL HISTORY / PROBLEMS None See nurses notes 1 of 3 Visit Overview PAST SURGICAL HISTORY Tubal Ligation SOCIAL HISTORY Smoking status: No Alcohol use: No Drug use: No ED COURSE MEDICATIONS GIVEN IN EMERGENCY DEPARTMENT 19:30 10/29/24 Ibuprofen (Motrin) PO 800 mg IV SITE INFORMATION INTAKE OUTPUT REASSESMENT (most recent) 19:09 10/29/24. Ambulatory to room. GENERAL / NEURO / PSYCH: Oriented X 4. Alert. Appears in no acute distress. ( slipped on ice, 8/10 L wrist pain). EXTREMITIES: Left wrist: tenderness. No abrasion, puncture wound or deformity. VITAL SIGNS First Vitals Last Vitals Temp 18:54 10/29/24 98.2 F Temp 18:54 10/29/24 98.2 F BP 18:54 10/29/24 168/91 BP 18:54 10/29/24 168/91 HR 18:54 10/29/24 116 HR 18:54 10/29/24 116 RR 18:54 10/29/24 16 RR 18:54 10/29/24 16 O2 Sat 18:54 10/29/24 99% O2 Sat 18:54 10/29/24 99% Pain 18:54 10/29/24 8 Pain 18:54 10/29/24 8 ETCO2 18:54 10/29/24 ETCO2 18:54 10/29/24 GCS 18:54 10/29/24 GCS 18:54 10/29/24 RTS 18:54 10/29/24 RTS 18:54 10/29/24 PROCEDURES 2 of 3 Visit Overview NURSING INTERVENTIONS Splint LABS / STUDIES LABS / STUDIES ORDERED Wrist Lt Complete CLINICAL IMPRESSION ACUTE TRAUMATIC PAIN IN THE LEFT UPPER EXTREMITY (WRIST) SINGLE CONTUSION TO THE LEFT WRIST UPPER EXTREMITY PAIN INVOLVING THE LEFT WRIST 3 of 3 Normal [facility] ED VITALS FLOW SHEETon 10-30 ED VITALS FLOW SHEET Vitals Vital Sign Flow Sheet [address] [address] [id number] 10/29/2024 Patient: SERGIO PARRISH Sex: Female : 1995 Age: 28y Measurements Wt: 111.1 kg, Ht/Rico: 64.0 in, BMI: 42.05 Measured Time BP MAP HR RR O2Sat ETCO2 Temp Pain GCS RTS 18:54 10/29/2024 168/91 117 116 16 99% 98.2 F 8 1 of 1 Normal [facility] WRIST COMPLETE LTon 10-29-19 25 WRIST COMPLETE LT [address] [address] Patient: SERGIO PARRISHMaría Elena Phone#: : 1995 Age: 28 Gender: F Pt. Type: ER Account: [id number] Location: [facility] Ordering: JOHNATHAN ERLINDA Exam Date: 10/29/2024/19:11 Family Phys: Charge Code: 225434 Physician: Forrest Order #: [id number] Dose#: PROCEDURE: X-RAY WRIST LT COMPLETE MIN 3 VIEWS COMPARISON: None. INDICATIONS: Trauma. FINDINGS: BONES: Normal. No significant arthropathy or acute abnormality. SOFT TISSUES: Negative. No visible soft tissue swelling. EFFUSION: None visible. OTHER: Negative. CONCLUSION: No acute disease. Dictated by: Darcy Magaña MD on 10/30/2024 at 8:56 Approved by: Darcy Magaña MD on 10/30/2024 at 8:58 Normal [facility] Absolute neutrophil countOrd ered By: Garrison Millan on 10-21-2024 Neutrophils (Bld) [#/Vol] 8.0 10*3/uL High 2.0-7.7 [facility] Basic Metabolic Profile (BMP )on 10-21-2024 BUN/CRE 17.9 RATIO Normal 10-20 [facility] Comment on above: Performed By: #### L 700.6800, L500.2500, L501.2450, L100.0100, L500.3400 ####[facility] [address] [place], [address] CA,Total 8.5 mg/dL Normal 8.5-10.1 [facility] Comment on above: Performed By: #### L 700.6800, L500.2500, L501.2450, L100.0100, L500.3400 ####[facility] [address] [place], [address] Chloride [Moles/Vol] 108 mmol/L High 98-107 [facility] Comment on above: Performed By: #### L 700.6800, L500.2500, L501.2450, L100.0100, L500.3400 ####[facility] [address] [place], [address] CO2 [Moles/Vol] 25.0 mmol/L Normal 21.0-32.0 [facility] Comment on above: Performed By: #### L 700.6800, L500.2500, L501.2450, L100.0100, L500.3400 ####[facility] [address] [place], [place], [id number] Creatinine [Mass/Vol] 0.73 mg/dL Normal 0.55-1.02 [facility] Comment on above: Result Comment: The validity of the calculated GFR GFRAA in patients over 70 years has not been determined. Clinical correlation is essential. Performed By: #### L 700.6800, L500.2500, L501.2450, L100.0100, L500.3400 ####[facility] [address] [place], [place], [id number] ECRCL 173.85 ml/min Normal [facility] Comment on above: Performed By: #### L 700.6800, L500.2500, L501.2450, L100.0100, L500.3400 ####[facility] [address] [place], [place], [phone] EST GFR - AA 122 mL/min Normal >60 [facility] Comment on above: Result Comment: Afri can [place] GFR Calc Performed By: #### L 700.6800, L500.2500, L501.2450, L100.0100, L500.3400 ####[facility] [address] [place], [place], [phone] GAP 5 Normal 5-15 [facility] Comment on above: Performed By: #### L 700.6800, L500.2500, L501.2450, L100.0100, L500.3400 ####[facility] [address] [place], [place], [id number] GFR/1.73 sq M.predicted among non-blacks MDRD (S/P/Bld) [Vol rate/Area] 101 mL/min/{1.73_m2} Normal >60 [facility] Comment on above: Result Comment: Non- GFR Calc Performed By: #### L 700.6800, L500.2500, L501.2450, L100.0100, L500.3400 ####[facility] [address] [place], [address] Glucose [Mass/Vol] 101 mg/dL Normal 74-106 [facility] Comment on above: Result Comment: Fast ing Glucose result from 100 to 125 mg/dL suggests IMPAIRED HOMEOSTASIS per A.D.A. criteria. Performed By: #### L 700.6800, L500.2500, L501.2450, L100.0100, L500.3400 ####[facility] [address] [place], [address] Potassium [Moles/Vol] 3.8 mmol/L Normal 3.5-5.1 [facility] Comment on above: Performed By: #### L 700.6800, L500.2500, L501.2450, L100.0100, L500.3400 ####[facility] [address] [place], [address] Sodium [Moles/Vol] 138 mmol/L Normal 136-145 [facility] Comment on above: Performed By: #### L 700.6800, L500.2500, L501.2450, L100.0100, L500.3400 ####[facility] [address] [place], [address] Urea nitrogen [Mass/Vol] 13 mg/dL Normal 7-18 [facility] Comment on above: Performed By: #### L 700.6800, L500.2500, L501.2450, L100.0100, L500.3400 ####[facility] [address] [place], [address] Basophil percentageOrdered B y: Garrison Millan on 10-21-2024 Basophils/100 WBC (Bld) 0.2 % 0-1 [facility] Beta HCG ( test) Ql Ordered By: Garrison Millan on 10-21-2024 Serum Test, Qualitative Negative [facility] Bilirubin directOrdered By: Garrison Millan on 10-21-2024 Bilirubin.direct [Mass/Vol] 0.13 mg/dL 0.00-0.30 [facility] Bilirubin, totalOrdered By: Garrison Millan on 10-21-2024 Bilirubin [Mass/Vol] 0.30 mg/dL 0.20-1.00 [facility] Comment on above: For patients on eltr ombopag therapy, use of Dimension [place] TBIL is not recommended. Blood urea nitrogen (BUN)/cr eatinine ratioOrdered By: Garrison Millan on 10-21-2024 Urea nitrogen/Creatinine [Mass ratio] 17.9 mg/mg - [facility] CBC W/Diff, Automatedon 10-04 Absolute Lymph 1.47 X10 3/uL Normal 0.83-4.51 [facility] Comment on above: Performed By: #### L 700.6800, L500.2500, L501.2450, L100.0100, L500.3400 ####[facility] [address] [place], [address] Absolute Neut 8.0 X10 3/uL High 2.0-7.7 [facility] Comment on above: Performed By: #### L 700.6800, L500.2500, L501.2450, L100.0100, L500.3400 ####[facility] [address] [place], [address] Basophils/100 WBC (Bld) 0.2 % Normal 0-1 [facility] Comment on above: Performed By: #### L 700.6800, L500.2500, L501.2450, L100.0100, L500.3400 ####[facility] [address] [place], [address] Eosinophils/100 WBC (Bld) 1.0 % Normal 0-5 [facility] Comment on above: Performed By: #### L 700.6800, L500.2500, L501.2450, L100.0100, L500.3400 ####[facility] [address] [place], [address] Erythrocyte distribution width (RBC) [Ratio] 16.5 % High 11.6-14.6 [facility] Comment on above: Performed By: #### L 700.6800, L500.2500, L501.2450, L100.0100, L500.3400 ####[facility] [address] [place], [address] Hematocrit (Bld) [Volume fraction] 36.6 % Low 37-47 [facility] Comment on above: Performed By: #### L 700.6800, L500.2500, L501.2450, L100.0100, L500.3400 ####[facility] [facility] [address] [place], [address] Hemoglobin (Bld) [Mass/Vol] 11.1 g/dL Low 12.0-15.0 [facility] Comment on above: Performed By: #### L 700.6800, L500.2500, L501.2450, L100.0100, L500.3400 ####[facility] [address] [place], [address] IG% 0.400 Normal 0.0-0.9 [facility] Comment on above: Result Comment: IG% - Immature Granulocytes (promyelocytes, myelocytes and metamyelocytes) > 1% indicates that a LEFT SHIFT is Present. Performed By: #### L 700.6800, L500.2500, L501.2450, L100.0100, L500.3400 ####[facility] [address] [place], [address] Lymphocytes/100 WBC (Bld) 14.2 % Low 19-41 [facility] Comment on above: Performed By: #### L 700.6800, L500.2500, L501.2450, L100.0100, L500.3400 ####[facility] [address] [place], [address] MCH (RBC) [Entitic mass] 24.1 pg Low 27.0-32.0 [facility] Comment on above: Performed By: #### L 700.6800, L500.2500, L501.2450, L100.0100, L500.3400 ####[facility] [address] [place], [address] MCHC (RBC) [Mass/Vol] 30.3 g/dL Low 32-36 [facility] Comment on above: Performed By: #### L 700.6800, L500.2500, L501.2450, L100.0100, L500.3400 ####[facility] [address] [place], [address] MCV (RBC) [Entitic vol] 79.4 fL Low 81-99 [facility] Comment on above: Performed By: #### L 700.6800, L500.2500, L501.2450, L100.0100, L500.3400 ####[facility] [address] [place], [address] Monocytes/100 WBC (Bld) 7.1 % Normal 0-10 [facility] Comment on above: Performed By: #### L 700.6800, L500.2500, L501.2450, L100.0100, L500.3400 ####[facility] [address] [place], [address] Neutrophils/100 WBC (Bld) 77.1 % High 47-70 [facility] Comment on above: Performed By: #### L 700.6800, L500.2500, L501.2450, L100.0100, L500.3400 ####[facility] [address] [place], [address] Nucleated RBC (Bld) [#/Vol] 0 10*3/uL Normal 0-5 [facility] Comment on above: Performed By: #### L 700.6800, L500.2500, L501.2450, L100.0100, L500.3400 ####[facility] [address] [place], [address] Platelet mean volume (Bld) [Entitic vol] 11.5 fL Normal 6.2-12.0 [facility] Comment on above: Performed By: #### L 700.6800, L500.2500, L501.2450, L100.0100, L500.3400 ####[facility] [address] [place], [address] Platelets (Bld) [#/Vol] 241 10*3/uL Normal 150-450 [facility] Comment on above: Performed By: #### L 700.6800, L500.2500, L501.2450, L100.0100, L500.3400 ####[facility] [address] [place], [address] RBC (Bld) [#/Vol] 4.61 10*6/uL Normal 4.2-5.4 [facility] Comment on above: Performed By: #### L 700.6800, L500.2500, L501.2450, L100.0100, L500.3400 ####[facility] [address] [place], [address] RDW SD 47.1 fl High 35.1-43.9 [facility] Comment on above: Performed By: #### L 700.6800, L500.2500, L501.2450, L100.0100, L500.3400 ####[facility] [address] [place], [address] WBC (Bld) [#/Vol] 10.3 10*3/uL Normal 4.4-11.0 [facility] Comment on above: Performed By: #### L 700.6800, L500.2500, L501.2450, L100.0100, L500.3400 ####[facility] [address] [place], [address] Carbon dioxide measurementOr dered By: Garrison Millan on 10-21-2024 CO2 [Moles/Vol] 25.0 mmol/L 21.0-32.0 [facility] Chloride measurementOrdered By: Garrison Millan on 10-21-2024 Chloride [Moles/Vol] 108 mmol/L High 98-107 [facility] Emergency Department Summary on 10-21-2024 Emergency Department Summary [facility] Medical Records Department [address] [place] [address] Emergency Department Summary 10/21/24 MR#: [id number] Acct: [id number] Name: SERGIO PARRISH Rep #: [id number] : 1995 28 From: Garrison Millan DO PCP: Dr. Teressa Aguiar MD Status:DEP ER Location: ED HPI History of Present Illness Chief Complaint: Abd Pain Informant: patient Narrative Narrative: Patient is a 28-year-old female with past medical history of anxiety depression and asthma. She states that over the past 24 hours she has had multiple bouts of nausea and vomiting and generalized abdominal discomfort. She denies any known sick contact. She denies any history of intestinal disorder. She states that she has been having difficulty keeping food and fluid down and therefore with her persistent pain and symptoms has concern for infection and comes in for evaluation [facility] [place] Medical History Right knee pain Non-smoker Hypertension Anxiety Depression Asthma Home Medications ???Medication ???Instructions ???Recorded ???Last Taken ???Type budesonide-formoterol HFA 160 2 puff inhalation Q4H PRN PRN 02/08/23 02/15/23 History mcg-4.5 mcg/actuation aerosol ASTHMA inhaler (Symbicort) clotrimazole-betamethasone 1 1 applic topical BID 4 weeks #30 mL 05/28/24 Unknown Rx %-0.05 % lotion fluconazole 150 mg tablet 150 mg PO Q3D 3 doses #3 tabs 05/28/24 Unknown Rx norethindrone (contraceptive) 0.35 0.35 mg PO DAILY 05/28/24 Unknown History mg tablet (Anya) sertraline 50 mg tablet 50 mg PO DAILY 05/28/24 Unknown History ondansetron 4 mg disintegrating 4 mg PO TID PRN nausea and 10/21/24 Unknown Rx tablet vomiting #21 tabs oxycodone 5 mg tablet 5 mg PO Q6H PRN pain 3 days #12 10/21/24 Unknown Rx tabs Allergy/AdvReac Type Severity Reaction Status Date / Time No Known Allergies Allergy Verified 05/28/24 21:48 Surgical History H/O tubal ligation History of myringotomy Hx of tonsillectomy Social History Smoking Status: Never smoker ROS ROS ED Constitutional Constitutional ED: Denies chills or fever(s) Eyes Eyes: Denies change in vision ENT ENT ED: Denies sore throat Cardiovascular Cardiovascular: Denies chest pain Respiratory/Chest Respiratory/Chest: Denies cough or dyspnea Gastrointestinal Gastrointestinal: Reports abdominal pain, diarrhea, nausea and vomiting Genitourinary Genitourinary ED: Denies dysuria or hematuria Musculoskeletal Musculoskeletal: Reports myalgias Integumentary Denies rash Neurologic Neurologic: Reports headache(s) Hematologic/Lymphatic Hematologic/Lymphatic: Denies easy bleeding or easy bruising EXAM Physical Exam Const Vital Signs: 10/21/24 03:52 10/21/24 05:49 10/21/24 07:00 Temperature 97.3 F L Temperature Source Oral Pulse Rate 95 83 88 Respiratory Rate 18 18 16 Blood Pressure 106/86 H 133/63 H 127/66 H Blood Pressure Mean 92 86 86 Pulse Ox 100 98 98 Oxygen Delivery Method Room Air Room Air 10/21/24 07:16 Temperature 97.3 F L Temperature Source Pulse Rate 85 Respiratory Rate 18 Blood Pressure 137/99 H Blood Pressure Mean 111 Pulse Ox 97 Oxygen Delivery Method Positive well nourished, well developed and obese General Appearance ED: well developed; Negative for pallor Nutritional Appearance: obese HEENT Reports dry mucous membranes HEENT Narrative: Mucous membranes are mildly dry and tacky No tongue or lip swelling no oral lesions no airway edema or compromise No secondary findings in the posterior pharynx to suggest infection Mouth ED: Yes dry mucous membranes Mouth: dry mucous membranes Eyes PERRL and EOMs intact bilaterally General Eye ED: Negative for scleral icterus Neck supple Neck Narrative: No nuchal rigidity or meningeal signs Resp normal respiratory effort and clear to auscultation bilaterally Cardio regular rate and regular rhythm GI non-distended and no masses GI Narrative: Abdomen is soft nontender and nondistended with hyperactive bowel sounds. There is mild diffuse pain with palpation without voluntary guarding or rigidity. No pulsatile mass or fluid wave. Negative Parish sign. No pain over McBurney's point Auscultation: hyperactive bowel sounds Palpation: soft Back/Spine no CVA tenderness Extremity normal to inspection Neuro oriented x3, CN's II-XII intact bilaterally and no sensory deficits noted Sensorium / Orientation: alert Motor Exam: strength 5/5 throughout Psych mental status grossly normal Skin no rashes or lesions noted Skin Narrative: Skin turgor is slightly increased General Skin Exam: Negat (more content not included)... Normal [facility] Eosinophil percentageOrdered By: Garrison Millan on 10-21-2024 Eosinophils/100 WBC (Bld) 1.0 % 0-5 [facility] Erythrocyte distribution wid th (RBC) [Ratio]Ordered By: Garrison Millan on 10-21-2024 Erythrocyte distribution width (RBC) [Entitic vol] 47.1 fL High 35.1-43.9 [facility] Erythrocyte distribution wid th ratioOrdered By: Garrison Millan on 10-21-2024 Erythrocyte distribution width (RBC) [Ratio] 16.5 % High 11.6-14.6 [facility] Estimated glomerular filtrat ion rate (GFR) AmericanOrdered By: Garrison Millan on 10-21-2024 Estimated GFR (MDRD) Amer 122 mL/min >60 [facility] Comment on above: GFR Calc Estimation of creatinine manuel aranceOrdered By: Garrison Millan on 10-21-2024 Estimated Creatinine Clearance Calc 173.85 ml/min [facility] Glomerular filtration rate ( GFR) estimationOrdered By: Garrison Millan on 10-21-2024 Estimated GFR (MDRD) Non-Af Amer 101 mL/min >60 [facility] Comment on above: Non- GFR Calc Glucose measurementOrdered B y: Garrison Millan on 10-21-2024 Glucose [Mass/Vol] 101 mg/dL 74-106 [facility] Comment on above: Fasting Glucose resu lt from 100 to 125 mg/dL suggests IMPAIRED HOMEOSTASIS per A.D.A. criteria. Hematocrit Auto (Bld) [Volum e fraction]Ordered By: Garrison Millan on 10-21-2024 Hematocrit (Bld) [Volume fraction] 36.6 % Low 37-47 [facility] Hemoglobin measurementOrdere d By: Garrison Millan on 10-21-2024 Hemoglobin (Bld) [Mass/Vol] 11.1 g/dL Low 12.0-15.0 [facility] Immature granulocytes/100 WB C Auto (Bld)Ordered By: Garrison Millan on 10-21-2024 Immature granulocytes/100 WBC (Bld) 0.400 % 0.0-0.9 [facility] Comment on above: IG% - Immature Granu locytes (promyelocytes, myelocytes and metamyelocytes) > 1% indicates that a LEFT SHIFT is Present. Laboratory - Chemistry and C hemistry - challengeOrdered By: Garrison Millan on 10-21-2024 AST [Catalytic activity/Vol] 9 U/L Low 15-37 [facility] Lipaseon 10-21-2024 Lipase [Catalytic activity/Vol] 22 U/L Normal 13-75 [facility] Comment on above: Result Comment: Chelsea yusuf note: LIPASE revised reference range effective 23. New Lipase methodology. Expected to produce lower values than the previous assay method. NEW Reference Range: 13 - 75 U/L Performed By: #### L 700.6800, L500.2500, L501.2450, L100.0100, L500.3400 ####[facility] [address] [place], [address] Lipase measurementOrdered By : Garrison Millan on 10-21-2024 Lipase [Catalytic activity/Vol] 22 U/L 13-75 [facility] Comment on above: Please note:LIPASE r evised reference range effective 23. New Lipase methodology. Expected to produce lower values than the previous assay method. NEW Reference Range: 13 - 75 U/L Liver Profileon 10-21-2024 Albumin [Mass/Vol] 3.1 g/dL Low 3.2-5.0 [facility] Comment on above: Performed By: #### L 700.6800, L500.2500, L501.2450, L100.0100, L500.3400 ####[facility] [address] [place], [address] ALK P 70 U/L Normal 45-117 [facility] Comment on above: Performed By: #### L 700.6800, L500.2500, L501.2450, L100.0100, L500.3400 ####[facility] [address] [place], [address] ALT [Catalytic activity/Vol] 19 U/L Normal 13-56 [facility] Comment on above: Performed By: #### L 700.6800, L500.2500, L501.2450, L100.0100, L500.3400 ####[facility] [address] [place], [address] AST [Catalytic activity/Vol] 9 U/L Low 15-37 [facility] Comment on above: Performed By: #### L 700.6800, L500.2500, L501.2450, L100.0100, L500.3400 ####[facility] [address] [place], [address] Bilirubin [Mass/Vol] 0.30 mg/dL Normal 0.20-1.00 [facility] Comment on above: Result Comment: For patients on eltrombopag therapy, use of Dimension [place] TBIL is not recommended. Performed By: #### L 700.6800, L500.2500, L501.2450, L100.0100, L500.3400 ####[facility] [address] [place], [address] Bilirubin.direct [Mass/Vol] 0.13 mg/dL Normal 0.00-0.30 [facility] Comment on above: Performed By: #### L 700.6800, L500.2500, L501.2450, L100.0100, L500.3400 ####[facility] [address] [place], [address] Globulin (S) [Mass/Vol] 4.1 g/dL Normal 2.2-4.2 [facility] Comment on above: Performed By: #### L 700.6800, L500.2500, L501.2450, L100.0100, L500.3400 ####[facility] [address] [place], [address] T PROT 7.2 g/dL Normal 6.4-8.2 [facility] Comment on above: Performed By: #### L 700.6800, L500.2500, L501.2450, L100.0100, L500.3400 ####[facility] [address] [place], [address] Lymphocytes Auto (Unsp spec) [#/Vol]Ordered By: Garrison Millan on 10-21-2024 Lymphocytes (Bld) [#/Vol] 1.47 10*3/uL 0.83-4.51 [facility] Lymphocytes/100 WBC Auto (Un sp spec)Ordered By: Garrison Millan on 10-21-2024 Lymphocytes/100 WBC (Bld) 14.2 % Low 19-41 [facility] MCV (mean corpuscular volume ) determinationOrdered By: Garrison Millan on 10-21-2024 MCV (RBC) [Entitic vol] 79.4 fL Low 81-99 [facility] Mean corpuscular hemoglobin (MCH) determinationOrdered By: Garrison Millan on 10-21-2024 MCH (RBC) [Entitic mass] 24.1 pg Low 27.0-32.0 [facility] Mean corpuscular hemoglobin concentration (MCHC) determinationOrdered By: Garrison Millan on 10-21-2024 MCHC (RBC) [Mass/Vol] 30.3 g/dL Low 32-36 [facility] Mean platelet volume determi nationOrdered By: Garrison Millan on 10-21-2024 Platelet mean volume (Bld) [Entitic vol] 11.5 fL 6.2-12.0 [facility] Monocyte percentageOrdered B y: Garrison Millan on 10-21-2024 Monocytes/100 WBC (Bld) 7.1 % 0-10 [facility] Neutrophil percentageOrdered By: Garrison Millan on 10-21-2024 Neutrophils/100 WBC (Bld) 77.1 % High 47-70 [facility] Nucleated red blood cell per centageOrdered By: Garrison Millan on 10-21-2024 Nucleated RBC/100 WBC (Bld) [Ratio] 0 % 0-5 [facility] Platelet countOrdered By: Norah Millan on 10-21-2024 Platelets (Bld) [#/Vol] 241 10*3/uL 150-450 [facility] Potassium measurementOrdered By: Garrison Millan on 10-21-2024 Potassium [Moles/Vol] 3.8 mmol/L 3.5-5.1 [facility] ,Serum,hCG Quali.on 10-21-2024 HCG, SERUM QUAL Negative Normal [facility] Comment on above: Performed By: #### L 700.6800, L500.2500, L501.2450, L100.0100, L500.3400 ####[facility] [address] [place], [place], [address] RBC Auto (Bld) [#/Vol]Ordere d By: Garrison Millan on 10-21-2024 RBC (Bld) [#/Vol] 4.61 10*6/uL 4.2-5.4 [facility] Serum anion gap measurementO rdered By: Garrison Millan on 10-21-2024 Anion gap [Moles/Vol] 5 mmol/L 5-15 [facility] Serum globulin measurementOr dered By: Garrison Millan on 10-21-2024 Globulin (S) [Mass/Vol] 4.1 g/dL 2.2-4.2 [facility] Serum or plasma alanine velasquez otransferase (ALT) measurementOrdered By: Garrison Millan on 10-21-2024 ALT [Catalytic activity/Vol] 19 U/L 13-56 [facility] Serum or plasma albumin slime urement (mass/volume)Ordered By: Garrison Millan on 10-21-2024 Albumin [Mass/Vol] 3.1 g/dL Low 3.2-5.0 [facility] Serum or plasma alkaline cordell sphatase measurementOrdered By: Garrison Millan on 10-21-2024 ALP [Catalytic activity/Vol] 70 U/L 45-117 [facility] Serum or plasma calcium slime urement (mass/volume)Ordered By: Garrison Millan on 10-21-2024 Calcium [Mass/Vol] 8.5 mg/dL 8.5-10.1 [facility] Serum or plasma creatinine m easurement (mass/volume)Ordered By: Garrison Millan on 10-21-2024 Creatinine [Mass/Vol] 0.73 mg/dL 0.55-1.02 [facility] Comment on above: The validity of the calculated GFR & GFRAA in patients over 70 years has not been determined. Clinical correlation is essential. Serum or plasma urea nitroge n measurement (mass/volume)Ordered By: Garrison Millan on 10-21-2024 Urea nitrogen [Mass/Vol] 13 mg/dL 7-18 [facility] Sodium levelOrdered By: Erik Millan on 10-21-2024 Sodium [Moles/Vol] 138 mmol/L 136-145 [facility] Total proteinOrdered By: Holden Millan on 10-21-2024 Protein [Mass/Vol] 7.2 g/dL 6.4-8.2 [facility] White blood cell (WBC) count Ordered By: Garrison Millan on 10-21-2024 WBC (Bld) [#/Vol] 10.3 10*3/uL 4.4-11.0 [facility] CBC W/Diff, Automatedon 06-04 0-2023 Absolute Lymph 1.81 X10 3/uL Normal 0.83-4.51 [facility] Comment on above: Performed By: #### L 100.0100, L501.6710, L500.4050 ####[facility] [address] [place], [address] Absolute Neut 7.1 X10 3/uL Normal 2.0-7.7 [facility] Comment on above: Performed By: #### L 100.0100, L501.6710, L500.4050 ####[facility] [address] [place], [address] Basophils/100 WBC (Bld) 0.3 % Normal 0-1 [facility] Comment on above: Performed By: #### L 100.0100, L501.6710, L500.4050 ####[facility] [address] [place], [address] Eosinophils/100 WBC (Bld) 1.5 % Normal 0-5 [facility] Comment on above: Performed By: #### L 100.0100, L501.6710, L500.4050 ####[facility] [address] [place], [address] Erythrocyte distribution width (RBC) [Ratio] 17.2 % High 11.6-14.6 [facility] Comment on above: Performed By: #### L 100.0100, L501.6710, L500.4050 ####[facility] [address] [place], [address] Hematocrit (Bld) [Volume fraction] 36.9 % Low 37-47 [facility] Comment on above: Performed By: #### L 100.0100, L501.6710, L500.4050 ####[facility] [address] [place], [address] Hemoglobin (Bld) [Mass/Vol] 10.8 g/dL Low 12.0-15.0 [facility] Comment on above: Performed By: #### L 100.0100, L501.6710, L500.4050 ####[facility] [address] [place], [address] IG% 0.400 Normal 0.0-0.9 [facility] Comment on above: Result Comment: IG% - Immature Granulocytes (promyelocytes, myelocytes and metamyelocytes) > 1% indicates that a LEFT SHIFT is Present. Performed By: #### L 100.0100, L501.6710, L500.4050 ####[facility] [address] [place], [address] Lymphocytes/100 WBC (Bld) 18.3 % Low 19-41 [facility] Comment on above: Performed By: #### L 100.0100, L501.6710, L500.4050 ####[facility] [address] [place], [address] MCH (RBC) [Entitic mass] 22.6 pg Low 27.0-32.0 [facility] Comment on above: Performed By: #### L 100.0100, L501.6710, L500.4050 ####[facility] [address] [place], [address] MCHC (RBC) [Mass/Vol] 29.3 g/dL Low 32-36 [facility] Comment on above: Performed By: #### L 100.0100, L501.6710, L500.4050 ####[facility] [address] [place], [address] MCV (RBC) [Entitic vol] 77.2 fL Low 81-99 [facility] Comment on above: Performed By: #### L 100.0100, L501.6710, L500.4050 ####[facility] [address] [place], [address] Monocytes/100 WBC (Bld) 7.7 % Normal 0-10 [facility] Comment on above: Performed By: #### L 100.0100, L501.6710, L500.4050 ####[facility] [address] [place], [address] Neutrophils/100 WBC (Bld) 71.8 % High 47-70 [facility] Comment on above: Performed By: #### L 100.0100, L501.6710, L500.4050 ####[facility] [address] [place], [address] Nucleated RBC (Bld) [#/Vol] 0 10*3/uL Normal 0-5 [facility] Comment on above: Performed By: #### L 100.0100, L501.6710, L500.4050 ####[facility] [address] [place], [address] Platelet mean volume (Bld) [Entitic vol] 11.7 fL Normal 6.2-12.0 [facility] Comment on above: Performed By: #### L 100.0100, L501.6710, L500.4050 ####[facility] [address] [place], [address] Platelets (Bld) [#/Vol] 286 10*3/uL Normal 150-450 [facility] Comment on above: Performed By: #### L 100.0100, L501.6710, L500.4050 ####[facility] [address] [place], [address] RBC (Bld) [#/Vol] 4.78 10*6/uL Normal 4.2-5.4 [facility] Comment on above: Performed By: #### L 100.0100, L501.6710, L500.4050 ####[facility] [address] [place], [address] RDW SD 48.1 fl High 35.1-43.9 [facility] Comment on above: Performed By: #### L 100.0100, L501.6710, L500.4050 ####[facility] [address] [place], [address] WBC (Bld) [#/Vol] 9.9 10*3/uL Normal 4.4-11.0 [facility] Comment on above: Performed By: #### L 100.0100, L501.6710, L500.4050 ####[facility] [address] [place], [address] CRPon 06-13-2024 C-REACTIVE PROT 16.30 mg/L High 0.0-3.0 [facility] Comment on above: Result Comment: C-Re active Protein (CRP) provides useful information for the diagnosis, therapy and monitoring of inflammatory processes and associated diseases. For the evaluation of Relative Risk for Cardiovascular Disease, a High Sensitivity CRP (HSCRP) should be ordered. Performed By: #### L 100.0100, L501.6710, L500.4050 ####[facility] [address] [place], [address] Comprehensive Metabolic Prof ilon 06-13-2024 Albumin [Mass/Vol] 3.2 g/dL Normal 3.2-5.0 [facility] Comment on above: Performed By: #### L 100.0100, L501.6710, L500.4050 ####[facility] [address] [place], [address] Albumin/Globulin [Mass ratio] 0.7 {ratio} Low 0.9-2.4 [facility] Comment on above: Performed By: #### L 100.0100, L501.6710, L500.4050 ####[facility] [address] [place], [address] ALK P 68 U/L Normal 45-117 [facility] Comment on above: Performed By: #### L 100.0100, L501.6710, L500.4050 ####[facility] [address] [place], [address] ALT [Catalytic activity/Vol] 27 U/L Normal 13-56 [facility] Comment on above: Performed By: #### L 100.0100, L501.6710, L500.4050 ####[facility] [address] [place], [address] AST [Catalytic activity/Vol] 16 U/L Normal 15-37 [facility] Comment on above: Performed By: #### L 100.0100, L501.6710, L500.4050 ####[facility] [address] [place], [address] Bilirubin [Mass/Vol] 0.40 mg/dL Normal 0.20-1.00 [facility] Comment on above: Result Comment: For patients on eltrombopag therapy, use of [facility] [place] TBIL is not recommended. Performed By: #### L 100.0100, L501.6710, L500.4050 ####[facility] [address] [place], [address] BUN/CRE 11.7 RATIO Normal 10-20 [facility] Comment on above: Performed By: #### L 100.0100, L501.6710, L500.4050 ####[facility] [address] [place], [address] CA,Total 9.0 mg/dL Normal 8.5-10.1 [facility] Comment on above: Performed By: #### L 100.0100, L501.6710, L500.4050 ####[facility] [address] [place], [address] Chloride [Moles/Vol] 106 mmol/L Normal 98-107 [facility] Comment on above: Performed By: #### L 100.0100, L501.6710, L500.4050 ####[facility] [address] [place], [address] CO2 [Moles/Vol] 25.0 mmol/L Normal 21.0-32.0 [facility] Comment on above: Performed By: #### L 100.0100, L501.6710, L500.4050 ####[facility] [address] [place], [address] Creatinine [Mass/Vol] 0.68 mg/dL Normal 0.55-1.02 [facility] Comment on above: Result Comment: The validity of the calculated GFR GFRAA in patients over 70 years has not been determined. Clinical correlation is essential. Performed By: #### L 100.0100, L501.6710, L500.4050 ####[facility] [address] [place], [address] EST GFR - AA 132 mL/min Normal >60 [facility] Comment on above: Result Comment: Afri can [place] GFR Calc Performed By: #### L 100.0100, L501.6710, L500.4050 ####[facility] [address] [place], [address] GAP 6 Normal 5-15 [facility] Comment on above: Performed By: #### L 100.0100, L501.6710, L500.4050 ####[facility] [address] [place], [address] GFR/1.73 sq M.predicted among non-blacks MDRD (S/P/Bld) [Vol rate/Area] 109 mL/min/{1.73_m2} Normal >60 [facility] Comment on above: Result Comment: Non- GFR Calc Performed By: #### L 100.0100, L501.6710, L500.4050 ####[facility] [address] [place], [address] Globulin (S) [Mass/Vol] 4.7 g/dL High 2.2-4.2 [facility] Comment on above: Performed By: #### L 100.0100, L501.6710, L500.4050 ####[facility] [address] [place], [address] Glucose [Mass/Vol] 79 mg/dL Normal 74-106 [facility] Comment on above: Performed By: #### L 100.0100, L501.6710, L500.4050 ####[facility] [address] [place], [address] Potassium [Moles/Vol] 4.0 mmol/L Normal 3.5-5.1 [facility] Comment on above: Performed By: #### L 100.0100, L501.6710, L500.4050 ####[facility] [address] [place], [address] Sodium [Moles/Vol] 137 mmol/L Normal 136-145 [facility] Comment on above: Performed By: #### L 100.0100, L501.6710, L500.4050 ####[facility] [address] [place], [address] T PROT 7.9 g/dL Normal 6.4-8.2 [facility] Comment on above: Performed By: #### L 100.0100, L501.6710, L500.4050 ####[facility] [address] [place], [address] Urea nitrogen [Mass/Vol] 8 mg/dL Normal 7-18 [facility] Comment on above: Performed By: #### L 100.0100, L501.6710, L500.4050 ####[facility] [address] [place], [address] CBC W/Diff, Automatedon 09-0 Absolute Neut Normal 2.0-7.7 [facility] Comment on above: Result Comment: UTO Performed By: #### L 500.4050, L100.0100 ####[facility] [address] [place], [address] HCT Normal 37-47 [facility] Comment on above: Result Comment: UTO Performed By: #### L 500.4050, L100.0100 ####[facility] [address] [place], [address] HGB Normal 12.0-15.0 [facility] Comment on above: Result Comment: UTO Performed By: #### L 500.4050, L100.0100 ####[facility] [address] [place], [address] MCH Normal 27.0-32.0 [facility] Comment on above: Result Comment: UTO Performed By: #### L 500.4050, L100.0100 ####[facility] [address] [place], [address] MCHC Normal 32-36 [facility] Comment on above: Result Comment: UTO Performed By: #### L 500.4050, L100.0100 ####[facility] [address] [place], [address] MCV Normal 81-99 [facility] Comment on above: Result Comment: UTO Performed By: #### L 500.4050, L100.0100 ####[facility] [address] [place], [address] NEUT% Normal 47-70 [facility] Comment on above: Result Comment: UTO Performed By: #### L 500.4050, L100.0100 ####[facility] [address] [place], [address] PLT Normal 150-450 [facility] Comment on above: Result Comment: UTO Performed By: #### L 500.4050, L100.0100 ####[facility] [address] [place], [address] RBC Normal 4.2-5.4 [facility] Comment on above: Result Comment: UTO Performed By: #### L 500.4050, L100.0100 ####[facility] [address] [place], [address] RDW CV Normal 11.6-14.6 [facility] Comment on above: Result Comment: UTO Performed By: #### L 500.4050, L100.0100 ####[facility] [address] [place], [address] RDW SD Normal 35.1-43.9 [facility] Comment on above: Result Comment: UTO Performed By: #### L 500.4050, L100.0100 ####[facility] [address] [place], [address] WBC Normal 4.4-11.0 [facility] Comment on above: Result Comment: UTO Performed By: #### L 500.4050, L100.0100 ####[facility] [address] [place], [address] Comprehensive Metabolic Prof ilon 06-07-2024 ALB Normal 3.2-5.0 [facility] Comment on above: Result Comment: UTO Performed By: #### L 500.4050, L100.0100 ####[facility] [address] [place], [address] ALK P Normal 45-117 [facility] Comment on above: Result Comment: UTO Performed By: #### L 500.4050, L100.0100 ####[facility] [address] [place], [address] ALT Normal 13-56 [facility] Comment on above: Result Comment: UTO Performed By: #### L 500.4050, L100.0100 ####[facility] [address] [place], [address] AST Normal 15-37 [facility] Comment on above: Result Comment: UTO Performed By: #### L 500.4050, L100.0100 ####[facility] [address] [place], [address] BUN Normal 7-18 [facility] Comment on above: Result Comment: UTO Performed By: #### L 500.4050, L100.0100 ####[facility] [address] [place], [address] BUN/CRE Normal 10-20 [facility] Comment on above: Result Comment: UTO Performed By: #### L 500.4050, L100.0100 ####[facility] [address] [place], [address] CA,Total Normal 8.5-10.1 [facility] Comment on above: Result Comment: UTO Performed By: #### L 500.4050, L100.0100 ####[facility] [address] [place], [address] CL Normal 98-107 [facility] Comment on above: Result Comment: UTO Performed By: #### L 500.4050, L100.0100 ####[facility] [address] [place], [address] CO2 Normal 21.0-32.0 [facility] Comment on above: Result Comment: UTO Performed By: #### L 500.4050, L100.0100 ####[facility] [address] [place], [address] CREAT,SERUM Normal 0.55-1.02 [facility] Comment on above: Result Comment: UTO Performed By: #### L 500.4050, L100.0100 ####[facility] [address] [place], [address] EST GFR Normal >60 [facility] Comment on above: Result Comment: UTO Performed By: #### L 500.4050, L100.0100 ####[facility] [address] [place], [address] EST GFR - AA Normal >60 [facility] Comment on above: Result Comment: UTO Performed By: #### L 500.4050, L100.0100 ####[facility] [address] [place], [address] GAP Normal 5-15 [facility] Comment on above: Result Comment: UTO Performed By: #### L 500.4050, L100.0100 ####[facility] [address] [place], [address] GLU Normal 74-106 [facility] Comment on above: Result Comment: UTO Performed By: #### L 500.4050, L100.0100 ####[facility] [address] [place], [address] Potassium Normal 3.5-5.1 [facility] Comment on above: Result Comment: UTO Performed By: #### L 500.4050, L100.0100 ####[facility] [address] [place], [address] T BILI Normal 0.20-1.00 [facility] Comment on above: Result Comment: UTO Performed By: #### L 500.4050, L100.0100 ####[facility] [address] [place], [address] T PROT Normal 6.4-8.2 [facility] Comment on above: Result Comment: UTO Performed By: #### L 500.4050, L100.0100 ####[facility] [address] [place], [address] Comprehensive Metabolic Profil Normal 136-145 [facility] Comment on above: Result Comment: UTO Performed By: #### L 500.4050, L100.0100 ####[facility] [address] [place], [address] Emergency Department Summary on 05-28-2024 Emergency Department Summary [facility] Medical Records Department [address] [place] [address] Emergency Department Summary 05/28/24 MR#: [id number] Acct: [id number] Name: SERGIO PARRISH Rep #: [id number] : 1995 28 From: Garrison Millan DO PCP: Dr. Teressa Aguiar MD Status:DEP ER Location: ED HPI History of Present Illness Chief Complaint: Rash Informant: patient and spouse/S.O. Narrative Narrative: Patient is a 28-year-old female with past medical history of hypertension asthma as well as anxiety and depression. She states that over the last few days she has noticed some discomfort in the gluteal cleft/buttocks region. She states that she had her significant other look and there is redness and irritation present. She denies any history of immunosuppression but states that symptoms have been worsening and to the point where she cannot sleep secondary to them and therefore she comes in for evaluation. [facility] Medical History Right knee pain Non-smoker Hypertension Anxiety Depression Asthma Home Medications ???Medication ???Instructions ???Recorded ???Last Taken ???Type budesonide-formoterol HFA 160 2 puff inhalation Q4H PRN PRN 02/08/23 02/15/23 History mcg-4.5 mcg/actuation aerosol ASTHMA inhaler (Symbicort) clotrimazole-betamethasone 1 1 applic topical BID 4 weeks #30 mL 05/28/24 Unknown Rx %-0.05 % lotion fluconazole 150 mg tablet 150 mg PO Q3D 3 doses #3 tabs 05/28/24 Unknown Rx norethindrone (contraceptive) 0.35 0.35 mg PO DAILY 05/28/24 Unknown History mg tablet (Anya) sertraline 50 mg tablet 50 mg PO DAILY 05/28/24 Unknown History Allergy/AdvReac Type Severity Reaction Status Date / Time No Known Allergies Allergy Verified 05/28/24 21:48 Surgical History H/O tubal ligation History of myringotomy Hx of tonsillectomy Social History Smoking Status: Never smoker ROS ROS ED Constitutional Constitutional ED: Denies chills or fever(s) ENT ENT ED: Denies sore throat Cardiovascular Cardiovascular: Denies chest pain Respiratory/Chest Respiratory/Chest: Denies cough or dyspnea Gastrointestinal Gastrointestinal: Denies abdominal pain, diarrhea, nausea or vomiting Genitourinary Genitourinary ED: Denies dysuria Musculoskeletal Musculoskeletal: Denies myalgias Integumentary Reports rash Neurologic Neurologic: Denies headache(s) Hematologic/Lymphatic Hematologic/Lymphatic: Denies easy bleeding or easy bruising EXAM Physical Exam Const Vital Signs: 05/28/24 21:46 Temperature 97.2 F L Temperature Source Temporal Pulse Rate 117 H Respiratory Rate 19 H Blood Pressure 148/100 H Blood Pressure Mean 116 Pulse Ox 100 Oxygen Delivery Method Room Air Positive well nourished, well developed and obese General Appearance ED: well developed Nutritional Appearance: obese HEENT HEENT Narrative: No tongue or lip swelling no oral lesions no airway edema or compromise Eyes PERRL and EOMs intact bilaterally Neck supple Resp normal respiratory effort and clear to auscultation bilaterally Cardio regular rate and regular rhythm Extremity normal to inspection Neuro oriented x3, CN's II-XII intact bilaterally and no sensory deficits noted Sensorium / Orientation: alert Motor Exam: strength 5/5 throughout Psych mental status grossly normal Skin Skin Narrative: In the gluteal cleft region there is faint erythema with mild overlying white hue most consistent with cutaneous candidiasis. No lymphangitic streaking no abscess or pilonidal cyst noted. No crepitance palpated to suggest Latosha's gangrene. MDM MDM MDM Narrative Medical decision making narrative: Patient arrived to the ER hypertensive but otherwise afebrile. She reported skin irritation in the gluteal cleft without potential skin allergen/exposure. Differential diagnosis is for cutaneous candidiasis versus pilonidal cyst versus abscess versus cellulitis versus allergic reaction. Exam is most consistent with cutaneous candidiasis and that she does not have signs of systemic infection and denies any history of immunosuppression I do not feel there is need for laboratory studies or imaging and she can be discharged home with symptomatic care History Record Review Discussion w/independent historian: Patient Discharge Plan Triage Chief Complaint: Rash ED Provider: Garrison Millan Dx/Rx/DC Orders Clinical Impression: Candidiasis of skin, Hypertension, Anxiety and depression, Morbid obesity Instructions: ED Tanja Skin Infection (Adult) Prescriptions: New fluconazole 150 mg tablet 150 mg PO Q3D Qty: 3 0RF clotrimazole-betamethasone 1-0.05 % (more content not included)... Normal [facility] Orthopedic Visit Reporton Orthopedic Visit Report [facility] [address] [place] [address] OFFICE VISIT Date of Service: 03/09/24 MR#: [id number] Acct: [id number] Name: SERGIO CLINTON Rep #: [id number] : 1995 Provider: Dr. Marco jeter MD Age/Sex: 28/F [place] [facility] [place]: Signed Intake Vital Signs 03/02/24 12:01 03/09/24 14:09 Height 5 ft 4 in 5 ft 4 in Weight: 340 lb 6 oz BMI 58.3 Intake Visit Reasons: RIGHT KNEE Accompanied by: Self Is patient in pain?: Yes Pain scale (1-10): 8 Allergies No Known Allergies Allergy (Verified 03/09/24 14:19) Medications ???Medication ???Instructions ???Recorded ???Confirmed ???Type budesonide-formoterol HFA 160 2 puff inhalation Q4H PRN PRN 02/08/23 03/09/24 History mcg-4.5 mcg/actuation aerosol ASTHMA inhaler (Symbicort) cholecalciferol (vitamin D3) 25 25 mcg PO DAILY 02/08/23 03/09/24 History mcg (1,000 unit) tablet (Vitamin D3) multivitamin 1 tab PO DAILY 02/08/23 03/09/24 History naproxen 500 mg tablet (Naprosyn) 500 mg PO BID PRN pain #20 tabs 03/02/24 03/09/24 Rx PFSH Medical History (Updated 03/09/24 @ 14:14 by aMrco Freitas MD) Right knee pain Non-smoker Hypertension Anxiety Depression Asthma Surgical History (Updated 03/02/24 @ 12:[address] Trina Mccann MD) H/O tubal ligation History of myringotomy Hx of tonsillectomy Social History Smoking Status: Never smoker HPI RIGHT KNEE Details: This documentation accurately reflects the service provided and the decisions made by me, Dr. Marco Freitas MD 03/09/24 4628. Part of today???s visit was documented by [ ], acting as scribe. SERGIO CLINTON is a 28 year old F here today for right knee pain. Patient was in the emergency department 5 days ago. They fell on the knee. 3 months hx. no injruy. pain laterally. pain always there. level of the pain 9/10 and then taking naproxen. never had it before. using a brace not helping. Tx - no PT or injections. Patient was on a cruise recently and the pain seemed to start after that. Per the emergency department note Patient presents secondary to right knee pain and leg weakness. She states that she has been having pain in her right knee and feels that will give out on her for the past 2 weeks. She did fall this morning and has bruising over her mix. She denies any specific injury at the onset of pain. She denies any history of knee problems. She has been taking Tylenol and ibuprofen without improvement. Ortho Exam General General: Yes no acute distress Neurologic: Yes alert and Yes oriented x3 Psychologic: Yes reasonable and appropriate Right Knee Skin/Wound: Yes CDI, No erythema, No ecchymosis and No swelling Examination: Yes Med jt line tenderness, Yes Lat jt line tenderness, Yes TTP inf pole patella, Yes Crepitus, Yes Pain with flexion, No Viri's Test, No TTP Patellar tendon, No TTP Tibial tubercle, Yes TTP Pes Anserine and No Illiotibial band tenderness Quad Atrophy: No Stability: NML: Anterior Drawer, NML: Sin, NML: Posterior Drawer, NML: Valgus 0, NML: Valgus 30, NML: Varus 0 and NML: Varus 30 Patella Translation: 2 Apprehension with Lateral Translation: No Patellar Tilt Normal: Yes Patella Grind: No KNEE: ROM 0-80, painful to examine, antalgic gait, nvi, elevated BMI 58 Left Knee Patella Translation: 2 Supplemental Info [facility] [place] Imaging Services [address] [place], [place] [address] Knee 4 or More Views MR#: [id number] Acct: [id number] Name: SERGIO CLINTON Rep #: [id number] : 1995 F 28 From: Darshan Ryan MD PCP: Dr. Teressa Aguiar MD Status: DEP ER Study: Knee 4 or More Views Date of Exam: 03/02/24 Exam# [id number] Ordering Dr: Trina Mccann MD [id number] STUDY: X-RAY - RIGHT KNEE REASON FOR EXAM: Female, 28 years old. Pain following injury. TECHNIQUE: 4 view(s) of the knee. COMPARISON: None. FINDINGS: Normal visualized distal femur. Normal visualized proximal tibia and fibula. Normal proximal tibiofibular articulation. Normal medial femorotibial compartment. Normal lateral femorotibial compartment. Normal patellofemoral articulation. Small joint effusion. RAD/Knee 4 or More Views IMPRESSION: Small joint effusion. Electronically Signed: Darshan Ryan MD at 13:04 EDT , I independently revi (more content not included)... Normal [facility] Emergency Department Summary on 03-02-2024 Emergency Department Summary [facility] Medical Records Department [address] [place] [address] Emergency Department Summary 03/02/24 MR#: [id number] Acct: [id number] Name: SERGIO CLINTON Rep #: [id number] : 1995 28 From: Trina Mccann MD PCP: Dr. Teressa Aguiar MD Status:DEP ER Location: ED HPI History of Present Illness Chief Complaint: Lower Extremity Injury Detail of Chief Complaint: Right knee pain Informant: patient Onset/Context/Timing Onset: Weeks Narrative Narrative: Patient presents secondary to right knee pain and leg weakness. She states that she has been having pain in her right knee and feels that will give out on her for the past 2 weeks. She did fall this morning and has bruising over her mix. She denies any specific injury at the onset of pain. She denies any history of knee problems. She has been taking Tylenol and ibuprofen without improvement. [facility] Medical History (Updated 03/02/24 @ 13:[address] Trina Mccann MD) Non-smoker Hypertension Anxiety Depression Asthma Home Medications ???Medication ???Instructions ???Recorded ???Last Taken ???Type budesonide-formoterol HFA 160 2 puff inhalation Q4H PRN PRN 02/08/23 02/15/23 History mcg-4.5 mcg/actuation aerosol ASTHMA inhaler (Symbicort) cholecalciferol (vitamin D3) 25 25 mcg PO DAILY 02/08/23 Unknown History mcg (1,000 unit) tablet (Vitamin D3) multivitamin 1 tab PO DAILY 02/08/23 Unknown History naproxen 500 mg tablet (Naprosyn) 500 mg PO BID PRN pain #20 tabs 03/02/24 Unknown Rx Allergy/AdvReac Type Severity Reaction Status Date / Time No Known Allergies Allergy Verified 03/02/24 12:03 Surgical History (Updated 03/02/24 @ 12:[address] Trina Mccann MD) H/O tubal ligation History of myringotomy Hx of tonsillectomy Social History Smoking Status: Never smoker ROS ROS ED Constitutional Constitutional ED: Denies chills or fever(s) Eyes Eyes: Denies discharge from eye(s) ENT ENT ED: Denies discharge from eye(s), rhinorrhea or sore throat Cardiovascular Cardiovascular: Denies chest pain or palpitations Respiratory/Chest Respiratory/Chest: Denies cough or dyspnea Gastrointestinal Gastrointestinal: Denies abdominal pain, nausea or vomiting Genitourinary Genitourinary ED: Denies dysuria Musculoskeletal Musculoskeletal: Reports extremity pain; Denies back pain Integumentary Denies Abrasions or rash Neurologic Neurologic: Reports weakness; Denies headache(s) Psychiatric Psychiatric: Denies anxiety or depression Allergic/Immunologic Allergic/Immunologic ED: Denies lip swelling or urticaria EXAM Physical Exam Const Vital Signs: 03/02/24 12:01 Temperature 97.5 F L Temperature Source Temporal Pulse Rate 108 H Respiratory Rate 16 Blood Pressure 169/86 H Blood Pressure Mean 113 Pulse Ox 100 Oxygen Delivery Method Room Air Positive obese Nutritional Appearance: obese HEENT Reports moist mucous membranes Eyes EOMs intact bilaterally Chest Wall inspection of chest normal and palpation of chest normal Resp normal respiratory effort and clear to auscultation bilaterally Cardio regular rate and regular rhythm GI non-tender Palpation: soft Extremity Extremity Narrative: Tenderness palpation along the joint line of the right knee with edema noted. Some early ecchymosis is noted over the proximal mix. Good range of motion. Good distal pulses. No erythema or excessive warmth to indicate infection. Neuro oriented x3 Skin no rashes or lesions noted MDM MDM MDM Narrative Medical decision making narrative: Right knee x-ray obtained to evaluate for fracture, sprain, effusion. Radiography Diagnostic Testing: Clinical Impression(s) from Imaging Studies Knee X-Ray 03/02/24 12:35 IMPRESSION: Small joint effusion. Electronically Signed: Darshan Ryan MD at 13:04 EDT , Treatment and Re-Evaluation :: Right knee x-rays per my interpretation reveal no obvious acute bony abnormality. Radiology interpretation reviewed. They do feel there is a small joint effusion. Vicente wrap will be applied to the knee and I will write prescription strength naproxen for the patient. She was referred to orthopedics for follow-up. Discharge Plan Triage Chief Complaint: Lower Extremity Injury ED Provider: Trina Mccann Dx/Rx/DC Orders Clinical Impression: Right knee sprain Instructions: ED Knee Effusion, ED Knee Sprain Prescriptions: New naproxen [Naprosyn] 500 mg tablet 500 mg PO BID PRN (Reason: pain) Qty: 20 0RF No Action multivitamin Tablet 1 tab PO DAILY (more content not included)... Normal [facility] Knee 4 or More Viewson 03-02 Knee 4 or More Views [facility] Imaging Services [address] [place], [place] [address] Knee 4 or More Views MR#: [id number] Acct: [id number] Name: SERGIO CLINTON Rep #: [id number] : 1995 F 28 From: Darshan gandhi MD PCP: Dr. Teressa Aguiar MD Status: DEP ER Study: Knee 4 or More Views Date of Exam: 03/02/24 Exam# [id number] Ordering Dr: Trina Mccann MD [id number] STUDY: X-RAY - RIGHT KNEE REASON FOR EXAM: Female, 28 years old. Pain following injury. TECHNIQUE: 4 view(s) of the knee. COMPARISON: None. FINDINGS: Normal visualized distal femur. Normal visualized proximal tibia and fibula. Normal proximal tibiofibular articulation. Normal medial femorotibial compartment. Normal lateral femorotibial compartment. Normal patellofemoral articulation. Small joint effusion. RAD/Knee 4 or More Views IMPRESSION: Small joint effusion. Electronically Signed: Darshan Ryan MD at 13:04 EDT , CC: Dr. Teressa Aguiar MD; Dr. Trina Mccann MD Sports Analyst: Signed Normal [facility] Laboratory - Chemistry and C hemistry - challengeOrdered By: Dr. Mcpherson on 02-15-2023 HCG ( test) Ql (U) Negative [facility] Comment on above: Very dilute urine sp ecimens, as indicated by a low specificgravity, may not contain medical billing representative levels of hCG. If is still suspected, a first morning urinespecimen should be collected 48 hours later and tested. Basophil percentageOrdered B y: Dr. Stevne on 02-09-2023 WBC (Bld) [#/Vol] 8.9 10*3/uL 4.4-11.0 [facility] Blood erythrocytes count (nu mber/volume)Ordered By: Dr. Steven on 02-09-2023 RBC (Bld) [#/Vol] 4.83 10*6/uL 4.2-5.4 [facility] Blood hemoglobin measurement (mass/volume)Ordered By: Dr. Steven on 02-09-2023 Hemoglobin (Bld) [Mass/Vol] 9.1 g/dL 12.0-15.0 [facility] Blood platelet mean volumeOr dered By: Dr. Steven on 02-09-2023 Platelet mean volume (Bld) [Entitic vol] 10.9 fL 6.2-12.0 [facility] Determination of erythrocyte mean corpuscular volume (MCV)Ordered By: Dr. Steven on 02-09-2023 MCV (RBC) [Entitic vol] 68.9 fL 81-99 [facility] Hematocrit Auto (Bld) [Volum e fraction]Ordered By: Dr. Steven on 02-09-2023 Hematocrit (Bld) [Volume fraction] 33.3 % 37-47 [facility] Laboratory - Hematology and Cell countsOrdered By: Dr. Steven on 02-09-2023 Erythrocyte distribution width (RBC) [Entitic vol] 45.9 fL 35.1-43.9 [facility] Erythrocyte distribution width (RBC) [Ratio] 18.8 % 11.6-14.6 [facility] MCH (RBC) [Entitic mass] 18.8 pg 27.0-32.0 [facility] MCHC Auto (RBC) [Mass/Vol]Or dered By: Dr. Steven on 02-09-2023 MCHC (RBC) [Mass/Vol] 27.3 g/dL 32-36 [facility] Platelets bldOrdered By: Dr. Steven on 02-09-2023 Platelets (Bld) [#/Vol] 338 10*3/uL 150-450 [facility] Absolute lymphocyte countOrd ered By: Carri Chappell on 08-17-2022 Lymphocytes Auto (Unsp spec) [#/Vol] 2.90 10*3/uL 0.83-4.51 [facility] Basophil percentageOrdered B y: Carri Chappell on 08-17-2022 Basophils/100 WBC (Bld) 0.3 % 0-1 [facility] Eosinophils/100 WBC (Bld) 1.2 % 0-5 [facility] Neutrophils (Bld) [#/Vol] 8.8 10*3/uL 2.0-7.7 [facility] Neutrophils/100 WBC (Bld) 68.9 % 47-70 [facility] WBC (Bld) [#/Vol] 12.8 10*3/uL 4.4-11.0 [facility] Blood erythrocytes count (nu mber/volume)Ordered By: Carri Chappell on 08-17-2022 RBC (Bld) [#/Vol] 3.94 10*6/uL 4.2-5.4 [facility] Blood hemoglobin measurement (mass/volume)Ordered By: Carri Chappell on 08-17-2022 Hemoglobin (Bld) [Mass/Vol] 9.6 g/dL 12.0-15.0 [facility] Blood lymphocytes/100 leukoc ytesOrdered By: Carri Chappell on 08-17-2022 Lymphocytes/100 WBC (Bld) 22.7 % 19-41 [facility] Blood monocytes/100 leukocyt esOrdered By: Carri Chappell on 08-17-2022 Monocytes/100 WBC (Bld) 6.5 % 0-10 [facility] Blood platelet mean volumeOr dered By: Carri Chappell on 08-17-2022 Platelet mean volume (Bld) [Entitic vol] 12.0 fL 6.2-12.0 [facility] Determination of erythrocyte mean corpuscular volume (MCV)Ordered By: Carri Chappell on 08-17-2022 MCV (RBC) [Entitic vol] 81.0 fL 81-99 [facility] Hematocrit Auto (Bld) [Volum e fraction]Ordered By: Carri Chappell on 08-17-2022 Hematocrit (Bld) [Volume fraction] 31.9 % 37-47 [facility] Laboratory - Hematology and Cell countsOrdered By: Crari Chappell on 08-17-2022 Erythrocyte distribution width (RBC) [Entitic vol] 47.7 fL 35.1-43.9 [facility] Erythrocyte distribution width (RBC) [Ratio] 16.0 % 11.6-14.6 [facility] Immature granulocytes/100 WBC (Bld) 0.400 % 0.0-0.9 [facility] Comment on above: IG% - Immature Granu locytes (promyelocytes, myelocytes and metamyelocytes) > 1% indicates that a LEFT SHIFT is Present. MCH (RBC) [Entitic mass] 24.4 pg 27.0-32.0 [facility] Nucleated RBC/100 WBC (Bld) [Ratio] 0 % 0-5 [facility] MCHC Auto (RBC) [Mass/Vol]Or dered By: Carri Chappell on 08-17-2022 MCHC (RBC) [Mass/Vol] 30.1 g/dL 32-36 [facility] Platelets bldOrdered By: Justin Chappell on 08-17-2022 Platelets (Bld) [#/Vol] 283 10*3/uL 150-450 [facility] Absolute lymphocyte countOrd ered By: Dr. Steven on 08-09-2022 Lymphocytes Auto (Unsp spec) [#/Vol] 1.88 10*3/uL 0.83-4.51 [facility] Basophil percentageOrdered B y: Dr. Steven on 08-09-2022 Basophils/100 WBC (Bld) 0.3 % 0-1 [facility] Eosinophils/100 WBC (Bld) 1.8 % 0-5 [facility] Neutrophils (Bld) [#/Vol] 3.6 10*3/uL 2.0-7.7 [facility] Neutrophils/100 WBC (Bld) 58.9 % 47-70 [facility] WBC (Bld) [#/Vol] 6.1 10*3/uL 4.4-11.0 [facility] Blood erythrocytes count (nu mber/volume)Ordered By: Dr. Steven on 08-09-2022 RBC (Bld) [#/Vol] 3.80 10*6/uL 4.2-5.4 [facility] Blood hemoglobin measurement (mass/volume)Ordered By: Dr. Steven on 08-09-2022 Hemoglobin (Bld) [Mass/Vol] 9.2 g/dL 12.0-15.0 [facility] Blood lymphocytes/100 leukoc ytesOrdered By: Dr. Steven on 08-09-2022 Lymphocytes/100 WBC (Bld) 31.1 % 19-41 [facility] Blood monocytes/100 leukocyt esOrdered By: Dr. Steven on 08-09-2022 Monocytes/100 WBC (Bld) 7.6 % 0-10 [facility] Blood platelet mean volumeOr dered By: Dr. Steven on 08-09-2022 Platelet mean volume (Bld) [Entitic vol] 11.4 fL 6.2-12.0 [facility] Determination of erythrocyte mean corpuscular volume (MCV)Ordered By: Dr. Steven on 08-09-2022 MCV (RBC) [Entitic vol] 79.7 fL 81-99 [facility] Hematocrit Auto (Bld) [Volum e fraction]Ordered By: Dr. Steven on 08-09-2022 Hematocrit (Bld) [Volume fraction] 30.3 % 37-47 [facility] Laboratory - Hematology and Cell countsOrdered By: Dr. Steven on 08-09-2022 Erythrocyte distribution width (RBC) [Entitic vol] 45.1 fL 35.1-43.9 [facility] Erythrocyte distribution width (RBC) [Ratio] 15.7 % 11.6-14.6 [facility] Immature granulocytes/100 WBC (Bld) 0.300 % 0.0-0.9 [facility] Comment on above: IG% - Immature Granu locytes (promyelocytes, myelocytes and metamyelocytes) > 1% indicates that a LEFT SHIFT is Present. MCH (RBC) [Entitic mass] 24.2 pg 27.0-32.0 [facility] Nucleated RBC/100 WBC (Bld) [Ratio] 0 % 0-5 [facility] MCHC Auto (RBC) [Mass/Vol]Or dered By: Dr. Steven on 08-09-2022 MCHC (RBC) [Mass/Vol] 30.4 g/dL 32-36 [facility] Platelets bldOrdered By: Dr. Steven on 08-09-2022 Platelets (Bld) [#/Vol] 202 10*3/uL 150-450 [facility] Absolute lymphocyte counton 08-08-2022 Lymphocytes Auto (Unsp spec) [#/Vol] 2.57 10*3/uL 0.83-4.51 [facility] Work Phone: Basophil percentageon 2021 Basophils/100 WBC (Bld) 0.4 % 0-1 [facility] Work Phone: Eosinophils/100 WBC (Bld) 1.6 % 0-5 [facility] Work Phone: Neutrophils (Bld) [#/Vol] 6.2 10*3/uL 2.0-7.7 [facility] Work Phone: Neutrophils/100 WBC (Bld) 63.1 % 47-70 [facility] Work Phone: WBC (Bld) [#/Vol] 9.8 10*3/uL 4.4-11.0 [facility] Work Phone: Beta hCG serum qualOrdered B y: Urmila Mcconnell on 08-08-2022 Beta HCG ( test) Ql Negative [facility] Blood erythrocytes count (nu mber/volume)on 08-08-2022 RBC (Bld) [#/Vol] 4.35 10*6/uL 4.2-5.4 [facility] Work Phone: Blood hemoglobin measurement (mass/volume)on 08-08-2022 Hemoglobin (Bld) [Mass/Vol] 10.5 g/dL 12.0-15.0 [facility] Work Phone: Blood lymphocytes/100 leukoc yteson 08-08-2022 Lymphocytes/100 WBC (Bld) 26.2 % 19-41 [facility] Work Phone: Blood monocytes/100 leukocyt eson 08-08-2022 Monocytes/100 WBC (Bld) 8.3 % 0-10 [facility] Work Phone: Blood platelet mean volumeon 08-08-2022 Platelet mean volume (Bld) [Entitic vol] 11.8 fL 6.2-12.0 [facility] Work Phone: Determination of erythrocyte mean corpuscular volume (MCV)on 08-08-2022 MCV (RBC) [Entitic vol] 81.4 fL 81-99 [facility] Work Phone: Hematocrit Auto (Bld) [Volum e fraction]on 08-08-2022 Hematocrit (Bld) [Volume fraction] 35.4 % 37-47 [facility] Work Phone: Laboratory - Hematology and Cell countson 08-08-2022 Erythrocyte distribution width (RBC) [Entitic vol] 46.0 fL 35.1-43.9 [facility] Work Phone: Erythrocyte distribution width (RBC) [Ratio] 15.7 % 11.6-14.6 [facility] Work Phone: Immature granulocytes/100 WBC (Bld) 0.400 % 0.0-0.9 [facility] Work Phone: Comment on above: IG% - Immature Granu locytes (promyelocytes, myelocytes and metamyelocytes) > 1% indicates that a LEFT SHIFT is Present. MCH (RBC) [Entitic mass] 24.1 pg 27.0-32.0 [facility] Work Phone: Nucleated RBC/100 WBC (Bld) [Ratio] 0 % 0-5 [facility] Work Phone: MCHC Auto (RBC) [Mass/Vol]on 08-08-2022 MCHC (RBC) [Mass/Vol] 29.7 g/dL 32-36 [facility] Work [facility]: Platelets bldon 08-08-2022 Platelets (Bld) [#/Vol] 239 10*3/uL 150-450 [facility] Work Phone: Laboratory - Chemistry and C hemistry - challengeon 01-13-2022 HCG ( test) Ql (U) Negative [facility] Work Phone: Comment on above: Very dilute urine sp ecimens, as indicated by a low specificgravity, may not contain medical billing representative levels of hCG. If is still suspected, a first morning urinespecimen should be collected 48 hours later and tested. Absolute lymphocyte counton 12-19-2021 Lymphocytes Auto (Unsp spec) [#/Vol] 2.74 10*3/uL 0.83-4.51 [facility] Work Phone: [phone] Basophil percentageon 2021 Basophils/100 WBC (Bld) 0.2 % 0-1 [facility] Work Phone: [phone] Chloride [Moles/Vol] 105 mmol/L 98-107 [facility] Work Phone: Eosinophils/100 WBC (Bld) 1.3 % 0-5 [facility] Work Phone: [phone] Glucose [Mass/Vol] 102 mg/dL 74-106 [facility] Work Phone: [phone] Comment on above: Fasting Glucose resu lt from 100 to 125 mg/dL suggests IMPAIRED HOMEOSTASIS per A.D.A. criteria. Neutrophils (Bld) [#/Vol] 8.5 10*3/uL 2.0-7.7 [facility] Work Phone: Neutrophils/100 WBC (Bld) 69.3 % 47-70 [facility] Work Phone: [phone] Potassium [Moles/Vol] 3.6 mmol/L 3.5-5.1 [facility] Work Phone: [phone] Sodium [Moles/Vol] 139 mmol/L 136-145 [facility] Work Phone: [phone] WBC (Bld) [#/Vol] 12.2 10*3/uL 4.4-11.0 [facility] Work Phone: Blood erythrocytes count (nu mber/volume)on 12-19-2021 RBC (Bld) [#/Vol] 4.62 10*6/uL 4.2-5.4 [facility] Work Phone: Blood hemoglobin measurement (mass/volume)on 12-19-2021 Hemoglobin (Bld) [Mass/Vol] 12.3 g/dL 12.0-15.0 [facility] Work Phone: Blood lymphocytes/100 leukoc yteson 12-19-2021 Lymphocytes/100 WBC (Bld) 22.4 % 19-41 [facility] Work Phone: Blood monocytes/100 leukocyt eson 12-19-2021 Monocytes/100 WBC (Bld) 6.5 % 0-10 [facility] Work Phone: Blood platelet mean volumeon 12-19-2021 Platelet mean volume (Bld) [Entitic vol] 11.1 fL 6.2-12.0 [facility] Work Phone: Determination of erythrocyte mean corpuscular volume (MCV)on 12-19-2021 MCV (RBC) [Entitic vol] 84.4 fL 81-99 [facility] Work Phone: Hematocrit Auto (Bld) [Volum e fraction]on 12-19-2021 Hematocrit (Bld) [Volume fraction] 39.0 % 37-47 [facility] Work Phone: INR in Blood by Coagulation assayon 12-19-2021 INR Coag (Bld) [Relative time] 1.0 {INR} [facility] Work Phone: Laboratory - Chemistry and C hemistry - challengeon 12-19-2021 CO2 [Moles/Vol] 32.0 mmol/L 21.0-32.0 [facility] Work Phone: Urea nitrogen/Creatinine [Mass ratio] 15.4 mg/mg 10-20 [facility] Work Phone: Laboratory - Coagulationon 0 12-19-2021 PT Coag (PPP) [Time] 12.5 s 11.7-14.9 [facility] Work Phone: Laboratory - Hematology and Cell countson 12-19-2021 Erythrocyte distribution width (RBC) [Entitic vol] 42.1 fL 35.1-43.9 [facility] Work Phone: Erythrocyte distribution width (RBC) [Ratio] 13.8 % 11.6-14.6 [facility] Work Phone: Immature granulocytes/100 WBC (Bld) 0.300 % 0.0-0.9 [facility] Work Phone: Comment on above: IG% - Immature Granu locytes (promyelocytes, myelocytes and metamyelocytes) > 1% indicates that a LEFT SHIFT is Present. MCH (RBC) [Entitic mass] 26.6 pg 27.0-32.0 [facility] Work Phone: Nucleated RBC/100 WBC (Bld) [Ratio] 0 % 0-5 [facility] Work Phone: MCHC Auto (RBC) [Mass/Vol]on 12-19-2021 MCHC (RBC) [Mass/Vol] 31.5 g/dL 32-36 [facility] Work Phone: No Panel Informationon 12-19 D-Dimer Quantitative (PE/DVT) 0.76 FEU/ug/m 0.27-0.49 [facility] Work Phone: Comment on above: D-Dimer ELEVATED (>0 .49): Additional studies and clinicalassessments are indicated to conclude diagnosis of:Deep Vein Thrombosis (DVT) or Pulmonary Embolism (PE)CRITICAL VALUE VERIFIED. CALLED TO [id number] Arti Guy.RESULTS READ BACK BY SAME . Troponin I High Sensitivity < 3 pg/mL 3.0-54.0 [facility] Work Phone: Comment on above: Please Note: New Apryl t Units and Gender Specific Reference Ranges. For more information see Policy Stat Procedure [place] High Sensitivity Troponin (TNIH) and attachments. Estimated Creatinine Clearance Calc 113.26 ml/min [facility] Work Phone: Estimated GFR (MDRD) Amer 142 mL/min >60 [facility] Work Phone: Comment on above: GFR Calc Estimated GFR (MDRD) Non-Af Amer 117 mL/min >60 [facility] Work Phone: Comment on above: Non- GFR Calc Platelets bldon 12-19-2021 Platelets (Bld) [#/Vol] 271 10*3/uL 150-450 [facility] Work Phone: Serum or plasma calcium slime urement (mass/volume)on 12-19-2021 Calcium [Mass/Vol] 8.5 mg/dL 8.5-10.1 [facility] Work Phone: Serum or plasma creatinine m easurement (mass/volume)on 12-19-2021 Creatinine [Mass/Vol] 0.65 mg/dL 0.55-1.02 [facility] Work Phone: Comment on above: The validity of the calculated GFR & GFRAA in patients over 70 years has not been determined. Clinical correlation is essential. Serum or plasma urea nitroge n measurement (mass/volume)on 12-19-2021 Urea nitrogen [Mass/Vol] 10 mg/dL 7-18 [facility] Work Phone: Thin prep Papanicolaou smear with manual screeningon 12-19-2021 Thin prep Papanicolaou smear with manual screening 2 5-15 [facility] Work Phone: Vital Signs Date Time Vital Sign Value Performing Clinician Faci lity 04-13-2025 09:44-0400 Body height 165.1 cm Sera Harding MD Work Phone: [facility] 04-13-2025 09:44-0400 Body mass index (BMI) [Ratio] 57.51 kg/m2 Sera Harding MD Work Phone: [facility] 04-13-2025 09:44-0400 Body weight 156.76 kg Sera Harding MD Work Phone: [facility] 04-13-2025 09:44-0400 Diastolic blood pressure 68 mm[Hg] Sera Harding MD Work Phone: [facility] 04-13-2025 09:44-0400 Systolic blood pressure 102 mm[Hg] Sera Harding MD Work Phone: [facility] 01-21-2025 11:20-0400 Body height 162.[address] Teressa Aguiar MD Work Phone: [facility] 01-21-2025 11:20-0400 Body mass index (BMI) [Ratio] 60.2 kg/m2 Dr. Teressa Aguiar MD Work Phone: [facility] 01-21-2025 11:20-0400 Body temperature 97.8 [degF] Dr. Teressa Aguiar MD Work Phone: [facility] 01-21-2025 11:20-0400 Body weight 159.[address] Treessa Aguiar MD Work Phone: [facility] 01-21-2025 11:20-0400 Diastolic blood pressure 88 mm[Hg] Dr. Teressa Aguiar MD Work Phone: [facility] 01-21-2025 11:20-0400 Heart rate 118 /min Dr. Teressa Aguiar MD Work Phone: [facility] 01-21-2025 11:20-0400 Respiratory rate 18 /min Dr. Teressa Aguiar MD Work Phone: [facility] 01-21-2025 11:20-0400 SaO2% (BldA) [Mass fraction] 98 % Dr. Teressa Aguiar MD Work Phone: [facility] 01-21-2025 11:20-0400 Systolic blood pressure 143 mm[Hg] Dr. Teressa Aguiar MD Work Phone: [facility] 01-14-2025 22:14-0400 Body temperature 98.3 [degF] Dr. Teressa Aguiar MD Work Phone: [facility] 01-14-2025 22:14-0400 Diastolic blood pressure 87 mm[Hg] Dr. Teressa Aguiar MD Work Phone: [phone])[phone] [place] [address] 01-14-2025 22:14-0400 Heart rate 98 /min Dr. Teressa Aguiar MD Work Phone: 8(775)[phone] [place] [address] 01-14-2025 22:14-0400 Respiratory rate 16 /min Dr. Teressa Aguiar MD Work Phone: 2(792)[phone] [place] [address] 01-14-2025 22:14-0400 SaO2% (BldA) [Mass fraction] 97 % Dr. Teressa Aguiar MD Work Phone: [phone] [place] [address] 01-14-2025 22:14-0400 Systolic blood pressure 139 mm[Hg] Dr. Teressa Aguiar MD Work Phone: 6(488)[phone] [place] [address] 01-14-2025 19:05-0400 Body height 162.[address] Teressa Aguiar MD Work Phone: 8(509)[phone] [place] [address] 11-07-2024 09:30-0500 Body mass index (BMI) [Ratio] 58.3 kg/m2 Dr. Teressa Aguiar MD Work Phone: 5(659)[phone] [place] [address] 11-07-2024 09:30-0500 Body weight 154.[address] Teressa Aguiar MD Work Phone: 6(349)[phone] [place] [address] 10-21-2024 07:16-0500 Body temperature 97.3 [degF] Dr. Teressa Aguiar MD Work Phone: 7(104)[phone] [place] [address] 10-21-2024 07:16-0500 Diastolic blood pressure 99 mm[Hg] Dr. Teressa Aguiar MD Work Phone: 3(295)[phone] [place] [address] 10-21-2024 07:16-0500 Heart rate 85 /min Dr. Teressa Aguiar MD Work Phone: 2(281)[phone] [place] [address] 10-21-2024 07:16-0500 Respiratory rate 18 /min Dr. Teressa Aguiar MD Work Phone: 4([phone] [place] [address] 10-21-2024 07:16-0500 SaO2% (BldA) [Mass fraction] 97 % Dr. Teressa Aguiar MD Work Phone: [facility] 10-21-2024 07:16-0500 Systolic blood pressure 137 mm[Hg] Dr. Teressa Aguiar MD Work Phone: [facility] 10-21-2024 03:52-0500 Body mass index (BMI) [Ratio] 59.7 kg/m2 Dr. Teressa Aguiar MD Work Phone: [facility] 10-21-2024 03:52-0500 Body weight 157.[address] Teressa Aguiar MD Work Phone: [facility] 06-12-2023 11:23-0400 Heart rate 117 /min [facility] 06-12-2023 11:23-0400 SaO2% (BldA) [Mass fraction] 99 % [facility] 06-12-2023 11:13-0400 Body height 162.56 cm [facility] 06-12-2023 11:13-0400 Body mass index (BMI) [Ratio] 56.4 kg/m2 [facility] 06-12-2023 11:13-0400 Body temperature 98.2 [degF] [facility] 06-12-2023 11:13-0400 Body weight 149.14 kg [facility] 06-12-2023 11:13-0400 Diastolic blood pressure 97 mm[Hg] [facility] 06-12-2023 11:13-0400 Respiratory rate 18 /min [facility] 06-12-2023 11:13-0400 Systolic blood pressure 140 mm[Hg] [facility] 02-15-2023 10:56-0400 Body temperature 97.4 [degF] [facility] 02-15-2023 10:56-0400 Diastolic blood pressure 75 mm[Hg] [facility] 02-15-2023 10:56-0400 Heart rate 98 /min [facility] 02-15-2023 10:56-0400 Respiratory rate 20 /min [facility] 02-15-2023 10:56-0400 SaO2% (BldA) [Mass fraction] 98 % [facility] 02-15-2023 10:56-0400 Systolic blood pressure 139 mm[Hg] [facility] 02-15-2023 07:22-0400 Body height 162.56 cm [facility] 02-15-2023 07:22-0400 Body mass index (BMI) [Ratio] 56.9 kg/m2 [facility] 02-15-2023 07:22-0400 Body weight 150.5 kg [facility] 12-02-2022 10:24-0500 Diastolic blood pressure 90 mm[Hg] [facility] 12-02-2022 10:24-0500 Heart rate 101 /min [facility] 12-02-2022 10:24-0500 Respiratory rate 16 /min [facility] 12-02-2022 10:24-0500 SaO2% (BldA) [Mass fraction] 100 % [facility] 12-02-2022 10:24-0500 Systolic blood pressure 134 mm[Hg] [facility] 12-02-2022 09:09-0500 Body height 162.56 cm [facility] 12-02-2022 09:09-0500 Body mass index (BMI) [Ratio] 58.3 kg/m2 [facility] 12-02-2022 09:09-0500 Body temperature 97 [degF] [facility] 12-02-2022 09:09-0500 Body weight 154.3 kg [facility] 08-09-2022 07:59-0500 Body temperature 97.3 [degF] [facility] 08-09-2022 07:59-0500 Diastolic blood pressure 83 mm[Hg] [facility] 08-09-2022 07:59-0500 Heart rate 97 /min [facility] 08-09-2022 07:59-0500 Respiratory rate 16 /min [facility] 08-09-2022 07:59-0500 SaO2% (BldA) [Mass fraction] 98 % [facility] 08-09-2022 07:59-0500 Systolic blood pressure 134 mm[Hg] [facility] 08-08-2022 22:51-0400 Body height 162.99 cm [facility] Work Phone: 08-08-2022 22:51-0400 Body mass index (BMI) [Ratio] 60.2 kg/m2 [facility] 08-08-2022 22:51-0400 Body weight 160 kg [facility] 08-08-2022 22:02-0400 Body temperature 98.1 [degF] [facility] Work Phone: 08-08-2022 22:02-0400 Diastolic blood pressure 98 mm[Hg] [facility] Work Phone: 08-08-2022 22:02-0400 Heart rate 104 /min [facility] Work Phone: 08-08-2022 22:02-0400 Respiratory rate 17 /min [facility] Work Phone: 08-08-2022 22:02-0400 SaO2% (BldA) [Mass fraction] 99 % [facility] Work Phone: 08-08-2022 22:02-0400 Systolic blood pressure 145 mm[Hg] [facility] Work Phone: 08-08-2022 18:24-0400 Body height 162.56 cm [facility] Work Phone: 08-08-2022 18:24-0400 Body mass index (BMI) [Ratio] 59.8 kg/m2 [facility] Work Phone: 08-08-2022 18:24-0400 Body weight 158 kg [facility] Work Phone: 02-12-2022 11:16-0400 Body height 162.56 cm [facility] Work Phone: 02-12-2022 11:16-0400 Body mass index (BMI) [Ratio] 40.1 kg/m2 [facility] Work Phone: 02-12-2022 11:16-0400 Body temperature 99 [degF] [facility] Work Phone: 02-12-2022 11:16-0400 Body weight 106 kg [facility] Work Phone: 02-12-2022 11:16-0400 Diastolic blood pressure 100 mm[Hg] [facility] Work Phone: 02-12-2022 11:16-0400 Heart rate 118 /min [facility] Work Phone: 02-12-2022 11:16-0400 Respiratory rate 18 /min [facility] Work Phone: 02-12-2022 11:16-0400 SaO2% (BldA) [Mass fraction] 100 % [facility] Work Phone: 02-12-2022 11:16-0400 Systolic blood pressure 160 mm[Hg] [facility] Work Phone: 01-13-2022 09:31-0400 Body temperature 98 [degF] [facility] Work Phone: 01-13-2022 09:31-0400 Diastolic blood pressure 84 mm[Hg] [facility] Work Phone: 01-13-2022 09:31-0400 Heart rate 84 /min [facility] Work Phone: 01-13-2022 09:31-0400 Respiratory rate 16 /min [facility] Work Phone: 01-13-2022 09:31-0400 SaO2% (BldA) [Mass fraction] 97 % [facility] Work Phone: 01-13-2022 09:31-0400 Systolic blood pressure 132 mm[Hg] [facility] Work Phone: 01-13-2022 07:00-0400 Body height 162.56 cm [facility] Work Phone: 2 07:00-0400 Body mass index (BMI) [Ratio] 59.4 kg/m2 [facility] Work Phone: 01-13-2022 07:00-0400 Body weight 157 kg [facility] Work Phone: 12-19-2021 19:37-0400 Diastolic blood pressure 76 mm[Hg] [facility] Work Phone: 12-19-2021 19:37-0400 Heart rate 79 /min [facility] Work Phone: 12-19-2021 19:37-0400 Respiratory rate 18 /min [facility] Work Phone: 12-19-2021 19:37-0400 SaO2% (BldA) [Mass fraction] 98 % [facility] Work Phone: 12-19-2021 19:37-0400 Systolic blood pressure 128 mm[Hg] [facility] Work Phone: 12-19-2021 13:25-0400 Body mass index (BMI) [Ratio] 63.5 kg/m2 [facility] Work Phone: 12-19-2021 13:25-0400 Body temperature 97.9 [degF] [facility] Work Phone: 12-19-2021 13:25-0400 Body weight 167.82 kg [facility] Work Phone: Encounters Encounter Date Encounter Type Care Provider Facility Start: 04-20-2025 End: 04-20-2025 Patient encounter procedure [facility]/Gynecology Start: 04-20-2025 End: 04-20-2025 ambulatory [facility] Work Phone: OB/Gynecology Start: 04-16-2025 End: 04-16-2025 Follow-up encounter Sera Harding MD Work Phone: OB/Gynecology Start: 04-13-2025 End: 04-13-2025 ambulatory SERA HARDING Facility:[facility] Start: 04-13-2025 End: 04-13-2025 Patient encounter procedure Sera Harding MD Work Phone: OB/Gynecology Comment on above: History of irregular menstrual cycles (Primary Dx); DUB (dysfunctional uterine bleeding); Class 3 severe obesity with body mass index (BMI) of 50.0 to 59.9 in adult, unspecified obesity type, unspecified whether serious comorbidity present (HCC) Start: 04-13-2025 End: 04-13-2025 ambulatory SERA HARDING Facility:[facility] Start: 01-21-2025 End: 01-21-2025 Emergency department patient visit Dr. Teressa Agiuar MD Work Phone: -Emergency Department Work Phone: Start: 01-14-2025 End: 01-14-2025 Emergency department patient visit Dr. Teressa Aguiar MD Work Phone: -Emergency Department Work Phone: Start: 01-09-2025 End: 01-09-[address] Teressa Aguiar MD Work Phone: [facility] Work Phone: Start: 01-09-2025 End: 01-09-[address] Teressa Aguiar MD -Laboratory, [place] Start: 01-09-2025 End: 01-09-2025 ambulatory Teressa Aguiar Facility:[facility] Start: 11-18-2024 Encounter for antibo dy response examination Teressa Aguiar [facility] Start: 11-17-2024 ambulatory Teressa Aguiar Facility:[facility] Start: 11-13-2024 ambulatory Teressa Aguiar Facility:[facility] Start: 11-07-2024 End: 11-07-[address] Marco Freitas MD -[facility] Work Phone: Start: 11-07-2024 End: 11-07-2024 ambulatory Teressa Aguiar Facility:[facility] Start: 10-31-2024 End: 10-31-[address] Teressa Aguiar MD -Laboratory, [place] Start: 10-31-2024 End: 10-31-2024 ambulatory Teressa Aguiar Facility:[facility] Start: 10-29-2024 End: 10-29-2024 [facility] Start: 10-21-2024 End: 10-21-2024 Emergency department patient visit Garrisonluis alberto Millan -Emergency Department Work Phone: Start: 08-24-2024 ambulatory Teressa Aguiar Facility:[facility] Start: 06-13-2024 End: 06-13-2024 ambulatory Teressa Aguiar Facility:[facility] Start: 05-28-2024 End: 05-28-2024 Emergency department patient visit Teressa Aguiar Facility:[facility] Start: 03-16-2024 ambulatory Teressa Aguiar Facility:[facility] Start: 03-09-2024 End: 03-09-2024 ambulatory Teressa Aguiar Facility:[facility] Start: 03-02-2024 End: 03-02-2024 Emergency department patient visit Teressa Aguiar Facility:[facility] Start: 06-12-2023 End: 06-12-2023 Emergency department patient visit [facility]-Emergency Department Work Phone: Start: 02-15-2023 End: 02-15-2023 Admission to same day surgery center [facility] Day [facility] Start: 02-15-2023 End: 02-15-2023 ambulatory [facility] Work Phone: Start: 12-02-2022 End: 12-02-2022 Emergency department patient visit [facility]-Emergency Department Start: 08-17-2022 End: 08-17-2022 ambulatory [facility] Work Phone: Start: 08-17-2022 End: 08-17-2022 Patient encounter procedure [facility], [place] Start: 08-08-2022 End: 08-09-2022 Evaluation and management of inpatient [facility]-Medical Surgical 3 Start: 08-08-2022 End: 08-09-2022 observation encounter [facility] Work Phone: Start: 08-08-2022 Evaluation and management of inpatient [facility]-Medical Surgical 3 Start: 08-08-2022 observation encounter [facility] Work Phone: Start: 02-12-2022 End: 02-12-2022 Emergency department patient visit [facility]-Emergency Department Start: 01-13-2022 End: 01-13-2022 Admission to same day surgery center [facility] Start: 12-19-2021 End: 12-19-2021 Emergency department patient visit [facility]-Emergency Department Procedures Date Procedure Procedure Detail Performing Clinician Start: 04-20-2025 Us pelvic nonobstetr ic real-time image complete Sera Harding MD Work Phone: Start: 01-21-2025 X-ray of knee, four or more views Dr. Teressa Aguiar MD Work Phone: Start: 01-14-2025 Computed tomography of abdomen and pelvis with intravenous contrast Dr. Teressa Aguiar MD Work Phone: Start: 11-07-2024 Plain x-ray of wrist Dr María Elena Aguiar MD Work Phone: Start: 11-07-2024 X-ray of knee, four or more views Dr[address] Teressa Aguiar MD Work Phone: Start: 06-12-2023 Plain x-ray of hand Start: 02-15-2023 Laparoscopic salpingectomy Start: 12-02-2022 Radiography of ankle Start: 01-13-2022 Myringotomy,Tubes (Bilateral) Start: 01-12-2022 End: 01-12-2022 Viral antigen assay Start: 12-19-2021 CT angiography of ch est with contrast Start: 12-19-2021 Plain chest X-ray Plan of Treatment Date Care Activity Detail Author Start: 06-11-2025 End: 06-11-2025 Patient encounter procedure 06/11/2025 9:40 AM EDT Office Visit OB/Gynecology [address] [place] [address] Sera Harding MD [address] [place] [address] annual/ follow up to OB/Gynecology Comment on above: annual/ follow up to Start: 06-07-2025 End: 06-07-2025 Patient encounter procedure 06/07/2025 8:40 AM EDT Office Visit OB/Gynecology [address] [place] [address] Sera Harding MD [address] [place] [address] annual OB/Gynecology Comment on above: annual Start: 06-04-2025 Influenza vaccination Influenz a Vaccine (#1) [facility] Start: 05-18-2025 End: 05-18-2025 Patient encounter procedure OB/Gynecology Comment on above: follow up follow up/EMB Start: 04-20-2025 End: 04-20-2025 ambulatory 04/20/2025 2:00 PM EDT Procedure OB/Gynecology [address] [place] [address] Remote, [facility] [address] [address] [place] [address] History of irregular menstrual cycles [Z87.42]; DUB (dysfunctional uterine bleeding) [N93.8]; Class 3 severe obesity with body mass index (BMI) of 50.0 to 59.9 in adult, unspecified obesity type, unspecified whether serious comorbidity present (HCC) [E66.813, Z68.43] OB/Gynecology Comment on above: History of irregular menstrual cycles [Z87.42]; DUB (dysfunctional uterine bleeding) [N93.8]; Class 3 severe obesity with body mass index (BMI) of 50.0 to 59.9 in adult, unspecified obesity type, unspecified whether serious comorbidity present (HCC) [E66.813, Z68.43] Start: 04-13-2025 End: 07-13-2025 17-Hydroxyprogesterone [Mass/volume] in Serum or Plasma [facility] Comment on above: Expected: 04/13/2025 , Expires: 07/13/2025 Start: 04-13-2025 End: 07-13-2025 DHEA-S BLD [facility] Comment on above: Expected: 04/13/2025 , Expires: 07/13/2025 Start: 04-13-2025 End: 07-13-2025 Estradiol (E2) [Mass/volume] in Serum or Plasma [facility] Comment on above: Expected: 04/13/2025 , Expires: 07/13/2025 Start: 04-13-2025 End: 07-13-2025 Follitropin [Units/volume] in Serum or Plasma [facility] Comment on above: Expected: 04/13/2025 , Expires: 07/13/2025 Start: 04-13-2025 End: 07-13-2025 Hemoglobin A1c in Blood [facility] Comment on above: Expected: 04/13/2025 , Expires: 07/13/2025 Start: 04-13-2025 End: 07-13-2025 Lipid 1996 panel - Serum or Plasma [facility] Comment on above: Expected: 04/13/2025 , Expires: 07/13/2025 Start: 04-13-2025 End: 07-13-2025 Prolactin [Mass/volume] in Serum or Plasma [facility] [employer] Work Phone: Comment on above: Expected: 04/13/2025 , Expires: 07/13/2025 Start: 04-13-2025 End: 07-13-2025 Testosterone [Mass/volume] in Serum or Plasma [facility] Comment on above: Expected: 04/13/2025 , Expires: 07/13/2025 Start: 04-13-2025 End: 04-13-2026 US Pelvis PELVIC US [facility] Routine History of irregular menstrual cycles DUB (dysfunctional uterine bleeding) Class 3 severe obesity with body mass index (BMI) of 50.0 to 59.9 in adult, unspecified obesity type, unspecified whether serious comorbidity present (HCC) Expected: 04/13/2025, Expires: 04/13/2026 [facility] Comment on above: Expected: 04/13/2025 , Expires: 04/13/2026 Start: 01-21-2025 [facility] Start: 01-14-2025 [facility] Start: 12-07-2024 Hepatitis B Vaccine (2 of 3 - 19+ 3-dose series) Hepatitis B Vaccine (2 of 3 - 19+ 3-dose series) [facility] Start: 11-09-2024 Patient referral [facility] Work Phone: Start: 10-21-2024 [facility] Start: 06-04-2024 Covid-19 Vaccine ( season) Covid-19 Vaccine ( season) [facility] Start: 02-15-2023 Anesthesia intraperi toneal lower abd w/laps nos ANESTH SURG LOWER ABDOMEN [facility] Start: 02-15-2023 Laparoscopy w/rmvl a dnexal structures LAPAROSCOPY REMOVE ADNEXA [facility] Start: 02-15-2023 Introduction of urin amy catheter [facility] Start: 02-15-2023 Patient discharge [facility] Start: 02-15-2023 Ambulation therapy management [facility] Start: 02-15-2023 Continuous pulse oximetry [facility] Start: 02-15-2023 Elevation of head of bed [facility] Start: 02-15-2023 Incentive spirometry [facility] Start: 02-15-2023 Measuring intake and output [facility] Start: 02-15-2023 Notification of physician [facility] Start: 02-15-2023 End: 02-15-2023 Oxygen therapy [facility] Start: 02-15-2023 Patient education [facility] Start: 02-15-2023 Taking patient vital signs [facility] Start: 02-15-2023 Wound care [facility] Start: 02-15-2023 [facility] Start: 08-09-2022 Patient discharge [facility] Start: 08-09-2022 [facility] Start: 08-08-2022 Following clinical p athway protocol [facility] Start: 08-08-2022 Admission procedure [facility] Start: 02-12-2022 Plain x-ray of hand Hand Min 3 Views [facility] Work Phone: Start: 01-13-2022 Anes xtrnl mid & inn er ear w/bx tympanotomy ANESTH TYMPANOTOMY [facility] Work Phone: Start: 01-13-2022 Tympanostomy general anesthesia CREATE EARDRUM OPENING [facility] Work Phone: Start: 2016 Screening for malign ant neoplasm of cervix Cervical Cancer Screening [facility] Start: 2014 Urine microalbumin profile DTa P,Tdap,Td Vaccine (1 - Tdap) [facility] Start: 2013 Anxiety Screening Anxiety Screening [facility] Start: 2013 Depression Screening Depression Scre ening [facility] Start: 2013 Hepatitis C screening Hepatitis C Sc reening [facility] Start: 2013 HIV screening [facility] Bilirubin measuremen t, urine [facility] Endometrial bx w/wo endocervix bx w/o dilat spx ENDOMETRIAL BIOPSY Procedures Routine History of irregular menstrual cycles DUB (dysfunctional uterine bleeding) Class 3 severe obesity with body mass index (BMI) of 50.0 to 59.9 in adult, unspecified obesity type, unspecified whether serious comorbidity present (HCC) Ordered: 04/13/2025 [facility] Comment on above: Ordered: 04/13/2025 Hemoglobin [Presence ] in Urine [facility] Measurement of keton es in urine using dipstick [facility] Microscopic urinalysis [facility] Nucleic acid assay [facility] Patient Education [facility] Work Phone: Patient referral [facility] Work Phone: pH of Urine [facility] Specific gravity of Urine [facility] Urine blood test [facility] Urine dipstick for glucose [facility] Urine dipstick for leukocyte esterase [facility] Urine dipstick for nitrite [facility] Urine dipstick for protein [facility] Urine examination [facility] Urine microscopy: epithelial cells [facility] Urine Microscopy: wh ite cells [facility] Urobilinogen [Presen ce] in Urine [facility] Immunizations Immunization Date Immunization Notes Care Provider Fa cility 07-08-2021 Covid (Moderna) [facility] 05-16-2021 Covid (Moderna) [facility] 07-28-2017 influenza, injectabl e, quadrivalent, preservative free [facility] 07-28-2017 influenza, seasonal, injectable [facility] 07-28-2017 influenza virus vaccine, unspecified formulation Sera Harding MD Work Phone: [facility] Payers Date Payer Category Payer Self-pay [id number] 2023 Medicaid [employer] [id number] 2017 Unknown [id number] 2017 Unknown [id number] 1995 Unknown [id number] Unknown [id number] Unknown [id number] Unknown [id number] Unknown [id number] Unknown [id number] Unknown [id number] Unknown [id number] Unknown [id number] Unknown [id number] Unknown [id number] Unknown [id number] Unknown [id number] Unknown [id number] Unknown [id number] Unknown [id number] Social History Date Type Detail Facility [facility] Work Phone: Start: 01-06-2022 End: 06-12-2023 Tobacco smoking status NHIS Unknown if ever smoked [facility] Start: 12-09-2020 Occasional [facility] Start: 12-09-2020 None [facility] Start: 12-09-2020 Alone [facility] Start: 03-20-2020 Non-smoker [facility] Start: 1995 Sex Assigned At Female [facility] Start: 01-14-2025 End: 01-21-2025 Tobacco smoking status NHIS Current some day smoker [facility] Start: 01-14-2025 End: 01-21-2025 Sex Female (finding) [facility] Start: 04-13-2025 Tobacco smoking stat us NHIS Never smoked tobacco [facility] Start: 04-13-2025 Tobacco use and exposure Smokeless tobacco non-user [facility] Start: 04-13-2025 Alcoholic beverage intake Ex-drinker (finding) [facility] Start: 04-13-2025 History of Social function [facility] Start: 04-13-2025 Tobacco use panel [facility] National Score (1-100), lower number is lower risk 90 [facility] Start: 12-16-2024 Gender identity Identifies as female gender (finding) [facility] Start: 12-16-2024 Sexual orientation Heterosexual (eduarda monet) [facility] NEGATED: Highlighted row [facility] Medical Equipment Procedure Code Equipment Code Equipment Origin al Text Equipment Identifier Dates TUBE, EAR SIGALA FDA Start: 03-26-2020 TUBE, EAR SIGALA FDA Start: 03-26-2020 TUBE, EAR SIGALA FDA Start: 03-26-2020 TUBE, EAR SIGALA FDA Start: 03-26-2020 TUBE, EAR SIGALA FDA Start: 01-13-2022 TUBE, EAR SIGALA FDA Start: 01-13-2022 TUBE, EAR SIGALA FDA Start: 03-26-2020 TUBE, EAR SIGALA FDA Start: 03-26-2020 TUBE, EAR SIGALA FDA Start: 01-13-2022 TUBE, EAR SIGALA FDA Start: 01-13-2022 TUBE, EAR SIGALA FDA Start: 03-26-2020 TUBE, EAR SIGALA FDA Start: 03-26-2020 TUBE, EAR SIGALA FDA Start: 01-13-2022 TUBE, EAR SIGALA FDA Start: 01-13-2022 TUBE, EAR SIGALA FDA Start: 03-26-2020 TUBE, EAR SIGALA FDA Start: 03-26-2020 TUBE, EAR SIGALA FDA Start: 01-13-2022 TUBE, EAR SIGALA FDA Start: 01-13-2022 TUBE, EAR SIGALA FDA Start: 03-26-2020 TUBE, EAR SIGALA FDA Start: 03-26-2020 TUBE, EAR SIGALA FDA Start: 01-13-2022 TUBE, EAR SIGALA FDA Start: 01-13-2022 TUBE, EAR SIGALA FDA Start: 03-26-2020 TUBE, EAR SIGALA FDA Start: 03-26-2020 TUBE, EAR SIGALA FDA Start: 01-13-2022 TUBE, EAR SIGALA FDA Start: 01-13-2022 TUBE, EAR SIGALA FDA Start: 03-26-2020 TUBE, EAR SIGALA FDA Start: 03-26-2020 TUBE, EAR SIGALA FDA Start: 01-13-2022 TUBE, EAR SIGALA FDA Start: 01-13-2022 TUBE, EAR SIGALA FDA Start: 03-26-2020 TUBE, EAR SIGALA FDA Start: 03-26-2020 TUBE, EAR SIGALA FDA Start: 01-13-2022 TUBE, EAR SIGALA FDA Start: 01-13-2022 TUBE, EAR SIGALA FDA Start: 03-26-2020 TUBE, EAR SIGALA FDA Start: 03-26-2020 TUBE, EAR SIGALA FDA Start: 01-13-2022 TUBE, EAR SIGALA FDA Start: 01-13-2022 TUBE, EAR SIGALA FDA Start: 03-26-2020 TUBE, EAR SIGALA FDA Start: 03-26-2020 TUBE, EAR SIGALA FDA Start: 01-13-2022 TUBE, EAR SIGALA FDA Start: 01-13-2022 Goals Date Patient Goal Desired Activity /State Functional Status Date Assessment Result Facility 08-09-2022 Functional status Up ad shannon [facility] Work Phone: Mental Status Date Assessment Result Facility 02-15-2023 Cognitive function Level Of Cons ciousness Awake;Alert;Appropriate;Follow s Commands [facility] Work Phone: 02-15-2023 Cognitive function Patient Orien tation Person;Place;Time [facility] Work Phone: 08-09-2022 Cognitive function Appropriate;Cooperativ e [facility] Work Phone: 01-13-2022 Cognitive function Voice/Name [facility] Work Phone: 12-19-2021 Cognitive function Level Of Cons ciousness Awake;Alert;Appropriate;Follow s Commands [facility] Work Phone: Clinical Notes 02-15-2023 to 04-24-2025 Gracia Smith MD - 04/24/2025 7:32 PM EDTSera Harding MD - 04/13/2025 9:36 AM EDT Note Date & Type Note Facility 04-24-2025 Note HNO ID: [id number] Author: GRACIA SMITH MD Service: ? Author Type: Physician Type: Progress Notes Filed: 04/24/2025 19:36 Note Text: Sergio Parrish is a 29 year old female who presented for cullet crusher and washer ultrasound today. Encounter Diagnosis ICD-10-CM 1. History of irregular menstrual cycles Z87.42 2. DUB (dysfunctional uterine bleeding) N93.8 3. Class 3 severe obesity with body mass index (BMI) of 50.0 to 59.9 in adult, unspecified obesity type, unspecified whether serious comorbidity present (HCC) E66.813 Z68.43 Please see report under imaging tab. Gracia Smith MD April 24, 2025 7:32 PM [facility] 04-24-2025 History of Present illness Narrative Sergio Parrish is a 29 year old female who presented for cullet crusher and washer ultrasound today. Encounter Diagnosis ICD-10-CM 1. History of irregular menstrual cycles Z87.42 2. DUB (dysfunctional uterine bleeding) N93.8 3. Class 3 severe obesity with body mass index (BMI) of 50.0 to 59.9 in adult, unspecified obesity type, unspecified whether serious comorbidity present (HCC) E66.813 Z68.43 Please see report under imaging tab. Gracia Smith MD April 24, 2025 7:32 PM documented in this encounter [facility] 04-13-2025 Note HNO ID: [id number] Author: SERA HARDING MD Service: ? Author Type: Physician Type: Progress Notes Filed: 04/13/2025 13:21 Note Text: Sergio Parrish is a 29 year old female who presents as a new patient to discuss a hysterectomy. HPI: Was being seeing at [facility] [address] previously. She is a new patient to our office. She desires a hysterectomy. She goes 2-3 months without menses, and then when she has a period it is very heavy. Bleeding through pads and tampons on heaviest days. Has to change a tampon every time she uses the restroom. Bleeding lasts 3-4 days. Menarche at age 15. Menstrual cycles have always been irregular. Currently not sexually active. Has tubal sterilization. Last sexually active 4 months ago. Pap smears have always been normal. The patient is single currently. Has a 7 year old daughter Ana Rosa. Currently on Ozempic through Dr. Teressa Aguiar at [place]. Has tried the depo and ocp in the past. Had recent normal TSH with PCP 01/2025. OB History No obstetric history on file. [employer] History LMP: 04/11/2025, Having periods Age at Menarche: 14 Age at First : Age at Menopause: [employer] History Comments: Sexual Activity: Not Currently; No partner data on record Contraception: Tubal Ligation Menstrual Tracking History Flowsheet Row Appointment from 02/09/2025 in OB/Gynecology Most recent reading at 12/16/2024 10:10 AM Appointment from 12/21/2024 in OB/Gynecology Most recent reading at 12/16/2024 10:10 AM Period Duration (Days) 4 4 Menstrual Flow Heavy Heavy History reviewed. No pertinent past medical history. PAST SURGICAL HISTORY Procedure Laterality Date LIGATE FALLOPIAN TUBE 2022 TONSILLECTOMY AND ADENOIDECTOMY TYMPANOSTOMY W/INNER EAR FAMILY HISTORY Problem Relation Age of Onset No Known Problems Mother Colon Cancer Father No Known Problems Sister No Known Problems Sister No Known Problems Brother No Known Problems Brother No Known Problems Brother No Known Problems Maternal Grandmother Hypertension Maternal Grandfather Stroke Maternal Grandfather Social History Tobacco Use Smoking status: Never Smokeless tobacco: Never Vaping Use Vaping status: Former Substance Use Topics Alcohol use: Not Currently Drug use: Never Current Outpatient Medications Medication Sig albuterol HFA (PROVENTIL HFA, VENTOLIN HFA) 90 mcg/actuation inhaler inhale 1-2 Puff every 6 hours as needed for cough, short of breath buPROPion SR (WELLBUTRIN SR) 100 mg 12 hr tablet Take 100 mg by mouth two times a day. naltrexone capsule 5 mg (CPD) Take 8 mg by mouth two times a day. semaglutide (OZEMPIC) 0.25 mg or 0.5 mg(2 mg/1.5 mL) pen Inject 0.25 mg subcutaneously one time a week. No current facility-administered medications for this visit. Allergies As of Date: 04/13/2025 (No Known Allergies) Fully Assessed 04/13/2025 REVIEW OF SYSTEMS Expanded ROS: N/A Allergies and current medication updated:Yes SENSITIVE EXAM: Sensitive exam not performed. EXAM: BP 102/68 Ht 5' 5 (1.65m) Wt 345 lb 9.6 oz (156.8kg) LMP 04/11/2025 BMI 57.51 kg/(m2). GENERAL: pleasant, female in no apparent distress HEENT: Normocephalic and atraumatic NECK: full range of motion CHEST: Normal inspiratory effort NEURO: exam grossly non-focal EXTREMITIES: normal ASSESSMENT AND PLAN: Assessment AND Plan History of irregular menstrual cycles Orders: PROLACTIN; Future DHEA-S BLD; Future TESTOSTERONE, TOTAL BY IMMUNOASSAY (ADULT MALES, OR INDIVIDUALS ON TESTOSTERONE THERAPY); Future HYDROXYPROGESTERONE-17; Future LIPID PANEL, FASTING; Future FOLLICLE STIMULATING HORMONE; Future HEMOGLOBIN A1C; Future ESTRADIOL-17B BLD; Future PELVIC US WHI; Future GLUCOSE, FASTING; Future ENDOMETRIAL BIOPSY norethindrone (AYGESTIN) 5 mg tablet; Take 1 tablet by mouth as directed. one by mouth tid x 3 days, bid x 3 days, then daily for up to 10 days DUB (dysfunctional uterine bleeding) Orders: PROLACTIN; Future DHEA-S BLD; Future TESTOSTERONE, TOTAL BY IMMUNOASSAY (ADULT MALES, OR INDIVIDUALS ON TESTOSTERONE THERAPY); Future HYDROXYPROGESTERONE-17; Future LIPID PANEL, FASTING; Future FOLLICLE STIMULATING HORMONE; Future HEMOGLOBIN A1C; Future ESTRADIOL-17B BLD; Future PELVIC US WHI; Future GLUCOSE, FASTING; Future ENDOMETRIAL BIOPSY norethindrone (AYGESTIN) 5 mg tablet; Take 1 tablet by mouth as directed. one by mouth tid x 3 days, bid x 3 days, then daily for up to 10 days Class 3 severe obesity with body mass index (BMI) of 50.0 to 59.9 in adult, unspecified obesity type, unspecified whether serious comorbidity present (HCC) Orders: PROLACTIN; Future DHEA-S BLD; Future TESTOSTERONE, TOTAL BY IMMUNOASSAY (ADULT MALES, OR INDIVIDUALS ON TESTOSTERONE THERAPY); Future HYDROXYPROGESTERONE-17; Future LIPID PANEL, FASTING; Future FOLLICLE STIMULATING HORMONE; Future HEMOGLOBIN A1C; Future ESTRADIOL-17B BLD; Futur (more content not included)... [facility] 04-13-2025 History of Present illness Narrative Sergio Parrish is a 29 year old female who presents as a new patient to discuss a hysterectomy. HPI: Was being seeing at [facility] previously. She is a new patient to our office. She desires a hysterectomy. She goes 2-3 months without menses, and then when she has a period it is very heavy. Bleeding through pads and tampons on heaviest days. Has to change a tampon every time she uses the restroom. Bleeding lasts 3-4 days. Menarche at age 15. Menstrual cycles have always been irregular. Currently not sexually active. Has tubal sterilization. Last sexually active 4 months ago. Pap smears have always been normal. The patient is single currently. Has a 7 year old daughter Ana Rosa. Currently on Ozempic through Dr. Teressa Aguiar at [place]. Has tried the depo and ocp in the past. Had recent normal TSH with PCP 01/2025. OB History No obstetric history on file. Rough Rib Grader History LMP: 04/11/2025, Having periods Age at Menarche: 14 Age at First : Age at Menopause: Rough Rib Grader History Comments: Sexual Activity: Not Currently; No partner data on record Contraception: Tubal Ligation Menstrual Tracking History Flowsheet Row Appointment from 02/09/2025 in OB/Gynecology Most recent reading at 12/16/2024 10:10 AM Appointment from 12/21/2024 in OB/Gynecology Most recent reading at 12/16/2024 10:10 AM Period Duration (Days) 4 4 Menstrual Flow Heavy Heavy History reviewed. No pertinent past medical history. PAST SURGICAL HISTORY Procedure Laterality Date LIGATE FALLOPIAN TUBE 2022 TONSILLECTOMY & ADENOIDECTOMY <AGE 12 TYMPANOSTOMY W/INNER EAR FAMILY HISTORY Problem Relation Age of Onset No Known Problems Mother Colon Cancer Father No Known Problems Sister No Known Problems Sister No Known Problems Brother No Known Problems Brother No Known Problems Brother No Known Problems Maternal Grandmother Hypertension Maternal Grandfather Stroke Maternal Grandfather Social History Tobacco Use Smoking status: Never Smokeless tobacco: Never Vaping Use Vaping status: Former Substance Use Topics Alcohol use: Not Currently Drug use: Never Current Outpatient Medications Medication Sig albuterol HFA (PROVENTIL HFA, VENTOLIN HFA) 90 mcg/actuation inhaler inhale 1-2 Puff every 6 hours as needed for cough, short of breath buPROPion SR (WELLBUTRIN SR) 100 mg 12 hr tablet Take 100 mg by mouth two times a day. naltrexone capsule 5 mg (CPD) Take 8 mg by mouth two times a day. semaglutide (OZEMPIC) 0.25 mg or 0.5 mg(2 mg/1.5 mL) pen Inject 0.25 mg subcutaneously one time a week. No current facility-administered medications for this visit. Allergies As of Date: 04/13/2025 (No Known Allergies) Fully Assessed 04/13/2025 REVIEW OF SYSTEMS Expanded ROS: N/A Allergies and current medication updated:Yes SENSITIVE EXAM: Sensitive exam not performed. EXAM: BP 102/68 Ht 5' 5 (1.65m) Wt 345 lb 9.6 oz (156.8kg) LMP 04/11/2025 BMI 57.51 kg/(m^2). GENERAL: pleasant, female in no apparent distress HEENT: Normocephalic and atraumatic NECK: full range of motion CHEST: Normal inspiratory effort NEURO: exam grossly non-focal EXTREMITIES: normal ASSESSMENT AND PLAN: Assessment & Plan History of irregular menstrual cycles Orders: PROLACTIN; Future DHEA-S BLD; Future TESTOSTERONE, TOTAL BY IMMUNOASSAY (ADULT MALES, OR INDIVIDUALS ON TESTOSTERONE THERAPY); Future HYDROXYPROGESTERONE-17; Future LIPID PANEL, FASTING; Future FOLLICLE STIMULATING HORMONE; Future HEMOGLOBIN A1C; Future ESTRADIOL-17B BLD; Future PELVIC US WHI; Future GLUCOSE, FASTING; Future ENDOMETRIAL BIOPSY norethindrone (AYGESTIN) 5 mg tablet; Take 1 tablet by mouth as directed. one by mouth tid x 3 days, bid x 3 days, then daily for up to 10 days DUB (dysfunctional uterine bleeding) Orders: PROLACTIN; Future DHEA-S BLD; Future TESTOSTERONE, TOTAL BY IMMUNOASSAY (ADULT MALES, OR INDIVIDUALS ON TESTOSTERONE THERAPY); Future HYDROXYPROGESTERONE-17; Future LIPID PANEL, FASTING; Future FOLLICLE STIMULATING HORMONE; Future HEMOGLOBIN A1C; Future ESTRADIOL-17B BLD; Future PELVIC US WHI; Future GLUCOSE, FASTING; Future ENDOMETRIAL BIOPSY norethindrone (AYGESTIN) 5 mg tablet; Take 1 tablet by mouth as directed. one by mouth tid x 3 days, bid x 3 days, then daily for up to 10 days Class 3 severe obesity with body mass index (BMI) of 50.0 to 59.9 in adult, unspecified obesity type, unspecified whether serious comorbidity present (HCC) Orders: PROLACTIN; Future DHEA-S BLD; Future TESTOSTERONE, TOTAL BY IMMUNOASSAY (ADULT MALES, OR INDIVIDUALS ON TESTOSTERONE THERAPY); Future HYDROXYPROGESTERONE-17; Future LIPID PANEL, FASTING; Future FOLLICLE STIMULATING HORMONE; Future HEMOGLOBIN A1C; Future ESTRADIOL-17B BLD; Future PELVIC US WHI; Future GLUCOSE, FASTING; Future ENDOMETRIAL BIOPSY Discussed possible etiologies for DUB. Check PCOS panel and pelvic US. Recently completed TSH through PCP. Discussed recommend EMB first and then medical management of DUB. Recommend Mirena IUD which patient is not interested in at this time. RTO for annual exam, pap test, EMB. Sera Harding DO Medical Decision Making: Problems: Moderate: 1+ chronic illnesses with change Data: Unique test(s) ordered: 3+ Risk: Low: Low risk from testing/treatment Medical Decision Making Level: 4 - Moderate documented in this encounter [facility] 01-21-2025 Radiology Diagnostic study note [facility] Imaging Services [address] [place] [address] Knee 4 or More Views MR#: [id number] Acct: [id number] Name: SERGIO PARRISH Rep #: [id number] : 1995 F 29 From: Jamila Mehta MD PCP: Dr. Teressa Aguiar MD Status: REG ER Study:Knee 4 or More Views Date of Exam: 01/21/25 Exam# [id number] Ordering Dr: Urmila Grant PROCEDURE: KNEE 4 OR MORE VIEWS 01/21/2025 REASON FOR EXAM: KNEE PAIN TECHNIQUE: 4 view(s) of the left knee COMPARISON: None. FINDINGS: Bones: No fracture. No suspicious bone lesion. Joints: Normal alignment. Mild degenerative changes. Effusion: No effusion. Soft tissues: Soft tissues are unremarkable. RAD/Knee 4 or More Views IMPRESSION: NO EFFUSION ACUTE FRACTURE OR DISLOCATION. Reading Location: [facility] CC: Dr. Teressa Aguiar MD; LIDIA Bahena ~ Sports Analyst: Signed [facility] 01-14-2025 Radiology Diagnostic study note [facility] Imaging Services [address] [place] [address] Abdomen/Pelvis W IV Cont ONLY MR#: [id number] Acct: [id number] Name: SERGIO PARRISH Rep #: [id number] : 1995 F 29 From: Scott Mckay MD PCP: Dr. Teressa Aguiar MD Status: [facility] ER Study:Abdomen/Pelvis W IV Cont ONLY Date of E xam: 01/14/25 Exam# [id number] Ordering Dr: Buster Crane DO PROCEDURE: ABDOMEN/PELVIS W IV CONT ONLY 01/14/2025 REASON FOR EXAM: ABDOMINAL PAIN TECHNIQUE: Abdomen and pelvis CT with intravenous contrast. Coronal and Sagittal reconstruction series were provided. PATIENT PREPARATION: Per protocol One or more dose reduction techniques were used (e.g., Automated exposure control, adjustment of the mA and/or kV according to patient size, use of iterative reconstruction technique. FINDINGS: Lung bases: Clear Liver: Normal size. No mass. Gallbladder: Unremarkable. Spleen: Normal size. Pancreas: Normal size without evidence of mass surrounding inflammation or ductal dilation. Adrenals: Unremarkable. Kidneys: Normal renal sizes. No hydronephrosis. Bladder: Unremarkable. Reproductive Organs: Unremarkable. Bowel: Unremarkable. Appendix: Unremarkable. Lymph nodes: Unremarkable. Vasculature: The abdominal aorta and IVC are normal. Peritoneum / Retroperitoneum: Unremarkable. Bones: Unremarkable. CT/Abdomen/Pelvis W IV Cont ONLY IMPRESSION: NORMAL CT ABDOMEN AND PELVIS WITH CONTRAST. Reading Location: [id number] CC: Dr. Curtis Crane DO; Dr. Teressa Aguiar MD ~ Sports Analyst: Signed [facility] 11-07-2024 Evaluation note Diagnosis Onset Date Resolution Left wrist pain acute November 07, 2024 9:26am Osteoarthritis of right knee acute November 07 9:26am Right knee pain acute November 07, 2024 9:26am [facility] Work Phone: [phone]) 204-769401-27-2025 NoteDischarge Instructions Discharge Summary [address] [address] [id number] 10/29/2024 Patient: SERGIO PARRISH Sex: Female : 1995 Age: 28y Thank you for visiting [facility]. You have been evaluated today by Johnathan Johnson D.O. for the following condition(s): Principal Diagnosis Acute traumatic pain in the left upper extremity (wrist). Upper extremity pain involving the left wrist. Single contusion to the left wrist. INSTRUCTIONS Apply ice. Elevate affected areas above chest level today, for days. Follow-up with: Santi Steven MD,[facility], Orthopedic, Phone: [phone], [facility] [address] [address]. Follow up in four days. Call for an appointment. (follow up with your family doctor. If you are still having pain follow up with Dr. Santi Steven. You have a wrist contusion. You could have a fracture which I am not seeing on the x-ray at this time. Use your splint and sling. Take Tylenol Motrin for pain. Rest ice elevate as much as possible. Return if any problems or concerns). You have been given the following additional information: Soft Tissue Bruise (Contusion) Upper Extremity Bruise Patient Signature 1 of 4 Discharge Instructions Facility Sales Force Developer Date/Time General Instructions with Exit[address] [address] [id number] 10/29/2024 Patient: SERGIO PARRISH Sex: Female : 1995 Age: 28y Thank you for visiting [facility]. You have been evaluated today by Johnathan Johnson D.O. for the following condition(s): Principal Diagnosis Acute traumatic pain in the left upper extremity (wrist). Upper extremity pain involving the left wrist. Single contusion to the left wrist. INSTRUCTIONS Apply ice. Elevate affected areas above chest level today, for days. Follow-up with: Santi Steven MD,[facility], [facility], Phone: [phone], [address] [address]. Follow up in four days. Call for an appointment. (follow up with your family doctor. If you are still having pain follow up with Dr. Santi Steven. You have a wrist contusion. You could have a fracture which I am not seeing on the x-ray at this time. Use your splint and sling. Take Tylenol Motrin for pain. Rest ice elevate as much as possible. Return if any problems or concerns). ADDITIONAL INFORMATION 2 of 4 Discharge Instructions Soft Tissue Bruise (Contusion) You have a bruise (contusion). There is swelling and some bleeding under the skin. This injury generally takes a few days to a few weeks to heal. During that time, the bruise will typically change in color from reddish, to purple-blue, to greenish-yellow, then to yellow-brown. Home care Elevate the injured area to reduce pain and swelling. As much as possible, sit or lie down with theinjured area raised about the level of your heart. This is especially important during the first 48 hours. Ice the injured area to help reduce pain and swelling. Wrap an ice pack in a thin towel. Apply to the bruised area for 20 minutes every 1 to 2 hours the first day. Continue this 3 to 4 times a day until the pain and swelling goes away. You can make an ice pack by placing ice cubes in a plastic bag. Unless another medicine was prescribed, you can take acetaminophen, ibuprofen, or naproxen to control pain. Talk with your doctor before using these medicines if you have chronic liver or kidney disease or ever had a stomach ulcer or digestive bleeding. Follow-up care Follow up with your healthcare provider, or as advised. Call if you are not better in 1 to 2 weeks. When to seek medical advice Call your healthcare provider right away if you have any of the following: Increased pain or swelling Bruise is on an arm or leg and arm or leg becomes cold, blue, numb or tingly Signs of infection: Warmth, drainage, or increased redness or pain around the contusion Inability to move the injured area or body part Bruise is near your eye and you have problems with your eyesight or eye Frequent bruising for unknown reasons 3 of 4 Discharge Instructions Upper Extremity Bruise You have a bruise (contusion) on your arm, wrist, hand, or fingers. Symptoms include pain, swelling, and skin discoloration. No bones are broken. This injury may take from a few days to a few weeks to heal. During that time, the bruise may change from reddish in color, to purple-blue, to green-yellow, to yellow-brown. Home care Unless another medicine was prescribed, you can take acetaminophen, ibuprofen, or naproxen to control pain. Talk with your healthcare provider before using these medicines if you have chronic liver or (more content not included)...[facility]05-15-2023 History and physical note Author Dr. 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 Teressa Aguiar MD Status:[facility] Location: [place] [address] History and Physical Date of Admission: 02/15/23 Chief complaint: Desires permanent sterilization History present illness: 27-year-old arrives for scheduled laparoscopic tubal ligation. No medical changes since last seen. All questions answered and consent signed. Obstetric history: with a history of 1 vaginal delivery Past medical history: None Medications: None Allergies: No known drug allergies Past surgical history: Tonsillectomy, ear tubes Family history: Denies history DVT or PE Social history: Denies smoking, alcohol use, drug use Review of systems: Besides above pertinent positives a full review of systems was performed and found to be negative Physical exam: Vitals: Blood pressure 142/90 pulse 120 respiratory rate 20 temperature 97.9 ?F SPO2 99% on room air General: Normal-appearing no acute distress HEENT: Normocephalic/atraumatic no cervical lymphadenopathy Cardiac/respiratory: No use of accessory muscles, nonlabored breathing Abdomen: Soft, nontender, obese Extremities: No peripheral edema normal peripheral pulses Psych: Normal affect normal demeanor nonpressured speech Labs: Urine test negative Assessment and plan: 27-year-old arrives for scheduled laparoscopic tubal ligation. Patient understands the risk of the procedure include but are not limited to visceral orvascular injury, prolonged hospitalization, blood loss and need for transfusion,reoperation. Patient state understanding wish to proceed. All questions were answered and consent was signed. Patient initially with elevated heart rate states very anxious. Cardiac exam with clear to auscultation negative for murmurs rubs or gallops. Repeat vitals with heart rate in the 90s and overall patient stable. Tachycardia secondary to anxiety okay to proceed forward with procedure. Educated patient on findings and discussed risks with surgery, patient and partner state understanding. 02/15/23 0833 <Electronically signed by Alexx Steven MD> Cosigner Signature (if applicable): CC: Dr. Teressa Aguiar MD; Dr. Alexx Steven MD~ Signed [facility] Work Phone: 1(631) 587-250505-15-2023 Procedure [facility] Discharge summary Author Dr. Steven [facility] February 15, 2023 9:25am Note Date/Time February 15, 2023 9:25a m [facility] Medical Records Department [address] [place] [address] Instructions for Home/Discharge Instructions 02/15/23 0924 MR#: [id number] Acct: [id number] Name: SERGIO CLINTON Rep #:[id number] : 1995 27 From: Alexx Steven MD PCP: Dr. Teressa Aguiar MD [place] [place]charge Instructions Diet Discharge Diet: No restrictions Activity Discharge Activity: Return to Normal Activity, May Drive, May Shower and - (No tub baths for 2 weeks) May resume sexual activity in: 4-6 weeks Lifting Restrictions: No lifting over 25 pounds for 2 to 3 weeks Dressing / Incision Call your doctor if your incision/area has: Continuous Slow Oozing and Foul Smelling Discharge Call your doctor if you observe: Fever of 101 or Higher, Shortness of breath andChest pain Follow Up Care Please Follow Up With: Alexx Steven MD When: 2 weeks postoperatively Test Results: Test results from this visit will be discussed in further detail at your follow- up appointment, if applicable. Discharge Plan Admission Attending Provider: Alexx Steven Primary Care Provider: Teressa Aguiar Discharge Orders/Prescriptions Prescriptions: No Action multivitamin Tablet 1 tab PO DAILY cholecalciferol (vitamin D3) [Vitamin D3] 25 mcg (1,000 unit) Tablet 25 mcg PO DAILY budesonide-formoterol [Symbicort] 160-4.5 mcg/actuation HFA aerosol inhaler 2 puff INHALATION Q4H PRN PRN (Reason: ASTHMA) Label Comments: INHALE 2 PUFFS BY MOUTH and into the lungs TWICE DAILY Referrals / Follow Up: Teressa Aguiar MD [Primary Care Provider] - Disposition Disposition (needs filled in before D/C Order can be placed): Home, Self Care 02/15/23 0925<Electronically signed by Alexx Steven MD>Alexx Steven MD CC: Dr. Teressa Aguiar MD ~ Signed [facility] Work Phone: Evaluation note* Diagnosis Onset Date Resolution Status Chronic serous otitis media chronic [facility] Work Phone: Evaluation note* Diagnosis Onset Date Resolution Status Dysfunctional uterine bleeding acute [facility] Work Phone: Evaluation note* Diagnosis Onset Date Resolution Status Dysfunctional uterine bleeding acute Vaginal bleeding acute [facility] Work Phone: Evaluation noteNo assessment information available [facility] Work Phone: Evaluation note* Diagnosis History of irregular menstrual cycles- Primary DUB (dysfunctional uterine bleeding) Other disorder of menstruation and other abnormal bleeding from female genital tract Class 3 severe obesity with body mass index (BMI) of 50.0 to 59.9 in adult, unspecified obesity type, unspecified whether serious comorbidity present (HCC) [facility]* Diagnosis History of irregular menstrual cycles DUB (dysfunctional uterine bleeding) Other disorder of menstruation and other abnormal bleeding from female genital tract Class 3 severe obesity with body mass index (BMI) of 50.0 to 59.9 in adult, unspecified obesity type, unspecified whether serious comorbidity present (HCC) [facility] Additional Instructions Use the Aircast as long as you need to help get around. Ibuprofen as needed for pain, ice to the affected area if needed for swelling when resting.[facility] Work Phone: Hospital Discharge instructions Additional Instructions Implant Used?: [facility] Work Phone: Hospital Discharge instructions Additional Instructions Please ice and elevate.[facility] Work Phone: Hospital Discharge instructions Additional Instructions Follow-up with orthopedics. Ice your knee, alternate Tylenol and ibuprofen as needed.[facility] Work Phone: Reason for visit Narrative* Diagnostic Procedure Only (Routine) - Closed Specialty Diagnoses / Procedures Referred By Braulio vidal Referred To Contact [facility] Diagnoses History of irregular menstrual cycles DUB (dysfunctional uterine bleeding) Class 3 severe obesity with body mass index (BMI) of 50.0 to 59.9 in adult, unspecified obesity type, unspecified whether serious comorbidity present (HCC) Procedures PELVIC US WHI US PELVIC NONOBSTETRIC REAL-TIME IMAGE COMPLETE Sera Harding MD [address] [place] [address] Phone: tel: fax: [facility] [address] [place] [address] Referral ID Status Reason Start Date Expiration Date V isits Requested Visits Authorized [id number] Closed Auto-Generate d Referral 04/13/2025 04/13/2026 1 1 [facility] Chief Complaint and Reason for Visit Chief Complaint chest pain BMT Reason for Visit Chronic serous otiti s media Chief Complaint chest pain BMT left hand Reason for Visit Chronic serous otiti s media Chief Complaint DYSFUNCTIONAL VAGINA L BLEEDING Reason for Visit Dysfunctional uterin e bleeding Chief Complaint HEAVY VAGINAL BLEEDI NG Reason for Visit Dysfunctional uterin e bleeding Vaginal bleeding Chief Complaint HEAVY VAGINAL BLEEDI NG ANKLE Reason for Visit Dysfunctional uterin e bleeding Vaginal bleeding Chief Complaint ANKLE LAP BILATERAL SALPING Chief Complaint LAP BILATERAL SALPIN G HAND INJURY Chief Complaint Admit Date abd pain October 21, 2024 3 :49am LEFT WRIST/RT KNEE November 07, 2024 9 :26am Room 1 November 07, 2024 9 :42am abd pain January 14, 2025 7:0 5pm Reason for Visit Admit Date Left wrist pain November 07, 2024 9 :26am Osteoarthritis of right knee November 9:26am Right knee pain November 07, 2024 9 :26am Chief Complaint Admit Date abd pain October 21, 2024 3 :49am LEFT WRIST/RT KNEE November 07, 2024 9 :26am Room 1 November 07, 2024 9 :42am abd pain January 14, 2025 7:0 5pm LEFT KNEE January 21, 2025 11: 20am Advance Directives No Advanced Directives Records Found Advance Directive Response Recorded Date/ Time Advance Directives No July 28, 2017 1:47pm Living Will No January 06, 2022 12:57pm Power of Net Developer Software Engineer C No January 06 12:57pm Advance Directive Response Recorded Date/ Time Advance Directives No July 28, 2017 1:47pm Living Will No February 12, 2022 1 1:44am Power of Net Developer Software Engineer C No February 12, 2022 11:44am Advance Directive Response Recorded Date/ Time Advance Directives No July 28, 2017 1:47pm Living Will No August 08 6:29pm Power of Net Developer Software Engineer C No August 08, 2022 6:29pm Advance Directive Response Recorded Date/ Time Advance Directives No July 28, 2017 12:47pm Living Will No August 08 9:53pm Power of Net Developer Software Engineer C No August 08, 2022 9:53pm Advance Directive Response Recorded Date/ Time Advance Directives No July 28, 2017 12:47pm Living Will No December 02, 2022 9:36am Power of Net Developer Software Engineer C No December 02 9:36am Advance Directive Response Recorded Date/ Time Advance Directives No July 28, 2017 1:47pm Living Will No February 08, 2023 1: 12pm Power of Net Developer Software Engineer C No February 08, 2023 1:12pm Advance Directive Response Recorded Date/ Time Advance Directives No July 28, 2017 1:47pm Living Will No June 12, 2 023 11:24am Power of Net Developer Software Engineer C No June 12, 2023 11:24am Advance Directive Response Recorded Date/ Time Advance Directives No November 06, 2024 10:35am Living Will No January 14, 2025 7:16pm Do you have a Healthcare Power of Net Developer Software Engineer C? No January 14, 2025 7:16pm Living Will No October 21 4:58am Do you have a Healthcare Power of Net Developer Software Engineer C? No October 21, 2024 4:58am Advance Directive Response Recorded Date/ Time Advance Directives No November 06, 2024 10:35am Living Will No January 14, 2025 7:16pm Do you have a Healthcare Power of Net Developer Software Engineer C? No January 14, 2025 7:16pm Living Will No October 21 4:58am Do you have a Healthcare Power of Net Developer Software Engineer C? No October 21, 2024 4:58am Living Will No January 21, 2025 12:04pm Do you have a Healthcare Power of Net Developer Software Engineer C? No January 21, 2025 12:04pm Summary Purpose Family History No Family History Records FoundNo Family History Records FoundNo Family History Records Found Additional Source Comments Goals (unrecognized section and content) Goals may be documented in a n alternate sectionGoals may be documented in an alternate sectionGoals may be documented in an alternate sectionGoals may be documented in an alternate sectionGoals may be documented in an alternate sectionGoals may be documented in an alternate section Care Teams (unrecognized sec tion and content) Team Status: Active Member Role Status Dates Dr. Vickey Meraz MD Family Provider Active Dr. Teressa Aguiar MD Primary Care Provider Active Team Status: Inactive Member Role Status Dates Dr. Teressa Aguiar MD Primary Care Provider Active Dr. Candis Palacios DO Emergency Provider Active Dr. Charlotte Steven DO Admit Provider, Attending Pr ovider Active Team Status: Inactive Member Role Status Dates Dr. Teressa Aguiar MD Primary Care Provider Active [facility] Batres Attending Provider Active Team Status: Inactive Member Role Status Dates Dr. Teressa Aguiar MD Primary Care Provider Active Dr. Thom Victor MD Emergency Provider Active Team Status: Inactive Member Role Status Dates Dr. Teressa Aguiar MD Primary Care Provider Active Dr. Thom Victor MD Attending Provider, Emergency Provider Active Team Status: Inactive Member Role Status Dates Dr. Teressa Aguiar MD Primary Care Provider Active Dr. Alexx Steven MD Attending Provider Active Team Status: Inactive Member Role Status Dates Dr. Teressa Aguiar MD Primary Care Provider Active Dr. Trina Mccann MD Emergency Provider Active Team Status: Active Member Role Status Dates Dr. Teressa Aguiar MD Primary Care Provider Active Team Status: Inactive Member Role Status Dates Dr. Teressa Aguiar MD Primary Care Provider Active Start: October 21, 2024 End: October 21, 2024 Dr. Garrison Millan DO Attending Provider Active Start: October 21, 2024 End: October 21, 2024 Dr. Garrison Millan DO Emergency Provider Active Start: October 21, 2024 End: October 21, 2024 Team Status: Inactive Member Role Status Dates Dr. Teressa Aguiar MD Primary Care Provider Active Start: October 31, 2024 End: October 31, 2024 Dr. Teressa Aguiar MD Attending Provider Active St art: October 31, 2024 End: October 31, 2024 Dr. Teressa Aguiar MD Referring Provider Active St art: October 31, 2024 End: October 31, 2024 Team Status: Inactive Member Role Status Dates Dr. Teressa Aguiar MD Primary Care Provider Active Start: November 07, 2024 End: November 07, 2024 Dr. Teressa Aguiar MD Referring Provider Active St art: November 07, 2024 End: November 07, 2024 Marco Freitas MD Attending Provider Active St art: November 07, 2024 End: November 07, 2024 Team Status: Inactive Member Role Status Dates Dr. Teressa Aguiar MD Primary Care Provider Active Start: November 07, 2024 End: November 07, 2024 Dr. Evens Magana MD Attending Provider Active S tart: November 07, 2024 End: November 07, 2024 Team Status: Active Member Role Status Dates Dr. Teressa Aguiar MD Primary Care Provider Active Start: January 09, 2025 Dr. Teressa Aguiar MD Attending Provider Active St art: January 09, 2025 Dr. Teressa Aguiar MD Referring Provider Active St art: January 09, 2025 Team Status: Inactive Member Role Status Dates Dr. Teressa Aguiar MD Primary Care Provider Active Start: January 14, 2025 End: January 14, 2025 Dr. Curtis Crane DO Emergency Provider Active Start: January 14, 2025 End: January 14, 2025 Team Status: Inactive Member Role Status Dates Dr. Teressa Aguiar MD Primary Care Provider Active Start: January 09, 2025 End: January 09, 2025 Dr. Teressa Aguiar MD Attending Provider Active St art: January 09, 2025 End: January 09, 2025 Dr. Teressa Aguiar MD Referring Provider Active St art: January 09, 2025 End: January 09, 2025 Team Status: Inactive Member Role Status Dates Dr. Teressa Aguiar MD Primary Care Provider Active Start: January 14, 2025 End: January 14, 2025 Dr. Curtis Crane DO Attending Provider Active Start: January 14, 2025 End: January 14, 2025 Dr. Curtis Crane DO Emergency Provider Active Start: January 14, 2025 End: January 14, 2025 Team Status: Inactive Member Role Status Dates Dr. Teressa Aguiar MD Primary Care Provider Active Start: January 21, 2025 End: January 21, 2025 Dr. Gurmeet Peter MD Emergency Provider Active Sta rt: January 21, 2025 End: January 21, 2025 INFORMATION SOURCE (unrecogn ized section and content) DATE CREATED AUTHOR 10/30/2024 [facility] DATE CREATED AUTHOR AUTHOR'S ORGANIZ ATION 01/26/2025 [facility] DATE CREATED AUTHOR AUTHOR'S ORGANIZ ATION 04/26/2025 [facility] Source Comments (unrecognize d section and content) In the event this informatio n is protected by the Federal Confidentiality of Alcohol and Drug Abuse Patient Records regulations: The Federal rules restrict any use of the information to criminally investigate or prosecute any alcohol or drug abuse patient.[facility] [facility] the event this information is protected by the Federal Confidentiality of Alcohol and Drug Abuse Patient Records regulations: The Federal rules restrict any use of the information to criminally investigate or prosecute any alcohol or drug abuse patient.[place] [facility] the event this information is protected by the Federal Confidentiality of Alcohol and Drug Abuse Patient Records regulations: The Federal rules restrict any use of the information to criminally investigate or prosecute any alcohol or drug abuse patient.[facility] Reason for Visit (unrecogniz ed section and content) Reason Comments New Patient Hysterectomy consult FOR RECORDS PERTAINING TO PATIENTS WHO ARE OR HAVE BEEN ENROLLED IN A CHEMICAL DEPENDENCY/SUBSTANCEABUSE PROGRAM, SOME INFORMATION MAY BE OMITTED. This clinical summary was aggregated from multiple sources. Caution should be exercised in using it in the provision of clinical care. This summary normalizes information from multiple sources, and as a consequence, information in this document may materially change the coding, format and clinical context of patient data. In addition, data may be omitted in some cases. CLINICAL DECISIONS SHOULD BE BASED ON THE PRIMARY CLINICAL RECORDS. [facility] [employer] [facility]. provides no warranty or guarantee of the accuracy or completeness of information in this document.
[2025-05-04 05:39] LABS: Lipase 21 U/L (13-75); Magnesium 2.1 mg/dL (1.5-2.2)
[2025-05-04 06:42] VITALS: BP 144/94; PULSE 82; RESP 16; O2SAT 100
[2025-05-04 07:00] VITALS: BP 144/92; PULSE 88; RESP 16; TEMP 36.6; O2SAT 97
== END 2025-05-04 07:39 | disposition home or self-care (01) ==
PROVIDERS: Emergency Provider Emergency Medicine; PCP Family Medicine; Visit Provider Emergency Medicine
DX: R11.2 Nausea with vomiting, unspecified (principal); J45.909 Unspecified asthma, uncomplicated; Z87.891 Personal history of nicotine dependence; E86.0 Dehydration; R19.7 Diarrhea, unspecified; I10 Essential (primary) hypertension; E66.9 Obesity, unspecified; Z98.51 Tubal ligation status
CPT/HCPCS: 83690; 83735; 84703; 85025; 96361; 96374; 99282; A4216; J2405